=== PATIENT | female | born 2000 | race Caucasian/White ===

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

== ENCOUNTER 2020-04-09 10:47 | Outpatient (CLI) | payer MEDICAID, SELFPAY ==
[2020-04-10 15:16] LABS: COVID-19 RT-PCR UVMMC Result Positive (Negative)
== END 2020-04-09 11:07 ==
PROVIDERS: PCP Pediatrics; Visit Provider Pediatrics
DX: Z11.52 Encounter for screening for COVID-19 (principal)
CPT/HCPCS: U0003

== ENCOUNTER 2020-05-15 11:06 | Emergency (ER) | payer MEDICAID, SELFPAY ==
[2020-05-15 11:10] VITALS: BP 108/47; PULSE 133; RESP 16; TEMP 36.8; O2SAT 97
--- NOTE | 2020-05-15 11:37 | ED.GENADUL_ITS ---
Discharge Plan Disposition Patient Disposition: HOME Condition: Stable Discharge Details Clinical Impression: Strep tonsillitis Primary Care Provider: Kody Gipson ED Provider: Horacio Ramesh Home Meds and New Rx's Prescriptions: New clindamycin HCl 300 mg capsule 300 mg PO Q8H 10 Days Qty: 30 RF: 0 No Action acetaminophen 650 mg tablet extended release 650 mg PO QID RF: 0 albuterol sulfate [ProAir HFA] 8.5 GM HFA aerosol inhaler 2 puff Inhalation Q4H PRN Qty: 1 RF: 2 hydroxychloroquine [Plaquenil] 200 MG tablet 200 mg PO BID RF: 0 folic acid 1 MG tablet 1 mg PO DAILY RF: 0 cholecalciferol (vitamin D3) [Vitamin D3] 1,000 unit capsule 2,000 unit PO DAILY RF: 0 loratadine 10 mg tablet 10 mg PO DAILY PRN (Reason: allergy symptoms) Qty: 60 RF: 6 Mirena 20 mcg/24 hours (5 yrs) 52 mg Intrauterine Device 1 device INTRAUTERINE QMONTH RF: 0 Discharge Instructions Instructions: Tonsillitis (ED) Additional Instructions: Clindamycin as directed. Plenty of fluids to avoid dehydration. Salt water gargles as tolerated. [id number] medications such as Tylenol, Motrin, Chloraseptic spray, etc. as directed for symptomatic control. Please watch for new or worsening symptoms and return to the ER for any concerns. I do recommend reaching out your primary care provider on Sunday to discuss reevaluation. Medical Decision Making 19-year-old female presents for a sore throat that began yesterday, worsened overnight, fever of 102 today. Took Tylenol 500 mg prior to arrival. No other concerns or complaints at this time. Clinically she appears well, nontoxic. Of note her pulse after walking into exam room a was 133 however during my evaluation, patient was sitting, resting comfortably, heart rate of 102. Examinations consistent with tonsillitis, no obvious peritonsillar abscess, midline shift, or trismus. Rapid strep has already been obtained prior to my evaluation per protocol. Rapid strep positive. Patient will be given p.o. Decadron, clindamycin, and Motrin. Airway is patent. Patient able to take p.o. medications no difficulty. Patient has no additional questions or concerns and is comfortable discharge. Upon discharge she appears nontoxic. We discussed the importance of adequate hydration, treating her symptoms with [id number]-[id number] medications, and I will provide a prescription for clindamycin. Patient agreeable to this plan Medical Records Medical records reviewed: Yes I reviewed the patient's medical records. Lab Data Lab results reviewed: Yes I reviewed the patient's lab results. Lab results narrative: Rapid strep positive HPI General Mode of arrival: ambulatory . Date/Time Provider Initiated Documentation: 05/15/20 11:07 . Limitations to Documentation: no limitations . Information obtained by: patient . HPI Narrative: This is a 19-year-old female, past medical history of lupus, depression, presenting to the ER today reporting sore throat that began yesterday. She does state that she had tested positive for Covid on 04-09-20. Symptoms at that time of body aches and a dull headache. Symptoms lasted for approximately 7 days and she has been asymptomatic up until yesterday. Sore throat is bilateral, mild yesterday, more severe today. She noted a fever at home of 102, did take Tylenol 500 mg approximately 1 hour prior to arrival. She denies recent travel or sick contacts. Denies headache, ear pain, chest pain, shortness of breath abdominal pain, nausea, vomiting, body aches, change in bowel or bladder function. Patient reports that she is able to speak without difficulty. She is able to tolerate p.o. intake but swallowing d oes make her pain worse. Related Data Home Medications Medication Instructions Recorded Confirmed albuterol sulfate [ProAir HFA] 2 puff INHALATION Q4H PRN #1 02/20/17 05/15/20 inhaler hydroxychloroquine [Plaquenil] 200 mg PO BID tab-cap NS 05/21/17 05/15/20 folic acid 1 mg PO DAILY tab-cap 10/23/17 05/15/20 acetaminophen 650 mg 650 mg PO QID 04/18/18 05/15/20 tablet,extended release cholecalciferol (vitamin D3) 25 2,000 unit PO DAILY cap 04/18/18 05/15/20 mcg (1,000 unit) capsule levonorgestrel [Mirena] 1 device INTRAUTERINE QMONTH 01/04/19 05/15/20 loratadine 10 mg tablet 10 mg PO DAILY PRN #60 tab-cap 04/20/20 03/06/21 clindamycin HCl 300 mg PO Q8H 10 Days #30 cap 05/15/20 Previous Rx's Medication Instructions Recorded albuterol sulfate [ProAir HFA] 2 puff INHALATION Q4H PRN #1 02/20/17 inhaler loratadine 10 mg tablet 10 mg PO DAILY PRN #60 tab-cap 06/30/19 clindamycin HCl 300 mg PO Q8H 10 Days #30 cap 05/15/20 Allergies Allergy/AdvReac Type Severity Reaction Status Date / Time vancomycin Allergy Skin Rash Verified 05/08/19 09:40 meloxicam AdvReac Other (See Verified 05/08/19 09:40 Comment) naproxen AdvReac Other (See Verified 05/08/19 09:40 Comment) Seasonal Allergies Allergy Uncoded 05/08/19 09:40 General Stated Complaint: Sorethroat CORBY: 3 Review of Systems Constitutional Constitutional: Reports fever(s) and Denies headache(s) Eyes Eyes: Denies eye discharge ENT Ears, Nose, Mouth, and Throat: Denies otalgia, Denies headache(s), Denies nasal discharge, Denies neck pain and Reports sore throat Cardiovascular Cardiovascular: Denies chest pain and Denies dyspnea Respiratory Respiratory: Denies cough and Denies dyspnea Gastrointestinal Gastrointestinal: Denies abdominal pain, Denies nausea and Denies vomiting Genitourinary Genitourinary: Denies dysuria Musculoskeletal Musculoskeletal: Denies myalgias and Denies neck pain Integumentary/Breasts Skin/Breast: Denies rash Neurologic Neurologic: Denies headache(s) [facility] Medical History Acne Arthritis Polyarthritis Cyst resection Depression Lupus Pneumonia (07/31/03) Family History Grandfather Heart disease Mental disorder alcoholism Sister Mental disorder depression/anxiety Grandmother Mental disorder depression,anxiety Other Mental disorder pat uncle-alcoholism Seizure mat aunt and 3 cousins Father Mental disorder drinker-has [id number]- 1 year sober Grandfather Mental disorder alcoholism Social History Smoking/Tobacco Use Status: Never Smoking risk assessment performed?: Yes Alcohol Intake: never Drug use: Never Substance use type: does not use Do you feel safe at home: Yes Do you feel safe in your relationship?: Yes Female Reproductive History Menstrual control method: implanted Exam Const General: cooperative, healthy appearing, comfortable and no acute distress Orientation: alert and awake [facility] Head: normal to inspection, normocephalic and atraumatic Ears: external ears normal, TM's normal bilaterally and EAC's normal General nose exam: external nose normal and no nasal discharge Face and sinus: normal facial exam Mouth: oral mucosae normal and moist mucous membranes Teeth and gingiva: dentition normal Throat: uvula midline, abnormal tonsil bilaterally erythema, exudates and hypertrophy 2+ (Equal on both sides), no peritonsillar masses, posterior oropharynx abnormal erythema, no postnasal drainage, uvula not displaced and no uvular edema Eyes General: appearance normal, both eyes and all related structures Conjunctivae: conjunctivae normal Sclera: sclerae normal Neck Neck: normal visual inspection, full ROM, no meningeal signs, trachea midline, supple, lymphadenopathy bilateral anterior cervical and tender (Lymphadenopathy) Resp Effort & Inspection: normal respiratory effort and able to speak in complete sentences Auscultation: clear to auscultation bilaterally Cardio Rate: tachycardic (102) Rhythm: regular rhythm Skin General skin exam: no rashes or lesions noted Neuro General: patient alert, patient awake, moves all extremities and no focal motor deficits Cognition: normal cognition Speech: speech normal Gait: normal gait Sensory Exam: no sensory deficits noted Psych Appearance: grossly normal Mental Status: mental status grossly normal Course Vital Signs Vital signs: Vital Signs Temperature 36.8 C 05/15/20 11:10 Pulse 133 H 05/15/20 11:10 Respiratory Rate 16 05/15/20 11:10 Blood Pressure 108/47 L 05/15/20 11:10 Pulse Oximetry 97 05/15/20 11:10 Temperature 36.8 C 05/15/20 11:10 Temperature Source Skin 05/15/20 11:10 Pulse 133 H 05/15/20 11:10 Respiratory Rate 16 05/15/20 11:10 Respiratory Effort 05/15/20 11:19 Blood Pressure 108/47 L 05/15/20 11:10 Blood Pressure Position Sitting 05/15/20 11:10 Pulse Oximetry 97 05/15/20 11:10 Oxygen Delivery Method Room Air 05/15/20 11:10 Oxygen Flow Rate 0 05/15/20 11:10 Pain Level 7 05/15/20 11:10 Lab/Test Results Lab/Test Results: POC Strep Test-KELSEY(Rapid) Start: 05/15/20 11:23 Freq: .Rapid Strep Test Status: Active Protocol: Document 05/15/20 11:23 KS (Rec: 05/15/20 11:23 KS [id number]) Strep test-KELSEY(Rapid)-POC POC-Strep test-KELSEY (Rapid) Positive POC-Strep test-KELSEY (Rapid) Positive
[2020-05-15] MEDS: Dexamethasone 4 MG TAB 10 MG PO (11:49)
[2020-05-15] MEDS: Clindamycin 300 MG CAP PO (11:49)
[2020-05-15] MEDS: Ibuprofen 800 MG TAB PO (11:49)
[2020-05-15 11:50] VITALS: PULSE 98; RESP 15; O2SAT 98
== END 2020-05-15 11:16 | disposition home or self-care (01) ==
PROVIDERS: Emergency Provider Physician Assistant; PCP Pediatrics
DX: J03.00 Acute streptococcal tonsillitis, unspecified (principal)
CPT/HCPCS: 87880; 99283; J8540

== ENCOUNTER 2021-03-31 17:56 | Outpatient (REF) | payer MEDICAID, SELFPAY ==
[2021-04-02 15:40] LABS: COVID-19 RT-PCR UVMMC Result Negative (Negative)
== END 2021-03-31 17:57 | disposition home or self-care (01) ==
LOC: LBN 17:56
PROVIDERS: Visit Provider Pediatrics
DX: Z20.822 Contact with and (suspected) exposure to COVID-19 (principal)
CPT/HCPCS: U0003

== ENCOUNTER 2021-04-18 17:41 | Emergency (ER) | payer MEDICAID, SELFPAY ==
--- NOTE | 2021-04-18 17:45 | RT.EKG_ITS ---
APPROVED REPORT Exam: Resting ECG Reason for Exam: pu Patient Location: E HR:79 bpm ECG Measurements Heart Rate 79 AXIS SD 122 P 40 QRSd 88 QRS 53 QT 362 T 34 QTc 416 Conclusion Sinus rhythm...normal P axis, V-rate 60- 99
[2021-04-18 17:46] VITALS: BP 137/72; PULSE 80; RESP 18; TEMP 36.8; O2SAT 97
--- NOTE | 2021-04-18 18:15 | DI.RAD_ITS ---
Exam(s) XR PORTABLE CHEST AP EXAM: XR PORTABLE CHEST AP CLINICAL HISTORY: cough TECHNIQUE: 2D digital imaging was performed of the chest. One image was obtained. An AP view was ob tained. COMPARISON: CR RIGHT RIBS TO INCLUDE CXR from 09/21/2010 FINDINGS: MEDIASTINUM: Normal. HEART: Normal. PULMONARY VASCULATURE: Normal. LUNGS: Clear. PLEURAL SPACE: No pleural effusion or pneumothorax. BONE:Within normal limits for the patient's age. OTHER FINDINGS:Normal. IMPRESSION: No acute pulmonary findings. DATA REPOSITORY: RADIATION DOSE DELIVERED:
[2021-04-18 18:18] VITALS: PULSE 87; RESP 14
[2021-04-18 18:20] VITALS: PULSE 88; RESP 28; O2SAT 100
[2021-04-18 18:35] LABS: Abs Immature Grans 0.05 10^3/uL (0.0-0.06); Absolute Basophil Count 0.06 10^3/uL (0.0-0.2); Absolute Eosinophil Count 0.65 10^3/uL (0.0-0.7); Absolute Lymphocyte Count 2.73 10^3/uL (1.2-3.4); Absolute Neutrophil Count 9.18 10^3/uL (1.2-6.7); Basophils % 0.4; Eosinophils % 4.7; HGB 12.8 g/dL (11.2-15.7); Immature Grans % 0.4; Lymphocytes % 19.7; MCH 31.1 pg (27.0-33.0); MCHC 33.7 % (32.0-36.0); MCV 92.5 fL (80-95); MPV 9.5 fL (8.0-11.0); Monocytes % 8.5; Neutrophils % 66.3; Nucleated RBC 0 %; Platelet Count 393 10^3/uL (130-400); RBC 4.11 10^6/uL (3.93-5.22); RDW 13.1 % (11.7-14.6); RDW-SD 44.5 fL; WBC 13.84 10^3/uL (4.4-10.8)
[2021-04-18 18:37] LABS: Absolute Monocyte Count 1.18 10^3/uL (0.1-0.8)
[2021-04-18 18:47] LABS: ALT 37 U/L (14-59); AST 16 U/L (15-37); Albumin 3.9 g/dL (3.4-5.0); Alkaline Phosphatase 69 U/L (46-116); Anion Gap 13.5 mmol/L (3-11); BUN 19 mg/dL (7-18); Bilirubin, Total 0.3 mg/dL (0.2-1.0); CO2 23.5 mmol/L (21.0-32.0); CREATININE 0.8 mg/dL (0.55-1.02); Calcium 8.7 mg/dL (8.5-10.1); Chloride 102 mmol/L (98-107); Glucose 83 mg/dL (74-106); Potassium 3.7 mmol/L (3.5-5.1); Sodium 139 mmol/L (136-145); Total Protein 8.1 g/dL (6.4-8.2)
[2021-04-18] MEDS: Normal Saline 1,000 ML 1000 ML IV (18:51)
[2021-04-18 19:15] LABS: D-Dimer 478 ng/mlFEU (<500)
--- NOTE | 2021-04-18 19:25 | DI.VRAD_ITS ---
PROCEDURE INFORMATION: Exam: XR Chest Exam date and time: 04/18/2021 6:18 PM Age: 20 years old Clinical indication: Cough TECHNIQUE: Imaging protocol: XR of the chest. Views: 1 view. COMPARISON: No relevant prior studies available. FINDINGS: Lungs: Unremarkable. No consolidation. Pleural spaces: Unremarkable. No pleural effusion. No pneumothorax. Heart/Mediastinum: Unremarkable. No cardiomegaly. Bones/joints: Unremarkable. IMPRESSION: No acute findings. Dictated and Authenticated by: Alice Poole MD. Ordering:ANJEL Smith MD
--- NOTE | 2021-04-18 19:59 | W.ED.GENAD ---
Discharge Plan Disposition Patient Disposition: HOME Condition: Stable Discharge Details Clinical Impression: Pneumonia Primary Care Provider: Vanessa Mcginnis ED Provider: Luis Maza Home Meds and New Rx's Prescriptions: New doxycycline hyclate 100 mg capsule 100 mg PO BID Qty: 10 RF: 0 benzonatate 200 mg capsule 200 mg PO TID PRN (Reason: cough) Qty: 30 RF: 0 Continued sertraline [Zoloft] 100 mg tablet 100 mg PO DAILY Qty: 30 RF: 1 hydroxyzine HCl 50 mg tablet 50 mg PO QHS Qty: 30 RF: 1 multivitamin Tablet 1 tab PO DAILY RF: 0 cholecalciferol (vitamin D3) [Vitamin D3] 1,000 unit capsule 2,000 unit PO DAILY RF: 0 Mirena 20 mcg/24 hours (5 yrs) 52 mg Intrauterine Device 1 device INTRAUTERINE QMONTH RF: 0 Discharge Instructions Instructions: Pneumonia (ED) Additional Instructions: You are currently pending a send out Covid test. Due to this it is recommended that you quarantine until test results are available which is typically in 24 to 48 hours. Please stay well-hydrated and get plenty of rest. Take antibiotics as prescribed and if not improving in the next week follow-up with your primary care provider or return to emergency department. Referrals: Vanessa Mcginnis MD [Primary Care Provider] - 1 week (If not improving) Discharge Data Discharge Date/Time-TO BE ENTERED AT DEPARTURE: 04/18/21 20:18 Medical Decision Making Patient presenting to the emergency department for chief complaint of cold-like symptoms. Patient reports that these have been going on for a week and has been progressive. She reports worsening over the past days with increased cough, shortness of breath with activity, and pleuritic pain when coughing. Patient does state that she has taken to home Covid test which were negative and is fully vaccinated with a booster shot approximately 1 month ago. Physical exam shows mildly ill-appearing female with clear lung sounds, mild tonsillary erythema, dry cough that is exacerbated by deep breathing and otherwise unremarkable exam. Given patient's history of lupus plan to check labs including chest x-ray strep and Covid testing. Will give patient IV fluids pending results. Reviewed patient's results which at this time are nondiagnostic but does show slight elevation in WBCs neutrophils and monocytes. Patient's D-dimer is negative and labs shows slightly increased anion gap. Chest x-ray reviewed and shows no acute findings per radiologist which is consistent with clear lung sounds but at this time given patient reporting worsening cough and shortness of breath I am concerned for possible pneumonia versus Covid. Patient is stable for discharge so COVID test was send out testing and patient instructed on quarantine measures pending results. Patient placed on doxycycline and Tessalon Perles. After discussion of diagnosis and plan of care patient has no further needs, questions, or concerns and states clear understanding to return to the emergency department for any worsening symptoms. Patient to follow-up if not improving HPI General Mode of arrival: ambulatory. Date/Time Provider Initiated Documentation: 04/18/21 17:43. Limitations to Documentation: no limitations. Information obtained by: patient. History of Present Illness 20 year old F presents to the emergency department with the chief complaint of Cold symptoms, described as moderate, with intensity rated at 5. Quality is described as aching, and is localized to the chest. Patient reports no radiation. Patient started experiencing this week(s) (1) and it has been constant. No relieving factors improve symptom(s), No exacerbating factors reported . Patient did receive the following treatments prior to arrival, none Related Data Home Medications Medication Instructions Recorded Confirmed cholecalciferol (vitamin D3) 25 2,000 unit PO DAILY cap 04/18/18 04/18/21 mcg (1,000 unit) capsule Mirena 1 device INTRAUTERINE QMONTH 01/04/19 04/18/21 hydroxyzine HCl 50 mg tablet 50 mg PO QHS #30 tab 03/15/21 04/18/21 sertraline 100 mg tablet 100 mg PO DAILY #30 tab 03/15/21 04/18/21 multivitamin 1 tab PO DAILY 03/31/21 04/18/21 benzonatate 200 mg PO TID PRN #30 cap 04/18/21 doxycycline hyclate 100 mg PO BID #10 cap 04/18/21 Previous Rx's Medication Instructions Recorded hydroxyzine HCl 50 mg tablet 50 mg PO QHS #30 tab 03/15/21 sertraline 100 mg tablet 100 mg PO DAILY #30 tab 03/15/21 benzonatate 200 mg PO TID PRN #30 cap 04/18/21 doxycycline hyclate 100 mg PO BID #10 cap 04/18/21 Allergies Allergy/AdvReac Type Severity Reaction Status Date / Time vancomycin Allergy Skin Rash Verified 04/18/21 17:50 meloxicam AdvReac Other (See Verified 04/18/21 17:50 Comment) naproxen AdvReac Other (See Verified 04/18/21 17:50 Comment) Seasonal Allergies Allergy Uncoded 04/18/21 17:50 General Stated Complaint: GenMedical CORBY: 3 Review of Systems Constitutional Constitutional: Reports chills, Denies headache(s) and Reports malaise ENT Ears, Nose, Mouth, and Throat: Reports as per HPI, Denies ear discharge, Denies otalgia, Denies headache(s), Reports nasal congestion, Reports nasal discharge, Denies neck pain, Reports sore throat and Denies throat swelling Cardiovascular Cardiovascular: Denies chest pain and Reports dyspnea on exertion Respiratory Respiratory: Reports cough, Reports pain on inspiration, Reports pain with cough and Reports dyspnea on exertion Gastrointestinal Gastrointestinal: Denies diarrhea, Denies nausea and Denies vomiting Musculoskeletal Musculoskeletal: Denies joint swelling and Denies neck pain Integumentary/Breasts Skin/Breast: Denies rash Neurologic Neurologic: Denies headache(s) Allergic/Immunologic Allergic/Immunologic: Denies throat swelling PFSH All Active Problems Pneumonia (Acute) Arthritis (Chronic 10/23/17) Last seen at [facility] 10/2017. + FRANSISCA with negative JOHNY DNA binding completments. RF and CCP negative. Polyarthritis of wrists and knees. On methotrexate. Anxiety (Chronic) Trial Hydroxyzine 25 mg for sleep- inc to 50 mg; trial Zoloft 25 mg; referred to counseling services Polyarthritis (Chronic 03/22/17) symmetrical small joint- seen by [facility] rheumatology / rheumatoid arthritis- has f/u Medical History Hydradenitis (05/21/17) Multiple recurrent groin/axillary abscesses Insertion of implantable subdermal contraceptive (06/02/16) Vision problems Followed by [facility] Family History Grandfather Heart disease Mental disorder alcoholism Sister Mental disorder depression/anxiety Grandmother Mental disorder depression,anxiety Other Mental disorder pat uncle-alcoholism Seizure mat aunt and 3 cousins Father Mental disorder drinker-has [id number]- 1 year sober Grandfather Mental disorder alcoholism Social History Smoking/Tobacco Use Status: Never Smoking risk assessment performed?: Yes Alcohol Intake: never Drug use: Never Substance use type: does not use Adopted: No Foster care: No Household members: other Details: Lives with dad and step-mom; bio mom not in life since age 7y current occupation: Working at [employer] Sexually active: No Current gender identity: female What type of physical activity do you participate in: none Seatbelt use: always 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 Do you feel safe at home: Yes Do you feel safe in your relationship?: Yes Female Reproductive History Menstrual control method: implanted Exam Const General: cooperative, comfortable and no acute distress Orientation: alert and awake HENMT Head: normal to inspection, normocephalic and atraumatic Ears: hearing grossly normal bilaterally and TM's normal bilaterally General nose exam: external nose normal Face and sinus: no erythema and sinus tenderness ethmoid and maxillary Mouth: oral mucosae normal, no drooling, no muffled voice and no trismus Throat: abnormal tonsil bilaterally erythema and hypertrophy Neck Neck: normal visual inspection, full ROM, no lymphadenopathy, no meningeal signs, trachea midline and supple Resp Effort & Inspection: normal respiratory effort, able to speak in complete sentences and cough Quality of cough: dry Auscultation: clear to auscultation bilaterally Cardio Rate: regular rate Rhythm: regular rhythm Heart Sounds: S1 normal, S2 normal, normal S1 and S2, no click, no gallops, no murmurs and no rubs Skin General skin exam: no rashes or lesions noted and dry skin (warm) Neuro General: patient alert, patient awake, patient oriented x3, gait normal and moves all extremities Cognition: normal cognition Speech: speech normal Course Vital Signs Vital signs: Vital Signs Temperature 36.8 C 04/18/21 17:46 Pulse 80 04/18/21 17:46 Respiratory Rate 18 04/18/21 17:46 Blood Pressure 137/72 04/18/21 17:46 Pulse Oximetry 97 04/18/21 17:46 Temperature 36.8 C 04/18/21 17:46 Temperature Source Temporal Artery Scan 04/18/21 17:46 Pulse 80 04/18/21 17:46 Pulse 88 04/18/21 18:20 Respiratory Rate 28 H 04/18/21 18:20 Respiratory Effort 04/18/21 18:14 Blood Pressure 137/72 04/18/21 17:46 Blood Pressure Position Sitting 04/18/21 17:46 Pulse Oximetry 100 04/18/21 18:20 Oxygen Delivery Method Room Air 04/18/21 17:46 Oxygen Flow Rate 0 04/18/21 17:46 Lab/Test Results Lab/Test Results: 04/18/21 19:55 Tonsil - Not Specified Group A Streptococcus Culture - Pending Laboratory Tests Range/Units 04/18/21 04/18/21 04/18/21 18:15 18:15 18:15 WBC (4.4-10.8) 10^3/uL 13.84 H RBC (3.93-5.22) 10^6/uL 4.11 Hgb (11.2-15.7) g/dL 12.8 Hct (36.0-46.0) % 38.0 MCV (80-95) fL 92.5 MCH (27.0-33.0) pg 31.1 MCHC (32.0-36.0) % 33.7 RDW (11.7-14.6) % 13.1 Plt Count (130-400) 10^3/uL 393 MPV (8.0-11.0) fL 9.5 Immature Gran % 0.4 Neutrophils % 66.3 Lymphocytes % 19.7 Monocytes % 8.5 Eosinophils % 4.7 Basophils % 0.4 Nucleated RBC % % 0 Absolute Neutrophils (1.2-6.7) 10^3/uL 9.18 H Absolute Lymphocytes (1.2-3.4) 10^3/uL 2.73 Absolute Monocytes (0.1-0.8) 10^3/uL 1.18 H Absolute Eosinophils (0.0-0.7) 10^3/uL 0.65 Absolute Basophils (0.0-0.2) 10^3/uL 0.06 D-Dimer (<500) ng/mlFEU 478 Sodium (136-145) mmol/L 139 Potassium (3.5-5.1) mmol/L 3.7 Chloride (98-107) mmol/L 102 Carbon Dioxide (21.0-32.0) mmol/L 23.5 Anion Gap (3-11) mmol/L 13.5 H BUN (7-18) mg/dL 19 H Creatinine (0.55-1.02) mg/dL 0.8 Estimated GFR/1.73 m2 (mL/min/1.73m2) >= 60.00 Glucose (74-106) mg/dL 83 Calcium (8.5-10.1) mg/dL 8.7 Total Bilirubin (0.2-1.0) mg/dL 0.3 AST (15-37) U/L 16 ALT (14-59) U/L 37 Alkaline Phosphatase (46-116) U/L 69 Total Protein (6.4-8.2) g/dL 8.1 Albumin (3.4-5.0) g/dL 3.9 POC- Test(urine) Negative POC Strep Test-KELSEY(Rapid) Start: 04/18/21 18:15 Freq: .Rapid Strep Test Status: Active Protocol: Document 04/18/21 19:28 AISLINN (Rec: 04/18/21 19:49 AISLINN [id number]) Strep test-KELSEY(Rapid)-POC POC-Strep test-KELSEY (Rapid) Negative POC-Strep test-KELSEY (Rapid) Negative
[2021-04-18] MEDS: Doxycycline Hyclate 100 MG CAP PO (20:15)
[2021-04-20 14:34] LABS: COVID-19 RT-PCR UVMMC Result Negative (Negative)
== END 2021-04-18 20:18 | disposition home or self-care (01) ==
PROVIDERS: Emergency Provider Nurse Practitioner Family
DX: J18.9 Pneumonia, unspecified organism (principal); R05.1 Acute cough; R06.02 Shortness of breath; D72.829 Elevated white blood cell count, unspecified; Z20.822 Contact with and (suspected) exposure to COVID-19
CPT/HCPCS: 36415; 80053; 81025; 87880; 93005; 96360; 99284; U0003; 71045; 85025; 85379; 87081; 93010

== ENCOUNTER 2021-07-02 18:29 | Emergency (ER) | payer MEDICAID, SELFPAY ==
[2021-07-02 18:34] VITALS: BP 135/75; PULSE 70; RESP 16; TEMP 37
--- NOTE | 2021-07-02 20:17 | ED.GENADUL_ITS ---
Discharge Plan Disposition Patient Disposition: HOME Condition: Stable Discharge Details Clinical Impression: Mastitis Primary Care Provider: Vanessa Mcginnis ED Provider: Horacio Ramesh Home Meds and New Rx's Prescriptions: New sulfamethoxazole-trimethoprim [Bactrim DS] 800-160 mg tablet 1 tab PO BID Qty: 20 0RF Continued sertraline [Zoloft] 100 mg tablet 100 mg PO DAILY Qty: 30 1RF sertraline [Zoloft] 25 mg tablet 25 mg PO DAILY Qty: 30 1RF multivitamin Tablet 1 tab PO DAILY 0RF cholecalciferol (vitamin D3) [Vitamin D3] 1,000 unit capsule 2,000 unit PO DAILY 0RF hydroxyzine HCl 50 mg tablet See Rx Instructions .ROUTE .COMPLEX Qty: 30 1RF Dose Instruction: TAKE 1 TABLET BY MOUTH EVERY NIGHT AT BEDTIME Rx Instructions: TAKE 1 TABLET BY MOUTH EVERY NIGHT AT BEDTIME Mirena 20 mcg/24 hours (5 yrs) 52 mg Intrauterine Device 1 device INTRAUTERINE QMONTH 0RF Discharge Instructions Instructions: Mastitis (ED) Additional Instructions: Bactrim as directed. [id number] Tylenol and/or Motrin as directed for discomfort. Cool and/or warm compresses every 2 hours for 20 minutes. Please watch for new or worsening symptoms and return to the ER for any concerns. L astly, reach out to your primary care provider on Sunday to discuss your ER visit and need for outpatient reevaluation. Medical Decision Making 20-year-old female, past medical history of lupus, cellulitis x2, presents for a slightly painful rash across both of her breast that she noticed approximately 8 hours ago. Patient states that she has not been sexually active for at least several months, no chance of . No rash elsewhere on her body. No fever. No known environmental exposures. She has not taken any ajcq-koj-[id number] medications for symptomatic control. Examination is most consistent with mastitis. We will give a single dose of Bactrim now and provide a prescription. Standard discharge and return precautions were provided. We discussed the importance of outpatient primary care follow-up either Sunday or Sunday. This documentation was generated using [employer] system, please disregard any oddities of phrase or misspellings. Medical Records Medical records reviewed: Yes I reviewed the patient's medical records. HPI General Mode of arrival: ambulatory . Date/Time Provider Initiated Documentation: 07/02/21 19:46 . Limitations to Documentation: no limitations . Information obtained by: patient . History of Present Illness 20 year old F pr esents to the emergency department with the chief complaint of bilat breast infection, described as mild, with intensity rated at 3. Quality is described as aching, and is localized to the chest. Patient reports no radiation. Patient started experiencing this hour(s) (8) and it has been constant. improves with No relieving factors improve symptom(s), No exacerbating factors reported . Patient notes no other symptoms.. Patient did receive the following treatments prior to arrival, none Related Data Home Medications Medication Instructions Recorded Confirmed cholecalciferol (vitamin D3) 25 2,000 unit PO DAILY cap 04/18/18 07/02/21 mcg (1,000 unit) capsule (Vitamin D3) levonorgestrel 20 mcg/24 hours (7 1 device INTRAUTERINE QMONTH 01/04/19 07/02/21 yrs) 52 mg intrauterine device (Mirena) sertraline 100 mg tablet (Zoloft) 100 mg PO DAILY #30 tab 03/15/21 07/02/21 multivitamin 1 tab PO DAILY 03/31/21 07/02/21 sertraline 25 mg tablet (Zoloft) 25 mg PO DAILY #30 tab 04/26/21 07/02/21 hydroxyzine HCl 50 mg tablet See Rx Instructions .ROUTE 05/23/21 07/02/21 .COMPLEX #30 tab sulfamethoxazole 800 1 tab PO BID #20 tab 07/02/21 mg-trimethoprim 160 mg tablet (Bactrim DS) Previous Rx's Medication Instructions Recorded sertraline 100 mg tablet (Zoloft) 100 mg PO DAILY #30 tab 03/15/21 sertraline 25 mg tablet (Zoloft) 25 mg PO DAILY #30 tab 04/26/21 hydroxyzine HCl 50 mg tablet See Rx Instructions .ROUTE 05/23/21 .COMPLEX #30 tab sulfamethoxazole 800 1 tab PO BID #20 tab 07/02/21 mg-trimethoprim 160 mg tablet (Bactrim DS) Allergies Allergy/AdvReac Type Severity Reaction Status Date / Time vancomycin Allergy Skin Rash Verified 07/02/21 19:36 meloxicam AdvReac Other (See Verified 07/02/21 19:36 Comment) naproxen AdvReac Other (See Verified 07/02/21 19:36 Comment) Seasonal Allergies Allergy Uncoded 07/02/21 19:36 General Stated Complaint: RashLesion CORBY: 4 Review of Systems Constitutional Constitutional: Denies fever(s) and Denies weakness Cardiovascular Cardiovascular: Denies chest pain Musculoskeletal Musculoskeletal: Denies arthralgias, Denies numbness and Denies tingling Integumentary/Breasts Skin/Breast: Reports erythema Neurologic Neurologic: Denies numbness, Denies tingling and Denies weakness [facility] All Active Problems (Updated 07/02/21 @ 20:43 by UNRULY Escobar) Mastitis (Acute) Arthritis (Chronic 10/23/17) Last seen at [facility] 10/2017. + FRANSISCA with negative JOHNY DNA binding completments. RF and CCP negative. Polyarthritis of wrists and knees. On methotrexate. Anxiety (Chronic) Trial Hydroxyzine 25 mg for sleep- inc to 50 mg; trial Zoloft 25 mg; referred to counseling services Polyarthritis (Chronic 03/22/17) symmetrical small joint- seen by [facility] rheumatology / rheumatoid arthritis- has f/u Medical History Hydradenitis (05/21/17) Multiple recurrent groin/axillary abscesses Insertion of implantable subdermal contraceptive (06/02/16) Vision problems Followed by [facility] Family History Grandfather Heart disease Mental disorder alcoholism Sister Mental disorder depression/anxiety Grandmother Mental disorder depression,anxiety Other Mental disorder pat uncle-alcoholism Seizure mat aunt and 3 cousins Father Mental disorder drinker-has [id number]- 1 year sober Grandfather Mental disorder alcoholism Social History Smoking/Tobacco Use Status: Never Smoking risk assessment performed?: Yes Alcohol Intake: never Drug use: Never Substance use type: does not use Adopted: No Foster care: No Household members: other Details: Lives with dad and step-mom; bio mom not in life since age 7y current occupation: Working at [employer] Sexually active: No Current gender identity: female What type of physical activity do you participate in: none Seatbelt use: always Drive intox or ride w/intox limo driver: No Do you feel safe at home: Yes Do you feel safe in your relationship?: Yes Female Reproductive History Menstrual control method: implanted Exam Const General: cooperative, healthy appearing, comfortable and no acute distress Orientation: alert and awake [facility] Head: normal to inspection, normocephalic and atraumatic Face and sinus: normal facial exam Mouth: moist mucous membranes Eyes General: appearance normal, both eyes and all related structures Conjunctivae: conjunctivae normal Neck Neck: normal visual inspection, full ROM, no meningeal signs, trachea midline and supple Chest Breast inspection: normal inspection of the axillae and abnormal inspection of the breast Breast palpation: normal palpation of the axillae and no axillary lymphadenopathy Chest/axillae images: 1. Macular erythema, slightly warm and tender to palpation. There is no induration or fluctuance. There is no abscess. No drainage from the nipple. No lymphangitic streaking 2. Macular erythema, slightly warm and tender to palpation. There is no induration or fluctuance. There is no abscess. No drainage from the nipple. No lymphangitic streaking Resp Effort & Inspection: normal respiratory effort and able to speak in complete sentences Cardio Rate: regular rate Rhythm: regular rhythm GI Inspection: normal to inspection Palpation: soft and nontender Back/Spine/Pelvis Back: No back tenderness Skin General skin exam: no rashes or lesions noted (Unremarkable other than stated above) Neuro General: patient alert, patient awake, moves all extremities and no focal motor deficits Cognition: normal cognition Speech: speech normal Sensory Exam: no sensory deficits noted Extrem General: normal to inspection and full ROM Psych Appearance: grossly normal Mental Status: mental status grossly normal Course Vital Signs Vital signs: Vital Signs Temperature 37 C 07/02/21 18:34 Pulse 70 07/02/21 18:34 Respiratory Rate 16 07/02/21 18:34 Blood Pressure 135/75 07/02/21 18:34 Temperature 37 C 07/02/21 18:34 Temperature Source Skin 07/02/21 18:34 Pulse 70 07/02/21 18:34 Respiratory Rate 16 07/02/21 18:34 Respiratory Effort 07/02/21 19:33 Blood Pressure 135/75 07/02/21 18:34 Blood Pressure Position Sitting 07/02/21 18:34 Oxygen Delivery Method Room Air 07/02/21 18:34 Oxygen Flow Rate 0 07/02/21 18:34 Pain Level 8 07/02/21 18:34
[2021-07-02] MEDS: Sulfameth/Trimeth DS TAB 1 TAB PO (20:40)
== END 2021-07-02 21:01 | disposition home or self-care (01) ==
PROVIDERS: Emergency Provider Physician Assistant
DX: N61.0 Mastitis without abscess (principal)
CPT/HCPCS: 99283

== ENCOUNTER 2021-09-11 15:07 | Emergency (ER) | payer MEDICAID, SELFPAY ==
[2021-09-11 16:07] VITALS: BP 124/76; PULSE 89; RESP 16; TEMP 37.1; O2SAT 100
--- NOTE | 2021-09-11 16:43 | ED.GENADUL_ITS ---
Discharge Plan Disposition Patient Disposition: HOME Condition: Stable Discharge Details Clinical Impression: UTI (urinary tract infection) Primary Care Provider: Vanessa Mcginnis ED Provider: Sharri Powers Home Meds and New Rx's Prescriptions: New cephalexin 500 mg tablet 500 mg PO BID 7 Days Qty: 14 0RF phenazopyridine [Pyridium] 100 mg tablet 100 mg PO TID PRN (Reason: pain) Qty: 6 0RF Rx Instructions: Take 3 times daily as needed for burning. This will turn your urine bright orange and may stain your clothes. No Action multivitamin Tablet 1 tab PO DAILY sertraline [Zoloft] 50 mg tablet 50 mg PO DAILY Qty: 60 2RF sertraline [Zoloft] 100 mg tablet 100 mg PO DAILY Qty: 60 2RF hydroxyzine HCl 50 mg tablet See Rx Instructions .ROUTE .COMPLEX Qty: 90 2RF Rx Instructions: Take 1 and 1/2 tab by mouth (75 mg) once daily at Bedtime Mirena 20 mcg/24 hours (5 yrs) 52 mg Intrauterine Device 1 device INTRAUTERINE QMONTH Discharge Instructions Instructions: Urinary Tract Infection in Women (ED) Additional Instructions: At this time it appears you have a urinary tract infection. Please take the antibiotics twice daily as directed with food or. Take with yogurt or probiotic. Take Pyridium as needed for burning. This may turn your urine bright orange and stain your clothes. Follow up with primary care provider in 3-5 days. Return to ED sooner if any worsening or concerns. Increase oral fluids. Please take Tylenol or Ibuprofen with food every 4-6 hours as needed for pain and swelling. Referrals: Vanessa Mcginnis MD [Primary Care Provider] - 5 days Medical Decision Making 21-year-old female presents to the ER with chief complaint of dysuria, hesitancy and frequency and lower back pain which is gradually gotten worse the last couple of days. She reports she did notice some lower back pain on the . She denies any nausea vomiting she does endorse diarrhea. Denies any vaginal discharge or bleeding. She does have an IUD denies any fever. She has not been on any antibiotics last few months. Denies any heavy lifting or trauma. Urinalysis ordered by nurse staff community health in triage. UA shows 30 protein trace blood, small leukocytes 3-5 RBCs greater than 50 WBCs culture is pending at this time. Will place patient on cephalexin and Pyridium have patient follow-up with PCP. Lab Data Lab results reviewed: Yes I reviewed the patient's lab results. Labs: 09/11/21 16:35 Urine - Reflex from Ua Urine Culture - Pending Laboratory Tests Range/Units 09/11/21 16:35 Urine Color (Yellow) Yellow Urine Clarity (Clear) Sl Cloudy Urine pH (5-8) 7.0 Ur Specific [place] (1.005-1.025) 1.025 Urine Protein (Negative) mg/dL 30 H Urine Ketones (Negative) mg/dL Negative Urine Blood (Negative) Trace-intact H Urine Nitrite (Negative) Negative Urine Bilirubin (Negative) Negative Urine Urobilinogen (Up TO 0.2) EU/dL 0.2 Ur Leukocyte Esterase (Negative) Small H Urine RBC (0-2) HPF 3-5 H Urine WBC (0-5) HPF >50 H Ur Epithelial Cells (Negative) HPF Few Urine Crystals (Negative) HPF Negative Urine Bacteria (Negative) HPF Few Urine Mucus (Negative) Moderate Urine Other (Negative) Few Renal Ur Culture Indicated? Yes Urine Glucose (Negative) mg/dL Negative HPI General Mode of arrival: ambulatory . Date/Time Provider Initiated Documentation: 09/11/21 15:11 . Limitations to Documentation: no limitations . Information obtained by: patient, RN notes reviewed and old records reviewed . HPI Narrative: 21-year-old female presents to the ER with chief complaint of dysuria, hesitancy and frequency and lower back pain which is gradually gotten worse the last couple of days. She reports she did notice some lower back pain on the . She denies any nausea vomiting she does endorse diarrhea. Denies any vaginal discharge or bleeding. She does have an IUD denies any fever. She has not been on any antibiotics last few months. Denies any heavy lifting or trauma. Related Data Home Medications Medication Instructions Recorded Confirmed levonorgestrel 20 mcg/24 hours (7 1 device intrauterine QMONTH 01/04/19 09/11/21 yrs) 52 mg intrauterine device (Mirena) multivitamin 1 tab PO DAILY 03/31/21 09/11/21 hydroxyzine HCl 50 mg tablet See Rx Instructions .Route 09/08/21 09/11/21 .COMPLEX #90 tabs sertraline 100 mg tablet (Zoloft) 100 mg PO DAILY #60 tabs 09/08/21 09/11/21 sertraline 50 mg tablet (Zoloft) 50 mg PO DAILY #60 tabs 09/08/21 09/11/21 cephalexin 500 mg tablet 500 mg PO BID 7 days #14 tabs 09/11/21 phenazopyridine 100 mg tablet 100 mg PO TID PRN pain 6 doses #6 09/11/21 (Pyridium) tabs Previous Rx's Medication Instructions Recorded hydroxyzine HCl 50 mg tablet See Rx Instructions .Route 09/08/21 .COMPLEX #90 tabs sertraline 100 mg tablet (Zoloft) 100 mg PO DAILY #60 tabs 09/08/21 sertraline 50 mg tablet (Zoloft) 50 mg PO DAILY #60 tabs 09/08/21 cephalexin 500 mg tablet 500 mg PO BID 7 days #14 tabs 09/11/21 phenazopyridine 100 mg tablet 100 mg PO TID PRN pain 6 doses #6 09/11/21 (Pyridium) tabs Allergies Allergy/AdvReac Type Severity Reaction Status Date / Time vancomycin Allergy Skin Rash Verified 09/11/21 16:11 meloxicam AdvReac mouth sores Verified 09/11/21 16:11 naproxen AdvReac mouth sores Verified 09/11/21 16:11 Seasonal Allergies Allergy Uncoded 09/11/21 16:11 General Stated Complaint: Urinary CORBY: 3 Review of Systems All systems reviewed & are unremarkable except as noted in HPI and below Gastrointestinal Gastrointestinal: Reports as per HPI and Reports abdominal pain Genitourinary Genitourinary: Denies abnormal menses, Reports dysuria, Reports urinary hesitancy and Reports urinary urgency PFSH All Active Problems (Updated 09/11/21 @ 17:11 by Sharri Powers NP) UTI (urinary tract infection) (Acute) Plantar fasciitis (Chronic) Splints given by rheumatology Anxiety (Chronic) Hydroxyzine 75 mg QHS; Zoloft 150 mg; referred to counseling services Polyarthritis (Chronic 03/22/17) Most recent visit in Apr 2021; no biologics or immunosuppressant medication; just Motrin 600 mg twice daily; Will get US of hands/feet joints- scheduled for Oct 18 2021 Medical History (Updated 09/11/21 @ 17:11 by Sharri Powers NP) Hydradenitis (05/21/17) Multiple recurrent groin/axillary abscesses Insertion of implantable subdermal contraceptive (06/02/16) Vision problems Followed by [facility] Family History Grandfather Heart disease Mental disorder alcoholism Sister Mental disorder depression/anxiety Grandmother Mental disorder depression,anxiety Other Mental disorder pat uncle-alcoholism Seizure mat aunt and 3 cousins Father Mental disorder drinker-has [id number]- 1 year sober Grandfather Mental disorder alcoholism Social History Smoking/Tobacco Use Status: Never Smoking risk assessment performed?: Yes Alcohol Intake: never Drug use: Never Substance use type: does not use Adopted: No Foster care: No Household members: other Details: Lives with dad and step-mom; bio mom not in life since age 7y current occupation: Working at [employer] Sexually active: No Current gender identity: female What type of physical activity do you participate in: none Seatbelt use: always Drive intox or ride w/intox backhaul driver: No Do you feel safe at home: Yes Do you feel safe in your relationship?: Yes Female Reproductive History Menstrual control method: implanted Exam Narrative Exam Narrative: Constitutional: Alert and oriented x3. Appears stated age. Normal body habitus. Head: Normocephalic, no trauma. Eyes: Pupils PERRL, Red reflex noted, EOM's intact. Eyelids symmetrical without lesions, discharge, or swelling. ENT: Bilateral TM's WNL, External ear normal to inspection, no mastoid TTP, swelling, or erythema, Nasal turbinates WNL, no nasal discharge. Normal dentition, Posterior pharynx WNL, no exudate. Chest: RRR, Normal S1, S2, distal pulses intact. Resp: Lungs clear to auscultation bilaterally, no wheezes, rales, or rhonchi. Abdomen: Soft, non-distended, Normoactive bowel sounds all 4 quads. Musculoskeletal: Normal gait, 5/5 strength to all four extremities. Skin: No suspicious rashes or lesions. Capillary refill less than 2 sec. Neurologic: Cranial nerves II-XII intact. Alert and oriented x 3. Motor: No def icits noted. Sensory: Intact bilaterally all 4 extremities. Reflexes: DTR's intact bilaterally.. Hematologic/Lymphatic: No ecchymosis, no lymphadenopathy. Course Vital Signs Vital signs: Vital Signs Temperature 37.1 C 09/11/21 16:07 Pulse 89 09/11/21 16:07 Respiratory Rate 16 09/11/21 16:07 Blood Pressure 124/76 09/11/21 16:07 Pulse Oximetry 100 09/11/21 16:07 Temperature 37.1 C 09/11/21 16:07 Temperature Source Temporal Artery Scan 09/11/21 16:07 Pulse 89 09/11/21 16:07 Respiratory Rate 16 09/11/21 16:07 Respiratory Effort 09/11/21 16:13 Blood Pressure 124/76 09/11/21 16:07 Blood Pressure Position Sitting 09/11/21 16:07 Pulse Oximetry 100 09/11/21 16:07 Oxygen Delivery Method Room Air 09/11/21 16:07 Oxygen Flow Rate 0 09/11/21 16:07
[2021-09-11 16:45] LABS: Bilirubin Negative (Negative); Blood Trace-intact (Negative); Clarity Sl Cloudy (Clear); Glucose Negative (Negative); Ketones Negative (Negative); Leukocyte Esterase Small (Negative); Nitrite Negative (Negative); Specific Gravity 1.025 (1.005-1.025); Urobilinogen 0.2 EU/dL (Up TO 0.2)
[2021-09-11 16:53] LABS: Bacteria Few HPF (Negative); C & S Indicated? Yes; Crystals Negative HPF (Negative); Epithelial Cells Few HPF (Negative); Mucus Moderate (Negative); Other Cells Few Renal (Negative); WBC >50 HPF (0-5)
== END 2021-09-11 17:45 | disposition home or self-care (01) ==
PROVIDERS: Emergency Medicine; Emergency Provider Registered Nurse Emergency
DX: N39.0 Urinary tract infection, site not specified (principal); B95.7 Other staphylococcus as the cause of diseases classified elsewhere
CPT/HCPCS: 87077; 99283; 81003; 81015; 87086; 87186; 99284

== ENCOUNTER 2021-10-08 23:23 | Emergency (ER) | payer MEDICAID, SELFPAY ==
[2021-10-08 23:28] VITALS: BP 138/78; PULSE 84; RESP 12; TEMP 36.8; O2SAT 100
--- NOTE | 2021-10-09 | W.ED.GENAD ---
Discharge Plan Disposition Patient Disposition: HOME Condition: Stable Discharge Details Clinical Impression: Deliberate self-cutting Primary Care Provider: Unknown,Unknown ED Provider: Pepito Garcia Home Meds and New Rx's Prescriptions: Continued multivitamin Tablet 1 tab PO DAILY sertraline [Zoloft] 50 mg tablet 50 mg PO DAILY Qty: 60 2RF sertraline [Zoloft] 100 mg tablet 100 mg PO DAILY Qty: 60 2RF hydroxyzine HCl 50 mg tablet See Rx Instructions .ROUTE .COMPLEX Qty: 90 2RF Rx Instructions: Take 1 and 1/2 tab by mouth (75 mg) once daily at Bedtime phenazopyridine [Pyridium] 100 mg tablet 100 mg PO TID PRN (Reason: pain) Qty: 6 0RF Rx Instructions: Take 3 times daily as needed for burning. This will turn your urine bright orange and may stain your clothes. Mirena 20 mcg/24 hours (5 yrs) 52 mg Intrauterine Device 1 device INTRAUTERINE QMONTH Discharge Instructions Additional Instructions: Follow up with [facility] gently clean your wound twice a day or if it gets dirty with water and hand soap if you feel more ill, have thoughts of self harm and can't reach [facility] return to the emergency department Medical Decision Making 21 yo female with hx of depression comes in after she used a razor blade to cut her left posterior forearm. She did this tonight and states she did it because she was upset. She states she has been feeling sad but denies having any thoughts to try and kill herself and no thoughts of harming others. She arrives with a stable gait, caox4 with clear speech. she has superficial abrasions to the left posterior forearm, no other injuries and full rom of the arms. She denies alcohol or drug use and is clinically sober. She has no findings on exam or history to suggest underlying medical process so do not feel labs or imaging indicated, medically cleared to see [facility]. seen by mental health who feels she is safe for d/c and I agree, still no si/hi. They are going to call her for a check in later today. Return precautions given Differential Diagnosis Differential Diagnosis: depression, self cutting Medical Records Medical records reviewed: Yes I reviewed the patient's medical records. HPI General Mode of arrival: ambulatory. Date/Time Provider Initiated Documentation: 10/08/21 23:33. Limitations to Documentation: no limitations. Information obtained by: patient. History of Present Illness 21 year old F presents to the emergency department with the chief complaint of cut herself, described as moderate, and it has been constant. No relieving factors improve symptom(s), No exacerbating factors reported . Patient did receive the following treatments prior to arrival, none Related Data Home Medications Medication Instructions Recorded Confirmed levonorgestrel 20 mcg/24 hours (7 1 device intrauterine QMONTH 01/04/19 10/08/21 yrs) 52 mg intrauterine device (Mirena) multivitamin 1 tab PO DAILY 03/31/21 10/08/21 hydroxyzine HCl 50 mg tablet See Rx Instructions .Route 09/08/21 10/08/21 .COMPLEX #90 tabs sertraline 100 mg tablet (Zoloft) 100 mg PO DAILY #60 tabs 09/08/21 10/08/21 sertraline 50 mg tablet (Zoloft) 50 mg PO DAILY #60 tabs 09/08/21 10/08/21 phenazopyridine 100 mg tablet 100 mg PO TID PRN pain 6 doses #6 09/11/21 10/08/21 (Pyridium) tabs Previous Rx's Medication Instructions Recorded hydroxyzine HCl 50 mg tablet See Rx Instructions .Route 09/08/21 .COMPLEX #90 tabs sertraline 100 mg tablet (Zoloft) 100 mg PO DAILY #60 tabs 09/08/21 sertraline 50 mg tablet (Zoloft) 50 mg PO DAILY #60 tabs 09/08/21 phenazopyridine 100 mg tablet 100 mg PO TID PRN pain 6 doses #6 09/11/21 (Pyridium) tabs Allergies Allergy/AdvReac Type Severity Reaction Status Date / Time vancomycin Allergy Skin Rash Verified 09/11/21 16:11 meloxicam AdvReac mouth sores Verified 09/11/21 16:11 naproxen AdvReac mouth sores Verified 09/11/21 16:11 Seasonal Allergies Allergy Uncoded 09/11/21 16:11 General Stated Complaint: PsychEval CORBY: 3 Review of Systems All systems reviewed & are unremarkable except as noted in HPI and below Constitutional Constitutional: Denies chills, Denies fever(s) and Denies weakness Cardiovascular Cardiovascular: Denies chest pain and Denies dyspnea Respiratory Respiratory: Denies cough and Denies dyspnea Gastrointestinal Gastrointestinal: Denies abdominal pain, Denies nausea and Denies vomiting Genitourinary Genitourinary: Denies dysuria Musculoskeletal Musculoskeletal: Denies joint swelling Integumentary/Breasts Skin/Breast: Denies rash Neurologic Neurologic: Denies weakness PFSH All Active Problems (Updated 10/09/21 @ 00:57 by Pepito Garcia MD) UTI (urinary tract infection) (Acute) Deliberate self-cutting (Acute) Plantar fasciitis (Chronic) Splints given by rheumatology Anxiety (Chronic) Hydroxyzine 75 mg QHS; Zoloft 150 mg; referred to counseling services Polyarthritis (Chronic 03/22/17) Most recent visit in Apr 2021; no biologics or immunosuppressant medication; just Motrin 600 mg twice daily; Will get US of hands/feet joints- scheduled for Oct 18 2021 Medical History (Updated 10/09/21 @ 00:57 by Pepito Garcia MD) Hydradenitis (05/21/17) Multiple recurrent groin/axillary abscesses Insertion of implantable subdermal contraceptive (06/02/16) Vision problems Followed by [facility] Family History Grandfather Heart disease Mental disorder alcoholism Sister Mental disorder depression/anxiety Grandmother Mental disorder depression,anxiety Other Mental disorder pat uncle-alcoholism Seizure mat aunt and 3 cousins Father Mental disorder drinker-has [id number]- 1 year sober Grandfather Mental disorder alcoholism Social History Smoking/Tobacco Use Status: Never Smoking risk assessment performed?: Yes Alcohol Intake: current Drug use: Never Substance use type: does not use Adopted: No Foster care: No Household members: other Details: Lives with dad and step-mom; bio mom not in life since age 7y current occupation: Working at [employer] Sexually active: No Current gender identity: female What type of physical activity do you participate in: none Seatbelt use: always 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 Do you feel safe at home: Yes Do you feel safe in your relationship?: Yes Female Reproductive History Menstrual control method: implanted Exam Const General: no acute distress Orientation: alert HENMT Head: normal to inspection Ears: external ears normal General nose exam: external nose normal Mouth: moist mucous membranes Eyes General: appearance normal, both eyes and all related structures Neck Neck: normal visual inspection Resp Effort & Inspection: normal respiratory effort and able to speak in complete sentences Cardio Rate: regular rate Skin General skin exam: no rashes or lesions noted Neuro General: patient alert and patient oriented x3 Extrem General: full ROM Psych Mental Status: mental status grossly normal Course Vital Signs Vital signs: Vital Signs Temperature 36.8 C 10/08/21 23:28 Pulse 84 10/08/21 23:28 Respiratory Rate 12 10/08/21 23:28 Blood Pressure 138/78 10/08/21 23:28 Pulse Oximetry 100 10/08/21 23:28 Temperature 36.8 C 10/08/21 23:28 Temperature Source Temporal Artery Scan 10/08/21 23:28 Pulse 84 10/08/21 23:28 Respiratory Rate 12 10/08/21 23:28 Respiratory Effort 10/08/21 23:38 Blood Pressure 138/78 10/08/21 23:28 Blood Pressure Position Sitting 10/08/21 23:28 Pulse Oximetry 100 10/08/21 23:28 Oxygen Delivery Method Room Air 10/08/21 23:28 Oxygen Flow Rate 0 10/08/21 23:28 Pain Level 7 10/08/21 23:28 Comment 10/08/21 23:28 PAWSS Have you Been Recently Intoxicated or Drunk Within the Last 30 days?: No Have you Ever Experienced Previous Episodes of Alcohol Withdrawal?: No Have you ever Experienced Withdrawal Seizures?: No Have you ever Experienced Delirium Tremens(DT)s?: No Have you ever undergone Alcohol Rehabilitation Treatment (i.e, inpt ot outpatient treatment programs)?: No Have you ever Experienced Blackouts?: No Have you ever Combined Alcohol with other Downers within the last 90 days?: No Have you ever Combined Alcohol with any other Substance of Abuse during the last 90 days?: No Positive Blood Alcohol level on Presentation? [PCS.BAL]: No Evidence of Increased Autonomic Activity (i.e. HR>120, tremor, sweating, agitation, nausea)?: No Result: 0
[2021-10-09] MEDS: Bacitracin 1 PACKET (01:11)
== END 2021-10-09 01:15 | disposition home or self-care (01) ==
PROVIDERS: Emergency Provider Emergency Medicine
DX: S50.812A Abrasion of left forearm, initial encounter (principal); X78.8XXA Intentional self-harm by other sharp object, initial encounter
CPT/HCPCS: 81025; 99285

== ENCOUNTER 2021-11-22 17:37 | Emergency (ER) | payer MEDICAID, SELFPAY ==
[2021-11-22 17:40] VITALS: BP 130/76; PULSE 79; RESP 16; TEMP 36.8; O2SAT 100
[2021-11-22] MEDS: Fluorescein STRIPS 100/BOX 1 MG OP (17:59)
[2021-11-22] MEDS: Balanced Salt Solution 15 ML BTL OP (17:59)
[2021-11-22] MEDS: Tetracaine 0.5% 4 ML BTL OP (17:59)
--- NOTE | 2021-11-22 18:27 | W.ED.GENAD ---
Discharge Plan Disposition Patient Disposition: HOME Condition: Stable Discharge Details Clinical Impression: Right eye injury Primary Care Provider: Unknown,Unknown ED Provider: Luis Maza Home Meds and New Rx's Prescriptions: No Action multivitamin Tablet 1 tab PO DAILY sertraline [Zoloft] 50 mg tablet 50 mg PO DAILY Qty: 60 2RF sertraline [Zoloft] 100 mg tablet 100 mg PO DAILY Qty: 60 2RF hydroxyzine HCl 50 mg tablet See Rx Instructions .ROUTE .COMPLEX Qty: 90 2RF Rx Instructions: Take 1 and 1/2 tab by mouth (75 mg) once daily at Bedtime Mirena 20 mcg/24 hours (5 yrs) 52 mg Intrauterine Device 1 device INTRAUTERINE QMONTH Discharge Instructions Instructions: Corneal Abrasion (ED) Additional Instructions: Please use the provided ointment and apply half an inch to your right eyelid 4 times a day for the next 5 days. If you develop any new or significant worsening of symptoms return to the emergency department for reassessment or follow-up with eye home care scheduler. You may continue to use [id number] pain medication and cold compresses for discomfort. Referrals: [facility] [Outside] (As needed for reassessment and if not improving) Discharge Data Discharge Date/Time-TO BE ENTERED AT DEPARTURE: 11/22/21 18:38 Medical Decision Making Patient presenting to the emergency department for chief complaint of right injury. She states that at 8 due to chips and dirt that got in her right eye. She stepped out of copious amount of water but still states significant irritation. Patient denies any other injury or trauma. Physical exam is unremarkable except for noted injection and irritation to the lower half of the right eye. Both Guan lamp and slit lamp was utilized and no foreign object was noted. No corneal abrasions were noted but I suspect superficial injury to the conjunctive a of the right eye. Will place patient on antibiotic. Patient does state that she is up-to-date on tetanus. After discussion of diagnosis and plan of care patient has no further needs, questions, or concerns and states clear understanding to return to the emergency department for any worsening symptoms. This documentation was generated using [employer] system, please disregard any oddities of phrase or misspellings. HPI General Mode of arrival: ambulatory. Date/Time Provider Initiated Documentation: 11/22/21 17:42. Limitations to Documentation: no limitations. Information obtained by: patient and RN notes reviewed. History of Present Illness 21 year old F presents to the emergency department with the chief complaint of dirt in right eye, described as moderate, with intensity rated at 6. Quality is described as aching, and is localized to the eyes and right. Patient reports no radiation. Patient started experiencing this hour(s) (1) and it has been constant. No relieving factors improve symptom(s), Patient notes no other symptoms.. Patient did receive the following treatments prior to arrival, other (water flush) Related Data Home Medications Medication Instructions Recorded Confirmed levonorgestrel 20 mcg/24 hours (7 1 device intrauterine QMONTH 01/04/19 11/22/21 yrs) 52 mg intrauterine device (Mirena) multivitamin 1 tab PO DAILY 03/31/21 10/08/21 hydroxyzine HCl 50 mg tablet See Rx Instructions .Route 09/08/21 11/22/21 .COMPLEX #90 tabs sertraline 100 mg tablet (Zoloft) 100 mg PO DAILY #60 tabs 09/08/21 11/22/21 sertraline 50 mg tablet (Zoloft) 50 mg PO DAILY #60 tabs 09/08/21 11/22/21 Previous Rx's Medication Instructions Recorded hydroxyzine HCl 50 mg tablet See Rx Instructions .Route 09/08/21 .COMPLEX #90 tabs sertraline 100 mg tablet (Zoloft) 100 mg PO DAILY #60 tabs 09/08/21 sertraline 50 mg tablet (Zoloft) 50 mg PO DAILY #60 tabs 09/08/21 Allergies Allergy/AdvReac Type Severity Reaction Status Date / Time vancomycin Allergy Skin Rash Verified 11/22/21 17:46 meloxicam AdvReac mouth sores Verified 11/22/21 17:46 naproxen AdvReac mouth sores Verified 11/22/21 17:46 Seasonal Allergies Allergy Uncoded 11/22/21 17:46 General Stated Complaint: EyeProblem CORBY: 4 Review of Systems Narrative: 6 systems reviewed and unremarkable except what is marked below. Eyes Eyes: Reports as per HPI, Reports blurry vision, Denies eye discharge, Reports irritation, Denies loss of peripheral vision, Denies loss of vision, Reports eye pain and Reports photophobia Neurologic Neurologic: Denies loss of vision PFSH All Active Problems (Updated 11/22/21 @ 18:30 by Luis Maza NP) Right eye injury (Acute) Plantar fasciitis (Chronic) Splints given by rheumatology Anxiety (Chronic) Hydroxyzine 75 mg QHS; Zoloft 150 mg; referred to counseling services Polyarthritis (Chronic 03/22/17) Most recent visit in Apr 2021; no biologics or immunosuppressant medication; just Motrin 600 mg twice daily; Will get US of hands/feet joints- scheduled for Oct 18 2021 Medical History (Updated 11/22/21 @ 18:30 by Luis Maza NP) Hydradenitis (05/21/17) Multiple recurrent groin/axillary abscesses Insertion of implantable subdermal contraceptive (06/02/16) Vision problems Followed by [facility] Family History Grandfather Heart disease Mental disorder alcoholism Sister Mental disorder depression/anxiety Grandmother Mental disorder depression,anxiety Other Mental disorder pat uncle-alcoholism Seizure mat aunt and 3 cousins Father Mental disorder drinker-has [id number]- 1 year sober Grandfather Mental disorder alcoholism Social History (Updated 11/16/21 @ 16:53 by Niesha Jenkins RN) Smoking/Tobacco Use Status: Never Smoking risk assessment performed?: Yes Alcohol Intake: current Alcohol Intake frequency: holidays/special occasions only Drug use: Never Substance use type: does not use Adopted: No Caregiver/Support person: No Foster care: No Household members: family and other Details: Lives with dad and step-mom; bio mom not in life since age 7y Housing: house Communication Needs: None Education Level: high school Do you need help understanding health information?: Never current occupation: Working at [employer] Pets and animals: Yes Pets and animals: cat(s) and dog(s) Sexually active: Yes Do you think of yourself as: straight/heterosexual Current gender identity: female What is your relationship status?: never How often do you talk on the phone with friends or family?: three or more times per week How often do you get together with friends or relatives?: once per week Do you belong to any clubs or organized social groups?: no Panel score (0-1 are the most socially isolated patients): 1 What type of physical activity do you participate in: none and other 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 Duration: 60-90 minutes/day Frequency: 5-6 times per week Special verónica needs: No Seatbelt use: always 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 Do you feel safe at home: Yes Do you feel safe in your relationship?: Yes Female Reproductive History Menstrual control method: implanted Exam Const General: cooperative, no acute distress and not ill appearing Orientation: alert, awake and oriented x3 Eyes Visual Miranda: normal visual miranda by confrontation Alignment and Position: alignment normal and position normal Periorbital: periorbital findings normal Eyelids: eyelids normal Conjunctivae: conjunctival abnormality right conjunctival injection localized Sclera: scleral abnormality right scleral injection Cornea: corneas normal and fluorescein used Pupils: PERRL, normal by confrontation and accommodation normal EOM: EOM intact bilaterally Resp Effort & Inspection: normal respiratory effort, able to speak in complete sentences and no respiratory distress Skin General skin exam: no rashes or lesions noted Neuro General: patient alert, patient awake, patient oriented x3 and moves all extremities Course Vital Signs Vital signs: Vital Signs Temperature 36.8 C 11/22/21 17:40 Pulse 79 11/22/21 17:40 Respiratory Rate 16 11/22/21 17:40 Blood Pressure 130/76 11/22/21 17:40 Pulse Oximetry 100 11/22/21 17:40 Temperature 36.8 C 11/22/21 17:40 Pulse 79 11/22/21 17:40 Respiratory Rate 16 11/22/21 17:40 Respiratory Effort Non-Labored 11/22/21 17:56 Blood Pressure 130/76 11/22/21 17:40 Pulse Oximetry 100 11/22/21 17:40 PAWSS Have you Been Recently Intoxicated or Drunk Within the Last 30 days?: No Have you Ever Experienced Previous Episodes of Alcohol Withdrawal?: No Have you ever Experienced Withdrawal Seizures?: No Have you ever Experienced Delirium Tremens(DT)s?: No Have you ever undergone Alcohol Rehabilitation Treatment (i.e, inpt ot outpatient treatment programs)?: No Have you ever Experienced Blackouts?: No Have you ever Combined Alcohol with other Downers within the last 90 days?: No Have you ever Combined Alcohol with any other Substance of Abuse during the last 90 days?: No Result: 0
[2021-11-22] MEDS: Erythromycin Ophth Oint 3.5 GM TUBE (18:34)
[2021-11-22] MEDS: Erythromycin Ophth Oint 3.5 GM TUBE OD (18:45)
== END 2021-11-22 18:38 | disposition home or self-care (01) ==
PROVIDERS: Emergency Provider Nurse Practitioner Family
DX: S05.91XA Unspecified injury of right eye and orbit, initial encounter (principal); X58.XXXA Exposure to other specified factors, initial encounter
CPT/HCPCS: 99283; 99284

== ENCOUNTER 2022-02-20 09:38 | Emergency (ER) | payer MEDICAID, SELFPAY ==
[2022-02-20 09:45] VITALS: BP 141/108; PULSE 114; RESP 18; TEMP 40; O2SAT 96
--- NOTE | 2022-02-20 10:13 | ED.GENADUL_ITS ---
Discharge Plan Disposition Patient Disposition: Home Condition: Stable Discharge Details Clinical Impression: Influenza A Primary Care Provider: Fili Pereira ED Provider: Miguel Obregon Home Meds and New Rx's Prescriptions: Continued multivitamin Tablet 1 tab PO DAILY hydroxyzine HCl 50 mg tablet See Rx Instructions .ROUTE .COMPLEX Qty: 90 2RF Rx Instructions: Take 1 and 1/2 tab by mouth (75 mg) once daily at Bedtime sertraline 100 mg tablet 100 mg PO DAILY Qty: 90 0RF Mirena 20 mcg/24 hours (5 yrs) 52 mg Intrauterine Device 1 device INTRAUTERINE QMONTH Discharge Instructions Additional Instructions: Please take ibuprofen over the counter. Take 600mg by mouth every 6 hours as needed for fever. Please drink plenty of fluid allow for plenty of rest. Please contact your primary care physician to arrange follow-up. Return to the ER immediately for any worsening or new concerning symptoms. Referrals: Fili Pereira DO [Primary Care Provider] - Medical Decision Making 1015 --21-year-old female here with fever, cough, sore throat, rhinorrhea and body aches. Patient is saturating well in no respiratory distress. Lungs clear to auscultation. Suspect upper respiratory tract infection. Will obtain [id number] strep, flu and COVID. Will give ibuprofen for fever. Patient not tachycardic on my examination. -- COVID-negative, strep negative, positive for influenza a on [id number] testing. Results were discussed with the patient. Considered Tamiflu there is no inventory available in the region. Patient is stable. Usual customary discharge instructions were reviewed. Sign Out No HPI General Mode of arrival: ambulatory . Date/Time Provider Initiated Documentation: 02/20/22 09:47 . Limitations to Documentation: no limitations . Information obtained by: patient . HPI Narrative: 21-year-old female presents with chief complaint of respiratory illness. Patient notes she started to feel ill about 1 week ago. She was feeling better earlier last week and then late last week symptoms got worse. She notes has had fever for the past 2 days. Patient states she has nonproductive cough, associated chest discomfort with a cough, sore throat, runny nose and body aches. Symptoms are moderate with no modifiers. She did take Tylenol this morning. Related Data Home Medications Medication Instructions Recorded Confirmed levonorgestrel 20 mcg/24 hours (8 1 device intrauterine QMONTH 10/26/19 10/24/22 yrs) 52 mg intrauterine device (Mirena) multivitamin 1 tab PO DAILY 03/31/21 01/02/22 hydroxyzine HCl 50 mg tablet See Rx Instructions .Route 09/08/21 01/02/22 .COMPLEX #90 tabs sertraline 100 mg tablet 100 mg PO DAILY #90 tabs 01/12/22 01/12/22 Previous Rx's Medication Instructions Recorded hydroxyzine HCl 50 mg tablet See Rx Instructions .Route 09/08/21 .COMPLEX #90 tabs sertraline 100 mg tablet 100 mg PO DAILY #90 tabs 01/12/22 Allergies Allergy/AdvReac Type Severity Reaction Status Date / Time vancomycin Allergy Skin Rash Verified 01/02/22 14:06 meloxicam AdvReac mouth sores Verified 01/02/22 14:06 naproxen AdvReac mouth sores Verified 01/02/22 14:06 Seasonal Allergies Allergy Uncoded 01/02/22 14:06 General Stated Complaint: RespSymp CORBY: 4 Review of Systems All systems reviewed & are unremarkable except as noted in HPI and below Constitutional Constitutional: Reports body ache(s) and Reports fever(s) ENT Ears, Nose, Mouth, and Throat: Denies dysphagia, Reports nasal discharge and Reports odynophagia Respiratory Respiratory: Reports cough Gastrointestinal Gastrointestinal: Denies abdominal pain, Denies dysphagia and Reports odynophagia PFSH All Active Problems (Updated 02/20/22 @ 11:21 by Miguel Obregon MD) Influenza A (Acute) Rheumatoid arthritis (Chronic) Plantar fasciitis (Chronic) Splints given by rheumatology Anxiety (Chronic) Hydroxyzine 75 mg QHS; Zoloft 150 mg; referred to counseling services Polyarthritis (Chronic 03/22/17) Most recent visit in Apr 2021; no biologics or immunosuppressant medication; just Motrin 600 mg twice daily; Will get US of hands/feet joints- scheduled for Oct 18 2021 Medical History (Updated 02/20/22 @ 11:21 by Miguel Obregon MD) Hydradenitis (05/21/17) Multiple recurrent groin/axillary abscesses Insertion of implantable subdermal contraceptive (06/02/16) Vision problems Followed by [facility] Family History Grandfather Heart disease Mental disorder alcoholism Sister Mental disorder depression/anxiety Grandmother Mental disorder depression,anxiety Other Mental disorder pat uncle-alcoholism Seizure mat aunt and 3 cousins Father Mental disorder drinker-has [id number]- 1 year sober Grandfather Mental disorder alcoholism Social History (Updated 01/02/22 @ 14:22 by Kesha Robbins) Smoking/Tobacco Use Status: Never Smoking risk assessment performed?: Yes Alcohol Intake: current Alcohol Intake frequency: holidays/special occasions only Drug use: Never Substance use type: does not use Adopted: No Caregiver/Support person: No Household members: family and other Details: Lives with dad and step-mom; bio mom not in life since age 7y Housing: house Number of Children: 0 number of grandchildren: 0 Communication Needs: None Education Level: high school Do you need help understanding health information?: Never 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 @ [employer] Pets and animals: Yes (3 cats; 4 dogs) Pets and animals: cat(s) and dog(s) Sexually active: Yes Do you think of yourself as: straight/heterosexual Current gender identity: female What is your relationship status?: never How often do you talk on the phone with friends or family?: three or more times per week How often do you get together with friends or relatives?: once per week Do you belong to any clubs or organized social groups?: no Panel score (0-1 are the most socially isolated patients): 1 What type of physical activity do you participate in: other 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 Duration: 60-90 minutes/day Frequency: 5-6 times per week Special verónica needs: No Seatbelt use: always Drive intox or ride w/intox commercial collections driver: No Do you feel safe at home: Yes Do you feel safe in your relationship?: Yes Female Reproductive History Menstrual control method: implanted Course Vital Signs Vital signs: Vital Signs Temperature 40 C H 02/20/22 09:45 Pulse 114 H 02/20/22 09:45 Respiratory Rate 18 02/20/22 09:45 Blood Pressure 141/108 H 02/20/22 09:45 Pulse Oximetry 96 02/20/22 09:45 Temperature 40 C H 02/20/22 09:45 Temperature Source Temporal Artery Scan 02/20/22 09:45 Pulse 114 H 02/20/22 09:45 Respiratory Rate 18 02/20/22 09:45 Respiratory Effort 02/20/22 09:50 Respiratory Depth Normal 02/20/22 09:50 Blood Pressure 141/108 H 02/20/22 09:45 Blood Pressure Position Supine 02/20/22 09:45 Pulse Oximetry 96 02/20/22 09:45 Oxygen Delivery Method Room Air 02/20/22 09:45 Oxygen Flow Rate 0 02/20/22 09:45 Pain Level 8 02/20/22 09:45 PAWSS Have you Been Recently Intoxicated or Drunk Within the Last 30 days?: No Have you Ever Experienced Previous Episodes of Alcohol Withdrawal?: No Have you ever Experienced Withdrawal Seizures?: No Have you ever Experienced Delirium Tremens(DT)s?: No Have you ever undergone Alcohol Rehabilitation Treatment (i.e, inpt ot outpatient treatment programs)?: No Have you ever Experienced Blackouts?: No Have you ever Combined Alcohol with other Downers within the last 90 days?: No Have you ever Combined Alcohol with any other Substance of Abuse during the last 90 days?: No Positive Blood Alcohol level on Presentation? [PCS.BAL]: No Evidence of Increased Autonomic Activity (i.e. HR>120, tremor, sweating, agitation, nausea)?: No Result: 0
[2022-02-20 11:31] VITALS: BP 111/68; PULSE 99; RESP 18; TEMP 36.8; O2SAT 98
[2022-02-22 11:02] LABS: COVID-19 RT-PCR UVMMC Result Negative (Negative)
--- NOTE | 2022-02-22 15:21 | NUR.NOTE ---
unable to leave message on patient's phone.
== END 2022-02-20 11:33 | disposition home or self-care (01) ==
PROVIDERS: Emergency Provider Student in an Organized Health Care Education/Training Program; PCP Family Medicine
DX: J10.1 Influenza due to other identified influenza virus with other respiratory manifestations (principal); Z20.822 Contact with and (suspected) exposure to COVID-19
CPT/HCPCS: 87880; 99282; U0003; 87081

== ENCOUNTER 2022-06-09 15:45 | Outpatient (CLI) | payer MEDICAID, SELFPAY ==
--- NOTE | 2022-06-09 15:45 | RT.EKG_ITS ---
APPROVED REPORT Exam: Resting ECG Reason for Exam: Checking for medication effect on QT length Patient Location: O HR:65 bpm ECG Measurements Heart Rate 65 AXIS NV 122 P 17 QRSd 95 QRS 24 QT 404 T 27 QTc 421 Conclusion Sinus rhythm...normal P axis, V-rate 50- 99 Normal Electrocardiogram
== END 2022-06-09 15:46 | disposition home or self-care (01) ==
LOC: DI.KIM 15:46
PROVIDERS: PCP Family Medicine; Visit Provider Family Medicine
DX: I45.81 Long QT syndrome (principal); Z79.899 Other long term (current) drug therapy
CPT/HCPCS: 93010

== ENCOUNTER 2022-07-25 08:35 | Emergency (ER) | payer MEDICAID, SELFPAY ==
[2022-07-25 08:38] VITALS: BP 107/65; PULSE 75; RESP 15; TEMP 37.2; O2SAT 100
--- NOTE | 2022-07-25 09:00 | DI.CT_ITS ---
Exam(s) CT LUMBAR SPINE WO EXAM: CT LUMBAR SPINE WO CLINICAL HISTORY: hard fall, tender LS spine, pain post legs. TECHNIQUE: Imaging Protocol: Axial computed tomography images with coronal and sagittal reformatted images were created and reviewed. COMPARISON: CR RIGHT HIP 1 VIEW from 09/21/2010 FINDINGS: Bones: No fractures or dislocations are seen. The alignment of the spine is normal including the thor acolumbar junction. Note is made of partial sacralization of the L5 vertebral body on the right. Th e sacroiliac joints are unremarkable. The bones are normally mineralized. Soft tissues: The soft tissues of the visualized abdomen and chest are unremarkable. No large disk he rniations are identified. IMPRESSION: 1. No acute fracture or subluxation in the lumbar spine. 2. Findings were discussed with the emergency department at 9:45 a.m. on 07/25/2022. RADIATION DOSE DELIVERED: 975.08mGy.cm Total DLP 975.08mGy.cm Total DLP DATA REPOSITORY: All CT scans at this facility are submitted to the National Radiology Data Registry (NRDR) Dose Index Registry (DIR) with the [employer] (ACR). RADIATION OPTIMIZATION: All CT scans at this facility use at least one of these dose optimization te chniques: automated exposure control; mA and/or kV adjustment per patient size (includes targeted exa ms where dose is matched to clinical indication); or iterative reconstruction.
--- NOTE | 2022-07-25 09:45 | ED.GENADUL_ITS ---
Discharge Plan Disposition Patient Disposition: Home Condition: Stable Discharge Details Clinical Impression: Contusion of sacrum, Fall Primary Care Provider: Fili Pereira ED Provider: Miguel Obregon Home Meds and New Rx's Prescriptions: Continued ibuprofen 600 mg tablet 600 mg PO Q6H PRN codeine-guaifenesin 10-100 mg/5 mL liquid 5 ml PO Q6H PRN (Reason: cough) Qty: 118 0RF multivitamin Tablet 1 tab PO DAILY hydroxyzine HCl 50 mg tablet See Rx Instructions .ROUTE .COMPLEX Qty: 90 2RF Rx Instructions: Take 1 and 1/2 tab by mouth (75 mg) once daily at Bedtime hydroxychloroquine 200 mg tablet 200 mg PO DAILY Qty: 90 3RF escitalopram oxalate 10 mg tablet 10 mg PO DAILY Qty: 60 0RF ascorbate calcium (vitamin C) PO DAILY Patient Comments: dose unknown 07/25/22 CT biotin PO DAILY Patient Comments: dose unknown 07/25/22 CT omega-3 fatty acids [Fish Oil] 600 mg PO DAILY Mirena 20 mcg/24 hours (5 yrs) 52 mg Intrauterine Device 1 device INTRAUTERINE QMONTH Discharge Instructions Instructions: Contusion in Adults (ED) Additional Instructions: Please contact your primary care physician to arrange follow-up. Return to the ER immediately for any worsening or new concerning symptoms. Referrals: Fili Pereira DO [Primary Care Provider] - Medical Decision Making 22-year-old female here with low lumbar and sacral back pain after falling from standing to the ground while attempting to move a tree 3 days ago. Pain worse today with associated intermittent radiation down posterior legs. Patient has focal tenderness low lumbar and sacral spine midline. Patient is neurologically intact with no signs of cauda equina. Consider spinal fracture. CT of the lumbar/sacral spine was interpreted by radiology: 1. No acute fracture or subluxation in the lumbar spine.? 2. Findings were discussed with the emergency department at 9:45 a.m. on 07/25/2022. All results were discussed with patient. Plan for continued NSAID. Usual customary discharge instructions were reviewed with the patient. HPI General Mode of arrival: ambulatory . Date/Time Provider Initiated Documentation: 07/25/22 08:58 . Limitations to Documentation: no limitations . Information obtained by: patient . HPI Narrative: 22-year-old female presents with chief complaint of low back pain. Patient notes she was attempting to move a tree and fell backwards from standing to the ground and landed on her low back and tailbone. Injury occurred 3 days ago. She notes worsening pain and now intermittent radiation down bilateral posterior legs. No bowel or bladder dysfunction. No numbness or tingling. Patient sustained no other injuries during the fall. Related Data Home Medications Medication Instructions Recorded Confirmed levonorgestrel 21 mcg/24 hours (8 1 device intrauterine QMONTH 01/04/19 07/25/22 yrs) 52 mg intrauterine device (Mirena) multivitamin 1 tab PO DAILY 03/31/21 07/25/22 hydroxyzine HCl 50 mg tablet See Rx Instructions .Route 09/08/21 07/25/22 .COMPLEX #90 tabs codeine 10 mg-guaifenesin 100 mg/5 5 ml PO Q6H PRN cough #118 mL 02/23/22 07/25/22 mL oral liquid ibuprofen 600 mg tablet 600 mg PO Q6H PRN 02/23/22 07/25/22 escitalopram oxalate 10 mg tablet 10 mg PO DAILY #60 tabs 05/26/22 07/25/22 hydroxychloroquine 200 mg tablet 200 mg PO DAILY #90 tabs 05/26/22 07/25/22 ascorbate calcium (vitamin C) PO DAILY 06/09/22 06/09/22 biotin PO DAILY 06/09/22 06/09/22 omega-3 fatty acids [Fish Oil] 600 mg PO DAILY 06/09/22 07/25/22 Previous Rx's Medication Instructions Recorded hydroxyzine HCl 50 mg tablet See Rx Instructions .Route 09/08/21 .COMPLEX #90 tabs codeine 10 mg-guaifenesin 100 mg/5 5 ml PO Q6H PRN cough #118 mL 02/23/22 mL oral liquid escitalopram oxalate 10 mg tablet 10 mg PO DAILY #60 tabs 05/26/22 hydroxychloroquine 200 mg tablet 200 mg PO DAILY #90 tabs 05/26/22 Allergies Allergy/AdvReac Type Severity Reaction Status Date / Time vancomycin Allergy Skin Rash Verified 07/25/22 08:43 meloxicam AdvReac mouth sores Verified 07/25/22 08:43 naproxen AdvReac mouth sores Verified 07/25/22 08:43 Seasonal Allergies Allergy Uncoded 07/25/22 08:43 General Stated Complaint: Nk/Back Pain CORBY: 4 Review of Systems Neurologic Neurologic: Reports as per HPI PFSH All Active Problems Contusion of sacrum (Acute) Fall (Acute) Rheumatoid arthritis (Chronic) Plantar fasciitis (Chronic) Splints given by rheumatology Anxiety (Chronic) Hydroxyzine 75 mg QHS; Zoloft 150 mg; referred to counseling services Polyarthritis (Chronic 03/22/17) Most recent visit in Apr 2021; no biologics or immunosuppressant medication; just Motrin 600 mg twice daily; Will get US of hands/feet joints- scheduled for Oct 18 2021 Medical History Hydradenitis (05/21/17) Multiple recurrent groin/axillary abscesses Insertion of implantable subdermal contraceptive (06/02/16) Vision problems Followed by [facility] Family History Grandfather Heart disease Mental disorder alcoholism Sister Mental disorder depression/anxiety Grandmother Mental disorder depression,anxiety Other Mental disorder pat uncle-alcoholism Seizure mat aunt and 3 cousins Father Mental disorder drinker-has [id number]- 1 year sober Grandfather Mental disorder alcoholism Social History Smoking/Tobacco Use Status: Never Smoking risk assessment performed?: Yes Alcohol Intake: current Alcohol Intake frequency: holidays/special occasions only Drug use: Never Substance use type: does not use Adopted: No Caregiver/Support person: No Household members: family and other Details: Lives with dad and step-mom; bio mom not in life since age 7y Housing: house Number of Children: 0 number of grandchildren: 0 Communication Needs: None Education Level: high school Do you need help understanding health information?: Never 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 @ [employer] Pets and animals: Yes (3 cats; 4 dogs) Pets and animals: cat(s) and dog(s) Sexually active: Yes Do you think of yourself as: straight/heterosexual Current gender identity: female What is your relationship status?: never How often do you talk on the phone with friends or family?: three or more times per week How often do you get together with friends or relatives?: once per week Do you belong to any clubs or organized social groups?: no Panel score (0-1 are the most socially isolated patients): 1 What type of physical activity do you participate in: other 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 Duration: 60-90 minutes/day Frequency: 5-6 times per week Special verónica needs: No Seatbelt use: always Drive intox or ride w/intox route delivery service driver: No Do you feel safe at home: Yes Do you feel safe in your relationship?: Yes Female Reproductive History Menstrual control method: implanted Exam Back/Spine/Pelvis Thoracic/Lumbar Spine: No thoracic spinal tenderness and lumbar spinal tenderness (lower) Sacrum: no ecchymosis, no erythema, no swelling and tenderness midline Coccyx: tenderness Neuro Motor: strength 5/5 throughout (Bilateral lower extremities) Sensory Exam: no sensory deficits noted and other (No saddle anesthesia) DTR's: Rt Patellar: 1+ and Lt Patellar: 1+ Course Vital Signs Vital signs: Vital Signs Temperature 37.2 C 07/25/22 08:38 Pulse 75 07/25/22 08:38 Respiratory Rate 15 07/25/22 08:38 Blood Pressure 107/65 07/25/22 08:38 Pulse Oximetry 100 07/25/22 08:38 Temperature 37.2 C 07/25/22 08:38 Temperature Source Temporal Artery Scan 07/25/22 08:38 Pulse 75 07/25/22 08:38 Respiratory Rate 15 07/25/22 08:38 Blood Pressure 107/65 07/25/22 08:38 Blood Pressure Position Sitting 07/25/22 08:38 Pulse Oximetry 100 07/25/22 08:38 Oxygen Delivery Method Room Air 07/25/22 08:38 Oxygen Flow Rate 0 07/25/22 08:38 Pain Level 9 07/25/22 08:38 PAWSS Have you Been Recently Intoxicated or Drunk Within the Last 30 days?: No Have you Ever Experienced Previous Episodes of Alcohol Withdrawal?: No Have you ever Experienced Withdrawal Seizures?: No Have you ever Experienced Delirium Tremens(DT)s?: No Have you ever undergone Alcohol Rehabilitation Treatment (i.e, inpt ot outpatient treatment programs)?: No Have you ever Experienced Blackouts?: No Have you ever Combined Alcohol with other Downers within the last 90 days?: No Have you ever Combined Alcohol with any other Substance of Abuse during the last 90 days?: No Result: 0
[2022-07-25] MEDS: Lidocaine 5% Patch 1 PATCH TP (10:12)
== END 2022-07-25 10:12 | disposition home or self-care (01) ==
PROVIDERS: Emergency Provider Student in an Organized Health Care Education/Training Program; PCP Family Medicine
DX: S30.0XXA Contusion of lower back and pelvis, initial encounter (principal); W18.39XA Other fall on same level, initial encounter
CPT/HCPCS: 99284; 72131; 99283

== ENCOUNTER 2022-10-06 22:03 | Outpatient (REF) | payer SELFPAY ==
[2022-10-06 14:19] LABS: Abs Immature Grans 0.02 10^3/uL (0.0-0.06); Absolute Basophil Count 0.04 10^3/uL (0.0-0.2); Absolute Lymphocyte Count 1.65 10^3/uL (1.2-3.4); Absolute Monocyte Count 0.43 10^3/uL (0.1-0.8); Absolute Neutrophil Count 5.79 10^3/uL (1.2-6.7); Basophils % 0.5; Eosinophils % 2.5; HCT 39.6 % (36.0-46.0); HGB 13.6 g/dL (11.2-15.7); Immature Grans % 0.2; Lymphocytes % 20.3; MCH 30.7 pg (27.0-33.0); MCHC 34.3 % (32.0-36.0); MCV 89 fL (80-95); MPV 10.1 fL (8.0-11.0); Monocytes % 5.3; Neutrophils % 71.2; Platelet Count 437 10^3/uL (130-400); RBC 4.43 10^6/uL (3.93-5.22); RDW 12.9 % (11.7-14.6); RDW-SD 42.4 fL; WBC 8.13 10^3/uL (4.4-10.8)
[2022-10-06 14:32] LABS: ALT 45 U/L (14-59); AST 21 U/L (15-37); Albumin 4.2 g/dL (3.4-5.0); Alkaline Phosphatase 64 U/L (46-116); Anion Gap 11.1 mmol/L (3-11); BUN 13 mg/dL (7-18); Bilirubin, Total 0.5 mg/dL (0.2-1.0); CO2 23.9 mmol/L (21.0-32.0); CREATININE 0.8 mg/dL (0.55-1.02); Calcium 9.3 mg/dL (8.5-10.1); Chloride 104 mmol/L (98-107); Estimated GFR 106.77 (mL/min/1.73m2); Glucose 84 mg/dL (74-106); Potassium 4.5 mmol/L (3.5-5.1); Sodium 139 mmol/L (136-145); Total Protein 8.1 g/dL (6.4-8.2)
== END 2022-10-06 22:04 | disposition home or self-care (01) ==
LOC: LBN 22:03
PROVIDERS: PCP Family Medicine; Visit Provider Family Medicine
DX: R10.9 Unspecified abdominal pain (principal)
CPT/HCPCS: 80053; 85025

== ENCOUNTER 2023-01-07 03:02 | Emergency (ER) | payer SELFPAY ==
[2023-01-07 03:04] VITALS: BP 149/78; PULSE 77; RESP 16; TEMP 36.8; O2SAT 100
[2023-01-07] MEDS: Ketorolac 15 MG/ML VIAL IM (03:20)
[2023-01-07] MEDS: Acetaminophen Solution 650 MG/20.3 ML CUP PO (03:20)
[2023-01-07] MEDS: Dexamethasone 4 MG TAB PO (03:20)
--- NOTE | 2023-01-07 03:30 | ED.GENADUL_ITS ---
Discharge Plan Disposition Patient Disposition: Home Condition: Good Discharge Details Clinical Impression: Acute sore throat Primary Care Provider: Fili Pereira ED Provider: Alice Snyder Home Meds and New Rx's Prescriptions: No Action ibuprofen 600 mg tablet 600 mg PO Q6H PRN multivitamin Tablet 1 tab PO DAILY hydroxychloroquine 200 mg tablet 200 mg PO DAILY Qty: 90 3RF biotin PO DAILY Patient Comments: dose unknown 07/25/22 CT escitalopram oxalate 10 mg tablet 10 mg PO DAILY Qty: 90 1RF hydroxyzine HCl 50 mg tablet See Rx Instructions .ROUTE .COMPLEX Qty: 90 2RF Rx Instructions: Take 1 and 1/2 tab by mouth (75 mg) once daily at Bedtime Mirena 20 mcg/24 hours (5 yrs) 52 mg Intrauterine Device 1 device INTRAUTERINE QMONTH Discharge Instructions Instructions: Pharyngitis (ED) Additional Instructions: Tylenol and ibuprofen over the counter as needed for pain, follow the directions on the bottle. Call your primary care doctor today to schedule an appointment within 3 days to followup on your visit here. Return to the emergency department for new or worsening symptoms including fever, inability to swallow your own spit, inability to swallow fluids, uncontrolled pain, difficulty breathing or swelling in your neck, or if you have any other concerns. Referrals: Fili Pereira DO [Primary Care Provider] - Medical Decision Making 22yo F presenting with sore throat x 1 day. History from patient and mother at bedside. Rhinnorhea, pain with swallowing, unable to swallow pills. Doing okay fluids. Vital signs and physical exam reassuring. Bilateral tonsilar edema and tender left cervical lymphadenopathy. No respiratory distress, managing secretions. Not septic. Exam not concerning for deep space neck infection. Would not get labs or CT imaging. Rapid strep negative, sent for culture. Symptom management in the ED with IM toradol, liquid tylenol, PO dexamethasone. On reassessment she reports symptoms are improving, able to take PO fluids in the ED. Discharged home; discharge instructions including return precautions were reviewed with patient who verbalized understanding. All questions were answered and they are in full agreement with the plan. HPI General Mode of arrival: ambulatory . Date/Time Provider Initiated Documentation: 01/07/23 03:05 . Limitations to Documentation: no limitations . Information obtained by: patient and family . HPI Narrative: 22yo F presenting with sore throat x 1 day. Symptoms started yesterday morning and have been persistent. Pain, much worse with swallowing, tried to take ibuprofen at home but it hurt too much to swallow. No difficulty with secretions, able to take PO fluids. No fevers. +rhinnorhea today, no cough. No shortness of breath. No pain with neck movement. She is otherwise in her usual state of health with no fevers, chills, rash, nausea, vomiting, abdominal pain, or other concerns. Related Data Home Medications Medication Instructions Recorded Confirmed levonorgestrel 21 mcg/24 hours (8 1 device intrauterine QMONTH 01/04/19 01/07/23 yrs) 52 mg intrauterine device (Mirena) multivitamin 1 tab PO DAILY 03/31/21 01/07/23 ibuprofen 600 mg tablet 600 mg PO Q6H PRN 02/23/22 01/07/23 hydroxychloroquine 200 mg tablet 200 mg PO DAILY #90 tabs 05/26/22 01/07/23 biotin PO DAILY 06/09/22 11/28/22 escitalopram oxalate 10 mg tablet 10 mg PO DAILY #90 tabs 11/28/22 01/07/23 hydroxyzine HCl 50 mg tablet See Rx Instructions .Route 11/28/22 01/07/23 .COMPLEX #90 tabs Previous Rx's Medication Instructions Recorded hydroxychloroquine 200 mg tablet 200 mg PO DAILY #90 tabs 05/26/22 escitalopram oxalate 10 mg tablet 10 mg PO DAILY #90 tabs 11/28/22 hydroxyzine HCl 50 mg tablet See Rx Instructions .Route 11/28/22 .COMPLEX #90 tabs Allergies Allergy/AdvReac Type Severity Reaction Status Date / Time vancomycin Allergy Skin Rash Verified 01/07/23 03:09 meloxicam AdvReac mouth sores Verified 01/07/23 03:09 naproxen AdvReac mouth sores Verified 01/07/23 03:09 Seasonal Allergies Allergy Mild Nasal Uncoded 01/07/23 03:09 congestion General Stated Complaint: Sorethroat CORBY: 4 Review of Systems Narrative: see HPI PFSH All Active Problems (Updated 01/07/23 @ 03:30 by Alice Snyder MD) Acute sore throat (Acute) Rheumatoid arthritis (Chronic) Plantar fasciitis (Chronic) Splints given by rheumatology Anxiety (Chronic) Hydroxyzine 75 mg QHS; Zoloft 150 mg; referred to counseling services Polyarthritis (Chronic 03/22/17) Most recent visit in Apr 2021; no biologics or immunosuppressant medication; just Motrin 600 mg twice daily; Will get US of hands/feet joints- scheduled for Oct 18 2021 Medical History Hydradenitis (05/21/17) Multiple recurrent groin/axillary abscesses Insertion of implantable subdermal contraceptive (06/02/16) Vision problems Followed by [facility] Family History Grandfather Heart disease Mental disorder alcoholism Sister Mental disorder depression/anxiety Grandmother Mental disorder depression,anxiety Other Mental disorder pat uncle-alcoholism Seizure mat aunt and 3 cousins Father Mental disorder drinker-has [id number]- 1 year sober Grandfather Mental disorder alcoholism Social History Smoking/Tobacco Use Status: Never Smoking risk assessment performed?: Yes Alcohol Intake: current Alcohol Intake frequency: holidays/special occasions only Drug use: Never Substance use type: does not use Adopted: No Caregiver/Support person: No Household members: family and other Details: Lives with dad and step-mom; bio mom not in life since age 7y Housing: house Number of Children: 0 number of grandchildren: 0 Communication Needs: None Education Level: high school Do you need help understanding health information?: Never 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 @ [employer] Pets and animals: Yes (3 cats; 4 dogs) Pets and animals: cat(s) and dog(s) Sexually active: Yes Do you think of yourself as: straight/heterosexual Current gender identity: female What is your relationship status?: never How often do you talk on the phone with friends or family?: three or more times per week How often do you get together with friends or relatives?: once per week Do you belong to any clubs or organized social groups?: no Panel score (0-1 are the most socially isolated patients): 1 What type of physical activity do you participate in: other 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 Duration: 60-90 minutes/day Frequency: 5-6 times per week Special verónica needs: No Seatbelt use: always Drive intox or ride w/intox 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 Head: Normocephalic, atraumatic Neck: Trachea midline, Neck supple. Tender left anterior cervical lymphadenopathy. ENT: MMM. No oropharygeal exudate. Bilateral tonsilar edema. uvula midline. Cardiac: RRR, no murmurs appreciated Resp: Managing secretions. No respiratory distress. CTAB. Abd: Non-distended Extremities: No deformities. No peripheral edema. Neurologic: GCS 15. Moves all extremities freely against gravity Course Vital Signs Vital signs: Vital Signs Temperature 36.8 C 01/07/23 03:04 Pulse 77 01/07/23 03:04 Respiratory Rate 16 01/07/23 03:04 Blood Pressure 149/78 H 01/07/23 03:04 Pulse Oximetry 100 01/07/23 03:04 Temperature 36.8 C 01/07/23 03:04 Temperature Source Temporal Artery Scan 01/07/23 03:04 Pulse 77 01/07/23 03:04 Respiratory Rate 16 01/07/23 03:04 Respiratory Effort Normal, Non-Labored 01/07/23 03:07 Blood Pressure 149/78 H 01/07/23 03:04 Blood Pressure Position Sitting 01/07/23 03:04 Pulse Oximetry 100 01/07/23 03:04 Oxygen Delivery Method Room Air 01/07/23 03:04 Oxygen Flow Rate 0 01/07/23 03:04 Pain Level 9 01/07/23 03:04 Lab/Test Results Lab/Test Results: 01/07/23 03:15 Pharynx Group A Streptococcus Culture - Pending POC Strep Test-KELSEY(Rapid) Start: 01/07/23 03:17 Freq: .Rapid Strep Test Status: Active Protocol: Document 01/07/23 03:17 MMQ (Rec: 01/07/23 03:17 MMQ [id number]) Strep test-KELSEY(Rapid)-POC POC-Strep test-KELSEY (Rapid) Negative POC-Strep test-KELSEY (Rapid) Negative PAWSS Have you Been Recently Intoxicated or Drunk Within the Last 30 days?: No Have you Ever Experienced Previous Episodes of Alcohol Withdrawal?: No Have you ever Experienced Withdrawal Seizures?: No Have you ever Experienced Delirium Tremens(DT)s?: No Have you ever undergone Alcohol Rehabilitation Treatment (i.e, inpt ot outpatient treatment programs)?: No Have you ever Experienced Blackouts?: No Have you ever Combined Alcohol with other Downers within the last 90 days?: No Have you ever Combined Alcohol with any other Substance of Abuse during the last 90 days?: No Positive Blood Alcohol level on Presentation? [PCS.BAL]: No Evidence of Increased Autonomic Activity (i.e. HR>120, tremor, sweating, agitation, nausea)?: No Result: 0
[2023-01-07 04:01] VITALS: BP 149/78; PULSE 77; RESP 16; TEMP 36.8; O2SAT 97
== END 2023-01-07 04:03 | disposition home or self-care (01) ==
PROVIDERS: Emergency Provider Student in an Organized Health Care Education/Training Program; PCP Family Medicine
DX: J02.9 Acute pharyngitis, unspecified (principal)
CPT/HCPCS: 87880; 99282; 87081; 99283; J1885; J8540

== ENCOUNTER 2024-01-22 11:23 | Emergency (ER) | payer SELFPAY ==
[2024-01-22 11:24] VITALS: BP 134/88; PULSE 82; TEMP 36.7; O2SAT 99
[2024-01-22 11:36] VITALS: BP 133/88; PULSE 82; RESP 16; TEMP 36.7; O2SAT 99
--- OUTSIDE RECORDS SUMMARY | 2024-01-22 11:38 | XMS_ITS | Clinical Summary ---
Author Organization [facility] Address [address] [facility] [address] [facility] [place] [address] Care Team Providers Care Dragline Engineer Name Role Phone Vanessa Mcginnis MD Primary Care Provider [phone] Allergies Active Allergy Reactions Criticality Noted Date Comments Meloxicam 01/16/2018 Broke into mouth soars Naproxen 01/16/2018 Mouth soars Medications Medication Sig Dispensed Refills Start Date End Date Status loratadine (CLARITIN) 10 mg Tablet TAKE ONE TABLET BY MOUTH EVERY DAY NEEDED 11 10/18/2016 Active Adalimumab (HUMIRA PEN) 40 mg/0.8 mL Pen Injector Kit Inject 0.8 mLs subcutaneously every 14 days. 4 kit 3 02/20/2018 Active Additional Information Patient not taking.Reported on 06/07/2021 cholecalciferol, Vitamin D3, 2,000 unit Capsule Take 5,000 Units by mouth daily. Active ascorbic acid, vitamin C, (VITAMIN C) 500 mg Tablet, Chewable Take 1 tablet by mouth daily. Active acetaminophen (TYLENOL) 650 mg Tablet Sustained Release Take 650 mg by mouth every 8 hours as needed for Pain. Do not exceed 6 tabs in 24 hours Active ergocalciferol, vitamin D2, (ERGOCALCIFEROL) 50,000 unit Capsule Take 1 capsule by mouth once a week. 4 capsule 12 12/17/2018 Active Additional Information Patient not taking.Reported on 06/07/2021 hydroxychloroquin e (Plaquenil) 200 mg Tablet Take 1 tablet by mouth 2 times daily. 180 tablet 3 06/18/2019 Active Additional Information Patient not taking.Reported on 06/07/2021 metHOTREXate 2.5 mg Tablet TAKE 8 TABLETS BY MOUTH ONCE A WEEK 32 tablet 3 07/29/2019 Active Additional Information Patient not taking.Reported on 06/07/2021 folic acid (Folvite) 1 mg TabletIndications :Arthritis TAKE 1 TABLET BY MOUTH ONCE DAILY 90 tablet 3 07/29/2019 Active Additional Information Patient not taking.Reported on 06/07/2021 sertraline (ZOLOFT) 100 mg Tablet Take 100 mg by mouth daily. 03/15/2021 Active sertraline (Zoloft) 25 mg Tablet Take 25 mg by mouth daily. 05/30/2021 Active hydrOXYzine (ATARAX) 50 mg Tablet Take 50 mg by mouth nightly. 05/24/2021 Active Active Problems Problem Noted Date Diagnosed Date Polyarthralgia 06/07/2021 Plantar fasciitis 06/07/2021 Arthritis 03/21/2017 Social History Tobacco Use Types Packs/Day Years Used Date Smoking Tobacco: Never Smokeless Tobacco: Never Sex and Gender Information Value Date Recorded Sex Assigned at Not on file Gender Identity Not on file Sexual Orientation Not on file Last Filed Vital Signs Vital Sign Reading Time Taken Comments Blood Pressure 122/70 06/07/2021 8:54 AM EDT Pulse 70 06/07/2021 8:54 AM EDT Temperature 36.6 ??C (97.9 ??F) 06/07/2021 8:54 AM ED T Respiratory Rate 18 01/16/2018 10:11 AM EST Oxygen Saturation 100% 06/07/2021 8:54 AM EDT Inhaled Oxygen Concentration - - Weight 103 kg (227 lb) 06/07/2021 8:54 AM EDT Height 161 cm (5' 3.39) 06/07/2021 8:54 AM EDT Body Mass Index 39.72 06/07/2021 8:54 AM EDT Plan of Treatment Health Maintenance Due Date Last Done Comments Chlamydia Screening 07/23/2015 HPV vaccine (1 - 3-dose series) 07/23/2015 HIV screen 2018 Hepatitis C Screening 2018 Lipid Screening 2018 Hepatitis B vaccine (0-59 yrs) (1) 07/23/2019 Tetanus/Diphtheria/Pertussis Vaccines (1 - Tdap) 07/22 PAP Smear 2021 Covid-19 Vaccine ( season) 2023 Influenza (Flu) vaccine (1 o f 1 - Influenza standard series) 11/11/2023 Goals Goal Patient Goal Type Associated Problems Recent Progress Patient-Stated? Author DH Home Medication Compliance and Understanding Patient Facing Action Plan Abdirahman Guevara [facility] Note: 50% reduction in hand and knee pain within 3-6 months of Humira initiation Care Teams Dragline Engineer Relationship Specialty Start Date End Date Vanessa Mcginnis MD PCP - General Pediatrics 03/22/21
--- OUTSIDE RECORDS SUMMARY | 2024-01-22 11:39 | XMS_ITS | Encounter Summary ---
[place] [address] Care Team Providers Care Trim Setter Name Role Phone GeorgeSusana vigil Ventura WELDON Primary Care Provider [phone] Reason for Visit * Reason Onset Date Comments Prior Authorization 06/28/2018 Humira Encounter Details Date Type Department Care Team (Late st Contact Info) Description 06/28/2018 [place] [address] Lisbeth Alberto Prior Authorization (Humira) Social History Tobacco Use Types Packs/Day Years Used Date Smoking Tobacco: Never Smokeless Tobacco: Never Sex and Gender Information Value Date Recorded Sex Assigned at Not on file Gender Identity Not on file Sexual Orientation Not on file documented as of this encounter Miscellaneous Notes * Telephone Encounter - Lisbeth Alberto - 06/28/2018 3:49 PM EDT [facility], Prior Authorization Approval Medication Name: Humira Pen 40mg/0.8ml PNKT FILLABLE AT [facility]? yes APPROVAL DATES: 06/28/18-06/29/19 SPECIFIC INS REQUIREMENT: CASE/REFERENCE # [id number] APPROVAL NOTIFICATION RECEIVED VIA: Fax COPAY: $0 COPAY ASSISTANCE NEEDED?: NOTES: * Telephone Encounter - Lisbeth Alberto - 06/28/2018 2:15 PM EDT [facility], Medication Prior Authorization Patient: Brennan Frankel Patient : 2000 Patient Address: [facility] [address] [facility] [address] (home) Medication: Humira Pen 40mg/0.8ml PNKT Subscriber Insurance: [place] Medicaid Fax: Physician: Peter Spence Sent Via: [facility] Nunez: [id number] Ref/Case/PA#: Medication Strength Frequency Requested: Humira Pen 40mg/0.8ml PNKT, Inject contents of one pen every 14 days Qty/Day Supply: 05/09 New Start: No Diagnosis & ICD-10 Code: Arthritis M19.90 documented in this encounter Plan of Treatment Not on file documented as of this encounter Goals Goal Patient Goal Type Associated Problems Recent Progress Patient-Stated? Author DH Home Medication Compliance and Understanding Patient Facing Action Plan No Abdirahman Zavaleta, [facility] Note: 50% reduction in hand and knee pain within 3-6 months of Humira initiation documented as of this encounter Visit Diagnoses Not on filedocumented in this encounter Care Teams Trim Setter Relationship Specialty Start Date End Date Sus[place] [address] PCP - General Family Medicine 03/02/17 09/17/18 documented as of this encounter
--- OUTSIDE RECORDS SUMMARY | 2024-01-22 11:39 | XMS_ITS | Encounter Summary ---
Author Organization [facility] [place] [address] Care Team Providers Care Traffic Survey Technician Name Role Phone Suma Ureña APRN Primary Care Provide r Encounter Details Date Type Department Care Team (Late st Contact Info) Description 12/17/2018 [place] [address] Peter Spence MD [facility] [address] Social History Tobacco Use Types Packs/Day Years Used Date Smoking Tobacco: Never Smokeless Tobacco: Never Sex and Gender Information Value Date Recorded Sex Assigned at Not on file Gender Identity Not on file Sexual Orientation Not on file documented as of this encounter Plan of Treatment Not on file documented as of this encounter Goals Goal Patient Goal Type Associated Problems Recent Progress Patient-Stated? Author [facility] Medication Compliance and Understanding Patient Facing Action Plan No Abdirahman Zavaleta, [facility] Note: 50% reduction in hand and knee pain within 3-6 months of Humira initiation documented as of this encounter Visit Diagnoses Not on filedocumented in this encounter Care Teams Traffic Survey Technician Relationship Specialty Start Date End Date Suma Ureña APRN [address] [place] [address] PCP - General Family Medicine 09/18/18 03/21/21 documented as of this encounter
--- OUTSIDE RECORDS SUMMARY | 2024-01-22 11:39 | XMS_ITS | Encounter Summary ---
Author Organization [facility] [place] [address] Care Team Providers Care Sales Broker Name Role Phone Susana Vazquez APRN Primary Care Provider [phone] Encounter Details Date Type Department Care Team (Late st Contact Info) Description 06/21/2018 Orders [place] [address] Peter Spence MD [facility] [place] [address] Arthritis Social History Tobacco Use Types Packs/Day Years [...] Type Associated Problems Recent Progress Patient-Stated? Author [facility] Medication Compliance and Understanding Patient Facing Action Plan No Abdirahman Zavaleta [facility] Note: 50% reduction in hand and knee pain within 3-6 months of Humira initiation documented as of this encounter Visit Diagnoses Diagnosis Arthritis Arthropathy, unspecified, site unspecified documented in this encounter Care Teams Sales Broker Relationship Specialty Start Date End Date Susana Vazquez [place] [address] PCP - General Family Medicine 03/02/17 09/17/18 documented as of this encounter
--- OUTSIDE RECORDS SUMMARY | 2024-01-22 11:39 | XMS_ITS | Encounter Summary ---
Author Organization Formerly [place] [address] Care Team Providers Care Crop Or Grain Farmworker Name Role Phone Susana Vazquez MANAGER HEART Primary Care Provider [phone] Reason for Visit * Reason Comments Establish Care * Consultation (Routine) - Specialty Diagnoses / Procedures Referred By Juanito contreras Referred To Contact Pediatric Rheumatology Diagnoses Swelling right hand Susana Vazquez, MANAGER HEART [address] [place] [address] [facility] [address] [place] [phone] Referral ID Status Reason Start Date Expiration Date V isits Requested Visits Authorized [id number] Consult, [facility] PCP Updated and/or Approved 03/04/2017 03/04/2018 6 6 Encounter Details Date Type Department Care Team (Late st Contact Info) Description 03/21/2017 9:00 AM EST Office Visit [place] [address] Peter Spence MD [facility] [place] [address] [place] [address] Arthritis Social History Tobacco Use Types Packs/Day Years Used Date Smoking Tobacco: Never Smokeless Tobacco: Never Sex and Gender Information Value Date Recorded Sex Assigned at Not on file Gender Identity Not on file Sexual Orientation Not on file documented as of this encounter Last Filed Vital Signs Vital Sign Reading Time Taken Comments Blood Pressure 131/68 03/21/2017 9:00 AM EST Pulse 68 03/21/2017 9:00 AM EST Temperature 37.1 ??C (98.8 ??F) 03/21/2017 9:00 AM ES T Respiratory Rate - - Oxygen Saturation - - Inhaled Oxygen Concentration - - Weight 97.7 kg (215 lb 6.4 oz) 03/21/2017 9:00 A M EST Height 161.5 cm (5' 3.58) 03/21/2017 9:00 AM ES T Body Mass Index 37.46 03/21/2017 9:00 AM EST Body Mass Index Percentile 98.86% 03/21/2017 9:0 0 AM EST Growth Chart: [facility] (Girls, 2- 20 Years) documented in this encounter Progress Notes * Peter Spence MD - 03/21/2017 9:00 AM EST Is a new patient consultation seen at the request of Phyllis [facility] [place] [facility] [place] [facility] The patient is a 16-year-old female who is otherwise well until 2 months ago when she developed right greater than left pain swelling and tenderness of the small joints of both hands it wasnot preceded by a viral or other illness and no trauma she has been soaking them taking ibuprofen and restricting her activities all of which have helped she does not notice any color changes and specifically denied red white or blue skin color on exposure to cold there is been no rash no blistering but she has noted decreased strength which results in slower writing and necessity of using a [employer] electronic application she has had an occasional chill but denies alopecia stomatitis photosensitivity rash dry eyes or dry mouth she has morning stiffness of about 10 minutes Her past medical history is only notable for control with Nexplnt Her family history her stepmom has psoriasis but her biologic mother father and grandparents are all healthy she has healthy siblings as well She is in high school doing well does not do I have extracurricular activities and is not athletic On exam she is healthy-appearing overweight her blood pressure is 131/68 pulse of 68 temp is 98 8 her height is 64 inches which is in the 42nd percentile her weight is 215 which is the 99th percentile her BMI is 37 her HEENT exam she is a bit hirsute with acne pharynx is benign neck is supple but she is to too thick to palpate chest is clear heart exam is unremarkable abdomen is obese but otherwise unremarkable. Articular exam is notable for synovitis of her PIPs MCPs and wrists bilaterally a let less so but but still evident synovitis of both elbows not in her shoulders knees ankles or feet she has no back pain or tenderness on palpation or percussion her family educator strength is markedly abnormalwith a 3 kg family educator bilaterally there are no nodules Laboratory data they came with her include a normal CBC normal chemistries and a CRP of 0.21 with an upper limit 0.3 and FRANSISCA that was low titer 1-80 in a speckled and nucleolar pattern Her Lyme test was negative My assessment is that she has symmetrical small joint polyarthritis the differential diagnosis includes lupus and lupus like diseases and rheumatoid arthritis statistically rheumatoid would be slightly more likely I have ordered laboratory studies that are pending at the time of this dictation of also put her on Naprosyn 500 twice daily enteric-coated if this round of blood tests is not helpful Iwill check additional labs such as parvo strep etc. I will follow- up in 2 weeks. She might have PCOS documented in this encounter Miscellaneous Notes * Addendum Note - Reta Gonzalez - 03/21/2017 10:24 AM ESTAddended by: RETA GONZALEZ on: 03/21/2017 10:24 AM Modules accepted: Orders documented in this encounter Plan of Treatment Not on file documented as of this encounter Procedures Procedure Name Priority Date/Time Associated Diagnosis Comments CRP, ACUTE INFLAMMATION Routine 03/21/2017 10:33 AM EST Arthritis EXTRACTABLE NUCLEAR ANTIGEN (JOHNY) AB Routine 03/21/2017 10:33 AM EST Arthritis ANTI-CYCLIC CITRULLINATED PEPTIDE AB Routine 03/21/2017 10:33 AM EST Arthritis DNA ANTIBODY (DOUBLE-STRANDED) Routine 03/21/2017 10:33 AM EST HEMOGRAM Routine 03/21/2017 10:33 AM EST Arthritis DIFFERENTIAL, AUTOMATED Routine 03/21/2017 10:33 AM EST Arthritis FRANSISCA TITER Routine 03/21/2017 10:33 AM EST VITAMIN D, 25-HYDROXY Routine 03/21/2017 10:33 AM EST Arthritis SEDIMENTATION RATE Routine 03/21/2017 10 :33 AM EST Arthritis CBC (WITH DIFF) Routine 03/21/2017 10:33 AM EST Arthritis STREPTOCOCCAL ANTIBODY PANEL Routine 03/21/2017 10:33 AM EST Arthritis RHEUMATOID FACTOR, QUANT Routine 03/21/2017 10:33 AM EST Arthritis C3 COMPLEMENT Routine 03/21/2017 10:33 AM EST Arthritis C4 COMPLEMENT Routine 03/21/2017 10:33 AM EST Arthritis FRANSISCA ANTIBODY SCREEN Routine 03/21/2017 1 0:33 AM EST Arthritis TSH Routine 03/21/2017 10:33 AM EST Arthritis HEMOGLOBIN A1C Routine 03/21/2017 10:33 AM EST Arthritis COMPREHENSIVE METABOLIC PANEL Routine 03/21/2017 10:33 AM EST Arthritis documented in this encounter Results * (ABNORMAL) FRANSISCA Titer (03/21/2017 10:33 AM EST) FRANSISCA Titer Pos at 1:320(A) [facility] Comment: Titer seen with Nucleolar pattern. ??Is suggestive of autoantibodies to 4-6 S RNA. ??High titers are a useful marker for scleroderma. Blood specimen (specimen) 03/21/2017 10:33 AM EST 03/21/2017 1:20 PM EST Narrative Resulting Agency Comment Spec In Lab Peter Spence MD IMMUNOLOGY ORDERABLE S [facility] [place] [address] * DNA Antibody (Double-Stranded) (03/21/2017 10:33 AM EST) Pathologist [facility] DNA Ab (DS) Neg Neg [facility] Blood specimen (specimen) 03/21/2017 10:33 AM EST 03/21/2017 1:20 PM EST Narrative Resulting Agency Comment Spec In Lab Peter Spence MD LAB SEND OUT ORDERAB LES Performing Organization Address City/[facility]/ZIP Co de Phone Number [facility] [place] [address] * Differential, Automated (03/21/2017 10:33 AM EST) Pathologist [facility] Neutrophil % 64.3 % [facility] Neutrophil Absolute 4.68 1.50 - 8.00 x10(3)/[facility] Lymph % 25.4 % [facility] Lymphocytes Abs 1.8 1.2 - 5.2 x10(3)/[facility] Monocyte % 7.3 % [facility] Monocyte Abs 0.5 0.2 - 1.0 x10(3)/[facility] Eos % 2.1 % [facility] Eosinophils Abs 0.2 0.0 - 0.4 x10(3)/[facility] Basophil % 0.6 % [facility] Baso Absolute 0.0 0.0 - 0.1 x10(3)/[facility] Immature Gran % 0.30 % [facility] Comment: Immature granulocytes(IG's)percentage and absolute count will include metamyelocytes, myelocytes, and promyelocytes. Blood smears from CBCs yielding IG's will be scanned manually for concordance. If this scan disagrees with the automated IG or if promyelocytes are noted, a manual differential will be performed. Immature Gran Absolute 0.02 0.00 - 0.04 x10(3)/mcL [facility] Blood specimen (specimen) 03/21/2017 10:33 AM EST 03/21/2017 10:40 AM EST Narrative Resulting Agency Comment Spec In Lab Peter Spence MD HEMATOLOGY ORDERABLE S Performing Organization Address City/State/[facility] Co de Phone Number [facility] [place] [address] * (ABNORMAL) Hemogram (03/21/2017 10:33 AM EST) White Blood Cell 7.3 4.5 - 13.0 x10(3)/mc L [facility] Red Blood Cell 4.14 4.10 - 5.10 x10(6)/[facility] Hemoglobin 12.7 12.0 - 16.0 gm/dL [facility] Hematocrit 36.3 36.0 - 46.0 % [facility] Mean Cell Volume 87.7 76.0 - 98.0 fL [facility] Mean Cell Hemoglobin 30.7 25.0 - 35.0 pg [facility] Mean Cell Hemoglobin Concentration 35.0 32.0 - 36.5 gm/dL [facility] Platelet 392(H) 145 - 370 x10(3)/[facility] RDW Standard Deviation 41.5 37.0 - 46.0 [facility] RDW coefficient of variation 13.0 0.0 - 14.5 % [facility] Mean Platelet Volume 10.1 7.6 - 12.9 fL [facility] NRBC% auto 0.0 % [facility] NRBC Absolute 0.000 0.000 - 0.000 x10(3)/mc L [facility] Blood specimen (specimen) 03/21/2017 10:33 AM EST 03/21/2017 10:40 AM EST Narrative Resulting Agency Comment Spec In Lab Peter Spence MD HEMATOLOGY ORDERABLE S Performing Organization Address City/[facility]/ZIP Co de Phone Number [facility] [place] [address] * Streptococcal Antibody Panel (03/21/2017 10:33 AM EST) Pathologist [facility] Aso Titer (JULY) 371 0 - 640 IU/mL [facility] Comment: Test Performed by: [facility] - [address] [address] Dnase B Ab (JULY) 102 0 - 375 unit/mL [facility] Comment: Test Performed by: [facility] - [address] [address] Blood specimen (specimen) 03/21/2017 10:33 AM EST 03/21/2017 1:26 PM EST Narrative Resulting Agency Comment Spec In Lab Peter Spence MD LAB SEND OUT ORDERAB LES Performing Organization Address City/[facility]/ZIP Co de Phone Number [facility] [place] [address] * (ABNORMAL) Vitamin D, 25-Hydroxy (03/21/2017 10:33 AM EST) [facility] Vitamin D Total 25 OH 21(L) 30 - 100 ng/mL [facility] Comment: Deficient <10 ng/mL Insufficient 10 to 29 ng/mL Sufficient 30 to 100 ng/mL Potential Intoxication >100 ng/mL According to the [place] National Osteoporosis Foundation, Vitamin D concentrations >30 ng/mL are sufficient to protect bone health. ??The National Kidney Foundation has similarly stated that patients with Vitamin D concentrations <30ng/mL should be considered to be insufficient or deficient. http://[employer].com/nkf-guidelines http://[employer].com/nejm-VitD The [employer] i[employer] Vitamin D Immunoassay detects both 25-OH Vitamin D2 and 25-OH Vitamin D3, but only a total Vitamin D concentration is reported. Blood specimen (specimen) 03/21/2017 10:33 AM EST 03/21/2017 1:20 PM EST Narrative Resulting Agency Comment Spec In Lab Peter Spence MD CHEMISTRY ORDERABLES [facility] [place] [address] * Hemoglobin A1c (03/21/2017 10:33 AM EST) Hemoglobin A1c 4.9 4.3 - 5.6 % [facility] Comment: Reference Range: 4.3 - 5.6% 5.7 - 6.4% - Increased Risk of Developing Diabetes Mellitus >=6.5% - Consistent with diagnosis of Diabetes Mellitus In the absence of hyperglycemia (i.e. plasma glucose > 200 mg/dL) or classic symptoms of hyperglycemia a repeat measurement of HbA1c should be performed on a separate sample to confirm the diagnosis. Diagnosis and Classification of Diabetes Mellitus, Diabetes Care 2013; 36: Suppl. 1, B37-49 Estimated Average Glucose See note mg/dL [facility] Comment: Estimated Average Glucose not appropriate for patients under 18 years of age. eAG equivalents for HbA1c percentages: HbA1c(%) ?eAG(mg/dL) 6.0 ?126 6.5 ?140 7.0 ?154 7.5 ?169 8.0 ?183 8.5 ?197 9.0 ?212 9.5 ?226 10.0 ? 240 Limitations: The eAG calculation has not been validated on women, individuals below 18 years old and above 70 years old, and individuals with hemoglobinopathies. Additional resources are available on the ADA website. Justen BEJARANO, Sabino J, John R, et al. ??Translating the A1C assay into estimated average glucose values. ??Diabetes Care 2008:31(8):5792-0206. Blood specimen (specimen) 03/21/2017 10:33 AM EST 03/21/2017 10:40 AM EST Narrative Resulting Agency Comment Spec In Lab Peter Spence MD CHEMISTRY ORDERABLES Performing Organization Address [facility] Co de Phone Number [facility] [place] [address] * TSH (03/21/2017 10:33 AM EST) Thyroid Stimulating Hormone 1.95 0.27 - 4.20 mlU/ML [facility] Blood specimen (specimen) 03/21/2017 10:33 AM EST 03/21/2017 10:40 AM EST Narrative Resulting Agency Comment Spec In Lab Peter Spence MD CHEMISTRY ORDERABLES Performing Organization Address [facility] de Phone Number [facility] [place] [address] * Cyclic Citrullinated Peptide (03/21/2017 10:33 AM EST) Cyclic Citrulline Peptide <0.5 <=4.9 unit/mL [facility] Comment: An updated CCP assay reagent was implemented 06/22/16. Please note the modified reference interval. Blood specimen (specimen) 03/21/2017 10:33 AM EST 03/21/2017 10:40 AM EST Narrative Resulting Agency Comment Spec In Lab Peter Spence MD CHEMISTRY ORDERABLES Performing Organization Address [facility] de Phone Number [facility] [place] [address] * Rheumatoid factor, quant (03/21/2017 10:33 AM EST) Rheumatoid Factor <10 <=14 IU/mL [facility] Blood specimen (specimen) 03/21/2017 10:33 AM EST 03/21/2017 10:40 AM EST Narrative Resulting Agency Comment Spec In Lab Peter Spence MD CHEMISTRY ORDERABLES Performing Organization Address City/[facility] Co de Phone Number [facility] [place] [address] * C4 Complement (03/21/2017 10:33 AM EST) Complement C4 32 8 - 44 mg/dL [facility] Blood specimen (specimen) 03/21/2017 10:33 AM EST 03/21/2017 10:40 AM EST Narrative Resulting Agency Comment Spec In Lab Peter Spence MD CHEMISTRY ORDERABLES Performing Organization Address [facility] Co de Phone Number [facility] [place] [address] * C3 Complement (03/21/2017 10:33 AM EST) Complement C3 140 107 - 200 mg/dL [facility] Blood specimen (specimen) 03/21/2017 10:33 AM EST 03/21/2017 10:40 AM EST Narrative Resulting Agency Comment Spec In Lab Peter Spence MD CHEMISTRY ORDERABLES Performing Organization Address [facility] Co de Phone Number [facility] [place] [address] * Extractable Nuclear Antigen (JOHNY) Ab (03/21/2017 10:33 AM EST) JOHNY Ab Test ?Result ?Flag ??Unit ??RefValue Ab to Extractable Nuclear Ag Eval,S ??SS-A/Ro Ab, IgG, S ?<0.2 ?U ? <1.0 (Negative) ??SS-B/La Ab, IgG, S ?<0.2 ?U ? <1.0 (Negative) ??Sm Ab, IgG, S ? <0.2 ?U ? <1.0 (Negative) ??JEEP MECHANIC Ab, IgG, S ?<0.2 ?U ? <1.0 (Negative) ??Scl 70 Ab, IgG, S ? 0.7 ? U ? <1.0 (Negative) ??Day 1 Ab, IgG, S ? <0.2 ?U ? <1.0 (Negative) ?Test Performed by: ?[facility] ?[address] [place], [place] [id number] [place] [address] LABORATORY Blood specimen (specimen) 03/21/2017 10:33 AM EST 03/21/2017 1:26 PM EST Narrative Resulting Agency Comment Spec In Lab Peter Spence MD LAB SEND OUT ORDERAB LES Performing Organization Address City/[facility]/ZIP Co de Phone Number [facility] [place] [address] * (ABNORMAL) FRANSISCA (03/21/2017 10:33 AM EST) FRANSISCA Titer to follow(A) Neg [facility] Blood specimen (specimen) 03/21/2017 10:33 AM EST 03/21/2017 1:20 PM EST Narrative Resulting Agency Comment Spec In Lab Peter Spence MD LAB SEND OUT ORDERAB LES Performing Organization Address [facility] Co de Phone Number [facility] [place] [address] * CRP, acute inflammation (03/21/2017 10:33 AM EST) C-Reactive Protein 1.6 <=4.9 mg/L [facility] Blood specimen (specimen) 03/21/2017 10:33 AM EST 03/21/2017 10:40 AM EST Narrative Resulting Agency Comment Spec In Lab Peter Spence MD CHEMISTRY ORDERABLES Performing Organization Address [facility] Co de Phone Number [facility] [place] [address] * Sedimentation rate (03/21/2017 10:33 AM EST) Pathologist [facility] Sedimentation Rate Automated 16 0 - 20 mm/hr [facility] Blood specimen (specimen) 03/21/2017 10:33 AM EST 03/21/2017 10:40 AM EST Narrative Resulting Agency Comment Spec In Lab Peter Spence MD HEMATOLOGY ORDERABLE S Performing Organization Address [facility] Co de Phone Number [facility] [place] [address] * (ABNORMAL) Comprehensive metabolic panel (non-fasting) (03/21/2017 10:33 AM EST) Glucose 91 65 - 199 mg/dL [facility] Comment:Diabetes: >=200 mg/d L plus symptoms Blood Urea Nitrogen 14 10 - 20 mg/dL [facility] Creatinine 0.75(H) 0.20 - 0.70 mg/dL [facility] Sodium 140 135 - 145 mmol/L [facility] Potassium 4.2 3.5 - 5.0 mmol/L [facility] Comment: Please note: ??Patients with WBC >100,000 may have falsely elevated Potassium levels. ??For accurate Potassium quantification in these patients send serum separator tube (gold top) for subsequent determinations. ??Contact the Clinical Chemistry Laboratory if there are any questions. Chloride 102 98 - 107 mmol/L [facility] Carbon Dioxide 24 22 - 31 mmol/L [facility] Anion Gap 14 5 - 15 mmol/L [facility] Calcium 9.6 8.5 - 10.5 mg/dL [facility] Protein, Total 8.1 6.4 - 8.3 gm/dL [facility] Albumin 4.4 3.2 - 5.2 gm/dL [facility] Aspartate Aminotransferase 15 5 - 30 unit/L [facility] Alanine Aminotransferase 22 0 - 25 unit/L [facility] Alkaline Phosphatase 71 55 - 140 unit/L [facility] Bilirubin, Total 0.3 <=1.0 mg/dL [facility] Est Glomerular Filtration Rate See note >=60 [facility] Comment: The eGFR for patients less than 18 years of age should be calculated using the Bazan formula. GFR = (0.413 x Height in cm)/serum creatinine. The reported eGFR should be multiplied by 1.2 for patients. The MDRD is not an appropriate measure of renal function for patients with body mass extremes or in patients with acute kidney failure. http://[employer]/DHnkdep http://[employer]/DHMCnkf Blood specimen (specimen) 03/21/2017 10:33 AM EST 03/21/2017 10:40 AM EST Narrative Resulting Agency Comment Spec In Lab Peter Spence MD CHEMISTRY ORDERABLES Performing Organization Address City/State/[facility] Co de Phone Number [facility] [place] [address] documented in this encounter Visit Diagnoses Diagnosis Arthritis Arthropathy, unspecified, site unspecified documented in this encounter Care Teams Crop Or Grain Farmworker Relationship Specialty Start Date End Date Susana Vazquez, MANAGER HEART [place] [address] PCP - General Family Medicine 03/02/17 09/17/18 documented as of this encounter
--- OUTSIDE RECORDS SUMMARY | 2024-01-22 11:39 | XMS_ITS | Encounter Summary ---
Author Organization [facility] Address [facility] [place] [address] Care Team Providers Care Shoe Cutter Name Role Phone GeorgeSusana vigil Ventura WELDON Primary Care Provider [phone] Encounter Details Date Type Department Care Team (Latest Contact Info) Description 07/11/2017 4:00 PM EDT - 07/11/2017 11:59 PM EDT Hospital Encounter XRay at [address] [place] [address] Peter Spence MD [facility] [place] [address] Arthritis Discharge Disposition: Home Social History Tobacco Use Types Packs/Day Years Used Date Smoking Tobacco: Never Smokeless Tobacco: Never Sex and Gender Information Value Date Recorded Sex Assigned at Not on file Gender Identity Not on file Sexual Orientation Not on file documented as of this encounter Medications at Time of Discharge Medication Sig Dispensed Refills Start Date End Date loratadine (CLARITIN) 10 mg Tablet TAKE ONE TABLET BY MOUTH EVERY DAY NEEDED 11 10/18/2016 hydroxychloroquine (PLAQUENIL) 200 mg Tablet 07/09/2017 12/17/2018 meloxicam (MOBIC) 15 mg TabletIndications:Arthr itis Take 1 tablet by mouth daily. 30 tablet 12 04/11/2017 03/14/2018 naproxen (EC-NAPROSYN) 500 mg Tablet, Delayed Release (E.C.)Indications:Arthr itis Take 1 tablet by mouth 2 times daily (with meals). 60 tablet 3 03/21/2017 03/14/2018 ergocalciferol (ERGOCALCIFEROL) 50,000 unit CapsuleIndications:Arth ritis Take 1 capsule by mouth once a week. 4 capsule 12 03/21/2017 03/14/2018 documented as of this encounter Plan of Treatment Not on file documented as of this encounter Procedures Procedure Name Priority Date/Time Associated Diagnosis Comments XR HAND MIN 3 VIEWS BILAT Routine 07/11/2017 4:19 PM EDT Arthritis documented in this encounter Results * XR Hand Min 3 views Bilat (Generic) (07/11/2017 4:19 PM EDT) Anatomical Region Laterality Modality Hand Bilateral Digital Radiogra phy Impressions 07/11/2017 5:31 PM EDT No radiographic findings of inflammatory arthropathy. Narrative 07/11/2017 5:31 PM EDT EXAMINATION: XR HAND MIN 3 VIEWS BILAT (GENERIC) CLINICAL HISTORY: RA TECHNIQUE: PA, oblique, lateral, and ball-catcher's views of the bilateral hands COMPARISON: None FINDINGS: No focal soft tissue swelling. No osseous erosions or abnormal soft tissue calcification. Joint spaces are preserved. No visible fracture or malalignment. Procedure Note Sylvia Matute MD - 07/11/2017 EXAMINATION: XR HAND MIN 3 VIEWS BILAT (GENERIC) CLINICAL HISTORY: RA TECHNIQUE: PA, oblique, lateral, and ball-catcher's views of the bilateral hands COMPARISON: None FINDINGS: No focal soft tissue swelling. No osseous erosions or abnormal softtissue calcification. Joint spaces are preserved. No visible fracture ormalalignment. IMPRESSION No radiographic findings of inflammatory arthropathy. Peter Spence MD IMG DX ORDERABLES documented in this encounter Visit Diagnoses Diagnosis Arthritis Arthropathy, unspecified, site unspecified documented in this encounter Care Teams Shoe Cutter Relationship Specialty Start Date End Date Susana Vazquez APRN [address] [place] [address] PCP - General Family Medicine 03/02/17 09/17/18 documented as of this encounter
--- OUTSIDE RECORDS SUMMARY | 2024-01-22 11:39 | XMS_ITS | Encounter Summary ---
[place] [address] Care Team Providers Care Business Education Professor Name Role Phone Kxyn-Zcwe-Iwczsa Suma FATEMEH Primary Care Provide r Reason for Visit * Reason Comments Medication Management Encounter Details Date Type Department Care Team (Late st Contact Info) Description 02/03/2019 Specialty [place] [address] Abdirahman Zavaleta RPH Social History Tobacco Use Types Packs/Day Years Used Date Smoking Tobacco: Never Smokeless Tobacco: Never Sex and Gender Information Value Date Recorded Sex Assigned at Not on file Gender Identity Not on file Sexual Orientation Not on file documented as of this encounter Progress Notes * Abdirahman Zavaleta RPH - 02/03/2019 10:17 AM EST Clinical Management Plan: Transfer of Care/Discharge Specialty Services Specialty Pharmacy Consultation; Abdirahman Zavaleta RPH Comprehensive Medication Management (CMM) Brennan Frankel [address] [facility] [address] Telephone Information: Work Phone Not on file. Is the patient transferring services to a different Specialty Pharmacy or discontinuing the medication: Discontinuing medication Medication: Humira Reason for discontinuation or transfer: Infection recurrence, questionable efficacy Approximate date of discontinuation or transfer: Held since September, d/c'd in December Patient's response to therapy: Questionable benefit Summary of services provided by [facility] Special[facility]: Consults, refill reminders, medication dispensing Summary of on-going needs: None - on MTX and plaquenil Referral for additional services (if applicable): N/A Instructions provided to patient about discharge/transfer: no Provider aware of discontinuation or transfer: Yes Patient understands no changes to current drug regimen were made at the appointment and that [facility] isproviding recommendations (summary located at top of note) for provider review and follow up. Abdirahman Zavaleta RPH 02/03/19 10:17 AM documented in this encounter Plan of Treatment Not on file documented as of this encounter Goals Goal Patient Goal Type Associated Problems Recent Progress Patient-Stated? Author DH Home Medication Compliance and Understanding Patient Facing Action Plan No Abdirahman Zavaleta [facility] Note: 50% reduction in hand and knee pain within 3-6 months of Humira initiation documented as of this encounter Visit Diagnoses Not on filedocumented in this encounter Care Teams Business Education Professor Relationship Specialty Start Date End Date Suma Ureña APRN [address] [place] [address] PCP - General Family Medicine 09/18/18 03/21/21 documented as of this encounter
--- OUTSIDE RECORDS SUMMARY | 2024-01-22 11:39 | XMS_ITS | Encounter Summary ---
[place] [address] Care Team Providers Care Ent Surgeon Name Role Phone Susana Vazquez FATEMEH Primary Care Provider [phone] Reason for Visit * Reason Comments Patient Education Encounter Details Date Type Department Care Team (Late st Contact Info) Description 03/14/2018 Specialty Pharmacy [place] [address] Abdirahman Zavaleta RPH Social History Tobacco Use Types Packs/Day Years Used Date Smoking Tobacco: Never Smokeless Tobacco: Never Sex and Gender Information Value Date Recorded Sex Assigned at Not on file Gender Identity Not on file Sexual Orientation Not on file documented as of this encounter Progress Notes * Abdirahman Zavaleta RPH - 03/14/2018 3:56 PM EST Specialty Pharmacy Consultation; Abdirahman Zavaleta RPH Comprehensive Medication Management (CMM) Brennan Frankel Diagnosis: Polyarthritis Therapy Start Date: TBD - new to therapy (03/26 purported) Contact in person or via telephone: Phone Ms. Brennan Frankel is a 17 y.o. (2000) female who was contacted in regard to specialty medication. Spoke with mother, Yashira, regarding Humira . A review of the medication therapy was performed.The medication was Filled as scheduled, and all medication related questions and concerns were addressed. The specialty pharmacy staff will follow up with the patient 5-7 days prior to next refill. Is the patient willing to proceed with the Clinical Assessment? Yes Summary and Recommendations: Prescription is appropriate as written. Patient was contacted for an initial consult regarding newly prescribed Humira. Spoke with mother, Yashira, who had many questions regarding the medication. Storage, handling, administration, missed doses, infection control, and potential side effects of therapy were all discussed in-depth. Yashira is very excited for her daughter to start her new biologic as she is in quite a lot of pain currently with her knees and hands being to most affected. Flu vaccine was recommended. Gilbert will be heading to college in the Fall to [employer] in [place], [place] -she is curious about how delivery will go about while attending [employer]. Patient simply needs to doa bit of research about where to send her prescription come and beyond. Basic pathophysiology of disease was re-emphasized as well as where Humira fits into her therapy for clinical benefit. Negative TB test from January 2018. Medications and allergies were confirmed - naproxen, meloxicam, ergocalciferol were all discontinued from medication list as was an old dose of methotrexate (15 mg weekly - now taking 20 mg). Patient has been holding MTX for past week due to cyst excision in axilla and plans to resume on 03/21/18. Yashira plans to have Gilbert take her first Humira injectionon 03/26 to allow her to get back in the rhythm of her medications. Overall, Yashira was very pleased with our conversation and will reach out with any questions in the meantime. Delivery is planned fornexsunday (03/19). Clinic follow-up needed: no Allergies and Drug intolerance: Allergies Allergen Reactions ??? Meloxicam Broke into mouth soars ??? Naproxen Mouth soars Special Dietary or Hydration Requirements: no There is no height or weight on file to calculate BMI. Medication Reconciliation Discrepancies (compared to [facility] med list) - d/c'd naproxen, meloxicam, ergocalciferol, old MTX dose (15 mg weekly) Medication Adherence Demonstrates understanding of importance of adherence: yes Informant: mother Reliability of informant: reliable Reasons for non-adherence: no problems identified Adherence tools used: directed education Confirmed plan for next specialty medication refill: delivery by pharmacy Refills needed for supportive medications: not needed Medication List: Current Outpatient Medications Medication Sig Note Dispense Refill ??? Adalimumab (HUMIRA PEN) 40 mg/0.8 mL Pen Injector Kit Inject 0.8 mLs subcutaneously every 14 days. 4 kit 3 ??? metHOTREXate 2.5 mg Tablet Take 8 tablets by mouth once a week for 90 days. 32 tablet 3 ??? folic acid (FOLVITE) 1 mg Tablet Take 1 tablet by mouth daily. 90 tablet 3 ??? hydroxychloroquine (PLAQUENIL) 200 mg Tablet 07/11/2017: Received from: External Pharmacy ??? loratadine (CLARITIN) 10 mg Tablet TAKE ONE TABLET BY MOUTH EVERY DAY NEEDED 03/21/2017: Received from: External Pharmacy 11 No current facility-administered medications for this visit. Most Recent Vitals: Ht Readings from Last 1 Encounters: 02/20/18 161.3 cm (5' 3.5) (39 %)* * Growth percentiles are based on CDC (Girls, 2-20 Years) data. Wt Readings from Last 3 Encounters: 02/20/18 (!) 97.9 kg (215 lb 12.8 oz) (99 %)* 01/16/18 (!) 98.4 kg (217 lb) (99 %)* 10/17/17 96.4 kg (212 lb 9.6 oz) (98 %)* * Growth percentiles are based on CDC (Girls, 2-20 Years) data. Temp Readings from Last 3 Encounters: 02/20/18 36.8 ??C (98.2 ??F) 01/16/18 37.1 ??C (98.8 ??F) (Oral) 10/17/17 36.8 ??C (98.2 ??F) BP Readings from Last 3 Encounters: 01/16/18 121/53 (84 %/ 8 %)* 10/17/17 115/57 (69 %/ 16 %)* 07/11/17 120/55 (83 %/ 13 %)* *BP percentiles are based on the October 2016 AAP Clinical Practice Guideline for girls Pulse Readings from Last 3 Encounters: 01/16/18 78 10/17/17 61 07/11/17 74 Pertinent Lab values: Lab Results Component Value Date NA 142 01/16/2018 K 4.2 01/16/2018 CL 104 01/16/2018 CO2 23 01/16/2018 BUN 13 01/16/2018 CREATININE 0.70 01/16/2018 GLUCOSE 77 01/16/2018 CALCIUM 9.4 01/16/2018 Lab Results Component Value Date ALT 34 (H) 01/16/2018 AST 19 01/16/2018 ALKPHOS 63 01/16/2018 BILITOT 0.4 01/16/2018 ALBUMIN 4.1 01/16/2018 PROT 7.4 01/16/2018 Lab Results Component Value Date WBC 7.0 01/16/2018 HGB 13.0 01/16/2018 HCT 38.7 01/16/2018 MCV 92.1 01/16/2018 PLATELET 354 01/16/2018 Lab Results Component Value Date HA1C 4.9 03/21/2017 There is no immunization history on file for this patient. Assessment and Recommendations: Title Type of Medication Management: chronic disease management, targeted medication review Referred By: provider Recipient: other authorized individual Provider: plan sponsor pharmacist Method of Contact: by telephone Cognitive Ability: good Patient Counseling Counseled the patient on the following: doses and administration discussed, safe handling, storage, and disposal discussed, possible adverse effects and management discussed, possible drug and prescription drug interactions discussed, possible drug and OTC drug and food interactions discussed, lab monitoring and follow-up discussed, therapeutic rationale discussed, cost of medications and cost implications discussed, adherence and missed doses discussed, pharmacy contact information discussed Drug Medication Management Summary Topics discussed: doses and administration discussed, safe handling, storage, and disposal discussed, possible adverse effects and management discussed, possible drug and prescription drug interactions discussed, possible drug and OTC drug and food interactions discussed, lab monitoring and follow-up discussed, therapeutic rationale discussed, cost of medications and cost implications discussed, adherence and missed doses discussed, pharmacy contact information discussed Treatment Outcomes No data found. Reviewed in detail with patient: Dose appropriateness based on recommended standard dosing Current medication list including OTC medications Medication and disease problems Allergies Comorbid conditions/ Problem List Past adverse events if any Special needs of the patient including physical and cognitive limitations Goals of therapy and management strategies Warnings, precautions, and contraindications Side effects Drug-drug and drug-food interactions Administration instructions including dose, frequency and method Handling, storage, and disposal of the medication Relevant lab data Patient verbalizes understanding and is able to read-back instructions on self-administration/injection, proper storage, drug stability, importance of adherence and management strategies, side effectavoidance and mitigation strategies, and interruptions in therapy: Yes Physical Assessment: Functional limitations identified: no Cognitive limitations identified: no Concern regarding orientation/memory: no Concern with reasoning/judgement: no Is patient a fall risk: no Other needed information: no Social Assessment: Does the patient have a primary skin care instructor? no Patient has emergency contact on file: Yes Does patient need referral to licensed master social worker: No Does patient need referral to advocacy group: No Physical and Home Health Assessment: Is the patient able to store their medication as directed? Yes Is the patient in a safe home environment? Yes Do you have a support network? Yes Reviewed potential home safety hazards: No Economic Assessment: Patient is agreeable to medication copay: Yes Copay Amount: $0.00 Day Supply: 28 Date Needed: New to therapy Copay assistance required: no Therapy Assessment: Current Medication Dosing/Route/Frequency: Humira 40 mg SQ q14 days Appropriate Therapy: Yes Expected Outcome: Reduction in hand and knee pain from polyarthritis Patient's goals: Patient's specific desired goal: 50% reduction in hand and knee pain Measured by: Pain levels Time-frame to meet goal: 3-6 months initially, then ongoing Care Plan Reviewed and Approved by both Pharmacist and Patient: Yes Patient's Problems/Needs: Polyarthritic pain Monitoring requirements for prescribed medication: As determined by provider Interventions (if applicable): None Educational information or adherence tools provided: Yes Additional equipment/supplies required: no Pharmacist follow-up needed: Yes Informed patient of specialty pharmacy services: Yes -Patient will be provided with welcome packet: Yes Date to be provided: With initial shipment Delivery Method: Mail -Patient will be provided with Rights & Responsibiliites: Yes Date to be provided: With initial shipment Delivery Method: Mail -Patient is aware a licensed pharmacist is available 24 hours a day, 7 days a week to discuss medication-related questions or concerns: Yes -Patient verbalizes understanding of the common side effect profile of their medication. The patient is able to call 911 or seek urgent care if signs/symptoms of allergy or harmful adverse reactions occur: Yes Patient understands no changes to current drug regimen were made at the appointment and that [facility] isproviding recommendations (summary located at top of note) for provider review and follow up. Abdirahman Zavaleta RPH 03/14/18 3:58 PM documented in this encounter Plan of Treatment Not on file documented as of this encounter Goals Goal Patient Goal Type Associated Problems Recent Progress Patient-Stated? Author DH Home Medication Compliance and Understanding Patient Facing Action Plan No Abdirahman Zavaleta RPH Note: 50% reduction in hand and knee pain within 3-6 months of Humira initiation documented as of this encounter Visit Diagnoses Not on filedocumented in this encounter Care Teams Ent Surgeon Relationship Specialty Start Date End Date Susana Vazquez, FATEMEH [address] [place] [address] PCP - General Family Medicine 03/02/17 09/17/18 documented as of this encounter
--- OUTSIDE RECORDS SUMMARY | 2024-01-22 11:39 | XMS_ITS | Encounter Summary ---
Author Organization [facility] [place] [address] Care Team Providers Care Horse Riding Coach Or Instructor Name Role Phone Vanessa Mcginnis MD Primary Care Provider [phone] Reason for Visit * Consultation (Routine) - Closed Specialty Diagnoses / Procedures Referred By Juanito contreras Referred To Contact Rheumatology Diagnoses Polyarthritis, unspecified Vanessa Mcginnis MD [address] [place] [address] [place] [address] [facility] [address] [place] [phone] Referral ID Status Reason Start Date Expiration Date V isits Requested Visits Authorized [id number] Closed Consult, [facility] PCP Updated and/or Approved 03/22/2021 03/22/2022 6 6 Encounter Details Date Type Department Care Team (Late st Contact Info) Description 06/07/2021 9:00 AM EDT Office [place] [address] Kwaku Reese MD [facility] [place] [address] Polyarthralgia; Plantar fasciitis Social History Tobacco Use Types Packs/Day Years [...] 06/07/2021 8:54 AM ED T Respiratory Rate - - Oxygen Saturation 100% 06/07/2021 8:54 AM EDT Inhaled Oxygen Concentration - - Weight 103 kg (227 lb) 06/07/2021 8:54 AM EDT Height 161 cm (5' 3.39) 06/07/2021 8:54 AM EDT Body Mass Index 39.72 06/07/2021 8:54 AM EDT documented in this encounter Patient Instructions * Patient Instructions* Kwaku Reese MD - 06/07/2021 9:42 AM EDT 1. The diagnosis of polyarthralgia in her hands knees right ankle and feet were discussed and the importance of a trial of ibuprofen 600 mg twice daily on a schedule was reviewed. 2. We will schedule a ultrasound examination of her hands and/or feet depending on which bothers her the most that day to document the presence of increased blood flow and swelling in the joints or tendons. 3. We spent some time discussing the importance of good quality sleep which she is finally achievedon hydroxyzine. 4. She has plantar fasciitis and we discussed management strategies for this and the basic biology.I have recommended inserts and/or a night splint. [employer] Inserts [place] Basic Foot Orthosis [employer] 6820 URL: http://[email or web address]/search/?[email or web address] [place] Dorsal Night Splint: Available [employer], [employer], [employer], [employer] website 5. I will wait to see the results from splinting as well as the ultrasound examination before determining which direction we will go with her therapy. It may be that anti-inflammatories alone along with splinting will make a significant difference. documented in this encounter Progress Notes * Kwaku Reese MD - 06/07/2021 9:00 AM EDT Rheumatology Staff Note History of present illness: Patient is a 20-year-old woman with a history of hidradenitis with multiple groin and axillary abscesses since 2017. At that time she also presented with hand and foot pain and was evaluated in March [address] Spence. At that time his exam was notable for synovitis of her PIPs, MCPs and wrists but she had good range of motion in her hands there is also some elbow and shoulder almond Lyme testing was negative FRANSISCA was low titer at 1-80 and CRP was also low. His conclusion at that time was this might represent a lupus arthropathy and he put her on Naprosyn. Ultrasound examination by Dr. Allen at that time revealed a negative Doppler and minimal synovial thickening in her hands. The patient was subsequently treated with hydroxychloroquine and methotrexate with some benefit. In February 2018 Humira was added 40 mg every other week with a dramatic response with cessation due to an abscess. Due to her obesity limiting the exam, Dr. Spence started her back on Humira even though her inflammatory markers were negative. At that time she was going to matriculate at [employer]. A nd she was maintained on methotrexate 20 mg a week Humira 40 mg every other week [id number] mg daily. Dr. Koo note from June 2019 is a telehealth note where he reports that she had to stop the Humira due to 2 episodes of cellulitis and she experienced increased pain and stiffness in the small joints of her hand. He increased her hydroxychloroquine to 200 mg twice daily at that time. She returns today at the request of Dr. Mcginnis. She reports that she has been off Humira for 2 years and has had no recurrent cellulitis, which was restricted to her left arm. She also stopped the methotrexate which she reports was had provided some benefit as well as see hydroxychloroquine. Thus she has been off medication for the last 2 years and has been troubled by polyarthralgias in her hands mostly her fingers that is exacerbated by cold weather and activity. Morning is not a particular difficult time for her in terms of her hands although she has pain walking to the bathroom in the sole of her foot. She uses nonsteroidals intermittently and finds that they provide considerable benefit. The joint pain has not been as severe as it has been in the past but is still limits her when theweather is cold and damp. 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 Part of her history is that her sleep disturbance which was profound in the past has been markedly improved by hydroxyzine. She is sleeping closer to 7 or 8 hours instead of 4 hours and awakening much more rested. She does not describe any functional limitation based on her joints. Furthermore she has had no abscesses or episodes of cellulitis as mentioned above. Patient Active Problem List Diagnosis Code ??? Arthritis M19.90 Other medical problems are listed by her PCP include chronic anxiety for which she takes sertraline Recurrent infections in the groin and axilla consistent with the diagnosis of hidradenitis. Allergies include vancomycin causing a skin rash Review of Systems Constitutional: No fevers, chills, malaise. Skin: no rashes HEENT: no sicca sx, change in hearing, taste sinus pain, ROSALES, change in taste. Respiratory: no chest pain, shortness of breath CV: no BENNETT, angina sx, claudication Back: No sciatica, pain with standing GI: no abd pain, normal bowel movements : no dysuria, normal voiding, no nocturia Neuro: no focal deficit Family history is significant for alcoholism, depression, mental disorder in her sister which appears to be depression and anxiety. 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 Physical Examination: Blood pressure 122/70, pulse 70, temperature 36.6 ??C (97.9 ??F), temperature source Temporal, height 161 cm (5' 3.39), weight 103 kg (227 lb), SpO2 100 %. General-obese woman in no acute distress who is here with her stepmother. She is alert makes good eye contact and ambulated normally into the clinic room.. Skin- No clubbing, cyanosis, rubor, edema, rash HEENT: No temporal artery, sinus or TMJ tenderness. Mucus membranes moist, normal salivary pooling without lesions.Normal parotid, submental and submandibular nodes Neck-Supple no bruits Chest: clear to auscultation, good air movement without wheezes Cor: RR no M,G,R Back: + tenderness to punch, normal SLR Ext: Extremities warm w// normal pulses Musculoskeletal: Trigger points present in the paraspinals in the lumbar region, trapezius, deltoids, forearms, thighs, medial joint line the knees.. Shoulders: FROM, no AC/subacromial tenderness. Elbows: Full motion, no joint or epicondylar swelling or tenderness. Wrists: Full motion, no swelling, no warmth, no tenderness over radiocarpal or ulnocarpal joints. Hands: Normal rug hooker hand and nearly normal claw. There is tenderness of scattered MCP joints but without synovial thickening and they are very supple with normal extension. There is puffinessor thickening at the interphalanges of the the PIP and MCP but they are not tender. Hips: Full motion, no trochanteric tenderness Knees: Full motion including -10 degrees of hyperextension. No joint line tenderness except on the medial joint line. No effusions no popliteal fullness.. Ankles: No warmth, swelling, normal motion on the left. On the right however there is decreased motion including flexion and inversion.. There is plantar fascia tenderness plantar fascia tenderness. Feet: No deformity. Normal MTPJs minor compression tenderness. Neuro: No focal weakness, normal sensation, including JPS. Romberg normal Assessment: The patient has done well with little therapy for these past 2 years not even requiringregular nonsteroidal usage. Her exam does not demonstrate significant joint dysfunction except perhaps in her right ankle. There is excellent range of motion in her hands which is a source of problems in the past. Furthermore her hidradenitis seems to have quiesced and she has not had any recurrentcellulitis off adalimumab. There is some myofascial tenderness but it appears the hydroxyzine and the improved sleep resulting from it have paid significant dividends. I would not start DMARD therapybased on the current exam without clear evidence of synovitis which was lacking today. Previous ultrasound evaluation called some synovial thickening but negative Doppler signal. I think the makes the most sense to give an ultrasound evaluation I will asked Dr. Fontana to schedule her for the study.If the study is negative and she finds that her symptoms are well controlled on twice daily ibuprofen I think we would just manage her symptomatically with NSAIDs. Alternatively if joint damage is seen or some significant Doppler signal was seen he could make the argument to start sulfasalazine, methotrexate, or Plaquenil. Without evidence of significant disease, I would hold off using a TNF antagonist or a biologic at this time. In short her disease process that was present in 2018 seems to bemuch less intense today. Additional issues include loss of motion in her right ankle with tenderness and plantar fasciitis. These would be potentially treated in similar ways using nonsteroidals and splinting Recommend 1. The diagnosis of polyarthralgia in her hands knees right ankle and feet were discussed and the importance of a trial of ibuprofen 600 mg twice daily on a schedule was reviewed. 2. We will schedule a ultrasound examination of her hands and/or feet depending on which bothers her the most that day to document the presence of increased blood flow and swelling in the joints or tendons. 3. We spent some time discussing the importance of good quality sleep which she is finally achievedon hydroxyzine. 4. She has plantar fasciitis and we discussed management strategies for this and the basic biology.I have recommended inserts and/or a night splint. [employer] Inserts [place] Basic Foot Orthosis [employer] 6820 URL: http://[email or web address]/search/?[email or web address] [place] Dorsal Night Splint: Available [employer], [employer], [employer], [employer] website 5. I will wait to see the results from splinting as well as the ultrasound examination before determining which direction we will go with her therapy. It may be that anti-inflammatories alone along with splinting will make a significant difference. Level 5 consultation Based on time Patient and stepmother agree with treatment and plan. Kwaku Reese MD documented in this encounter Plan of Treatment Not on file documented as of this encounter Goals Goal Patient Goal Type Associated Problems Recent Progress Patient-Stated? Author DH Home Medication Compliance and Understanding Patient Facing Action Plan No Abdirahman Zavaleta, [facility] Note: 50% reduction in hand and knee pain within 3-6 months of Humira initiation documented as of this encounter Visit Diagnoses Diagnosis Polyarthralgia Pain in joint, multiple sites Plantar fasciitis Plantar fascial fibromatosis documented in this encounter Care Teams Horse Riding Coach Or Instructor Relationship Specialty Start Date End Date Vanessa Mcginnis MD PCP - General Pediatrics 03/22/21 documented as of this encounter
--- OUTSIDE RECORDS SUMMARY | 2024-01-22 11:39 | XMS_ITS | Encounter Summary ---
Author Organization [facility] [place] [address] Care Team Providers Care Impregnator Name Role Phone Vanessa Mcginnis MD Primary Care Provider Reason for Visit * Reason Onset Date Comments Medication Refill 06/26/2018 Encounter Details Date Type Department Care Team (Late st Contact Info) Description 06/26/2018 Refill [place] [address] Peter Spence MD [facility] [place] [address] Social History Tobacco Use Types Packs/Day Years [...] Type Associated Problems Recent Progress Patient-Stated? Author [facility] Medication Compliance and Understanding Patient Facing Action Plan No Abdirahman Zavaleta, [facility] Note: 50% reduction in hand and knee pain within 3-6 months of Humira initiation documented as of this encounter Visit Diagnoses Not on filedocumented in this encounter Care Teams Impregnator Relationship Specialty Start Date End Date Vanessa Mcginnis MD PCP - General Pediatrics 03/22/21 documented as of this encounter
--- OUTSIDE RECORDS SUMMARY | 2024-01-22 11:39 | XMS_ITS | Encounter Summary ---
Author Organization [facility] [place] [address] Care Team Providers Care Product Development Chemist Name Role Phone Susana Vazquez APRN Primary Care Provider [phone] Encounter Details Date Type Department Care Team (Late st Contact Info) Description 06/21/2018 Orders [place] [address] Peter Spence MD [facility] [place] [address] FRANSISCA positive Social History Tobacco Use Types Packs/Day Years [...] Patient Facing Action Plan No Abdirahman Zavaleta, [facility] Note: 50% reduction in hand and knee pain within 3-6 months of Humira initiation documented as of this encounter Visit Diagnoses Diagnosis FRANSISCA positive Other and unspecified nonspecific immunological findings documented in this encounter Care Teams Product Development Chemist Relationship Specialty Start Date End Date Susana Vazquez [place] [address] PCP - General Family Medicine 03/02/17 09/17/18 documented as of this encounter
--- OUTSIDE RECORDS SUMMARY | 2024-01-22 11:39 | XMS_ITS | Encounter Summary ---
[place] [address] Care Team Providers Care Economic Specialist Name Role Phone Suma Ureña APRN Primary Care Provide r Encounter Details Date Type Department Care Team (Late st Contact Info) Description 06/18/2019 Specialty [place] [address] Chelsey Richter, [facility] Social History Tobacco Use Types Packs/Day Years [...] Type Associated Problems Recent Progress Patient-Stated? Author Home Medication Compliance and Understanding Patient Facing Action Plan No Abdirahman Zavaleta, [facility] Note: 50% reduction in hand and knee pain within 3-6 months of Humira initiation documented as of this encounter Visit Diagnoses Not on filedocumented in this encounter Care Teams Economic Specialist Relationship Specialty Start Date End Date Suma Ureña APRN [address] [place] [address] PCP - General Family Medicine 09/18/18 03/21/21 documented as of this encounter
--- OUTSIDE RECORDS SUMMARY | 2024-01-22 11:39 | XMS_ITS | Encounter Summary ---
[place] [address] Care Team Providers Care Installation & Maintenance Executive Name Role Phone Suma Ureña APRN Primary Care Provide r Encounter Details Date Type Department Care Team (Late st Contact Info) Description 09/16/2019 Specialty [place] [address] Yosvany Shepherd Social History Tobacco Use Types Packs/Day Years [...] Patient Facing Action Plan No Abdirahman Zavaleta, [facility] Note: 50% reduction in hand and knee pain within 3-6 months of Humira initiation documented as of this encounter Visit Diagnoses Not on filedocumented in this encounter Care Teams Installation & Maintenance Executive Relationship Specialty Start Date End Date Suma Ureña APRN [address] [place] [address] PCP - General Family Medicine 09/18/18 03/21/21 documented as of this encounter
--- OUTSIDE RECORDS SUMMARY | 2024-01-22 11:39 | XMS_ITS | Encounter Summary ---
Author Organization [facility] [place] [address] Care Team Providers Care Hand Splitter Name Role Phone Susana Vazquez APRN Primary Care Provider [phone] Encounter Details Date Type Department Care Team (Late st Contact Info) Description 07/12/2017 Orders Only [place] [address] Peter Spence MD [facility] [place] [address] Arthritis Social History Tobacco Use Types Packs/Day Years Used Date Smoking Tobacco: Never Smokeless Tobacco: Never Sex and Gender Information Value Date Recorded Sex Assigned at Not on file Gender Identity Not on file Sexual Orientation Not on file documented as of this encounter Plan of Treatment Not on file documented as of this encounter Visit Diagnoses Diagnosis Arthritis Arthropathy, unspecified, site unspecified documented in this encounter Care Teams Hand Splitter Relationship Specialty Start Date End Date Susana Vazquez APRN [address] [place] [address] [place] [address] PCP - General Family Medicine 03/02/17 09/17/18 documented as of this encounter
--- OUTSIDE RECORDS SUMMARY | 2024-01-22 11:39 | XMS_ITS | Encounter Summary ---
[place] [address] Care Team Providers Care Yarn Dumper Name Role Phone Susana Vazquez FATEMEH Primary Care Provider [phone] Reason for Visit * Reason Comments Medication Management Patient Education Encounter Details Date Type Department Care Team (Late st Contact Info) Description 09/11/2018 Specialty [place] [address] Светлана Gallo [facility] Social History Tobacco Use Types Packs/Day Years Used Date Smoking Tobacco: Never Smokeless Tobacco: Never Sex and Gender Information Value Date Recorded Sex Assigned at Not on file Gender Identity Not on file Sexual Orientation Not on file documented as of this encounter Progress Notes * Светлана Francisco RPH - 09/11/2018 10:18 AM EDT Specialty Pharmacy Consultation; Светлана Francisco Mayur [facility] Medication Management (CMM) Brennan Frankel Diagnosis: Polyarthritis Therapy Start Date: 03/26/18 Contact in person or via telephone:phone Ms. Brennan Frankel is a 18 y.o. (2000) female who was contacted in regard to specialty medication. Spoke with patient's mother regarding Humira. A review of the medication therapy was performed. The medication was Refilled as scheduled, and all medication related questions and concerns were addressed. The specialty pharmacy staff will follow up with the patient 5-7 days prior to next refill. Is the patient willing to proceed with the Clinical Assessment? Yes Summary and Recommendations: The patient was feeling well today and is almost done with her antibiotic course of doxycycline andcephalexin for a cellulitis on her arm. She will restart her injection therapy once cleared by clinic along with the methotrexate. Her mother reports that the radha has been working well for her arthritis despite the nickel - to quarter sized welt she gets after each injection which goes away by the next day. We discussed contacting the clinic if symptoms worsen, signs of an allergic reaction, and recommended topical creams. She had no questions about technique at this time. Med list reviewed - no major interactions identified. Pt is aware of the importance of follow up and infection prevention precautions such as proper hand washing, appropriate vaccination, and wearing a mask during an illness. The patient was instructed to notify the clinic of any upcoming procedures. Administration, dosage, safe storage, handling, or disposal, contact information, and allergies also discussed. The medication will be mailed out for no charge with a free sharps box. Clinic follow-up needed: no Allergies and Drug intolerance: Allergies Allergen Reactions ??? Meloxicam Broke into mouth soars ??? Naproxen Mouth soars Special Dietary or Hydration Requirements: no There is no height or weight on file to calculate BMI. Medication Reconciliation Discrepancies (compared to [facility] med list) yes - updated Medication Adherence Patient reported X missed doses in the last month: 0 Any gaps in refill history greater than 2 weeks in the last 3 months: no Demonstrates understanding of importance of adherence: yes Informant: patient Reliability of informant: reliable Provider-estimated medication adherence level: 90-100% Reasons for non-adherence: no problems identified Adherence tools used: directed education Support network for adherence: family member, healthcare provider Confirmed plan for next specialty medication refill: delivery by pharmacy Refills needed for supportive medications: not needed Medication List: Current Outpatient Medications Medication Sig Note Dispense Refill ??? metHOTREXate 2.5 mg Tablet Take 8 tablets by mouth once a week. 32 tablet 3 ??? folic acid (FOLVITE) 1 mg Tablet Take 1 tablet by mouth daily. 90 tablet 3 ??? cholecalciferol, Vitamin D3, 2,000 unit Capsule Take 2,000 Units by mouth daily. ??? ascorbic acid, vitamin C, (VITAMIN C) 500 mg Tablet, Chewable Take 1 tablet by mouth daily. ??? acetaminophen (TYLENOL) 650 mg Tablet Sustained Release Take 650 mg by mouth every 8 hours as needed for Pain. Do not exceed 6 tabs in 24 hours ??? Adalimumab (HUMIRA PEN) 40 mg/0.8 mL Pen Injector Kit Inject 0.8 mLs subcutaneously every 14 days. 4 kit 3 ??? hydroxychloroquine (PLAQUENIL) 200 mg Tablet 07/11/2017: Received from: External Pharmacy ??? loratadine (CLARITIN) 10 mg Tablet TAKE ONE TABLET BY MOUTH EVERY DAY NEEDED 07/31/2018: PRN 11 No current facility-administered medications for this visit. Most Recent Vitals: Ht Readings from Last 1 Encounters: 07/31/18 162.4 cm (5' 3.94) (46 %)* * Growth percentiles are based on CDC (Girls, 2-20 Years) data. Wt Readings from Last 3 Encounters: 07/31/18 96.9 kg (213 lb 9.6 oz) (98 %)* 05/02/18 (!) 101 kg (222 lb 9.6 oz) (99 %)* 02/20/18 (!) 97.9 kg (215 lb 12.8 oz) (99 %)* * Growth percentiles are based on CDC (Girls, 2-20 Years) data. Temp Readings from Last 3 Encounters: 07/31/18 36.5 ??C (97.7 ??F) 05/02/18 37 ??C (98.6 ??F) 02/20/18 36.8 ??C (98.2 ??F) BP Readings from Last 3 Encounters: 07/31/18 114/51 05/02/18 127/60 (94 %/ 23 %)* 01/16/18 121/53 (84 %/ 8 %)* *BP percentiles are based on the October 2016 AAP Clinical Practice Guideline for girls Pulse Readings from Last 3 Encounters: 07/31/18 64 05/02/18 57 01/16/18 78 Pertinent Lab values: Lab Results Component Value [...] Title Type of Medication Management: chronic disease management Recipient: beneficiary Provider: plan sponsor pharmacist Method of Contact: by telephone Cognitive Ability: good Cognitive Impairment Status Verified this Year: no Patient Counseling Counseled the patient on the following: cost of medications and cost implications discussed, adherence and missed doses discussed, pharmacy contact information discussed Drug Medication Management Summary Topics discussed: cost of medications and cost implications discussed, adherence and missed doses discussed, pharmacy contact information discussed Number of adverse drug events identified: 0 Time spent: 1-15 min Treatment Outcomes 09/11/2018 Disease progression: Stable Patient Overall Status: Stable Reviewed in detail with patient: Dose appropriateness [...] mitigation strategies, and interruptions in therapy: Yes Economic Assessment: Patient is agreeable to medication copay: no Copay Amount: $0 Day Supply: 28 Date Needed: 09/19/18 Copay assistance required: no Physical Assessment: Functional limitations identified: no Is patient a fall risk: no Cognitive limitations identified such as orientation, memory, reasoning or judgement: no Other: no Social Assessment: Does the patient have a primary palliative care nurse practitioner? no Patient has emergency contact on file: Yes Does patient need referral to social sciences research scientist: No Does patient need referral to advocacy group: No Physical and Home Health Assessment: Is the patient able to store their medication as directed? Yes Is the patient in a safe home environment? Yes Do you have a support network? Yes Reviewed potential home safety hazards: No Therapy Assessment: Appropriate Therapy: Yes Effective: yes - patient reports reduced pain Patient experienced change in condition that affects treatment: yes - cellulitis resolving. Are you experiencing any side effects from your medication? no Patient Goals: Goals ??? CARLOS Home Medication Compliance and Understanding 50% reduction in hand and knee pain within 3-6 months of Humira initiation Is the patient on track to achieve goals of therapy? yes Additional care/services needed: no Educational information or adherence tools provided: Yes Additional equipment/supplies required: no Care Plan Reviewed and Approved by both Pharmacist and Patient: Yes Did Care Plan Change? Yes - med held for cellulitis Informed patient of specialty pharmacy services: Yes -Patient received welcome and rights packet: Yes Date Received: 07/22/18 mailed -Patient is aware a licensed pharmacist is available 24 hours a day, 7 days a week to discuss medication-related questions or concerns: Yes -Patient verbalizes understanding of education on the common side effect profile of the medication:Yes -The patient is able to call 911 or seek urgent care if signs/symptoms of allergy or harmful adverse reactions occur: Yes Patient Satisfaction with Therapy: yes - . Patient understands no changes to current drug regimen were made at the appointment and that [facility] (summary located at top of note) for provider review and follow up. Светлана Francisco RPH 09/11/18 10:27 AM documented in this encounter Plan of Treatment Not on file documented as of this encounter Goals Goal Patient Goal Type Associated Problems Recent Progress Patient-Stated? Author CARLOS Home Medication Compliance and Understanding Patient Facing Action Plan No Abdirahman Zavaleta RPH Note: 50% reduction in hand and knee pain within 3-6 months of Humira initiation documented as of this encounter Visit Diagnoses Not on filedocumented in this encounter Care Teams Yarn Dumper Relationship Specialty Start Date End Date Susana Vazquez, SPECIAL CLIENT BUS DRIVER [address] [place] [address] PCP - General Family Medicine 03/02/17 09/17/18 documented as of this encounter
--- OUTSIDE RECORDS SUMMARY | 2024-01-22 11:39 | XMS_ITS | Encounter Summary ---
[place] [address] Care Team Providers Care Info Specialist Name Role Phone Soxa-Ovpl-LjpxaoSuma Limon APRN Primary Care Provide r Reason for Visit * Reason Onset Date Comments Follow-up 07/21/2019 Encounter Details Date Type Department Care Team (Late st Contact Info) Description 07/21/2019 Telephone [place] [id number] Laurel Jorgensen RN Follow-up Social History Tobacco Use Types Packs/Day Years Used Date Smoking Tobacco: Never Smokeless Tobacco: Never Sex and Gender Information Value Date Recorded Sex Assigned at Not on file Gender Identity Not on file Sexual Orientation Not on file documented as of this encounter Miscellaneous Notes * Telephone Encounter - Laurel Jorgensen RN - 2019 11:21 AM EDT Peter Spence MD sent to Laurel Jorgensen RN Caller: Unspecified (Yesterday, ??3:49 PM) ?? Ok leave meds the same except take 50k vit d weekly I spoke with Mom and advised of message above. She will call in a couple of weeks with an update. * Telephone Encounter - Laurel Jorgensen RN - 2019 10:03 AM EDT I spoke with Mom Yashira today and advised of the Vitamin D being low. Will take replacement as ordered. Mom advised that Gilbert is taking Methotrexate 8 tabs weekly. Last Visit states the same. Plaquenil is noted as 1 tab daily in last visit and Mom states Gilbert is taking 1 tab twice daily. Mom reports Gilbert is doing ok right now. Stressed about school. Will clarify medications with Dr. Spence and then call Mom back. * Telephone Encounter - Laurel Jorgensen RN - 07/21/2019 3:47 PM EDT Peter Spence MD sent to Laurel Jorgensen RN ?? If she is still symptomatic with arthritis she could increase the mtx to 15mg a week.Also very vit d deficient needs to take 50k /week Vitamin D is 17.9 per scanned lab. RTC and LM to RTC to nurse. documented in this encounter Plan of Treatment Not on file documented as of this encounter Goals Goal Patient Goal Type Associated Problems Recent Progress Patient-Stated? Author DH Home Medication Compliance and Understanding Patient Facing Action Plan No Abdirahman Zavaleta, [facility] Note: 50% reduction in hand and knee pain within 3-6 months of Humira initiation documented as of this encounter Visit Diagnoses Not on filedocumented in this encounter Care Teams Info Specialist Relationship Specialty Start Date End Date Suma Ureña APRN [address] [place] [address] PCP - General Family Medicine 09/18/18 03/21/21 documented as of this encounter
--- OUTSIDE RECORDS SUMMARY | 2024-01-22 11:39 | XMS_ITS | Encounter Summary ---
[place] [address] Care Team Providers Care Qa Engineer Name Role Phone Vanessa Mcginnis MD Primary Care Provider [phone] Reason for Visit * Reason Comments Specialty Pharmacy Review Adalimumab (Hu isrrael) Encounter Details Date Type Department Care Team (Late st Contact Info) Description 05/03/2021 Specialty [place] [address] Nemo Savage, [facility] Social History Tobacco Use Types Packs/Day Years [...] Action Plan No Abdirahman Zavaleta, [facility] Note: 50% reduction in hand and knee pain within 3-6 months of Humira initiation documented as of this encounter Visit Diagnoses Not on filedocumented in this encounter Care Teams Qa Engineer Relationship Specialty Start Date End Date Vanessa Mcginnis MD PCP - General Pediatrics 03/22/21 documented as of this encounter
--- OUTSIDE RECORDS SUMMARY | 2024-01-22 11:39 | XMS_ITS | Encounter Summary ---
Author Organization [facility] [place] [address] Care Team Providers Care Squeegee Operator Name Role Phone Vanessa Mcginnis MD Primary Care Provider [phone] Reason for Visit * Reason Onset Date Comments Medication Refill 06/21/2018 Encounter Details Date Type Department Care Team (Late st Contact Info) Description 06/21/2018 [place] [address] Peter Spence MD [facility] [place] [address] Arthritis Social History Tobacco Use Types Packs/Day [...] Type Associated Problems Recent Progress Patient-Stated? Author [facility] Medication Compliance and Understanding Patient Facing Action Plan No Abdirahman Zavaleta, [facility] Note: 50% reduction in hand and knee pain within 3-6 months of Humira initiation documented as of this encounter Visit Diagnoses Diagnosis Arthritis Arthropathy, unspecified, site unspecified documented in this encounter Care Teams Squeegee Operator Relationship Specialty Start Date End Date Vanessa Mcginnis MD PCP - General Pediatrics 03/22/21 documented as of this encounter
--- OUTSIDE RECORDS SUMMARY | 2024-01-22 11:39 | XMS_ITS | Encounter Summary ---
Author Organization [facility] [place] [address] Care Team Providers Care Furnace Charger Name Role Phone Susana Vazquez APRN Primary Care Provider [phone] Encounter Details Date Type Department Care Team (Late st Contact Info) Description 04/04/2017 Orders Only [place] [address] Chantal Fiore, [facility] [place] [address] Arthritis Social History Tobacco Use Types Packs/Day [...] unspecified documented in this encounter Care Teams Furnace Charger Relationship Specialty Start Date End Date Susana Vazquez [place] [address] PCP - General Family Medicine 03/02/17 09/17/18 documented as of this encounter
--- OUTSIDE RECORDS SUMMARY | 2024-01-22 11:39 | XMS_ITS | Encounter Summary ---
Author Organization [facility] [place] [address] Care Team Providers Care Powerhouse Tender Name Role Phone Vanessa Mcginnis MD Primary Care Provider [phone] Reason for Visit * Reason Onset Date Comments Medication Refill 06/26/2018 Encounter Details Date Type Department Care Team (Late st Contact Info) Description 06/26/2018 [place] [address] Peter Spence MD [facility] [place] [address] Arthritis Social History Tobacco Use Types Packs/Day [...] Type Associated Problems Recent Progress Patient-Stated? Author [facility] Medication Compliance and Understanding Patient Facing Action Plan No Abdirahman Zavaleta, [facility] Note: 50% reduction in hand and knee pain within 3-6 months of Humira initiation documented as of this encounter Visit Diagnoses Diagnosis Arthritis Arthropathy, unspecified, site unspecified documented in this encounter Care Teams Powerhouse Tender Relationship Specialty Start Date End Date Vanessa Mcginnis MD PCP - General Pediatrics 03/22/21 documented as of this encounter
--- OUTSIDE RECORDS SUMMARY | 2024-01-22 11:39 | XMS_ITS | Encounter Summary ---
[place] [address] Care Team Providers Care Small Products Assembler Name Role Phone Ifvb-Dpze-UjmaczSuma Limon APRN Primary Care Provide r Reason for Visit * Reason Onset Date Comments Other 09/13/2018 Encounter Details Date Type Department Care Team (Late st Contact Info) Description 09/13/2018 Telephone [place] [id number] Wicho Beverly RN Other Social History Tobacco Use Types Packs/Day Years Used Date Smoking Tobacco: Never Smokeless Tobacco: Never Sex and Gender Information Value Date Recorded Sex Assigned at Not on file Gender Identity Not on file Sexual Orientation Not on file documented as of this encounter Miscellaneous Notes * Telephone Encounter - Wicho Beverly RN - 09/19/2018 9:16 AM EDT Patient referral to ID. * Telephone Encounter - Wicho Beverly RN - 09/13/2018 8:12 AM EDT Received call by Dr. Bourne. Patient STEFFEN? MTX and Humira. Cellulitis of arm. Seen by PCP this week. Will be seen on Sunday by PCP. Previous message indicates possible ID consult or MRI. Dr. Phillips will follow up with patient on Sunday and may contact clinic either Sunday or Sundayto update on status and follow up. documented in this encounter Plan of Treatment Not on file documented as of this encounter Goals Goal Patient Goal Type Associated Problems Recent Progress Patient-Stated? Author DH Home Medication Compliance and Understanding Patient Facing Action Plan No Abdirahman Zavaleta, [facility] Note: 50% reduction in hand and knee pain within 3-6 months of Humira initiation documented as of this encounter Visit Diagnoses Not on filedocumented in this encounter Care Teams Small Products Assembler Relationship Specialty Start Date End Date Suma Ureña APRN [address] [place] [address] PCP - General Family Medicine 09/18/18 03/21/21 documented as of this encounter
--- OUTSIDE RECORDS SUMMARY | 2024-01-22 11:39 | XMS_ITS | Encounter Summary ---
[place] [address] Care Team Providers Care Banquet Captain Name Role Phone Susana Vazquez Ventura WELDON Primary Care Provider [phone] Reason for Visit * Reason Comments Medication Management Encounter Details Date Type Department Care Team (Late st Contact Info) Description 04/16/2018 Specialty [place] [address] Grace Tovar Social History Tobacco Use Types Packs/Day Years Used Date Smoking Tobacco: Never Smokeless Tobacco: Never Sex and Gender Information Value Date Recorded Sex Assigned at Not on file Gender Identity Not on file Sexual Orientation Not on file documented as of this encounter Progress Notes * Grace Mabry [facility] - 04/16/2018 11:22 AM EST Specialty Pharmacy Consultation; Grace Mabry RPH Comprehensive Medication Management (CMM) Brennan Frankel Diagnosis: Polyarthritis Therapy Start Date: 03/26/18 Contact in person or via telephone:Telephone Ms. Brennan Frankel is a 17 y.o. (2000) female who was contacted in regard to specialty medication. Spoke with patient's caregiver Yashira regarding Humira. A review of the medication therapy was performed. The medication was Refilled as scheduled, and all medication related questions and concerns were addressed. The specialty pharmacy staff will follow up with the patient 5-7 days prior to next refill. Is the patient willing to proceed with the Clinical Assessment? Yes Summary and Recommendations: The patient was contacted for a clinical follow-up assessment regarding first month of therapy withHumira. The assessment was completed with Brennan's mother, Yashira, as the patient is in school. The mother says that Brennan's been tolerating her injections very well. A family member who is an [employer] has administered the injections with no issues or complications. Yashira says they are tracking dose duedates as well as rotating administration sites and allowing the medication to reach room temperature before injecting. Yashira feels confident in her ability to administer the injeciton to Brennan if needed. Her goal is to get her daughter comfortable enough with the injection process to complete it on her own before she leaves for college in the fall. Yashira says Gilbert experienced minor discomfort with her first injection on 03/26/18, but Gilbert admitted afterwards that she was very tense. The second injection on 04/09/18 went very smoothly and Gilbert was able to relax. No suspected side effects have been observed since starting therapy. Yashira affirms that Gilbert received the flu vaccine earlier this fall. Dose hold parameters were reviewed; Yashira agrees to contact the clinic with suspected infection, prescribed antibiotics, or scheduled surgeries to review need fordose hold. Importance of infection prevention was also reviewed. Medication reciliation was completed, and OTC items were added to her medication list (Vit D, Vit C, and APAP 650 mg). So far, a reduction in morning stiffness has been observed. Also, Yashira notes that Gilbert's fingers and knees appear less puffy. Overall, Gilbert seems to be responding well to therapy and is tolerating the medication. Yashira had no additional questions regarding Humira at this time. She was encouraged to have Gilbert or herself reach out to the pharmacy or the clinic should any concerns arise. Clinic follow-up needed: no Allergies and Drug intolerance: Allergies Allergen Reactions ??? Meloxicam Broke into mouth soars ??? Naproxen Mouth soars Special Dietary or Hydration Requirements: no There is no height or weight on file to calculate BMI. Medication Reconciliation Discrep[facility] yes - added: Vitamin C 500 mg, Vitamin D 200 units, and APAP 650 mg Medication Adherence Patient reported X missed doses in the last month: 0 Any gaps in refill history greater than 2 weeks in the last 3 months: no Demonstrates understanding of importance of adherence: yes Informant: mother Reliability of informant: reliable Provider-estimated medication adherence level: 90-100% Reasons for non-adherence: no problems identified Adherence tools used: directed education Support network for adherence: family member, healthcare provider Confirmed plan for next specialty medication refill: delivery by pharmacy Refills needed for supportive medications: not needed Medication List: Current Outpatient Medications Medication Sig Note Dispense Refill ??? cholecalciferol, Vitamin D3, 2,000 unit Capsule [...] %)* * Growth percentiles are based on [facility] (Girls, 2-20 Years) data. Temp Readings from [...] targeted medication review Referred By: provider Recipient: caregiver Provider: plan sponsor pharmacist Visit Type: [facility] Follow-up Method of Contact: by telephone Cognitive Ability: good Drug Interactions Provided the patient with educational material regarding drug interactions: yes Patient Counseling Counseled the patient on the following: reviewed medication changes since last visit, medication safety precautions education provided, drug interaction education provided to patient, doses and administration discussed, safe handling, storage, and disposal discussed, possible adverse effects and management discussed, possible drug and prescription drug interactions discussed, possible drug and OTC drug and food interactions discussed, therapeutic rationale discussed, cost of medications and cost implications discussed, adherence and missed doses discussed, pharmacy contact information discussed, health goals discussed, monitoring medication discussed, over the counter products discussed, reminder to refill or bean picker medication discussed, self-monitoring discussed, start medication discussed, timing of medications discussed, vaccination discussed, lifestyle modification education Drug Medication Management Summary Topics discussed: reviewed medication changes since last visit, medication safety precautions education provided, drug interaction education provided to patient, doses and administration discussed, safe handling, storage, and disposal discussed, possible adverse effects and management discussed, possible drug and prescription drug interactions discussed, possible drug and OTC drug and food interactions discussed, therapeutic rationale discussed, cost of medications and cost implications discussed, adherence and missed doses discussed, pharmacy contact information discussed, health goals discussed, monitoring medication discussed, over the counter products discussed, reminder to refill or bean picker medication discussed, self-monitoring discussed, start medication discussed, timing of medications discussed, vaccination discussed, lifestyle modification education Time spent: 16-30 min Treatment Outcomes No data found. Reviewed in [...] Assessment: Patient is agreeable to medication copay: yes Copay Amount: $0 Day Supply: 28 Date Needed: 04/23/18 Copay assistance required: no Physical Assessment: Functional limitations identified: no Is patient a fall risk: no Cognitive limitations identified such as orientation, memory, reasoning or judgement: no Other: no limitations identified Social Assessment: Does the patient have a primary managed care specialist? no Patient has emergency contact on file: Yes Physical and Home Health Assessment: Is the patient able to store their medication as directed? Yes Is the patient in a safe home environment? Yes Do you have a support network? Yes Reviewed potential home safety hazards: Yes Therapy Assessment: Appropriate Therapy: Yes Current Medication Dosing/Route/Frequency: Humira 40 mg subq once every 14 days Effective: yes - reduction in morning stiffness and swelling of hands and knees noted Current joints affected: Hands, knees, feet Current pain rating (1-10): Not able to assess Estimated duration of morning joint stiffness: Reduction noted Estimated number of recent flares: none Recent systemic corticosteroid use: none Patient experienced change in condition that affects treatment: no Patient experienced side effects from medication: no Occurrence of recent infections: no Administration issues identified: no Rotation of injection sites: Yes Medication room temperature prior to injection: Yes Patient Goals: Patient's specific desired goal: 50% reduction in hand and knee pain Measured by: Pain levels Time-frame to meet goal: 3-6 months initially, then ongoing Is the patient on track to achieve goals of therapy? Yes Additional care/services needed: no Educational information or adherence tools provided: Yes Additional equipment/supplies required: no Care Plan Reviewed and Approved by both Pharmacist and Patient: Yes Did Care Plan Change? No Informed patient of specialty pharmacy services: Yes -Patient received welcome packet: No - caregiver could not confirm delivery Date Received: Sent 03/18, will send again w/ refill Delivery Method: Mail -Patient returned signed Rights & Responsibilities: No - caregiver could not confirm delivery Date Received: Sent 03/18, will send again w/ refill Delivery Method: Mail -Patient is aware a [...] Yes Patient Satisfaction with Therapy: yes - Positive benefit noted by caregiver since therapy initiation on 03/26 Patient understands no changes to current drug regimen were made at the appointment and [facility] (summary located at top of note) for provider review and follow up. Grace Mabry RPH 04/16/18 11:25 AM documented in this encounter Plan of Treatment Not on file documented as of this encounter Goals Goal Patient Goal Type Associated Problems Recent Progress Patient-Stated? Author DH Home Medication Compliance and Understanding Patient Facing Action Plan No Abdirahman Zavaleta, [facility] Note: 50% reduction in hand and knee pain within 3-6 months of Humira initiation documented as of this encounter Visit Diagnoses Not on filedocumented in this encounter Care Teams Banquet Captain Relationship Specialty Start Date End Date Susana Vazquez, [employer] [address] [address] PCP - General Family Medicine 03/02/17 09/17/18 documented as of this encounter
--- OUTSIDE RECORDS SUMMARY | 2024-01-22 11:39 | XMS_ITS | Encounter Summary ---
Author Organization [facility] [place] [address] Care Team Providers Care Pre Algebra Teacher Name Role Phone Susana Vazquez FATEMEH Primary Care Provider [phone] Encounter Details Date Type Department Care Team (Late st Contact Info) Description 04/04/2017 8:30 AM EST Procedure [place] [address] [address]antal Fiore, [facility] [address] FRANSISCA positive Social History Tobacco Use Types Packs/Day Years Used Date Smoking Tobacco: Never Smokeless Tobacco: Never Sex and Gender Information Value Date Recorded Sex Assigned at Not on file Gender Identity Not on file Sexual Orientation Not on file documented as of this encounter Progress Notes * Chantal Fiore, - 04/04/2017 8:30 AM EST Rheumatology Musculoskeletal Ultrasound Report Date of service: 04/04/2017 Indication for Exam:+FRANSISCA arthralgias B-mode ultrasound is performed utilizing an 8-18 mHz linear probe. Static real- time views in longitudinal and transverse (short axis) orientation were obtained. Images are available on the Rheumatology [facility]. Images of the bilateral 2nd and 3rd mcp, pips, wrists demonstrate no cortical irregularity or destruction. Synovial fluid and/or hypertrophy are not noted at the joint margins of the left 2nd or 3rd mcp, or the left 2nd pip, or of the right 3rd mcp, as well as 2nd and 3rd pip. Minimal synovial thickening without power doppler present at the r 2nd mcp, and left 3rd pip. The wrists sshowed no synoviits, pd signal or tenosynovitis. Negative power doppler and no rheumatoid erosions are seen. Flexortendons are intact with no tenosynovial fluid or distension. Dynamic testing shows normal motion ofthe flexor tendon. No evidence of dactylitis. imrpression-Trace synovial thickening of the r 2nd mcp and left 3rd pip without active synovitis documented in this encounter Plan of Treatment Not on file documented as of this encounter Visit Diagnoses Diagnosis FRANSISCA positive Other and unspecified nonspecific immunological findings documented in this encounter Care Teams Pre Algebra Teacher Relationship Specialty Start Date End Date Susana Vazquez APRN [address] [place] [address] PCP - General Family Medicine 03/02/17 09/17/18 documented as of this encounter
--- OUTSIDE RECORDS SUMMARY | 2024-01-22 11:39 | XMS_ITS | Encounter Summary ---
[place] [address] Care Team Providers Care Barrel Builder Name Role Phone GeorgeSusana brooks Ventura WELDON Primary Care Provider [phone] Encounter Details Date Type Department Care Team (Late st Contact Info) Description 01/18/2018 Telephone [place] [id number] Laurel Jorgensen RN Social History Tobacco Use Types Packs/Day Years Used Date Smoking Tobacco: Never Smokeless Tobacco: Never Sex and Gender Information Value Date Recorded Sex Assigned at Not on file Gender Identity Not on file Sexual Orientation Not on file documented as of this encounter Miscellaneous Notes * Telephone Encounter - Laurel Jorgensen RN - 01/18/2018 12:35 PM EST Sent [facility] message to Gilbert and her Mom in regards to Vitamin D replace ment. * Telephone Encounter - Laurel Jorgensen RN - 01/18/2018 12:30 PM EST ----- Message from Peter Spence MD sent at 01/17/2018 4:34 PM EST ----- 2000units vit d daily ----- Message ----- From: Jamal Warren In [facility] Sent: 01/16/2018 11:52 AM To: Peter Spence MD documented in this encounter Plan of Treatment Not on file documented as of this encounter Visit Diagnoses Not on filedocumented in this encounter Care Teams Barrel Builder Relationship Specialty Start Date End Date Susana Vazquez APRN [address] [place] [address] PCP - General Family Medicine 03/02/17 09/17/18 documented as of this encounter
--- OUTSIDE RECORDS SUMMARY | 2024-01-22 11:39 | XMS_ITS | Encounter Summary ---
Author Organization [facility] [place] [address] Care Team Providers Care Private Equity Analyst Name Role Phone Ccft-Gcdr-AlckwlSuma Limon APRN Primary Care Provide r Encounter Details Date Type Department Care Team (Late st Contact Info) Description 12/17/2018 3:00 PM EDT Office Visit [place] [address] Peter Spence MD [facility] [place] [address] Arthritis Social History Tobacco Use Types Packs/Day Years Used Date Smoking Tobacco: Never Smokeless Tobacco: Never Sex and Gender Information Value Date Recorded Sex Assigned at Not on file Gender Identity Not on file Sexual Orientation Not on file documented as of this encounter Last Filed Vital Signs Vital Sign Reading Time Taken Comments Blood Pressure 130/88 12/17/2018 2:50 PM EDT Pulse 71 12/17/2018 2:50 PM EDT Temperature - - Respiratory Rate - - Oxygen Saturation 100% 12/17/2018 2:50 PM EDT Inhaled Oxygen Concentration - - Weight 99.9 kg (220 lb 3.2 oz) 12/17/2018 2:50 P M EDT Height 161 cm (5' 3.39) 12/17/2018 2:50 PM EDT Body Mass Index 38.53 12/17/2018 2:50 PM EDT Body Mass Index Percentile 98.62% 12/17/2018 2:5 0 PM EDT Growth Chart: [facility] (Girls, 2- 20 Years) documented in this encounter Progress Notes * Peter Spence MD - 12/17/2018 3:00 PM EDT Is a follow-up appointment for??Brennan Frankel??birthdate is 2000 ?? 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 Since her last visit she stopped her Humira because she had another episode of cellulitis in the same location as the first 1 and surprisingly it did not make any difference in her joint pain she still has no joint pain swelling heat or tenderness she has no fatigue or constitutional symptoms no fever chills and the cellulitis site is healed On exam she is healthy appearing still very overweight BP 130/88 Pulse 71 Ht 161 cm (5' 3.39) Wt (!) 99.9 kg (220 lb 3.2 oz) SpO2 100% BMI 38.53 kg/m?? Her HEENT exam she has mild acne her neck is too thick to palpate her chest is clear heart exam is unremarkable her abdomen is obese her extremities are hypermobile with no active synovitis I left her on the same dose of methotrexate and Plaquenil she gets her eye check annually and I sent her for labs next time I see her in probably going to cut down her Plaquenil to 1 tablet a day fora year and then stop it altogether and leave her on methotrexate alone Although she is adopting a vegan diet and eating tofu she is managed to gain 8 pounds at college but it might reverse itself because she is 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 Author DH Home Medication Compliance and Understanding Patient Facing Action Plan No Abdirahman Zavaleta [facility] Note: 50% reduction in hand and knee pain within 3-6 months of Humira initiation documented as of this encounter Procedures Procedure Name Priority Date/Time Associated Diagnosis Comments HC C-REACTIVE PROTEIN Routine 12/17/2018 3:44 PM EDT Arthritis HEMOGRAM Routine 12/17/2018 3:44 PM EDT Arthritis DIFFERENTIAL, AUTOMATED Routine 12/17/2018 3:44 PM EDT Arthritis HC VENIPUNCTURE Routine 12/17/2018 3:44 PM EDT Arthritis HC ESR-SEDIMENTATION RATE, BLOOD Routine 12/17/2018 3:44 PM EDT Arthritis HC CBC,PLT & AUTO DIFF Routine 9 3:44 PM EDT Arthritis COMPREHENSIVE METABOLIC PANEL Routine 12/17/2018 3:44 PM EDT Arthritis documented in this encounter Results * Differential, Automated (12/17/2018 3:44 PM EDT) Neutrophil % 61.9 % [facility] Neutrophil Absolute 5.72 1.70 - 6.10 x10(3)/[facility] Lymph % 28.6 % [facility] Lymphocytes Abs 2.6 0.9 - 3.2 x10(3)/[facility] Monocyte % 6.8 % [facility] Monocyte Abs 0.6 0.3 - 0.9 x10(3)/[facility] Eos % 1.8 % [facility] Eosinophils Abs 0.2 0.0 - 0.4 x10(3)/[facility] Basophil % 0.6 % [facility] Baso Absolute 0.1 0.0 - 0.1 x10(3)/[facility] Immature Gran % 0.30 % [facility] Comment: Immature granulocytes(IG's)percentage and absolute count will include metamyelocytes, myelocytes, and promyelocytes. Blood smears from CBCs yielding IG's will be scanned manually for concordance. If this scan disagrees with the automated IG or if promyelocytes are noted, a manual differential will be performed. Immature Gran Absolute 0.03 0.00 - 0.04 x10(3)/[facility] Blood specimen (specimen) 12/17/2018 3:44 PM EDT 12/17/2018 3:50 PM EDT Narrative Resulting Agency Comment Spec In Lab Peter Spence MD HEMATOLOGY ORDERABLE S [facility] [place] [address] * Hemogram (12/17/2018 3:44 PM EDT) White Blood Cell 9.3 4.0 - 9.5 x10(3)/[facility] Red Blood Cell 4.39 4.00 - 5.21 x10(6)/[facility] Hemoglobin 13.7 11.7 - 15.5 gm/dL [facility] Hematocrit 40.6 35.7 - 45.8 % [facility] Mean Cell Volume 92.5 82.6 - 94.4 fL [facility] Mean Cell Hemoglobin 31.2 27.1 - 32.0 pg [facility] Mean Cell Hemoglobin Concentration 33.7 31.7 - 35.0 gm/dL [facility] Platelet 343 145 - 357 x10(3)/[facility] RDW Standard Deviation 42.5 37.0 - 46.0 fL [facility] RDW coefficient of variation 12.4 11.5 - 14.1 % [facility] Mean Platelet Volume 9.9 7.6 - 12.9 fL [facility] NRBC% auto 0.0 % [facility] NRBC Absolute 0.000 0.000 - 0.000 x10(3)/[facility] Blood specimen (specimen) 12/17/2018 3:44 PM EDT 12/17/2018 3:50 PM EDT Narrative Resulting Agency Comment Spec In Lab Peter Spence MD HEMATOLOGY ORDERABLE S Performing Organization Address [facility]/ZIP Co de Phone Number [facility] [place] [address] * (ABNORMAL) Vitamin D, 25-Hydroxy (12/17/2018 3:44 PM EDT) Pathologist [facility] Vitamin D Total 25 OH 23(L) 30 - 100 ng/mL [facility] Comment: As of 2018, 25-hydroxyvitamin D testing has moved from the [employer] to the [facility]. No substantial change in measured values is expected. Blood specimen (specimen) 12/17/2018 3:44 PM EDT 12/17/2018 3:50 PM EDT Narrative Resulting Agency Comment Spec In Lab Peter Spence MD CHEMISTRY ORDERABLES [facility] [place] [place] [address] * CRP, acute inflammation (12/17/2018 3:44 PM EDT) [facility] C-Reactive Protein 1.6 <=4.9 mg/L [facility] Blood specimen (specimen) 12/17/2018 3:44 PM EDT 12/17/2018 3:50 PM EDT Narrative Resulting Agency Comment Spec In Lab Peter Spence MD CHEMISTRY ORDERABLES Performing Organization Address City/[facility]/ZIP Co de Phone Number [facility] [place] [address] * Sedimentation rate (12/17/2018 3:44 PM EDT) Pathologist [facility] Sedimentation Rate Automated 11 0 - 20 mm/hr [facility] Blood specimen (specimen) 12/17/2018 3:44 PM EDT 12/17/2018 3:50 PM EDT Narrative Resulting Agency Comment Spec In Lab Peter Spence MD HEMATOLOGY ORDERABLE S Performing Organization Address [facility] Co de Phone Number [facility] [place] [address] * (ABNORMAL) Comprehensive metabolic panel (non-fasting) (12/17/2018 3:44 PM EDT) Pathologist [facility] Glucose 86 65 - 199 mg/dL [facility] Comment:Diabetes: >=200 mg/d L plus symptoms Blood Urea Nitrogen 15 10 - 20 mg/dL [facility] Creatinine 0.70 0.50 - 0.89 mg/dL [facility] Sodium 140 135 - 145 mmol/L [facility] Potassium 4.3 3.5 - 5.0 mmol/L [facility] Comment: Please note: ??Patients with WBC >100,000 may have falsely elevated Potassium levels. ??For accurate Potassium quantification in these patients send serum separator tube (gold top) for subsequent determinations. ??Contact the Clinical Chemistry Laboratory if there are any questions. Chloride 102 98 - 107 mmol/L [facility] Carbon Dioxide 25 22 - 31 mmol/L [facility] Anion Gap 13 5 - 15 mmol/L [facility] Calcium 9.9 8.5 - 10.5 mg/dL [facility] Protein, Total 8.4(H) 6.1 - 8.0 gm/dL [facility] Albumin 5.0 3.2 - 5.2 gm/dL [facility] Aspartate Aminotransferase 18 5 - 30 unit/L [facility] Alanine Aminotransferase 26(H) 0 - 25 unit/L [facility] Alkaline Phosphatase 61 45 - 87 unit/L [facility] Bilirubin, Total 0.2 0.2 - 1.3 mg/dL [facility] Est Glomerular Filtration Rate 126 >=60 mL/min/1. 73 m?? [facility] Comment: The eGFR was calculated using the CKD-EPI equation. As with all creatinine based estimates of kidney function, eGFR values calculated with the CKD-EPI equation are not accurate in patients with acute kidney failure, extremes of body mass or the acutely ill. [email or web address] eGFR 147 >=60 mL/min/1. 73 m?? [facility] Comment: The eGFR was calculated using the CKD-EPI equation. As with all creatinine based estimates of kidney function, eGFR values calculated with the CKD-EPI equation are not accurate in patients with acute kidney failure, extremes of body mass or the acutely ill. [email or web address] Blood specimen (specimen) 12/17/2018 3:44 PM EDT 12/17/2018 3:50 PM EDT Narrative Resulting Agency Comment Spec In Lab Peter Spence MD CHEMISTRY ORDERABLES Performing Organization Address City/State/[facility] Co de Phone Number [facility] [place] [address] documented in this encounter Visit Diagnoses Diagnosis Arthritis Arthropathy, unspecified, site unspecified documented in this encounter Care Teams Private Equity Analyst Relationship Specialty Start Date End Date Suma Ureña APRN [address] [place] [address] PCP - General Family Medicine 09/18/18 03/21/21 documented as of this encounter
--- OUTSIDE RECORDS SUMMARY | 2024-01-22 11:39 | XMS_ITS | Encounter Summary ---
[place] [address] Care Team Providers Care Funeral Pre Arrangement Specialist Name Role Phone Susana Vazquez FATEMEH Primary Care Provider [phone] Reason for Visit * Reason Comments Medication Management Encounter Details Date Type Department Care Team (Late st Contact Info) Description 07/26/2018 Specialty [place] [address] Abdirahman Zavaleta Mayur Social History Tobacco Use Types Packs/Day Years Used Date Smoking Tobacco: Never Smokeless Tobacco: Never Sex and Gender Information Value Date Recorded Sex Assigned at Not on file Gender Identity Not on file Sexual Orientation Not on file documented as of this encounter Progress Notes * Abdirahman Zavaleta RPH - 07/26/2018 12:36 PM EDT Clinical Management Plan: Refill Specialty Pharmacy Consultation; Abdirahman Zavaleta RPH Comprehensive Medication Management (CMM) Brennan Trina Jostin Ms. Brennan Frankel is a 18 y.o. (2000) female who was contacted in regard to a specialty medication refill reminder. Spoke with patient regarding Humira. A review of the medication therapy was performed. The medication was Refilled as scheduled, and all medication related questions and concerns were addressed. The specialty pharmacy staff will follow up with the patient 5-7 days prior to next refill. Was a change made to the Care Plan: no Assessment and Recommendations: Title Cognitive Ability: good Allergies and Drug intolerance: Allergies Allergen Reactions ??? Meloxicam Broke into mouth soars ??? Naproxen Mouth soars Medication Reconciliation Discrepancies (compared to [facility] med list) - none New medications: no New medical conditions: no New allergies: no Adherence: Medication Adherence Patient reported X missed doses [...] Refills needed for supportive medications: not needed Are you experiencing any side effects from your medications? no Pt understands no changes to current drug regimen were made at the appointment and that [facility] is providing recommendations (summary located at top of note) for provider review and follow up. Abdirahman Zavaleta RPH 07/26/18 12:37 PM documented in this encounter Plan of Treatment Not on file documented as of this encounter Goals Goal Patient Goal Type Associated Problems Recent Progress Patient-Stated? Author DH Home Medication Compliance and Understanding Patient Facing Action Plan No Abdirahman Zavaleta [facility] Note: 50% reduction in hand and knee pain within 3-6 months of Humira initiation documented as of this encounter Visit Diagnoses Not on filedocumented in this encounter Care Teams Funeral Pre Arrangement Specialist Relationship Specialty Start Date End Date Susana V[place]quez [place] [address] PCP - General Family Medicine 03/02/17 09/17/18 documented as of this encounter
--- OUTSIDE RECORDS SUMMARY | 2024-01-22 11:39 | XMS_ITS | Encounter Summary ---
Author Organization [facility] Address [facility] [place] [address] Care Team Providers Care Ware Carrier Name Role Phone Susana Vazquez Ventura WELDON Primary Care Provider [phone] Reason for Visit * Reason Comments Follow-up Encounter Details Date Type Department Care Team (Late st Contact Info) Description 07/11/2017 3:00 PM EDT Office Visit [place] [address] Peter Spence MD [facility] [place] [address] Arthritis Social History Tobacco Use Types Packs/Day Years Used Date Smoking Tobacco: Never Smokeless Tobacco: Never Sex and Gender Information Value Date Recorded Sex Assigned at Not on file Gender Identity Not on file Sexual Orientation Not on file documented as of this encounter Last Filed Vital Signs Vital Sign Reading Time Taken Comments Blood Pressure 120/55 07/11/2017 3:21 PM EDT Pulse 74 07/11/2017 3:21 PM EDT Temperature 36.8 ??C (98.2 ??F) 07/11/2017 3:21 PM ED T Respiratory Rate - - Oxygen Saturation - - Inhaled Oxygen Concentration - - Weight 98.5 kg (217 lb 3.2 oz) 07/11/2017 3:21 P M EDT Height 161.3 cm (5' 3.5) 07/11/2017 3:21 PM EDT Body Mass Index 37.87 07/11/2017 3:21 PM EDT Body Mass Index Percentile 98.88% 07/11/2017 3:2 1 PM EDT Growth Chart: [facility] (Girls, 2- 20 Years) documented in this encounter Progress Notes * Peter Spence MD - 07/11/2017 3:00 PM EDT Is a follow-up appointment for Brennan Frankel birthdate 2000 The patient 16-year-old female with 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 I started her on hydroxychloroquine and she is now on it twice daily was somewhere around 50% improvement in her arthritis she denies alopecia ray nodes photosensitivity or rash On exam she is healthy but overweight her blood pressure is 120/55 her pulse is 74 temp of 98 her height is 64 inches which is in the 40th percentile her weight is 217 which is in the 99th percentileher BMI is 38 her general physical exam aside from the obesity is unremarkable her articular exam is notable for synovitis of her PIPs MCPs and wrists bilaterally not her elbows positive in her kneesankles and MTPs I ordered laboratory studies that are pending at the time of this dictation we had discussion aboutmethotrexate which I think she will need but they want a white weight a month to get the full effect of Plaquenil labs today measured vitamin D as well as inflammatory markers. If the mouth ulcers persist off the meloxicam I think I will give her low-dose colchicine documented in this encounter Miscellaneous Notes * Addendum Note - Reta Gonzalez - 07/11/2017 4:25 PM EDTAddended by: RETA GONZALEZ on: 07/11/2017 04:25 PM Modules accepted: Orders documented in this encounter Plan of Treatment Not on file documented as of this encounter Procedures Procedure Name Priority Date/Time Associated Diagnosis Comments CRP, ACUTE INFLAMMATION Routine 07/11/2017 4:30 PM EDT Arthritis HEMOGRAM Routine 07/11/2017 4:30 PM EDT Arthritis DIFFERENTIAL, AUTOMATED Routine 07/11/2017 4:30 PM EDT Arthritis VITAMIN D, 25-HYDROXY Routine 07/11/2017 4:30 PM EDT Arthritis SEDIMENTATION RATE Routine 07/11/2017 4: 30 PM EDT Arthritis CBC (WITH DIFF) Routine 07/11/2017 4:30 PM EDT Arthritis COMPREHENSIVE METABOLIC PANEL Routine 07/11/2017 4:30 PM EDT Arthritis documented in this encounter Results * Differential, Automated (07/11/2017 4:30 PM EDT) Neutrophil % 67.2 % [facility] Neutrophil Absolute 5.90 1.50 - 8.00 x10(3)/[facility] Lymph % 23.5 % [facility] Lymphocytes Abs 2.1 1.2 - 5.2 x10(3)/[facility] Monocyte % 5.8 % [facility] Monocyte Abs 0.5 0.2 - 1.0 x10(3)/[facility] Eos % 2.6 % [facility] Eosinophils Abs 0.2 0.0 - 0.4 x10(3)/[facility] Basophil % 0.7 % [facility] Baso Absolute 0.1 0.0 - 0.1 x10(3)/[facility] Immature Gran % 0.20 % [facility] Comment: Immature granulocytes(IG's)percentage and absolute count will include metamyelocytes, myelocytes, and promyelocytes. Blood smears from CBCs yielding IG's will be scanned manually for concordance. If this scan disagrees with the automated IG or if promyelocytes are noted, a manual differential will be performed. Immature Gran Absolute 0.02 0.00 - 0.04 x10(3)/mcL [facility] Blood specimen (specimen) 07/11/2017 4:30 PM EDT 07/11/2017 4:37 PM EDT Narrative Resulting Agency Comment Spec In Lab Peter Spence MD HEMATOLOGY ORDERABLE S [facility] [place] [address] * (ABNORMAL) Hemogram (07/11/2017 4:30 PM EDT) White Blood Cell 8.8 4.5 - 13.0 x10(3)/mc L [facility] Red Blood Cell 4.11 4.10 - 5.10 x10(6)/mc L [facility] Hemoglobin 12.4 12.0 - 16.0 gm/dL [facility] Hematocrit 35.7(L) 36.0 - 46.0 % [facility] Mean Cell Volume 86.9 76.0 - 98.0 fL [facility] Mean Cell Hemoglobin 30.2 25.0 - 35.0 pg [facility] Mean Cell Hemoglobin Concentration 34.7 32.0 - 36.5 gm/dL [facility] Platelet 356 145 - 370 x10(3)/mc L [facility] RDW Standard Deviation 41.1 37.0 - 46.0 [facility] RDW coefficient of variation 12.9 0.0 - 14.5 % [facility] Mean Platelet Volume 9.8 7.6 - 12.9 fL [facility] NRBC% auto 0.0 % [facility] NRBC Absolute 0.000 0.000 - 0.000 x10(3)/mc L [facility] Blood specimen (specimen) 07/11/2017 4:30 PM EDT 07/11/2017 4:37 PM EDT Narrative Resulting Agency Comment Spec In Lab Peter Spence MD HEMATOLOGY ORDERABLE S Performing Organization Address [facility] Co de Phone Number [facility] [place] [address] * Vitamin D, 25-Hydroxy (07/11/2017 4:30 PM EDT) Vitamin D Total 25 OH 52 30 - 100 ng/mL [facility] Comment: Deficient <10 ng/mL Insufficient 10 to 29 ng/mL Sufficient 30 to 100 ng/mL Potential Intoxication >100 ng/mL According to the [place] National Osteoporosis Foundation, Vitamin D concentrations >30 ng/mL are sufficient to protect bone health. ??The National Kidney Foundation has similarly stated that patients with Vitamin D concentrations <30ng/mL should be considered to be insufficient or deficient. http://Archevos/nkf-guidelines http://Archevos/nejm-VitD The IDS iSYS Vitamin D Immunoassay detects both 25-OH Vitamin D2 and 25-OH Vitamin D3, but only a total Vitamin D concentration is reported. Blood specimen (specimen) 07/11/2017 4:30 PM EDT 07/12/2017 7:06 AM EDT Narrative Resulting Agency Comment Spec In Lab Peter Spence MD CHEMISTRY ORDERABLES Performing Organization Address [facility] Co de Phone Number [facility] [place] [address] * CRP, acute inflammation (07/11/2017 4:30 PM EDT) C-Reactive Protein 1.3 <=4.9 mg/L [facility] Blood specimen (specimen) 07/11/2017 4:30 PM EDT 07/11/2017 4:37 PM EDT Narrative Resulting Agency Comment Spec In Lab Peter Spence MD CHEMISTRY ORDERABLES Performing Organization Address [facility]/ZIP Co de Phone Number [facility] [place] [address] * Sedimentation rate (07/11/2017 4:30 PM EDT) Sedimentation Rate Automated 14 0 - 20 mm/hr [facility] Blood specimen (specimen) 07/11/2017 4:30 PM EDT 07/11/2017 4:37 PM EDT Narrative Resulting Agency Comment Spec In Lab Peter Spence MD HEMATOLOGY ORDERABLE S [facility] [place] [id number] * (ABNORMAL) Comprehensive metabolic panel (non-fasting) (07/11/2017 4:30 PM EDT) Glucose 88 65 - 199 mg/dL [facility] Comment:Diabetes: >=200 mg/d L plus symptoms Blood Urea Nitrogen 19 10 - 20 mg/dL [facility] Creatinine 0.73(H) 0.20 - 0.70 mg/dL [facility] Sodium 141 135 - 145 mmol/L [facility] Potassium 4.1 3.5 - 5.0 mmol/L [facility] Comment: Please note: ??Patients with WBC >100,000 may have falsely elevated Potassium levels. ??For accurate Potassium quantification in these patients send serum separator tube (gold top) for subsequent determinations. ??Contact the Clinical Chemistry Laboratory if there are any questions. Chloride 104 98 - 107 mmol/L [facility] Carbon Dioxide 25 22 - 31 mmol/L [facility] Anion Gap 12 5 - 15 mmol/L [facility] Calcium 9.5 8.5 - 10.5 mg/dL [facility] Protein, Total 8.1 6.4 - 8.3 gm/dL [facility] Albumin 4.7 3.2 - 5.2 gm/dL [facility] Aspartate Aminotransferase 14 5 - 30 unit/L [facility] Alanine Aminotransferase 27(H) 0 - 25 unit/L [facility] Alkaline Phosphatase 70 55 - 140 unit/L [facility] Bilirubin, Total 0.3 <=1.0 mg/dL [facility] Est Glomerular Filtration Rate See note >=60 [facility] Comment: The eGFR for patients less than 18 years of age should be calculated using the Bazan formula. GFR = (0.413 x Height in cm)/serum creatinine. The reported eGFR should be multiplied by 1.2 for patients. The MDRD is not an appropriate measure of renal function for patients with body mass extremes or in patients with acute kidney failure. http://Archevos/DHnkdep http://Archevos/DHMCnkf Blood specimen (specimen) 07/11/2017 4:30 PM EDT 07/11/2017 4:37 PM EDT Narrative Resulting Agency Comment Spec In Lab Peter Spence MD CHEMISTRY ORDERABLES Performing Organization Address City/State/[facility] Co de Phone Number [facility] [place] [address] documented in this encounter Visit Diagnoses Diagnosis Arthritis Arthropathy, unspecified, site unspecified documented in this encounter Care Teams Ware Carrier Relationship Specialty Start Date End Date Susana [place] [address] PCP - General Family Medicine 03/02/17 09/17/18 documented as of this encounter
--- OUTSIDE RECORDS SUMMARY | 2024-01-22 11:39 | XMS_ITS | Encounter Summary ---
Author Organization [facility] Address [facility] [place] [address] Care Team Providers Care Shank Cementer Hand Name Role Phone Susana Vazquez Ventura WELDON Primary Care Provider [phone] Reason for Visit * Reason Comments Follow-up Encounter Details Date Type Department Care Team (Late st Contact Info) Description 04/11/2017 10:00 AM EST Office Visit [place] [address] Peter Spence MD [facility] [place] [address] Arthritis Social History Tobacco Use Types Packs/Day Years Used Date Smoking Tobacco: Never Smokeless Tobacco: Never Sex and Gender Information Value Date Recorded Sex Assigned at Not on file Gender Identity Not on file Sexual Orientation Not on file documented as of this encounter Last Filed Vital Signs Vital Sign Reading Time Taken Comments Blood Pressure 130/77 04/11/2017 9:58 AM EST Pulse 82 04/11/2017 9:58 AM EST Temperature 36.8 ??C (98.3 ??F) 04/11/2017 9:58 AM ES T Respiratory Rate - - Oxygen Saturation - - Inhaled Oxygen Concentration - - Weight 97.7 kg (215 lb 6.4 oz) 04/11/2017 9:58 A M EST Height 161.9 cm (5' 3.75) 04/11/2017 9:58 AM ES T Body Mass Index 37.26 04/11/2017 9:58 AM EST Body Mass Index Percentile 98.78% 04/11/2017 9:5 8 AM EST Growth Chart: [facility] (Girls, 2- 20 Years) documented in this encounter Progress Notes * Peter Spence MD - 04/11/2017 10:00 AM EST Is a follow-up appointment on Brennna Frankel birthdate 2000 Patient is a 16-year-old female with symmetrical polyarthritis of the small joints of herhands and feet who is FRANSISCA positive with normal complements negative DNA binding negative JOHNY negative rheumatoid factor and CCP we started her on Naprosyn she developed mouth ulcers we stopped that and then when the labs came back we started her on hydroxychloroquine 1 tablet a day which she tolerates well she has not had any improvement she still has somewhere between 15 and 30 minutes of morning stiffness and she has to use a speech to text device several times a week she denies alopecia stomatitis ray nodes photosensitivity or rash On exam her blood pressure is 130/77 pulse of 82 temp of 98 3 her height is 64 inches which is in the 44th percentile her weight is 215 which is in the 99th percentile her BMI is 37 her HEENT exam isnotable for acne her mucous membranes are moist her neck is too thick to palpate her chest is clearheart exam is unremarkable her extremities she has M CP and wrist and elbow synovitis in her upper extremities and her lower extremities she has knees ankles and MTPs We chose Plaquenil her mother has experience with methotrexate which was not pleasant although I donot think Plaquenil is going to be as effective she has an eye exam on April 19 I warned her about sun exposure and increased sunburn I chose not to do labs this time I kept her on the vitamin D and I will follow-up in 3 months at which time I will do labs including inflammatory markers and I am going to consider doing ultrasound to look for synovitis to assess with the Plaquenil is been effective documented in this encounter Plan of Treatment Not on file documented as of this encounter Visit Diagnoses Diagnosis Arthritis Arthropathy, unspecified, site unspecified documented in this encounter Care Teams Shank Cementer Hand Relationship Specialty Start Date End Date Susana Vazquez APRN [address] [place] [address] PCP - General Family Medicine 03/02/17 09/17/18 documented as of this encounter
--- OUTSIDE RECORDS SUMMARY | 2024-01-22 11:39 | XMS_ITS | Encounter Summary ---
Author Organization [facility] Address [facility] [place] [address] Care Team Providers Care Presser And Blocker Knitted Goods Name Role Phone GeorgeSusana vigil Ventura WELDON Primary Care Provider [phone] Encounter Details Date Type Department Care Team (Late st Contact Info) Description 07/31/2018 10:00 AM EDT Office Visit [place] [address] Peter Spence MD [facility] [address] Arthritis Social History Tobacco Use Types Packs/Day Years Used Date Smoking Tobacco: Never Smokeless Tobacco: Never Sex and Gender Information Value Date Recorded Sex Assigned at Not on file Gender Identity Not on file Sexual Orientation Not on file documented as of this encounter Last Filed Vital Signs Vital Sign Reading Time Taken Comments Blood Pressure 114/51 07/31/2018 10:04 AM EDT Pulse 64 07/31/2018 10:04 AM EDT Temperature 36.5 ??C (97.7 ??F) 07/31/2018 1 0:04 AM EDT Respiratory Rate - - Oxygen Saturation - - Inhaled Oxygen Concentration - - Weight 96.9 kg (213 lb 9.6 oz) 08/01/19 19 10:04 AM EDT Height 162.4 cm (5' 3.94) 07/31/2018 1 0:04 AM EDT Body Mass Index 36.74 07/31/2018 10:04 AM EDT Body Mass Index Percentile 98.15% 07/31 10:04 AM EDT Growth Chart: [facility] (Girls, 2- 20 Years) documented in this encounter Progress Notes * Peter Spnece MD - 07/31/2018 10:00 AM EDT Is a follow-up appointment for??Brennan Frankel??birthdate [...] with folic acid which is additionally helped. In February 2018 I added Humira 40 mg every other week and she had a dramatic improvement which wasconsistent until April when she had to stop it because of an infection in the site that she had her Nexplanon implanted she was off methotrexate Humira and Plaquenil for 1 month with return of hersymptoms and she is gradually improved since restarting all of those she has no morning stiffness but she has some mild swelling in her hands and her ankles On exam she is healthy appearing overweight BP 114/51 Pulse 64 Temp 36.5 ??C (97.7 ??F) Ht 162.4 cm (5' 3.94) Wt 96.9 kg (213 lb 9.6 oz) BMI 36.74 kg/m?? Her HEENT exam she has full hair which she says is improved actually since starting the Humira her neck is too thick to palpate her chest is clear heart exam is unremarkable her extremities she has thick fingers very hard to tell whether she has synovitis which is why I got an ultrasound when I wasdeciding whether to put her on a DMARD she makes a full fist and the only other site of swelling isher ankles which is very mild Laboratory studies from June showed a sed rate of 13 normal CBC and chemistries I kept her on the same medications we will going to arrange for her to get their shots through the wellness center at [facility] which is where she is going in the fall and I will see her before she actually goes in October documented in this encounter Plan of Treatment Not on file documented as of this encounter Goals Goal Patient Goal Type Associated Problems Recent Progress Patient-Stated? Author [facility] Medication Compliance and Understanding Patient Facing Action Plan No Abdirahman Zavaleta, [facility] Note: 50% reduction in hand and knee pain within 3-6 months of Humira initiation documented as of this encounter Visit Diagnoses Diagnosis Arthritis Arthropathy, unspecified, site unspecified documented in this encounter Care Teams Presser And Blocker Knitted Goods Relationship Specialty Start Date End Date Susana Vazquez, HONING MACHINE OPERATOR PRODUCTION [address] [place] [address] PCP - General Family Medicine 03/02/17 09/17/18 documented as of this encounter
--- OUTSIDE RECORDS SUMMARY | 2024-01-22 11:39 | XMS_ITS | Encounter Summary ---
[place] [address] Care Team Providers Care Cullet Trucker Name Role Phone Vanessa Mcginnis MD Primary Care Provider [phone] Encounter Details Date Type Department Care Team (Late st Contact Info) Description 08/18/2021 Telephone [place] [id number] Acacia Mueller Social History Tobacco Use Types Packs/Day Years Used Date Smoking Tobacco: Never Smokeless Tobacco: Never Sex and Gender Information Value Date Recorded Sex Assigned at Not on file Gender Identity Not on file Sexual Orientation Not on file documented as of this encounter Miscellaneous Notes * Telephone Encounter - Acacia Mueller - 08/18/2021 3:54 PM EDT Called pt to try and luis a bumped follow up, left message, sending letter documented in this encounter Plan of Treatment Not on file documented as of this encounter Goals Goal Patient Goal Type Associated Problems Recent Progress Patient-Stated? Author [facility] Medication Compliance and Understanding Patient Facing Action Plan No Abdirahman Zavaleta, [facility] Note: 50% reduction in hand and knee pain within 3-6 months of Humira initiation documented as of this encounter Visit Diagnoses Not on filedocumented in this encounter Care Teams Cullet Trucker Relationship Specialty Start Date End Date Vanessa Mcginnis MD PCP - General Pediatrics 03/22/21 documented as of this encounter
--- OUTSIDE RECORDS SUMMARY | 2024-01-22 11:39 | XMS_ITS | Encounter Summary ---
Author Organization [facility] Address [facility] [place] [address] Care Team Providers Care Hvac Technician Name Role Phone GeorgeSusana vigil Ventura WELDON Primary Care Provider [phone] Encounter Details Date Type Department Care Team (Late st Contact Info) Description 02/20/2018 2:00 PM EST Office Visit [place] [address] Peter Spence MD [facility] [place] [address] Arthritis Social History Tobacco Use Types Packs/Day Years Used Date Smoking Tobacco: Never Smokeless Tobacco: Never Sex and Gender Information Value Date Recorded Sex Assigned at Not on file Gender Identity Not on file Sexual Orientation Not on file documented as of this encounter Last Filed Vital Signs Vital Sign Reading Time Taken Comments Blood Pressure - - Pulse - - Temperature 36.8 ??C (98.2 ??F) 02/20/2018 1:59 PM ES T Respiratory Rate - - Oxygen Saturation - - Inhaled Oxygen Concentration - - Weight 97.9 kg (215 lb 12.8 oz) 02/20/2018 1:59 PM EST Height 161.3 cm (5' 3.5) 02/20/2018 1:59 PM EST Body Mass Index 37.63 02/20/2018 1:59 PM EST Body Mass Index Percentile 98.61% 02/20/2018 1:5 9 PM EST Growth Chart: [facility] (Girls, 2- 20 Years) documented in this encounter Progress Notes * Peter Spence MD - 02/20/2018 2:00 PM EST Is a follow-up appointment for??Brennan Frankel??birthdate is 2000 The patient is a 17-year-old rising senior female with 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 Increase in the methotrexate to 6 tablets has not increased control of her disease she still has morning stiffness joint pain and swelling she is especially complaining about her hands and fingers and her left elbow she has noted worsening generalized hair loss and she also notes worsening swellingand tenderness toward the end of the week after the methotrexate dose I increased her methotrexate to 8 tablets once a week and I also increased her folic acid to 2 mg Since her last visit her articular issues are unchanged with morning stiffness joint pain swelling and tenderness however hair loss and fatigue is improved on the increased dose of folic acid On exam she is healthy appearing but overweight particular exam is notable for symmetrical synovitis of her PIPs MCPs wrists knees ankles and MTPs her 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 documented in this encounter Plan of Treatment Not on file documented as of this encounter Visit Diagnoses Diagnosis Arthritis Arthropathy, unspecified, site unspecified documented in this encounter Care Teams Hvac Technician Relationship Specialty Start Date End Date Susana Vazquez, HEALTH THERAPIST [address] [place] [address] PCP - General Family Medicine 03/02/17 09/17/18 documented as of this encounter
--- OUTSIDE RECORDS SUMMARY | 2024-01-22 11:39 | XMS_ITS | Encounter Summary ---
Author Organization [facility] Address [facility] [place] [address] Care Team Providers Care College Basketball Coach Name Role Phone Susana Vazquez FATEMEH Primary Care Provider [phone] Reason for Visit * Reason Comments Follow-up Patient here with Justa Hernández. Patients would like to talk about medication under reconcile. Encounter Details Date Type Department Care Team (Late st Contact Info) Description 01/16/2018 10:00 AM EST Office Visit [place] [address] Peter Spence MD [facility] [place] [address] Arthritis Social History Tobacco Use Types Packs/Day Years Used Date Smoking Tobacco: Never Smokeless Tobacco: Never Sex and Gender Information Value Date Recorded Sex Assigned at Not on file Gender Identity Not on file Sexual Orientation Not on file documented as of this encounter Last Filed Vital Signs Vital Sign Reading Time Taken Comments Blood Pressure 121/53 01/16/2018 10:11 AM EST Pulse 78 01/16/2018 10:11 AM EST Temperature 37.1 ??C (98.8 ??F) 01/16/2018 10:[address] Respiratory Rate 18 01/16/2018 10:11 AM EST Oxygen Saturation 99% 01/16/2018 10:11 AM EST Inhaled Oxygen Concentration - - Weight 98.4 kg (217 lb) 01/16/2018 10:11 AM EST Height 162.6 cm (5' 4) 01/16/2018 10:11 AM EST Head Circumference 61 cm 01/16/2018 10:11 AM ES T Body Mass Index 37.25 01/16/2018 10:11 AM EST Body Mass Index Percentile 98.52% 01/16/2018 10: 11 AM EST Growth Chart: [facility] (Girls, 2- 20 Years) documented in this encounter Progress Notes * Peter Spence MD - 01/16/2018 10:00 AM EST Is a follow-up appointment for Brennan Frankel birthdate is 2000 ?? The patient is a 17-year-old rising senior [...] with folic acid which is additionally helped Increase in the methotrexate to 6 tablets has not increased control of her disease she still has morning stiffness joint pain and swelling she is especially complaining about her hands and fingers and her left elbow she has noted worsening generalized hair loss and she also notes worsening swellingand tenderness toward the end of the week after the methotrexate dose On exam she is healthy-appearing overweight her blood pressure is 121/53 pulse of 78 respirations 18 pulse ox of 99 temp of 98 8 her height is 64 inches which is in the 47th percentile her weight is 217 which is in the 99th percentile her BMI is 37 her HEENT exam she has mild acne her hair is thinner but not cosmetically noticeable her chest is clear heart exam is unremarkable her abdomen is obese her extremities have active synovitis at the PIPs MCPs and wrists bilaterally her left elbow was swollen as well her county director strength is 4 kg on the right and 6 on the left I ordered laboratory studies that are pending at the time of this dictation I gave them informationon TNF blockers I ordered a QuantiFERON gold and a vitamin D level and I increased her methotrexateto 8 tablets once a week and I also increased her folic acid to 2 mg I will follow-up in 1 month if she is not better by then I will start her on Enbrel documented in this encounter Miscellaneous Notes * Addendum Note - José Miguel Suarez - 01/16/2018 10:00 AM ESTAddended by: JOSÉ MIGUEL SUAREZ on: 01/16/2018 11:03 AM Modules accepted: Orders documented in this encounter Plan of Treatment Not on file documented as of this encounter Procedures Procedure Name Priority Date/Time Associated Diagnosis Comments CRP, ACUTE INFLAMMATION Routine 01/16/2018 11:10 AM EST Arthritis QUANTIFERON-TB GOLD Routine 01/16/2018 1 1:10 AM EST Arthritis HEMOGRAM Routine 01/16/2018 11:10 AM EST Arthritis DIFFERENTIAL, AUTOMATED Routine 01/16/2018 11:10 AM EST Arthritis VITAMIN D, 25-HYDROXY Routine 01/16/2018 11:10 AM EST Arthritis SEDIMENTATION RATE Routine 01/16/2018 11 :10 AM EST Arthritis CBC (WITH DIFF) Routine 01/16/2018 11:10 AM EST Arthritis COMPREHENSIVE METABOLIC PANEL Routine 01/16/2018 11:10 AM EST Arthritis documented in this encounter Results * Differential, Automated (01/16/2018 11:10 AM EST) Neutrophil % 68.3 % [facility] Neutrophil Absolute 4.82 1.50 - 8.00 x10(3)/[facility] Lymph % 22.0 % [facility] Lymphocytes Abs 1.6 1.2 - 5.2 x10(3)/[facility] Monocyte % 6.7 % [facility] Monocyte Abs 0.5 0.2 - 1.0 x10(3)/[facility] Eos % 2.1 % [facility] Eosinophils Abs 0.2 0.0 - 0.4 x10(3)/[facility] Basophil % 0.6 % [facility] Baso Absolute 0.0 0.0 - 0.1 x10(3)/[facility] Immature Gran % 0.30 % [facility] Comment: Immature granulocytes(IG's)percentage and absolute count will include metamyelocytes, myelocytes, and promyelocytes. Blood smears from CBCs yielding IG's will be scanned manually for concordance. If this scan disagrees with the automated IG or if promyelocytes are noted, a manual differential will be performed. Immature Gran Absolute 0.02 0.00 - 0.04 x10(3)/[facility] Blood specimen (specimen) 01/16/2018 11:10 AM EST 01/16/2018 11:23 AM EST Narrative Resulting Agency Comment Spec In Lab Peter Spence MD HEMATOLOGY ORDERABLE S Performing Organization Address City/State/[facility] Co de Phone Number [facility] [place] [address] * Hemogram (01/16/2018 11:10 AM EST) White Blood Cell 7.0 4.5 - 13.0 x10(3)/[facility] Red Blood Cell 4.20 4.10 - 5.10 x10(6)/[facility] Hemoglobin 13.0 12.0 - 16.0 gm/dL [facility] Hematocrit 38.7 36.0 - 46.0 % [facility] Mean Cell Volume 92.1 76.0 - 98.0 fL [facility] Mean Cell Hemoglobin 31.0 25.0 - 35.0 pg [facility] Mean Cell Hemoglobin Concentration 33.6 32.0 - 36.5 gm/dL [facility] Platelet 354 145 - 370 x10(3)/[facility] RDW Standard Deviation 44.2 37.0 - 46.0 [facility] RDW coefficient of variation 13.0 0.0 - 14.5 % [facility] Mean Platelet Volume 10.1 7.6 - 12.9 [facility] NRBC% auto 0.0 % [facility] NRBC Absolute 0.000 0.000 - 0.000 x10(3)/mcL [facility] Blood specimen (specimen) 01/16/2018 11:10 AM EST 01/16/2018 11:23 AM EST Narrative Resulting Agency Comment Spec In Lab Peter Spence MD HEMATOLOGY ORDERABLE S [facility] [place] [address] * QuantiFERON-TB Gold (01/16/2018 11:10 AM EST) Quantiferon Nil 0.350 IU/mL [facility] QFT TB Ag1-Nil -0.150 IU/mL [facility] QFT TB Ag2-Nil -0.230 IU/mL [facility] Quantiferon Mitogen-Nil >10.000 IU/mL [facility] Quantiferon-TB Gold Negative Negative [facility] Quantiferon Tb Interp M. tuberculosis infection NOT likely A negative specimen should have a TB1 Ag minus Nil value and TB2 Ag minus Nil value of less than 0.35 IU/mL OR a TB1 Ag minus Nil or TB2 Ag minus Nil value greater than or equal to 0.35 IU/mL AND a TB Ag minus Nil value from the same tube of less than 25% of the Nil value. A negative specimen must also have a mitogen minus Nil value greater than or equal to 0.5 IU/mL. A negative QFT-Plus result does not preclude the possibility of M. tuberculosis infection. False negative results can occur due to stage of infection (specimen obtained prior to the development of immune response), co-morbid conditions which affect immune function, or other immunological factors. [facility] Comment: The performance of the QFT-Plus assay has not been extensively evaluated with specimens from the following individuals: Individuals who have impaired or altered immune functions, such as those who have HIV infection or AIDS, those who have transplantation managed with immunosuppressive treatment or others who receive immunosuppressive drugs (e.g., corticosteroids, methotrexate, azathioprine, cancer chemotherapy), those who have other clinical conditions, such as diabetes, silicosis, chronic renal failure, and hematological disorders (e.g., leukemia and lymphomas), or those with other specific malignancies (e.g., carcinoma of the head or neck and lung). Individuals younger than age 17 years women. Diagnosis of, or the exclusion of tuberculosis disease, and assessment of Latent Tuberculosis Infection (LTBI) requires a combination of epidemiological, historical, Medical and diagnostic findings that should be taken into account when interpreting QFT-Plus results. Blood specimen (specimen) 01/16/2018 11:10 AM EST 01/17/2018 7:28 AM EST Narrative Resulting Agency Comment Spec In Lab Peter Spence MD CHEMISTRY ORDERABLES [facility] [place] [id number] * (ABNORMAL) Vitamin D, 25-Hydroxy (01/16/2018 11:10 AM EST) Vitamin D Total 25 OH 25(L) 30 - 100 ng/mL [facility] Comment: Deficient <10 ng/mL Insufficient 10 to 29 ng/mL Sufficient 30 to 100 ng/mL Potential Intoxication >100 ng/mL According to the [place] National Osteoporosis Foundation, Vitamin D concentrations >30 ng/mL are sufficient to protect bone health. ??The National Kidney Foundation has similarly stated that patients with Vitamin D concentrations <30ng/mL should be considered to be insufficient or deficient. http://HouseCall.com/nkf-guidelines http://HouseCall.com/nejm-VitD The IDS iSYS Vitamin D Immunoassay detects both 25-OH Vitamin D2 and 25-OH Vitamin D3, but only a total Vitamin D concentration is reported. Blood specimen (specimen) 01/16/2018 11:10 AM EST 01/16/2018 12:49 PM EST Narrative Resulting Agency Comment Spec In Lab Peter Spence MD CHEMISTRY ORDERABLES Performing Organization Address [facility] Co de Phone Number [facility] [place] [address] * CRP, acute inflammation (01/16/2018 11:10 AM EST) C-Reactive Protein 1.2 <=4.9 mg/L [facility] Blood specimen (specimen) 01/16/2018 11:10 AM EST 01/16/2018 11:23 AM EST Narrative Resulting Agency Comment Spec In Lab Peter Spence MD CHEMISTRY ORDERABLES Performing Organization Address [facility] Co de Phone Number [facility] [place] [address] * Sedimentation rate (01/16/2018 11:10 AM EST) Sedimentation Rate Automated 12 0 - 20 mm/hr [facility] Blood specimen (specimen) 01/16/2018 11:10 AM EST 01/16/2018 11:23 AM EST Narrative Resulting Agency Comment Spec In Lab Peter Spence MD HEMATOLOGY ORDERABLE S Performing Organization Address [facility] Co de Phone Number [facility] [place] [address] * (ABNORMAL) Comprehensive metabolic panel (non-fasting) (01/16/2018 11:10 AM EST) Glucose 77 65 - 199 mg/dL [facility] Comment:Diabetes: >=200 mg/d L plus symptoms Blood Urea Nitrogen 13 10 - 20 mg/dL [facility] Creatinine 0.70 0.50 - 0.89 mg/dL [facility] Sodium 142 135 - 145 mmol/L [facility] Potassium 4.2 3.5 - 5.0 mmol/L [facility] Comment: Please note: ??Patients with WBC >100,000 may have falsely elevated Potassium levels. ??For accurate Potassium quantification in these patients send serum separator tube (gold top) for subsequent determinations. ??Contact the Clinical Chemistry Laboratory if there are any questions. Chloride 104 98 - 107 mmol/L [facility] Carbon Dioxide 23 22 - 31 mmol/L [facility] Anion Gap 15 5 - 15 mmol/L [facility] Calcium 9.4 8.5 - 10.5 mg/dL [facility] Protein, Total 7.4 6.4 - 8.3 gm/dL [facility] Albumin 4.1 3.2 - 5.2 gm/dL [facility] Aspartate Aminotransferase 19 5 - 30 unit/L [facility] Alanine Aminotransferase 34(H) 0 - 25 unit/L [facility] Alkaline Phosphatase 63 55 - 140 unit/L [facility] Bilirubin, Total 0.4 <=1.0 mg/dL [facility] Est Glomerular Filtration Rate See note >=60 mL/min/1. 73 m?? [facility] Comment: The eGFR for patients less than 18 years of age should be calculated using the Bazan formula. GFR = (0.413 x Height in cm)/serum creatinine. The eGFR was calculated using the CKD-EPI equation. As with all creatinine based estimates of kidney function, eGFR values calculated with the CKD-EPI equation are not accurate in patients with acute kidney failure, extremes of body mass or the acutely ill. http://[employer]/[facility]RIEnk[facility] eGFR See note >=60 mL/min/1. 73 m?? [facility] Comment: The eGFR for patients less than 18 years of age should be calculated using the Bazan formula. GFR = (0.413 x Height in cm)/serum creatinine. The eGFR was calculated using the CKD-EPI equation. As with all creatinine based estimates of kidney function, eGFR values calculated with the CKD-EPI equation are not accurate in patients with acute kidney failure, extremes of body mass or the acutely ill. http://[employer]/[facility] Blood specimen (specimen) 01/16/2018 11:10 AM EST 01/16/2018 11:23 AM EST Narrative Resulting Agency Comment Spec In Lab Peter Spence MD [place] [address] documented in this encounter Visit Diagnoses Diagnosis Arthritis Arthropathy, unspecified, site unspecified documented in this encounter Care Teams College Basketball Coach Relationship Specialty Start Date End Date Susana Vazquez, RACK MAKER [address] [place] [address] PCP - General Family Medicine 03/02/17 09/17/18 documented as of this encounter
--- OUTSIDE RECORDS SUMMARY | 2024-01-22 11:39 | XMS_ITS | Encounter Summary ---
[place] [address] Care Team Providers Care Typing Pool Supervisor Name Role Phone Susana Vazquez Ventura WELDON Primary Care Provider [phone] Encounter Details Date Type Department Care Team (Late st Contact Info) Description 07/12/2017 [place] [id number] Laurel Jorgensen RN Social History Tobacco Use Types Packs/Day Years Used Date Smoking Tobacco: Never Smokeless Tobacco: Never Sex and Gender Information Value Date Recorded Sex Assigned at Not on file Gender Identity Not on file Sexual Orientation Not on file documented as of this encounter Miscellaneous Notes * Telephone Encounter - Laurel Jorgensen RN - 07/12/2017 3:21 PM EDT Brennan Frankel - 07/11/17 More Detail >> ?? Peter Spence MD ?? Sent: Esther July 12, 2017 12:16 PM ?? To: Laurel Jorgensen RN ?? Message ?? Stop 50k vit d take 1000/day ?? ----- Message ----- ? From: Kelvin, Lab In [facility] ? Sent: 07/11/2017 ?? 4:47 PM Sent [facility] message. documented in this encounter Plan of Treatment Not on file documented as of this encounter Visit Diagnoses Not on filedocumented in this encounter Care Teams Typing Pool Supervisor Relationship Specialty Start Date End Date Susana Vazquez, WEB MARKETING ANALYST [address] [place] [address] PCP - General Family Medicine 03/02/17 09/17/18 documented as of this encounter
--- OUTSIDE RECORDS SUMMARY | 2024-01-22 11:39 | XMS_ITS | Encounter Summary ---
Author Organization [facility] [place] [address] Care Team Providers Care Naval Aircrewman Helicopter Name Role Phone Susana Vazquez GOVERNMENT PROGRAM MANAGER Primary Care Provider [phone] Reason for Visit * Reason Onset Date Comments Medication Refill 06/26/2018 Encounter Details Date Type Department Care Team (Late st Contact Info) Description 06/26/2018 [place] [address] Peter Spence MD [facility] [place] [address] [place] [address] Arthritis Social History Tobacco Use Types Packs/Day [...] Type Associated Problems Recent Progress Patient-Stated? Author [facility] Medication Compliance and Understanding Patient Facing Action Plan No Abdirahman Zavaleta [facility] Note: 50% reduction in hand and knee pain within 3-6 months of Humira initiation documented as of this encounter Visit Diagnoses Diagnosis Arthritis Arthropathy, unspecified, site unspecified documented in this encounter Care Teams Naval Aircrewman Helicopter Relationship Specialty Start Date End Date Susana Vazquez, GOVERNMENT PROGRAM [place] [address] PCP - General Family Medicine 03/02/17 09/17/18 documented as of this encounter
--- OUTSIDE RECORDS SUMMARY | 2024-01-22 11:39 | XMS_ITS | Encounter Summary ---
Author Organization [facility] Address [facility] [place] [address] Care Team Providers Care Research Animal Attendant Name Role Phone GeorgeSusana brooks Ventura WELDON Primary Care Provider Encounter Details Date Type Department Care Team (Late st Contact Info) Description 05/02/2018 2:00 PM EST Office Visit [place] [address] Peter Spence MD [facility] [place] [address] Arthritis Social History Tobacco Use Types Packs/Day Years Used Date Smoking Tobacco: Never Smokeless Tobacco: Never Sex and Gender Information Value Date Recorded Sex Assigned at Not on file Gender Identity Not on file Sexual Orientation Not on file documented as of this encounter Last Filed Vital Signs Vital Sign Reading Time Taken Comments Blood Pressure 127/60 05/02/2018 2:20 PM EST Pulse 57 05/02/2018 2:20 PM EST Temperature 37 ??C (98.6 ??F) 05/02/2018 2:20 PM EST Respiratory Rate - - Oxygen Saturation - - Inhaled Oxygen Concentration - - Weight 101 kg (222 lb 9.6 oz) 05/02/2018 2:20 PM EST Height 162.6 cm (5' 4.02) 05/02/2018 2:20 PM ES T Body Mass Index 38.19 05/02/2018 2:20 PM EST Body Mass Index Percentile 98.72% 05/02/2018 2:2 0 PM EST Growth Chart: CDC (Girls, 2- 20 Years) documented in this encounter Progress Notes * Peter Spence MD - 05/02/2018 2:00 PM EST Is a follow-up appointment [...] of the week after the methotrexate dose ?? I increased her methotrexate to 8 tablets once a week and I also increased her folic acid to 2 mg Last visit in February I added Humira which is made a dramatic difference she no longer has joint pain swelling heat or tenderness she had an abscess removed from her axilla in February and had a brief interruption in her treatment and about 10 days ago she had a Nexplanon removed from her left armwhich subsequently got infected as well she is now been on Keflex and doxycycline in combination for 3 days and I told him to hold the methotrexate and Humira until her infection resolves and she hasbeen off antibiotics for 48 hours On exam BP 127/60 Pulse 57 Temp 37 ??C (98.6 ??F) Ht 162.6 cm (5' 4.02) Wt (!) 101 kg (222 lb 9.6 oz) BMI 38.19 kg/m?? she has no active synovitis the Nexplanon site looks clean but she has cellulitis in that left arm distal to the Nexplanon site I declined to get labs today because of the intercurrent infection but I gave her a lab slip to do locally I kept her on the same medicines with the caveat that she is going to hold on for the infection and I will follow-up in 3 months documented in this encounter Plan of Treatment Not on file documented as of this encounter Goals Goal Patient Goal Type Associated Problems Recent Progress Patient-Stated? Author [facility] Medication Compliance and Understanding Patient Facing Action Plan No Abdirahman Zavaleta, [facility] Note: 50% reduction in hand and knee pain within 3-6 months of Humira initiation documented as of this encounter Visit Diagnoses Diagnosis Arthritis Arthropathy, unspecified, site unspecified documented in this encounter Care Teams Research Animal Attendant Relationship Specialty Start Date End Date Susana Vazquez, ENGINEERING AND OPERATIONS DIRECTOR [address] [place] [address] PCP - General Family Medicine 03/02/17 09/17/18 documented as of this encounter
--- OUTSIDE RECORDS SUMMARY | 2024-01-22 11:39 | XMS_ITS | Encounter Summary ---
[place] [address] Care Team Providers Care Ceramic Products Sales Engineer Name Role Phone Susana Vazquez Ventura WELDON Primary Care Provider [phone] Reason for Visit * Reason Onset Date Comments Medication Refill 04/04/2017 Encounter Details Date Type Department Care Team (Late st Contact Info) Description 04/04/2017 [place] [phone] Wicho Beverly airplane dispatch clerk Refill Social History Tobacco Use Types Packs/Day Years Used Date Smoking Tobacco: Never Smokeless Tobacco: Never Sex and Gender Information Value Date Recorded Sex Assigned at Not on file Gender Identity Not on file Sexual Orientation Not on file documented as of this encounter Miscellaneous Notes * Telephone Encounter - Wicho Beverly RN - 04/04/2017 10:55 AM EST Call placed to patient, no answer, call back number provided. * Telephone Encounter - Wicho Beverly RN - 04/04/2017 10:46 AM EST ----- Message from Laurel Jorgensen RN sent at 04/04/2017 10:40 AM EST ----- Regarding: FW: pt of Dr Jordy Sands, Can you please follow up with this patient. Thanks, Mo ----- Message ----- From: Chantal Fiore DO Sent: 04/04/2017 9:43 AM To: Laurel Jorgensen, AUGIE Subject: pt of Dr Spence I saw this patient of Dr Spence today, he is concerned regarding trhe rash on her face today, and the small amount of fluid seen on the US today and would like her to start plaquenil. I will order it for her. Have her start one tab per day until she sees Dr Spence next week and thenhe will likely increase to 2 tabs daily. Let her know that the medication takes months to work. documented in this encounter Plan of Treatment Not on file documented as of this encounter Visit Diagnoses Not on filedocumented in this encounter Care Teams Ceramic Products Sales Engineer Relationship Specialty Start Date End Date Susana Vazquez APRN [address] [place] [address] PCP - General Family Medicine 03/02/17 09/17/18 documented as of this encounter
--- OUTSIDE RECORDS SUMMARY | 2024-01-22 11:39 | XMS_ITS | Encounter Summary ---
[place] [address] Care Team Providers Care Farm Agent Name Role Phone Susana Vazquez FATEMEH Primary Care Provider [phone] Reason for Visit * Reason Comments Medication Management Encounter Details Date Type Department Care Team (Late st Contact Info) Description 05/28/2018 Specialty [place] [address] Abdirahman Zavaleta Mayur Social History Tobacco Use Types Packs/Day Years Used Date Smoking Tobacco: Never Smokeless Tobacco: Never Sex and Gender Information Value Date Recorded Sex Assigned at Not on file Gender Identity Not on file Sexual Orientation Not on file documented as of this encounter Progress Notes * Abdirahman Zavaleta RPH - 05/28/2018 2:50 PM EDT Clinical Management Plan: Refill Specialty Pharmacy Consultation; Abdirahman Zavaleta RPH Comprehensive Medication Management (CMM) Brennan Frankel Ms. Brennan Frankel is a 17 y.o. [...] Mouth soars Medication Reconciliation Discrepancies (compared to [facility] med list) - none New medications: no [...] made at the appointment and that [facility] is providing recommendations (summary located at top of note) for provider review and follow up. Abdirahman Zavaleta RPH 05/28/18 2:50 PM documented in this encounter Plan of Treatment Not on file documented as of this encounter Goals Goal Patient Goal Type Associated Problems Recent Progress Patient-Stated? Author DH Home Medication Compliance and Understanding Patient Facing Action Plan No Abdirahman Zavaleta [facility] Note: 50% reduction in hand and knee pain within 3-6 months of Humira initiation documented as of this encounter Visit Diagnoses Not on filedocumented in this encounter Care Teams Farm Agent Relationship Specialty Start Date End Date Susana [place] [address] PCP - General Family Medicine 03/02/17 09/17/18 documented as of this encounter
--- OUTSIDE RECORDS SUMMARY | 2024-01-22 11:39 | XMS_ITS | Encounter Summary ---
[place] [address] Care Team Providers Care Unix Architect Name Role Phone Vszq-Grvb-IouggsSuma Limon APRN Primary Care Provide r Reason for Visit * Reason Onset Date Comments Triage 09/09/2018 Encounter Details Date Type Department Care Team (Late st Contact Info) Description 09/09/2018 Telephone [place] [phone] Laurel Jorgensen lining cleaner Social History Tobacco Use Types Packs/Day Years Used Date Smoking Tobacco: Never Smokeless Tobacco: Never Sex and Gender Information Value Date Recorded Sex Assigned at Not on file Gender Identity Not on file Sexual Orientation Not on file documented as of this encounter Miscellaneous Notes * Telephone Encounter - Laurel Jorgensen RN - 09/18/2018 2:13 PM EDT Spoke with Dr. Bourne, and we discussed medications for Gilbert, advised that she can restart medications when she is 100% better and done with antibiotics. Dr. Bourne would like to discuss possible MRI or ID consult with Dr. Spence and he can be reached at [phone], he is available over the next 3 days. * Telephone Encounter - Laurel Jorgensen RN - 09/11/2018 11:23 AM EDT Called Mom and she states PCP was going to call Dr. Spence to discuss what is going on with Gilbert. Called PCP and left message for PCP Frank Morris to RTC to nurse. * Telephone Encounter - Laurel Jorgensen RN - 09/09/2018 4:16 PM EDT Mom Yashira calls to advise that Gilbert has a Cellulitis in her Left arm again and is being treated with Double Antibiotics for 7 days. Keflex 500 mg QID for 7 days and Doxycycline 100 mg BID for 7 days. Wants to know if Gilbert needs to hold Humira and MTX, Advised to hold both until antibiotics done and cellulitis is gone. Mpm mentions this is second time with Cellulitis in same arm. Will be discussing with PCP as Gilbert had surgery on this same arm in the past for a cyst issue. Mom will call with update when antibiotics done. Peter Spence MD sent to Laurel Jorgensen RN Caller: Unspecified (2 days ago, ??2:38 PM) ?? Maybe needs ID consult or MRI Called Mom to advise on the above and she was not available. Left message to RTC to nurse. documented in this encounter Plan of Treatment Not on file documented as of this encounter Goals Goal Patient Goal Type Associated Problems Recent Progress Patient-Stated? Author DH Home Medication Compliance and Understanding Patient Facing Action Plan No Abdirahman Zavaleta [facility] Note: 50% reduction in hand and knee pain within 3-6 months of Humira initiation documented as of this encounter Visit Diagnoses Not on filedocumented in this encounter Care Teams Unix Architect Relationship Specialty Start Date End Date Sfcr-Sofe-YxratpSuma Limon APRN [address] [place] [address] PCP - General Family Medicine 09/18/18 03/21/21 documented as of this encounter
--- OUTSIDE RECORDS SUMMARY | 2024-01-22 11:39 | XMS_ITS | Encounter Summary ---
Author Organization [facility] Address [facility] [place] [address] Care Team Providers Care Charge Entry Specialist Name Role Phone Ltso-Rjuq-DkiiueSuma Limon APRN Primary Care Provide r Encounter Details Date Type Department Care Team (Late st Contact Info) Description 06/16/2019 Telephone [place] [address] Peter Spence MD [facility] [place] [address] Social History Tobacco Use Types Packs/Day Years Used Date Smoking Tobacco: Never Smokeless Tobacco: Never Sex and Gender Information Value Date Recorded Sex Assigned at Not on file Gender Identity Not on file Sexual Orientation Not on file documented as of this encounter Miscellaneous Notes * Telephone Encounter - Demetra Ahumada LNA - 06/16/2019 1:06 PM EDT Regarding TeleHealth appointment on June 17. Got in touch with mom. Telehealth will take place in [place]. Patient has a [facility] account. Meds and allergies are up to date. Recent Weight: 99.9kg Recent Height: 161cm Mom has concerns about patients left ankle swelling up and patients hands swelling up. Mom also said that patient will need a new script of Folic Acid and Mythotrexate. documented in this encounter Plan of Treatment [...] on filedocumented in this encounter Care Teams Charge Entry Specialist Relationship Specialty Start Date End Date Suma Ureña APRN [address] [place] [address] PCP - General Family Medicine 09/18/18 03/21/21 documented as of this encounter
--- OUTSIDE RECORDS SUMMARY | 2024-01-22 11:39 | XMS_ITS | Encounter Summary ---
Author Organization [facility] Address [facility] [place] [address] Care Team Providers Care Sephora Product Consultant Name Role Phone Susana Vazquez Ventura WELDON Primary Care Provider [phone] Reason for Visit * Reason Comments Arthritis Encounter Details Date Type Department Care Team (Late Contact Info) Description 10/17/2017 10:00 AM EDT Office Visit [place] [address] Peter Spence MD [facility] [place] [address] Arthritis Social History Tobacco Use Types Packs/Day Years Used Date Smoking Tobacco: Never Smokeless Tobacco: Never Sex and Gender Information Value Date Recorded Sex Assigned at Not on file Gender Identity Not on file Sexual Orientation Not on file documented as of this encounter Last Filed Vital Signs Vital Sign Reading Time Taken Comments Blood Pressure 115/57 10/17/2017 9:44 AM EDT Pulse 61 10/17/2017 9:44 AM EDT Temperature 36.8 ??C (98.2 ??F) 10/17/2017 9:44 AM ED T Respiratory Rate - - Oxygen Saturation - - Inhaled Oxygen Concentration - - Weight 96.4 kg (212 lb 9.6 oz) 10/17/2017 9:44 A M EDT Height 161.5 cm (5' 3.58) 10/17/2017 9:44 AM ED T Body Mass Index 36.97 10/17/2017 9:44 AM EDT Body Mass Index Percentile 98.51% 10/17/2017 9:4 4 AM EDT Growth Chart: [facility] (Girls, 2- 20 Years) documented in this encounter Progress Notes * Peter Spence MD - 10/17/2017 10:00 AM EDT Is a follow-up appointment for Brennan Frankel birthdate is 2000 The patient is a 17-year-old [...] with folic acid which is additionally helped She has variable days between 5 minutes and no morning stiffness but continues to have polyarthralgias primarily involving her left wrist bilateral knees when she missed a dose of ibuprofen she had aflare with swelling and tenderness of her left breast She denies alopecia stomatitis photosensitivity or rash On exam she is healthy-appearing but overweight blood pressure is 116/57 pulse of 61 temp of 98 height of 64 inches which is in the 41st percentile her weight is 212 which is in the 98th percentile her BMI is 37 her HEENT exam is unremarkable she has normal mucous membranes her neck is too thick toreally palpate her chest is clear heart exam is unremarkable her abdomen is benign her extremities have active synovitis in her left wrist both knees both ankles and both sets of MTPs but it is mild I ordered laboratory studies that are pending at the time of this dictation and I bumped up her methotrexate to 6 tablets once a week she does not want to go on Enbrel and I am going to try to avoid it all follow-up in 3 months she gets eye exams on a periodic basis and the last time was 6 months ago when it was negative documented in this encounter Miscellaneous Notes * Addendum Note - Jacque Green - 10/17/2017 10:25 AM EDTAddended by: JACQUE GREEN on: 10/17/2017 10:25 AM Modules accepted: Orders * Addendum Note - Peter Spence MD - 10/17/2017 10:20 AM EDTAddended by: PETER SPENCE on: 10/17/2017 10:20 AM Modules accepted: Orders documented in this encounter Plan of Treatment Not on file documented as of this encounter Procedures Procedure Name Priority Date/Time Associated Diagnosis Comments CRP, ACUTE INFLAMMATION Routine 10/17/2017 10:34 AM EDT Arthritis HEMOGRAM Routine 10/17/2017 10:34 AM EDT Arthritis DIFFERENTIAL, AUTOMATED Routine 10/17/2017 10:34 AM EDT Arthritis VITAMIN D, 25-HYDROXY Routine 10/17/2017 10:34 AM EDT Arthritis SEDIMENTATION RATE Routine 10/17/2017 10 :34 AM EDT Arthritis CBC (WITH DIFF) Routine 10/17/2017 10:34 AM EDT Arthritis COMPREHENSIVE METABOLIC PANEL Routine 10/17/2017 10:34 AM EDT Arthritis documented in this encounter Results * Differential, Automated (10/17/2017 10:34 AM EDT) Neutrophil % 76.3 % [facility] Neutrophil Absolute 6.83 1.50 - 8.00 x10(3)/[facility] Lymph % 14.9 % [facility] Lymphocytes Abs 1.3 1.2 - 5.2 x10(3)/[facility] Monocyte % 5.8 % [facility] Monocyte Abs 0.5 0.2 - 1.0 x10(3)/[facility] Eos % 2.1 % [facility] Eosinophils Abs 0.2 0.0 - 0.4 x10(3)/[facility] Basophil % 0.6 % [facility] Baso Absolute 0.0 0.0 - 0.1 x10(3)/[facility] Immature Gran % 0.30 % [facility] Comment: Immature granulocytes(IG's)percentage and absolute count will include metamyelocytes, myelocytes, and promyelocytes. Blood smears from CBCs yielding IG's will be scanned manually for concordance. If this scan disagrees with the automated IG or if promyelocytes are noted, a manual differential will be performed. Immature Gran Absolute 0.03 0.00 - 0.04 x10(3)/[facility] Blood specimen (specimen) 10/17/2017 10:34 AM EDT 10/17/2017 10:45 AM EDT Narrative Resulting Agency Comment Spec In Lab Peter Spence MD HEMATOLOGY ORDERABLE S [facility] [place] [address] * Hemogram (10/17/2017 10:34 AM EDT) White Blood Cell 9.0 4.5 - 13.0 x10(3)/[facility] Red Blood Cell 4.41 4.10 - 5.10 x10(6)/[facility] Hemoglobin 13.4 12.0 - 16.0 gm/dL [facility] Hematocrit 40.1 36.0 - 46.0 % [facility] Mean Cell Volume 90.9 76.0 - 98.0 fL [facility] Mean Cell Hemoglobin 30.4 25.0 - 35.0 pg [facility] Mean Cell Hemoglobin Concentration 33.4 32.0 - 36.5 gm/dL [facility] Platelet 341 145 - 370 x10(3)/[facility] RDW Standard Deviation 44.6 37.0 - 46.0 fL [facility] RDW coefficient of variation 13.3 0.0 - 14.5 % [facility] Mean Platelet Volume 10.1 7.6 - 12.9 fL [facility] NRBC% auto 0.0 % [facility] NRBC Absolute 0.000 0.000 - 0.000 x10(3)/mcL [facility] Blood specimen (specimen) 10/17/2017 10:34 AM EDT 10/17/2017 10:45 AM EDT Narrative Resulting Agency Comment Spec In Lab Peter Spence MD HEMATOLOGY ORDERABLE S Performing Organization Address City/[facility]/ZIP Co de Phone Number [facility] [place] [address] * Vitamin D, 25-Hydroxy (10/17/2017 10:34 AM EDT) Vitamin D Total 25 OH 33 30 - 100 ng/mL [facility] Comment: Deficient <10 ng/mL Insufficient 10 to 29 ng/mL Sufficient 30 to 100 ng/mL Potential Intoxication >100 ng/mL According to the [place] National Osteoporosis Foundation, Vitamin D concentrations >30 ng/mL are sufficient to protect bone health. ??The National Kidney Foundation has similarly stated that patients with Vitamin D concentrations <30ng/mL should be considered to be insufficient or deficient. http://SeekSherpa.Anagear/nkf-guidelines http://SeekSherpa.Anagear/nejm-VitD The [employer] iSYS Vitamin D Immunoassay detects both 25-OH Vitamin D2 and 25-OH Vitamin D3, but only a total Vitamin D concentration is reported. Blood specimen (specimen) 10/17/2017 10:34 AM EDT 10/17/2017 1:21 PM EDT Narrative Resulting Agency Comment Spec In Lab Peter Spence MD CHEMISTRY ORDERABLES Performing Organization Address City/[facility]/ZIP Co de Phone Number [facility] [place] [address] * CRP, acute inflammation (10/17/2017 10:34 AM EDT) C-Reactive Protein 2.3 <=4.9 mg/L [facility] Blood specimen (specimen) 10/17/2017 10:34 AM EDT 10/17/2017 10:45 AM EDT Narrative Resulting Agency Comment Spec In Lab Peter Spence MD CHEMISTRY ORDERABLES Performing Organization Address [facility]/ZIP Co de Phone Number [facility] [place] [address] * Sedimentation rate (10/17/2017 10:34 AM EDT) Pathologist [facility] Sedimentation Rate Automated 10 0 - 20 mm/hr [facility] Blood specimen (specimen) 10/17/2017 10:34 AM EDT 10/17/2017 10:45 AM EDT Narrative Resulting Agency Comment Spec In Lab Peter Spence MD HEMATOLOGY ORDERABLE S Performing Organization Address [facility] Co de Phone Number [facility] [place] [address] * (ABNORMAL) Comprehensive metabolic panel (non-fasting) (10/17/2017 10:34 AM EDT) Pathologist [facility] Glucose 94 65 - 199 mg/dL [facility] Comment:Diabetes: >=200 mg/d L plus symptoms Blood Urea Nitrogen 13 10 - 20 mg/dL [facility] Creatinine 0.82 0.50 - 0.89 mg/dL [facility] Sodium 141 135 - 145 mmol/L [facility] Potassium 5.2(H) 3.5 - 5.0 mmol/L [facility] Comment: Please note: ??Patients with WBC >100,000 may have falsely elevated Potassium levels. ??For accurate Potassium quantification in these patients send serum separator tube (gold top) for subsequent determinations. ??Contact the Clinical Chemistry Laboratory if there are any questions. Chloride 104 98 - 107 mmol/L [facility] Carbon Dioxide 23 22 - 31 mmol/L [facility] Anion Gap 14 5 - 15 mmol/L [facility] Calcium 9.5 8.5 - 10.5 mg/dL [facility] Protein, Total 7.9 6.4 - 8.3 gm/dL [facility] Albumin 4.5 3.2 - 5.2 gm/dL [facility] Aspartate Aminotransferase 16 5 - 30 unit/L [facility] Alanine Aminotransferase 26(H) 0 - 25 unit/L [facility] Alkaline Phosphatase 67 55 - 140 unit/L [facility] Bilirubin, Total 0.3 <=1.0 mg/dL [facility] Est Glomerular Filtration Rate See note >=60 mL/min/1. 73 m?? [facility] Comment: The eGFR for patients [...] of body mass or the acutely ill. http://Flexuspine/RPM Real Estatenkf eGFR See note >=60 mL/min/1. 73 m?? [facility] Comment: The eGFR for patients [...] of body mass or the acutely ill. http://Flexuspine/Chef Dovunquenkf Blood specimen (specimen) 10/17/2017 10:34 AM EDT 10/17/2017 10:45 AM EDT Narrative Resulting Agency Comment Spec In Lab Peter Spence MD [place] [address] documented in this encounter Visit Diagnoses Diagnosis Arthritis Arthropathy, unspecified, site unspecified documented in this encounter Care Teams Sephora Product Consultant Relationship Specialty Start Date End Date Susana Vazquez, DIRECTOR OF RESOURCE DEVELOPMENT [address] [place] [address] PCP - General Family Medicine 03/02/17 09/17/18 documented as of this encounter
--- OUTSIDE RECORDS SUMMARY | 2024-01-22 11:39 | XMS_ITS | Encounter Summary ---
Author Organization [facility] [place] [address] Care Team Providers Care Habilitation Worker Name Role Phone Susana Vazquez APRN Primary Care Provider [phone] Encounter Details Date Type Department Care Team (Late st Contact Info) Description 03/21/2017 [place] [address] Peter Spence MD [facility] [place] [address] Arthritis Social History Tobacco Use Types Packs/Day [...] unspecified documented in this encounter Care Teams Habilitation Worker Relationship Specialty Start Date End Date Susana Vazquez APRN [address] [place] [address] [place] [address] PCP - General Family Medicine 03/02/17 09/17/18 documented as of this encounter
--- OUTSIDE RECORDS SUMMARY | 2024-01-22 11:39 | XMS_ITS | Encounter Summary ---
Author Organization [facility] [place] [address] Care Team Providers Care Saw Edge Fuser Circular Name Role Phone Suma Ureña APRN Primary Care Provide r Encounter Details Date Type Department Care Team (Late st Contact Info) Description 06/18/2019 11:30 AM EDT TH Visit (TeleHealth) Pediatric [place] [address] Peter Spence MD [facility] [place] [address] Arthritis Social History Tobacco Use Types Packs/Day Years Used Date Smoking Tobacco: Never Smokeless Tobacco: Never Sex and Gender Information Value Date Recorded Sex Assigned at Not on file Gender Identity Not on file Sexual Orientation Not on file documented as of this encounter Progress Notes * Peter Spence MD - 06/18/2019 11:30 AM EDT Is a follow-up appointment for??Brennan Frankel??birthdate is 2000 ?? 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 She tried Humira but got 2 episodes of cellulitis and discontinued it. She was doing well in the last visit I cut down the hydroxychloroquine to 1 tablet and left the methotrexate at 20 mg a week Unfortunately when she came home from college because of the coronavirus she had a flare of her arthritis with swollen knuckles primarily the third with accompanying morning stiffness and difficulty in fine motor tasks. No other joints have been affected. She takes ibuprofen on a as needed basis and is taking more of it these days even though she has been fairly sedentary Today I ordered laboratory studies that are pending at the time of this dictation and I increased her Plaquenil up to 2 tablets a day I will follow-up in 3 months documented in this encounter Plan of Treatment Not on file documented as of this encounter Goals Goal Patient Goal Type Associated Problems Recent Progress Patient-Stated? Author DH Home Medication Compliance and Understanding Patient Facing Action Plan No Abdirahman Zavaleta, [facility] Note: 50% reduction in hand and knee pain within 3-6 months of Humira initiation documented as of this encounter Visit Diagnoses Diagnosis Arthritis Arthropathy, unspecified, site unspecified documented in this encounter Care Teams Saw Edge Fuser Circular Relationship Specialty Start Date End Date Suma Ureña APRN [address] [place] [address] PCP - General Family Medicine 09/18/18 03/21/21 documented as of this encounter
--- OUTSIDE RECORDS SUMMARY | 2024-01-22 11:39 | XMS_ITS | Encounter Summary ---
Author Organization [facility] [place] [address] Care Team Providers Care Rn Production Name Role Phone Suma Ureña APRN Primary Care Provide r Reason for Visit * Reason Comments Medication Refill Encounter Details Date Type Department Care Team (Late st Contact Info) Description 07/29/2019 [place] [address] Peter Spence MD [facility] [place] [address] Arthritis Social History Tobacco Use Types Packs/Day [...] Type Associated Problems Recent Progress Patient-Stated? Author [facility] Medication Compliance and Understanding Patient Facing Action Plan No Abdirahman Zavaleta, [facility] Note: 50% reduction in hand and knee pain within 3-6 months of Humira initiation documented as of this encounter Visit Diagnoses Diagnosis Arthritis Arthropathy, unspecified, site unspecified documented in this encounter Care Teams Rn Production Relationship Specialty Start Date End Date Suma Ureña APRN [address] [place], [place] [id number] PCP - General Family Medicine 09/18/18 03/21/21 documented as of this encounter
--- OUTSIDE RECORDS SUMMARY | 2024-01-22 11:39 | XMS_ITS | Encounter Summary ---
[place] [address] Care Team Providers Care Prizer Hand Name Role Phone GeorgeSusana Ventura WELDON Primary Care Provider [phone] Encounter Details Date Type Department Care Team (Late st Contact Info) Description 03/29/2017 [place] [id number] Laurel Jorgensen RN Social History Tobacco Use Types Packs/Day Years Used Date Smoking Tobacco: Never Smokeless Tobacco: Never Sex and Gender Information Value Date Recorded Sex Assigned at Not on file Gender Identity Not on file Sexual Orientation Not on file documented as of this encounter Miscellaneous Notes * Telephone Encounter - Laurel Jorgensen RN - 03/29/2017 2:02 PM EST The 504 is fine ? Call her polyarthritis. ? I want nathanael to ultrasound her wrists ? Can you help arrange that ? The mouth sores can be from the disease or the naprosyn. Try stopping the naprosyn and we will substitute a different nonsteroidal when the sores improve I spoke with Mom Yashira and she will have Gilbert stop the Naprosyn and call me back when ulcers heal. If Ulcers do not heal within a week, she will call back as well. I discussed Letter for a 504 with Mom and I will write the letter today. Will fax to [facility] nurse at [phone] documented in this encounter Plan of Treatment Not on file documented as of this encounter Visit Diagnoses Not on filedocumented in this encounter Care Teams Prizer Hand Relationship Specialty Start Date End Date Susana Vazquez APRN [address] [place] [address] PCP - General Family Medicine 03/02/17 09/17/18 documented as of this encounter
--- OUTSIDE RECORDS SUMMARY | 2024-01-22 11:39 | XMS_ITS | Encounter Summary ---
[place] [address] Care Team Providers Care Torch Straightener Name Role Phone Susana Vazquez FATEMEH Primary Care Provider [phone] Reason for Visit * Reason Comments Medication Management Encounter Details Date Type Department Care Team (Late st Contact Info) Description 06/28/2018 Specialty [place] [address] Abdirahman Zavaleta Mayur Social History Tobacco Use Types Packs/Day Years Used Date Smoking Tobacco: Never Smokeless Tobacco: Never Sex and Gender Information Value Date Recorded Sex Assigned at Not on file Gender Identity Not on file Sexual Orientation Not on file documented as of this encounter Progress Notes * Abdirahman Zavaleta RPH - 06/28/2018 11:08 AM EDT Clinical Management Plan: Refill Specialty Pharmacy Consultation; Abdirahman Zavaleta Mayur Comprehensive Medication Management (CMM) Brennan Frankel Ms. [...] Mouth soars Medication Reconciliation Discrepancies (compared to [facility] med list) - none New medications: [...] made at the appointment and that [facility] is providing recommendations (summary located at top of note) for provider review and follow up. Abdirahman Zavaleta RPH 06/28/18 11:08 AM documented in this encounter Plan of Treatment Not on file documented as of this encounter Goals Goal Patient Goal Type Associated Problems Recent Progress Patient-Stated? Author DH Home Medication Compliance and Understanding Patient Facing Action Plan No Abdirahman Zavaleta [facility] Note: 50% reduction in hand and knee pain within 3-6 months of Humira initiation documented as of this encounter Visit Diagnoses Not on filedocumented in this encounter Care Teams Torch Straightener Relationship Specialty Start Date End Date Susana [place] [address] PCP - General Family Medicine 03/02/17 09/17/18 documented as of this encounter
--- OUTSIDE RECORDS SUMMARY | 2024-01-22 11:39 | XMS_ITS | Encounter Summary ---
[place] [address] Care Team Providers Care Rubber Extrusion Machine Operator Name Role Phone Susana Vazquez FATEMEH Primary Care Provider Reason for Visit * Reason Onset Date Comments Prior Authorization 02/21/2018 Amandeep Encounter Details Date Type Department Care Team (Late st Contact Info) Description 02/21/2018 [place] [address] Diane Odom CPHT Prior Authorization (Amandeep) Social History Tobacco Use Types Packs/Day Years Used Date Smoking Tobacco: Never Smokeless Tobacco: Never Sex and Gender Information Value Date Recorded Sex Assigned at Not on file Gender Identity Not on file Sexual Orientation Not on file documented as of this encounter Miscellaneous Notes * Telephone Encounter - Suma Wolfe - 02/25/2018 9:42 AM EST [facility], Prior Authorization Approval APPROVAL DATES: 03/14/18-06/12/18 SPECIFIC INS REQUIREMENT: Continued approvals are contingent upon a positive response to therapy documented in the clinical notes. CASE/REFERENCE # [id number] APPROVAL NOTIFICATION RECEIVED VIA: Fax * Telephone Encounter - Diane Odom - 02/21/2018 2:00 PM EST [facility], Medication Prior Authorization Patient: Brennan Frankel Patient : 2000 Patient Address: [address] [address] (home) Medication: Humira Subscriber Insurance: [place] Medicaid Physician: Peter Spence Sent Via: fax Nunez: Ref/Case/PA#: Medication Strength Frequency Requested: Humira 40mg / 0.8mL Pen Once every 14 days. Qty/Day Supply: 05/09 New Start: Yes Diagnosis & ICD-10 Code: Arthritis M19.90 documented in this encounter Plan of Treatment Not on file documented as of this encounter Visit Diagnoses Not on filedocumented in this encounter Care Teams Rubber Extrusion Machine Operator Relationship Specialty Start Date End Date Susana Vazquez APRN [address] [place] [address] PCP - General Family Medicine 03/02/17 09/17/18 documented as of this encounter
--- NOTE | 2024-01-22 11:40 | ED.GENADUL_ITS ---
Discharge Plan Disposition Patient Disposition: Home Condition: Stable Discharge Details Clinical Impression: Sore throat Primary Care Provider: Fili Pereira ED Provider: Pepito Garcia Home Meds and New Rx's Prescriptions: Continued ibuprofen 600 mg tablet 600 mg PO Q6H PRN multivitamin Tablet 1 tab PO DAILY hydroxychloroquine 200 mg tablet 200 mg PO DAILY Qty: 90 3RF biotin PO DAILY Patient Comments: dose unknown 07/25/22 CT escitalopram oxalate 10 mg tablet 10 mg PO DAILY Qty: 90 1RF hydroxyzine HCl 50 mg tablet See Rx Instructions .ROUTE .COMPLEX Qty: 90 2RF Rx Instructions: Take 1 and 1/2 tab by mouth (75 mg) once daily at Bedtime Mirena 20 mcg/24 hours (5 yrs) 52 mg Intrauterine Device 1 device INTRAUTERINE QMONTH melatonin 10 mg capsule 20 mg PO HS PRN Discharge Instructions Additional Instructions: Your rapid strep test was negative, if your culture is positive you will receive a phone call If not better within a week follow-up with your primary care provider You can take 1000 mg of acetaminophen and 600 mg of ibuprofen every 6 hours as needed If you feel more ill or have new symptoms such as inability swallow liquids return to the emergency department for reevaluation Stand Alone Forms: Work Release HPI General Mode of arrival: ambulatory . Date/Time Provider Initiated Documentation: 01/22/24 11:27 . Limitations to Documentation: no limitations . Information obtained by: patient . History of Present Illness 23 year old F presents to the emergency department with the chief complaint of sore throat, described as moderate, Quality is described as aching, Patient reports no radiation. Patient started experiencing this day(s) (1) and it has been constant. No relieving factors improve symptom(s), No exacerbating factors reported . Patient notes denies fever/chills. Patient did receive the following treatments prior to arrival, none Related Data Home Medications ?Medication ?Instructions ?Recorded ?Confirmed levonorgestrel 21 mcg/24 hr (up to 1 device intrauterine QMONTH 01/04/19 01/22/24 8 years) 52 mg intrauterine device (Mirena) multivitamin 1 tab PO DAILY 03/31/21 01/22/24 ibuprofen 600 mg tablet 600 mg PO Q6H PRN 02/23/22 01/22/24 hydroxychloroquine 200 mg tablet 200 mg PO DAILY #90 tabs 05/26/22 01/22/24 biotin PO DAILY 06/09/22 05/15/23 escitalopram oxalate 10 mg tablet 10 mg PO DAILY #90 tabs 11/28/22 01/22/24 hydroxyzine HCl 50 mg tablet See Rx Instructions .Route 11/28/22 01/22/24 .COMPLEX #90 tabs melatonin 10 mg capsule 20 mg PO HS PRN 01/22/24 01/22/24 Previous Rx's ?Medication ?Instructions ?Recorded hydroxychloroquine 200 mg tablet 200 mg PO DAILY #90 tabs 05/26/22 escitalopram oxalate 10 mg tablet 10 mg PO DAILY #90 tabs 11/28/22 hydroxyzine HCl 50 mg tablet See Rx Instructions .Route 11/28/22 .COMPLEX #90 tabs Allergies Allergy/AdvReac Type Severity Reaction Status Date / Time vancomycin Allergy Skin Rash Verified 01/22/24 11:31 meloxicam AdvReac mouth sores Verified 01/22/24 11:31 naproxen AdvReac mouth sores Verified 01/22/24 11:31 Seasonal Allergies Allergy Mild Nasal Uncoded 01/22/24 11:31 congestion General Stated Complaint: Sorethroat CORBY: 4 Review of Systems All systems reviewed & are unremarkable except as noted in HPI and below Constitutional Constitutional: Denies chills and Denies fever(s) ENT Ears, Nose, Mouth, and Throat: Denies change in voice and Reports sore throat Cardiovascular Cardiovascular: Denies chest pain and Denies dyspnea Respiratory Respiratory: Denies cough and Denies dyspnea Gastrointestinal Gastrointestinal: Denies abdominal pain, Denies nausea and Denies vomiting Exam Const General: no acute distress Orientation: alert [facility] Head: normal to inspection Ears: external ears normal General nose exam: external nose normal Mouth: moist mucous membranes Throat: uvula midline Eyes General: appearance normal, both eyes and all related structures Neck Neck: normal visual inspection Resp Effort & Inspection: normal respiratory effort and able to speak in complete sentences Cardio Rate: regular rate Skin General skin exam: no rashes or lesions noted Neuro General: patient alert and patient oriented x3 Extrem General: normal to inspection Psych Mental Status: mental status grossly normal Course Vital Signs Vital signs: Vital Signs Temperature 36.7 C 01/22/24 11:24 Pulse 82 01/22/24 11:24 Blood Pressure 134/88 01/22/24 11:24 Pulse Oximetry 99 01/22/24 11:24 Temperature 36.7 C 01/22/24 11:36 Temperature Source Oral 01/22/24 11:36 Pulse 82 01/22/24 11:36 Respiratory Rate 16 01/22/24 11:36 Respiratory Effort Normal 01/22/24 11:29 Blood Pressure 133/88 01/22/24 11:36 Blood Pressure Position Sitting 01/22/24 11:36 Pulse Oximetry 99 01/22/24 11:36 Oxygen Delivery Method Room Air 01/22/24 11:36 Oxygen Flow Rate 0 01/22/24 11:24 End Tidal Co2 5 01/22/24 11:24 Medical Decision Making 23-year-old female with no significant past medical history comes in with chief complaint of sore throat since yesterday. She denies any fevers or chills but has had bodyaches. She is well-appearing on exam, speaking fully, no stridor or drooling. She has mild erythema of the posterior pharynx, midline uvula, no exudates, no submandibular swelling, no pain over the hyoid restricted neck movements. Her findings are consistent with pharyngitis suspect strep versus viral pharyngitis. Will check strep test and reassess. Strep test negative, given lack of exudates do not feel further antibiotics indicated. There is no findings on exam or history to suggest retropharyngeal abscess, epiglottitis, peritonsillar abscess. She will follow-up with her PCP if she is not improving and return precautions given Differential Diagnosis Differential Diagnosis: Strep, URI Quality:SDOH Health Related Social Needs: No Data to Display PFSH All Active Problems (Updated 01/22/24 @ 11:49 by Pepito Garcia MD) Sore throat (Acute) Rheumatoid arthritis (Chronic) Plantar fasciitis (Chronic) Splints given by rheumatology Anxiety (Chronic) Hydroxyzine 75 mg QHS; Zoloft 150 mg; referred to counseling services Polyarthritis (Chronic 03/22/17) Most recent visit in Apr 2021; no biologics or immunosuppressant medication; just Motrin 600 mg twice daily; Will get US of hands/feet joints- scheduled for Oct 18 2021 Medical History Vision problems Followed by [facility] Insertion of implantable subdermal contraceptive (06/02/16) Hydradenitis (05/21/17) Multiple recurrent groin/axillary abscesses Family History Grandfather Heart disease Mental disorder alcoholism Sister Mental disorder depression/anxiety Grandmother Mental disorder depression,anxiety Other Mental disorder pat uncle-alcoholism Seizure mat aunt and 3 cousins Father Mental disorder drinker-has [id number]- 1 year sober Grandfather Mental disorder alcoholism Social History Smoking/Tobacco Use Status: Former Tobacco Use Smoking risk assessment performed?: Yes Alcohol Intake: current Alcohol Intake frequency: holidays/special occasions only Alcohol type: beer Drug use: Never Substance use type: does not use Adopted: No Caregiver/Support person: No Household members: family and other Details: Lives with dad and step-mom; bio mom not in life since age 7y Housing: house Number of Children: 0 number of grandchildren: 0 Communication Needs: None Education Level: high school Do you need help understanding health information?: Never 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 @ [employer] Pets and animals: Yes (3 cats; 4 dogs) Pets and animals: cat(s) and dog(s) Sexually active: Yes Do you think of yourself as: straight/heterosexual Current gender identity: female What is your relationship status?: never How often do you talk on the phone with friends or family?: three or more times per week How often do you get together with friends or relatives?: once per week Do you belong to any clubs or organized social groups?: no Panel score (0-1 are the most socially isolated patients): 1 What type of physical activity do you participate in: other 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 Duration: 60-90 minutes/day Frequency: 5-6 times per week Special verónica needs: No Seatbelt use: always Drive intox or ride w/intox bung driver: No Do you feel safe at home: Yes Do you feel safe in your relationship?: Yes Female Reproductive History Menstrual control method: implanted PAWSS Have you Been Recently Intoxicated or Drunk Within the Last 30 days?: No Have you Ever Experienced Previous Episodes of Alcohol Withdrawal?: No Have you ever Experienced Withdrawal Seizures?: No Have you ever Experienced Delirium Tremens(DT)s?: No Have you ever undergone Alcohol Rehabilitation Treatment (i.e, inpt ot outpatient treatment programs)?: No Have you ever Experienced Blackouts?: No Have you ever Combined Alcohol with other Downers within the last 90 days?: No Have you ever Combined Alcohol with any other Substance of Abuse during the last 90 days?: No Positive Blood Alcohol level on Presentation? [PCS.BAL]: No Evidence of Increased Autonomic Activity (i.e. HR>120, tremor, sweating, agitation, nausea)?: No Result: 0
--- OUTSIDE RECORDS SUMMARY | 2024-01-22 11:40 | XMS_ITS | Encounter Summary ---
Author Organization [facility] Address [address] [place] [address] Care Team Providers Care Mingler Operator Name Role Phone George Susana Whitehead YARN DUMPER Primary Care Provider [phone] Encounter Details Date Type Department Care Team (Late st Contact Info) Description 03/08/2018 Results Only [facility] [phone] Jennifer Lyon MD [address] [place] [address] Social History Tobacco Use Types Packs/Day Years Used Date Smoking Tobacco: Never Assessed Comments Unknown Sex and Gender Information Value Date Recorded Sex Assigned at Not on file Legal Sex Female 21:52 EDT Gender Identity Not on file Sexual Orientation Not on file documented as of this encounter Plan of Treatment Not on file documented as of this encounter Procedures Procedure Name Priority Date/Time Associated Diagnosis Comments SURGICAL PATHOLOGY Routine 03/08/2018 21 :51 EST documented in this encounter Results * SURGICAL PATHOLOGY (03/08/2018 21:51 EST) Pathology Report: SURGICAL PATHOLOGY REPORT Reports generated via electronic interface contain original data; however they are lacking the format of the original report. Caution should be taken when reading/interpret ing unformatted reports. Name: ? MART FLYNN ? Accession #: ? [id number] ? : ? 2000 (Age: 17) ??F ? Collect Date: ? 03/08/2018 ? Location: ? [facility] ? Receive Date: ? 03/08/2018 ? Provider: JENNIFER LOYN MD Copy to: ENMANUEL DELGADO YARN DUMPER ? Final Pathologic Diagnosis: SKIN OF AXILLA, LEFT, EXCISION: - Cystically dilated follicle with associated rupture and scar formation. See comment. Comment: Within the excision specimen are scattered cystically dilated follicles with evidence of rupture. There is associated scar formation and inflammation. In foci, there is suggestion of a sinus tract formation. Also present within the inflammation is polarizable foreign material. Review of our clinical records reveals a prior excision from this site ([id number]) which may account for this material. (Dr. Rosas)/jds Document reviewed and electronically signed by: RONNIE ROSAS MD Report ??Date: 03/13/2018 10:05 By the signature above, the attending physician certifies that he/she has personally conducted a gross and/or microscopic examination of the described specimens and rendered or confirmed the above diagnosis. Specimen(s) Received: Left axillary chronic lesion, long 9 o'clock, short 12 o'clock Clinical History: Chronic wound left axilla; clinical diagnosis code: T81.89 Gross Description: ? Received in formalin labelled with proper patient identification (initials D, O) and left axillary chronic wound is an oriented elliptical excision of pale gomez-white skin with a long suture designating 9 o'clock and a short suture designating 12 o'clock. The skin measures 4.0 cm 3 o'clock to 9 o'clock while the underlying fatty tissue measures 4.5 cm 3 o'clock to 9 o'clock. ??The skin measures 1.7 cm 12 o'clock to 6 o'clock while the underlying fatty tissue measures 3.0 cm from 12 o'clock to 6 o'clock and is excised to a depth of 1.5 cm. There is an umbilicated slightly off center gomez granular area that measures 0.8 x 0.6 cm. The cutaneous surface is also longitudinally furrowed over a length of 2.0 cm. The surgical margin of the 12 o'clock half is blue inked and the surgical margin of the 6 o'clock half is black inked. The specimen is serially sectioned from 3 o'clock (level 1) to 9 o'clock (level 14) and is entirely submitted as follows: BLOCK VAZQUEZ 1- ??level 1, 3 o'clock soft tissue margin (does not include skin), reverse en face 2- ??level 2, 3 o'clock tip, reverse en face 3- ??level 3 4- ??level 4 5- ??level 5 6- ??level 6 7-8- ??level 7, bisected 9-10- ??level 8, bisected 11-12- ??level 9, bisected 13-14- ??level 10, bisected 15-16- ??level 11, bisected 17- ??level 12 18- ??level 13, 9 o'clock tip, reverse en face 19- ??level 14, 9 o'clock soft tissue margin (does not include skin), reverse en face UNRULY Monroy (ASCP) 03/11/2018 8:54 AM End of Report [facility] 03/08/2018 21:5 1 EST 03/08/2018 21:51 EST us Jennifer Lyon MD PATHOLOGY ORDERABLES Final Resul t [facility] [address] [place] [address] documented in this encounter Visit Diagnoses Not on filedocumented in this encounter Care Teams Mingler Operator Relationship Specialty Start Date End Date Susana Vazquez, YARN DUMPER [address] [place] [address] PCP - General 09/08/16 documented as of this encounter
--- OUTSIDE RECORDS SUMMARY | 2024-01-22 11:40 | XMS_ITS | Encounter Summary ---
Author Organization [facility] Address [address] [place] [address] Care Team Providers Care Manager Income Tax Name Role Phone Susana Vazquez MANAGER PATIENT Primary Care Provider Encounter Details Date Type Department Care Team (Latest Contact Info) Description 03/08/2018 15:44 EST - 03/08/2018 23:59 EST Hospital Encounter [address] [address] Unknown, Provider, MD Discharge Disposition: Home or Self Care Social History Tobacco Use Types Packs/Day Years Used Date Smoking Tobacco: Never Assessed Comments Unknown Sex and Gender Information Value Date Recorded Sex Assigned at Not on file Legal Sex Female 21:52 EDT Gender Identity Not on file Sexual Orientation Not on file documented as of this encounter Discharge Disposition Disposition Code Departure Means Destination Home or Self Retirement documented in this encounter Plan of Treatment Not on file documented as of this encounter Visit Diagnoses Not on filedocumented in this encounter Care Teams Manager Income Tax Relationship Specialty Start Date End Date Susana [place] [address] PCP - General 09/08/16 documented as of this encounter
--- OUTSIDE RECORDS SUMMARY | 2024-01-22 11:40 | XMS_ITS | Encounter Summary ---
Author Organization [facility] Address [address] [place] [address] Care Team Providers Care National Van Owner Operator Name Role Phone Lilly Vazqueza Ventura SEX THERAPIST Primary Care Provider [phone] Encounter Details Date Type Department Care Team (Late st Contact Info) Description 11/12/2019 Lab Requisition [facility] Pathology & Laboratory Medicine - [address] [address] Outr Resulting Lab, Provider Social History Tobacco Use Types Packs/Day Years Used Date Smoking Tobacco: Never Assessed Interpersonal Safety Answer Date Record ed Physically Hurt Never 10/13/2019 Verbally Threaten Not on file 10/13/2019 Comments Unknown Sex and Gender Information Value Date Recorded Sex Assigned at Not on file Legal Sex Female 21:52 EDT Gender Identity Not on file Sexual Orientation Not on file documented as of this encounter Plan of Treatment Not on file documented as of this encounter Procedures Procedure Name Priority Date/Time Associated Diagnosis Comments ZZCOVID-19 TEST [facility] PCR Today 11/12/2019 14:59 EDT COVID-19 TESTING Routine 11/12/2019 14:5 9 EDT documented in this encounter Results * COVID-19 TEST [facility] PCR (11/12/2019 14:59 EDT) Swab ENTIRE NASOPHARYNX / Unknown 11/12/2019 14:59 EDT 11/12/2019 22:14 EDT us Provider Outr Resulting Lab MICROBIOLOGY - GENER AL ORDERABLES Final Result [facility] [address] [place] [address] * COVID-19 TESTING (11/12/2019 14:59 EDT) COVID-19 rt-PCR Result Negative Negative 11/13/2019 2:16 EDT [facility] Comment: This test has not been FDA cleared or approved. This test has been authorized by FDA under an EUA for use by authorized laboratories. This test has been authorized only for detection of nucleic acid from 2019-nCoV, not for any other viruses or pathogens. This test is only authorized for the duration of the declaration that circumstances exist justifying the authorization of emergency use of in vitro diagnostic tests for detection and/or diagnosis of 2019-nCoV under section 564(b)(1) of Act, 21 U.S.C ?? 360bbb-3(b) (1), unless the authorization is terminated or revoked sooner. Negative results do not preclude 2019-nCoV infection and should not be used as the sole basis for treatment or other patient management decisions. Negative results must be combined with clinical observations, patient history, and epidemiological information. Performed on the [employer] Fusion instrument Performing Lab [place] [facility] 11/13/2019 2:16 EDT [facility] Swab 11/12/2019 14:5 9 EDT 11/12/2019 22:14 EDT us Provider Outr Resulting Lab MICROBIOLOGY - GENER AL ORDERABLES Final Result Performing Organization Address [facility] Co de Phone Number [facility] [address] [place] [address] documented in this encounter Visit Diagnoses Not on filedocumented in this encounter Additional Health Concerns Infection Onset Date Last Indicated Resolved Time COVID-19 04/09/2020 04/09/2020 05/09/2020 22:1 5 EST documented as of this encounter Care Teams National Van Owner Operator Relationship Specialty Start Date End Date Susana Vazquez, SEX THERAPIST [address] [place] [address] PCP - General 6/30/17 documented as of this encounter
--- OUTSIDE RECORDS SUMMARY | 2024-01-22 11:40 | XMS_ITS | Encounter Summary ---
Author Organization [facility] Address [address] [place] [address] Care Team Providers Care Manager Green Name Role Phone Susana Vazquez PENSION FUND MANAGER Primary Care Provider [phone] Encounter Details Date Type Department Care Team (Late st Contact Info) Description 04/01/2021 Lab Requisition [facility] Pathology & Laboratory Medicine - [facility] [address] [place] [address] Outr Resulting Lab, Provider Social History Tobacco [...] Comments ZZCOVID-19 TEST [facility] PCR Today 03/31/2021 13:35 EST COVID-19 TESTING Routine 03/31/2021 13:3 5 EST documented in this encounter Results * COVID-19 TEST [facility] PCR (03/31/2021 13:35 EST) Swab 03/31/2021 13:3 5 EST 04/01/2021 17:43 EST us Provider Outr Resulting Lab MICROBIOLOGY - GENER AL ORDERABLES Final Result [facility] [address] [place] [address] * COVID-19 TESTING (03/31/2021 13:35 EST) COVID-19 rt-PCR Result Negative Negative 04/02/2021 15:34 EST [facility] Comment: This test [...] clinical observations, patient history, and epidemiological information. This test was developed and its performance characteristics determined by [facility]. It has not been cleared or approved by the US Food and Drug Administration. FDA does not require this test to go through premarket FDA review. This test is used for clinical purposes. It should not be regarded as investigational or for research. This laboratory is certified under the Clinical Laboratory Improvement Amendments (CLIA) as qualified to perform high complexity clinical laboratory testing. Laboratory Developed Test (LDT) Performed on the MOVL 7 Flex RT-PCR System. This test was developed and its performance characteristics determined by [facility]. It has not been cleared or approved by the US Food and Drug Administration. FDA does not require this test to go through premarket FDA review. This test is used for clinical purposes. It should not be regarded as investigational or for research. This laboratory is certified under the Clinical Laboratory Improvement Amendments (CLIA) as qualified to perform high complexity clinical laboratory testing. Laboratory Developed Test (LDT) Performed on the [employer] 7 Pro RT-PCR System. Performing Lab [facility] Lab 04/02/2021 15:34 EST [facility] Swab 03/31/2021 13:3 5 EST 04/01/2021 17:43 EST us Provider Outr Resulting Lab MICROBIOLOGY - GENER AL ORDERABLES Final Result Performing Organization Address City/State/[facility] Co de Phone Number [facility] [address] [place] [address] documented in this encounter Visit Diagnoses Not on filedocumented in this encounter Care Teams Manager Green Relationship Specialty Start Date End Date Susana Vazquez, PENSION FUND MANAGER [address] [place] [address] PCP - General 09/08/16 documented as of this encounter
--- OUTSIDE RECORDS SUMMARY | 2024-01-22 11:40 | XMS_ITS | Encounter Summary ---
Author Organization [facility] Address [address] [place] [address] Care Team Providers Care Posting Specialist Name Role Phone Susana Vazquez NUCLEAR PLANT CONSTRUCTION WORKER Primary Care Provider [phone] Encounter Details Date Type Department Care Team (Late st Contact Info) Description 04/19/2021 Lab Requisition [facility] Pathology & Laboratory Medicine - [facility] [address] [place] [address] Outr Resulting Lab, Provider Social History Tobacco [...] Comments ZZCOVID-19 TEST [facility] PCR Today 04/18/2021 19:55 EST COVID-19 TESTING Routine 04/18/2021 19:5 5 EST documented in this encounter Results * COVID-19 TEST [facility] PCR (04/18/2021 19:55 EST) Swab 04/18/2021 19:5 5 EST 04/19/2021 19:35 EST us Provider Outr Resulting Lab MICROBIOLOGY - GENER AL ORDERABLES Final Result [facility] [address] [place] [address] * COVID-19 TESTING (04/18/2021 19:55 EST) COVID-19 rt-PCR Result Negative Negative 04/20/2021 14:27 EST [facility] Comment: This test [...] clinical observations, patient history, and epidemiological information. Testing was performed using the norma SARS-CoV-2 assay ([employer] on the Norma 6800 System Performing Lab [employer]a [address] [facility] Lab 04/20/2021 14:27 EST [facility] Swab 04/18/2021 19:5 5 EST 04/19/2021 19:35 EST us Provider Outr Resulting Lab MICROBIOLOGY - GENER AL ORDERABLES Final Result [facility] [address] [place] [address] documented in this encounter Visit Diagnoses Not on filedocumented in this encounter Care Teams Posting Specialist Relationship Specialty Start Date End Date Susana Vazquez, [place] [address] PCP - General 09/08/16 documented as of this encounter
--- OUTSIDE RECORDS SUMMARY | 2024-01-22 11:40 | XMS_ITS | Encounter Summary ---
Author Organization [facility] Address [address] [place] [address] Care Team Providers Care Professor Of Pathology Name Role Phone Unknown, Provider MD Primary Care Provider Unava ilable Encounter Details Date Type Department Care Team (Latest Contact Info) Description 09/06/2016 12:37 EDT - 09/06/2016 23:59 EDT Hospital Encounter [address] [address] Unknown, Provider, Discharge Disposition: Home or Self Care Social [...] Code Departure Means Destination Home or Self [facility] documented in this encounter Plan of Treatment Not on file documented as of this encounter Visit Diagnoses Not on filedocumented in this encounter Care Teams Professor Of Pathology Relationship Specialty Start Date End Date Unknown, Provider, PCP - General 09/06/16 09/07/16 documented as of this encounter
--- OUTSIDE RECORDS SUMMARY | 2024-01-22 11:40 | XMS_ITS | Encounter Summary ---
Author Organization [facility] Address [address] [place] [address] Care Team Providers Care Blade Boner Name Role Phone Lilly Vazqueza Ventura DIVIDING MACHINE OPERATOR HELPER Primary Care Provider [phone] Encounter Details Date Type Department Care Team (Late st Contact Info) Description 04/09/2020 Lab Requisition [facility] Pathology & Laboratory Medicine - [facility] [address] [place] [address] Outr Resulting Lab, Provider Social History Tobacco [...] Comments ZZCOVID-19 TEST [facility] PCR Today 04/09/2020 13:06 EST COVID-19 TESTING Routine 04/09/2020 13:0 6 EST documented in this encounter Results * COVID-19 TEST [facility] PCR (04/09/2020 13:06 EST) Swab ENTIRE NASOPHARYNX / Unknown 04/09/2020 13:06 EST 04/09/2020 21:44 EST us Provider Outr Resulting Lab MICROBIOLOGY - GENER AL ORDERABLES Final Result Performing Organization Address City/State/[facility] Co de Phone Number [facility] [address] [place] [address] * (ABNORMAL) COVID-19 TESTING (04/09/2020 13:06 EST) COVID-19 rt-PCR Result Positive(AA ) Negative 04/10/2020 13:39 EST [facility] Comment: This test has not [...] the authorization is terminated or revoked sooner. Performed on the [employer] Fusion instrument Performing Lab [place] [facility] 04/10/2020 13:39 EST [facility] Swab 04/09/2020 13:0 6 EST 04/09/2020 21:44 EST us Provider Outr Resulting Lab MICROBIOLOGY - GENER AL ORDERABLES Final Result Performing Organization Address [facility] de Phone Number [facility] [address] [place] [address] documented in this encounter Visit Diagnoses Not on filedocumented in this encounter Additional Health Concerns Infection Onset Date Last Indicated Resolved Time COVID-19 04/09/2020 04/09/2020 05/09/2020 22:1 5 EST documented as of this encounter Care Teams Blade Boner Relationship Specialty Start Date End Date Susana Vazquez, DIVIDING MACHINE OPERATOR HELPER [address] [facility] [address] PCP - General 09/08/16 documented as of this encounter
--- OUTSIDE RECORDS SUMMARY | 2024-01-22 11:40 | XMS_ITS | Encounter Summary ---
Author Organization [facility] Address [address] [place] [address] Care Team Providers Care Cyber Incident Handler Name Role Phone Unknown, Provider Primary Care Provider Unava ilable Encounter Details Date Type Department Care Team (Late st Contact Info) Description 09/06/2016 Results Only [facility] [phone] Pierce Zhu, DO [address] [place] [address] Social History Tobacco Use Types Packs/Day Years [...] Date/Time Associated Diagnosis Comments SURGICAL PATHOLOGY Routine 09/06/2016 21 :53 EDT documented in this encounter Results * SURGICAL PATHOLOGY (09/06/2016 21:53 EDT) Pathology Report: SURGICAL PATHOLOGY REPORT Reports generated via electronic interface contain original data; however they are lacking the format of the original report. Caution should be taken when reading/interpret ing unformatted reports. Name: ? MART FLYNN ? Accession #: ? [id number] ? : ? 2000 (Age: 16) ??F ? Collect Date: ? 09/06/2016 ? Location: ? [facility] ? Receive Date: ? 09/06/2016 ? Provider: PIERCE ZHU DO Copy to: DENITA KINNEY DIRECT SELLING COUNSELOR ? Final Pathologic Diagnosis: SKIN AND SOFT TISSUE, AXILLA, LEFT, CYST, EXCISION: - Squamous invagination with underlying chronic inflammation, pigmented macrophages and reactive stromal changes. See comment. - Separate fragments of mature adipose tissue. Comment: The above findings are suggestive of a previously ruptured follicular cyst. Clinical correlation is recommended. Dr. Cervantes 09/11/2016 1:11 PM Document reviewed and electronically signed by: RAMU BROTHERS MD Report ??Date: 09/11/2016 14:59 By the signature above, the attending physician certifies that he/she has personally conducted a gross and/or microscopic examination of the described specimens and rendered or confirmed the above diagnosis. Specimen(s) Received: Left axillary cyst Clinical History: Cyst Gross Description: ? Received in formalin labelled with proper patient identification (initials D, O) and left axillary cyst is an unoriented elliptical excision of gomez-brown skin (1.3 x 0.7 cm and is excised to a depth of 1.6 cm). The skin surface is wrinkled and without gross lesions. The specimen is serially sectioned revealing no masses or cystic lesions. Received in the same container are portions of soft lobulated adipose tissue measuring 3.0 x 3.0 x 0.8 cm in aggregate. Home Coordinator sections are submitted in [address] Mckoy 09/07/2016 2:35 PM End of Report [facility] 09/06/2016 21:5 3 EDT 09/06/2016 21:53 EDT us Pierce Zhu DO PATHOLOGY ORDERABLES Final Res ult [facility] [address] [place] [address] documented in this encounter Visit Diagnoses Not on filedocumented in this encounter Care Teams Cyber Incident Handler Relationship Specialty Start Date End Date Unknown, Provider, PCP - General 09/06/16 09/07/16 documented as of this encounter
--- OUTSIDE RECORDS SUMMARY | 2024-01-22 11:40 | XMS_ITS | Referral Summary ---
Author Organization [facility] Address [address] [place] [address] Care Team Providers Care Edging Machine Operator Name Role Phone Susana Vazquez NP Primary Care Provider [phone] Social History Tobacco Use Types Packs/Day Years Used Date Smoking Tobacco: Never Assessed Interpersonal Safety Answer Date Record ed Physically Hurt Never 10/13/2019 Verbally Threaten Not on file 10/13/2019 Comments Unknown Sex and Gender Information Value Date Recorded Sex Assigned at Not on file Legal Sex Female 21:52 EDT Gender Identity Not on file Sexual Orientation Not on file Plan of Treatment Not on file [place] [facility] Address: [address] [address] Care Teams Edging Machine Operator Relationship Specialty Start Date End Date Susana Vazquez, CORE ANALYSIS OPERATOR [address] [place] [address] PCP - General 09/08/16
--- OUTSIDE RECORDS SUMMARY | 2024-01-22 11:40 | XMS_ITS | Clinical Summary ---
Author Organization [facility] Address [address] [place] [address] Care Team Providers Care Gun Barrel Finisher Name Role Phone Susana Vazquez NP Primary Care Provider [phone] Social History Tobacco Use Types Packs/Day Years Used Date Smoking Tobacco: Never Assessed Interpersonal Safety Answer Date Record ed Physically Hurt Never 10/13/2019 Verbally Threaten Not on file 10/13/2019 Comments Unknown Sex and Gender Information Value Date Recorded Sex Assigned at Not on file Legal Sex Female 21:52 EDT Gender Identity Not on file Sexual Orientation Not on file Plan of Treatment Health Maintenance Due Date Last Done Comments Hepatitis C Screen 2000 Hepatitis B Vaccine (1 of 3 - 19+ 3-dose series) 07/22 COVID-19 Vaccine (2022- season) 2022 [place] Care Teams Gun Barrel Finisher Relationship Specialty Start Date End Date Susana Vazquez, GENERAL STUDIES PROGRAM CHAIR [address] [place] [address] PCP - General 09/08/16
--- OUTSIDE RECORDS SUMMARY | 2024-01-22 11:40 | XMS_ITS | Encounter Summary ---
Author Organization [facility] Address [address] [place] [address] Care Team Providers Care Housecalls Nurse Name Role Phone Susana Vazquez GIS SOFTWARE DEVELOPER Primary Care Provider [phone] Encounter Details Date Type Department Care Team (Late st Contact Info) Description 02/21/2022 Lab Requisition [facility] Pathology & Laboratory Medicine - [facility] [address] [place] [address] Outr Resulting Lab, Provider Social History Tobacco [...] Comments ZZCOVID-19 TEST [facility] PCR Today 02/20/2022 10:14 EST COVID-19 TESTING Routine 02/20/2022 10:1 4 EST documented in this encounter Results * COVID-19 TEST [facility] PCR (02/20/2022 10:14 EST) Swab 02/20/2022 10:1 4 EST 02/21/2022 16:18 EST us Provider Outr Resulting Lab MICROBIOLOGY - GENER AL ORDERABLES Final Result [facility] [address] [place] [address] * COVID-19 TESTING (02/20/2022 10:14 EST) COVID-19 rt-PCR Result Negative Negative 02/22/2022 10:58 EST [facility] Comment: This test has not [...] performed using the norma SARS-CoV-2 assay ([employer] on the Norma 6800 System Performing Lab Norma [address] [facility] Lab 02/22/2022 10:58 EST [facility] Swab 02/20/2022 10:1 4 EST 02/21/2022 16:18 EST us Provider Outr Resulting Lab MICROBIOLOGY - GENER AL ORDERABLES Final Result [facility] [address] [place] [address] documented in this encounter Visit Diagnoses Not on filedocumented in this encounter Care Teams Housecalls Nurse Relationship Specialty Start Date End Date Susana Vazquez, [place] [address] PCP - General 09/08/16 documented as of this encounter
--- NOTE | 2024-01-24 09:27 | W.ED.FU ---
Date of service: 01/24/24 Time of Service: 09:27 Follow Up Plan: Culture log with positive group A strep from culture obtained 01/22/2024. Attempted to reach out to the patient at her documented phone number, which has been disconnected. I was able to reach the patient's stepmother, Yashira, who was listed as next of kin. The new phone number is reported to be [phone], and this phone number was called and unfortunately the voicemail has not been set up. Yashira states that she will pass along to the patient that she needs to call us back to discuss results. -[id number]: Patient called back, was informed of the positive strep culture, states that her sore throat has persisted though she has otherwise been feeling slightly improved. Any course of penicillin, 500 mg twice daily was sent to her pharmacy to be taken for the next 10 days. The patient had the opportunity to have all of her questions answered, understands the need to complete the entire course of antibiotics and follow-up with her primary care provider with any concerns. Bette Meadows MD
== END 2024-01-22 11:58 | disposition home or self-care (01) ==
PROVIDERS: Emergency Provider Emergency Medicine; PCP Family Medicine
DX: J02.9 Acute pharyngitis, unspecified (principal); Z87.891 Personal history of nicotine dependence
CPT/HCPCS: 87880; 99282; 87081; 99283

== ENCOUNTER 2024-05-12 02:11 | Outpatient (CLI) | payer MEDICAID, SELFPAY ==
[2024-05-12 10:39] LABS: Panorama Kit Sent via Fed Ex
[2024-05-12 10:47] LABS: Abs Immature Grans 0.03 10^3/uL (0.0-0.06); Absolute Basophil Count 0.03 10^3/uL (0.0-0.2); Absolute Eosinophil Count 0.11 10^3/uL (0.0-0.7); Absolute Lymphocyte Count 1.71 10^3/uL (1.2-3.4); Absolute Monocyte Count 0.41 10^3/uL (0.1-0.8); Absolute Neutrophil Count 7.63 10^3/uL (1.2-6.7); Basophils % 0.3 %; Eosinophils % 1.1 %; HCT 35.4 % (36.0-46.0); HGB 12.2 g/dL (11.2-15.7); Immature Grans % 0.3 %; Lymphocytes % 17.2 %; MCH 30.7 pg (27.0-33.0); MCHC 34.5 % (32.0-36.0); MCV 89 fL (80-95); MPV 10.3 fL (8.0-11.0); Monocytes % 4.1 %; Platelet Count 325 10^3/uL (130-400); RBC 3.98 10^6/uL (3.93-5.22); RDW 13.7 % (11.7-14.6); RDW-SD 44.5 fL; WBC 9.92 10^3/uL (4.4-10.8)
[2024-05-12 11:03] LABS: Hemoglobin A1C 5.1 % (<5.7)
[2024-05-12 11:42] LABS: TSH (W/Ref FT4) 2.04 uIU/mL (0.36-3.74)
[2024-05-13 09:10] LABS: Hepatitis B Surface Ag Negative (Negative)
[2024-05-13 10:12] LABS: Hepatitis C Ab w Rflx HCV PCR Negative (Negative)
[2024-05-13 10:25] LABS: Rubella IgG Ab (UVM) Negative (See Note); Varicella IgG Antibody Negative (See Note)
[2024-05-13 11:03] LABS: HIV-1/2 Ag & Ab Screen Negative (Negative)
[2024-05-14 17:45] LABS: Syphilis IgG w/Reflex Nonreactive (Nonreactive)
[2024-05-26 10:16] LABS: Result Summary NEGATIVE; Specimen WB Whole Blood
== END 2024-05-12 02:12 | disposition home or self-care (01) ==
PROVIDERS: Advanced Practice Midwife; PCP Family Medicine; Visit Provider Advanced Practice Midwife
DX: Z34.91 Encounter for supervision of normal pregnancy, unspecified, first trimester (principal)
CPT/HCPCS: 36415; 81220; 81222; 86787; 86803; 86850; 86900; 86901; 87340; 87389; 83036; 84443; 85025; 86762; 86780

== ENCOUNTER 2024-05-12 10:02 | Outpatient (REF) | payer MEDICAID, SELFPAY ==
[2024-05-12 12:19] LABS: *AMPHETAMINES SCREEN URINE Negative (Negative); *BARBITURATES SCREEN URINE Negative (Negative); *BENZODIAZEPINES SCREEN URINE Negative (Negative); Cannabinoids THC Negative (Negative); Cocaine Screen,Urine Negative (Negative); METHADONE URINE SCREEN Negative (Negative); OPIATES URINE SCREEN Negative (Negative)
[2024-05-12 12:20] LABS: Tricyclic Antidepressants Negative (Negative)
[2024-05-13 11:16] LABS: Fentanyl Scr w/Rfx Confirm Negative ng/mL (<1)
[2024-05-13 11:37] LABS: Chlamydia Result Negative (Negative); GC Result Negative (Negative)
[2024-05-16 08:45] LABS: Buprenorphine Negative ng/mL (Cutoff: 5.0); Norbuprenorphine Negative ng/mL (Cutoff: 2.5)
== END 2024-05-12 10:03 | disposition home or self-care (01) ==
LOC: LBN 10:02
PROVIDERS: PCP Family Medicine; Visit Provider Advanced Practice Midwife
DX: Z34.91 Encounter for supervision of normal pregnancy, unspecified, first trimester (principal)
CPT/HCPCS: 80307; 80348; 87491; 87591; 87086

== ENCOUNTER 2024-06-04 08:14 | Emergency (ER) | payer MEDICAID, SELFPAY ==
[2024-06-04] VITALS (8 sets, daily range): BP systolic 101–157; BP diastolic 49–80; PULSE 52–76; RESP 14; TEMP 36.7; O2SAT 95–100
--- NOTE | 2024-06-04 08:27 | ED.GENADUL_ITS ---
Discharge Plan Disposition Patient Disposition: Home Condition: Stable Discharge Details Clinical Impression: Bacterial vaginosis Primary Care Provider: Fili Pereira ED Provider: Cooper Gallegos Home Meds and New Rx's Prescriptions: New metronidazole 0.75 % gel 1 applic topical QHS 5 Days Qty: 45 0RF Rx Instructions: apply 1 applicator-full (~5g) once daily at bedtime for 5 days Continued PNV #[id number]-omega3 30 mg iron-10 mg iron-1 mg capsule 1 cap PO DAILY ascorbate calcium (vitamin C) 500 mg tablet 500 mg PO DAILY calcium glucarate 500 mg capsule 1 tab-cap PO DAILY biotin 1 tab PO DAILY Patient Comments: dose unknown 07/25/22 CT melatonin 10 mg capsule 20 mg PO HS PRN Discharge Instructions Instructions: Metronidazole (Topical), Bacterial Vaginosis ED Additional Instructions: You were seen in the emergency department for your cramping and spotting in , your vaginal pathogen screen showed bacterial vaginosis, this is an overgrowth of abnormal benign bacteria, I am prescribing a metronidazole gel to apply once daily for 5 days at bedtime. There are some emerging studies that show some partner treatment can be beneficial, if you are currently hahn to have your partner seek an oral metronidazole 3 times per day regimen from urgent care or his primary care provider. Please return for any acute abdominal severe pain, cramping, bleeding, or other emergent concerns, you can always call women's wellness for related complications and they can see you same day upstairs and women's [facility]. Stand Alone Forms: Work Release Referrals: [facility] [Provider Group] Fili Pereira DO [Primary Care Provider] - Discharge Data Discharge Date/Time-TO BE ENTERED AT DEPARTURE: 06/04/24 10:39 HPI General Date/Time Provider Initiated Documentation: 06/04/24 08:26 . HPI Narrative: 23 year-old female presents to ED today by POV/ambulating with a chief complaint of cramping, spotting, 16 weeks gestation with G1PAL0, with onset noted yesterday- reports intercourse with her partner 5 days ago. Quality described as mild cramping, spotting, no radiation to vaginal bleeding, fever, severe lower abdominal pain, dysuria, hematuria, flank pain, cough, shortness of breath, chest pain. Severity is described as mild to moderate. Palliating factors include nothing specific attempted. Provoking factors include nothing specific. Events leading up to the incident/Associated Symptoms: Patient did not try acute visit with [facility] for this problem yet. Patient not anticoagulated. Related Data Home Medications ?Medication ?Instructions ?Recorded ?Confirmed biotin 1 tab PO DAILY 06/09/22 06/04/24 melatonin 10 mg capsule 20 mg PO HS PRN 01/22/24 06/04/24 ascorbate calcium (vitamin C) 500 500 mg PO DAILY 03/18/24 06/04/24 mg tablet calcium glucarate 500 mg capsule 1 tab-cap PO DAILY 03/18/24 06/04/24 vitamin#30 30 mg iron-10 1 cap PO DAILY 03/18/24 06/04/24 mg iron-folic acid 1 mg-omg3 capsule metronidazole 0.75 % topical gel 1 applic topical QHS 5 days #45 06/04/24 grams Previous Rx's ?Medication ?Instructions ?Recorded metronidazole 0.75 % topical gel 1 applic topical QHS 5 days #45 06/04/24 grams Allergies Allergy/AdvReac Type Severity Reaction Status Date / Time vancomycin Allergy Skin Rash Verified 06/04/24 08:25 meloxicam AdvReac mouth sores Verified 06/04/24 08:25 naproxen AdvReac mouth sores Verified 06/04/24 08:25 Seasonal Allergies Allergy Mild Nasal Uncoded 06/04/24 08:25 congestion 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 SKIN: Warm, pink, dry, intact, without rashes/lesions/ulcerations. HEAD: Normocephalic, atraumatic, normal hair distribution for gender/age. EYES: Normal conjunctiva, no exudates on lids/lashes. ENT: Nares patent, no circumoral cyanosis, no facial swelling NECK: Supple, trachea midline, painless cervical ROM. LUNGS/CHEST: Non-labored respirations, normal A/P diameter, symmetrical expansion, no chest wall deformity HEART (CV/PV): No peripheral edema, no JVD. ABDOMEN: Soft, non-distended, no guarding, no tenderness. MSK: Normal ROM, no swelling/deformity to bilateral UEs or LEs, moving all extremities without weakness, no cyanosis, spine midline without tenderness, normal curvature. NEURO: Mental Status AAOx4 - alert to person, place, time, events No facial droop, no forehead involvement. Motor: No focal weakness - strength 5/5 in bilateral UEs and LEs, proximal and distal, symmetric. Sensory: sensation intact to light touch globally. Gait normal: patient ambulated without ataxia into ED room. PSYCH: euthymic, cooperative, pleasant, appropriate speech Course Vital Signs Vital signs: Vital Signs Temperature 36.7 C 06/04/24 08:20 Pulse 76 06/04/24 08:20 Respiratory Rate 14 06/04/24 08:20 Blood Pressure 157/80 H 06/04/24 08:20 Pulse Oximetry 100 06/04/24 08:20 Temperature 36.7 C 06/04/24 08:20 Temperature Source Oral 06/04/24 08:20 Pulse 76 06/04/24 08:20 Respiratory Rate 14 06/04/24 08:20 Blood Pressure 157/80 H 06/04/24 08:20 Blood Pressure Position Sitting 06/04/24 08:20 Pulse Oximetry 100 06/04/24 08:20 Oxygen Delivery Method Room Air 06/04/24 08:20 Oxygen Flow Rate 0 06/04/24 08:20 Pain Level 5 06/04/24 08:20 Medical Decision Making This dictation utilizes [id number] dictation software and may contain unedited grammatical errors. 23 year-old female presents to ED today by POV/ambulating with a chief complaint of cramping, spotting, 16 weeks gestation with G1PAL0, with onset noted yesterday- reports intercourse with her partner 5 days ago. Quality described as mild cramping, spotting, no radiation to vaginal bleeding, fever, severe lower abdominal pain, dysuria, hematuria, flank pain, cough, shortness of breath, chest pain. Severity is described as mild to moderate. Palliating factors include nothing specific attempted. Provoking factors include nothing specific. Events leading up to the incident/Associated Symptoms: Patient did not try acute visit with [facility] for this problem yet. Patients' medical history: Rheumatoid arthritis. Family and social history: Noncontributory. Pertinent exam findings / vital signs include mild abdominal cramping without tenderness, heart tones 154, good movement on informal bedside ultrasound, pelvic exam deferred to women's health provider with results of studies, benign cardiopulmonary status, nontoxic and afebrile. Differential / pathologies of concern include placental previa or abruption, vaginitis, STI, UTI, unlikely ectopic . Diagnostic studies of: -UA, NG GC, RPR, Vag path screen. -UA is benign -[facility] RPR send out -Vaginitis screen shows positive for BV Interventions of: -Metronidazole gel, consulted with women's health provider Dr. Harrison, they can follow outpatient. ED Course/Assessment/Plan: 23-year-old female who is 16 weeks gestation with her first child presents with some spotting and cramping, had intercourse with her partner 5 days ago, test positive for BV, treating with metronidazole gel, recommend strict return criteria for worsening pelvic pain especially with fever and purulent discharge, encouraged follow-up with women's health providers for any nonemergent acute complications. Findings not consistent with UTI, PID, STI, ectopic , placental abruption or previa. Disposition of Bacterial Vaginosis. Patient verbalized understanding of the plan and return to ED criteria and engaged in shared decision making. Medical Records Medical records reviewed: Yes I reviewed the patient's medical records. Lab Data Lab results reviewed: Yes I reviewed the patient's lab results. Lab results narrative: Vag Path screen shows (+) for BV Labs: 06/04/24 08:58 Vaginal Vaginitis Screen - Final Laboratory Tests Range/Units 06/04/24 06/04/24 08:27 08:58 Beta HCG, Quant Cancelled Urine Color (Yellow) Dark Yellow Urine Clarity (Clear) Clear Urine pH (5-8) 6.0 Ur Specific [place] (1.005-1.025) >= 1.030 H Urine Protein (Neg-Trace) mg/dL Trace Urine Ketones (Negative) mg/dL Trace H Urine Blood (Negative) Trace-intact H Urine Nitrite (Negative) Negative Urine Bilirubin (Negative) Small H Urine Urobilinogen (Up to 0.2) mg/dL 1.0 H Ur Leukocyte Esterase (Negative) Negative Urine RBC (0-2) HPF 0-2 Urine WBC (0-5) HPF 0-2 Ur Epithelial Cells (Negative) HPF Moderate Urine Crystals (Negative) HPF Negative Urine Bacteria (Negative) HPF Few Urine Casts (Negative) LPF 0-2 Hyaline Urine Mucus (Negative) Heavy Ur Culture Indicated? No Urine Glucose (Negative) mg/dL Negative Quality:SDOH Health Related Social Needs: No Data to Display PFSH All Active Problems (Updated 06/04/24 @ 10:14 by UNRULY Orosco) Bacterial vaginosis (Acute) Susceptible to varicella (non-immune), currently (Acute) Rubella non-immune status, antepartum (Acute) (Acute) Anxiety (Chronic) Hydroxyzine 75 mg QHS; Zoloft 150 mg; referred to counseling services Stopped Medications 2022 Medical History (Updated 06/04/24 @ 10:14 by UNRULY Orosco) Rheumatoid arthritis Polyarthritis (03/22/17) Most recent visit in Apr 2021; no biologics or immunosuppressant medication; just Motrin 600 mg twice daily; Will get US of hands/feet joints- scheduled for Oct 18 2021 Missed menses Vision problems Followed by [facility] Hydradenitis (05/21/17) Multiple recurrent groin/axillary abscesses Surgical History (Updated 03/18/24 @ 15:39 by Meg Dobbins RN) History of axillary surgery Family History Grandfather Heart disease Mental disorder alcoholism Sister Mental disorder depression/anxiety Grandmother Mental disorder depression,anxiety Other Mental disorder pat uncle-alcoholism Seizure mat aunt and 3 cousins Father Mental disorder drinker-has [id number]- 1 year sober Grandfather Mental disorder alcoholism Social History (Updated 05/12/24 @ 08:59 by Laya Jimenes CNM) Smoking/Tobacco Use Status: Former Tobacco Use Tobacco: How many years used: 7 Second Hand Exposure: No Smoking risk assessment performed?: Yes Alcohol Intake: former Counseling given: Yes Drug use: Never Substance use type: does not use and former substance user Date of last use: marijuana in past Adopted: No Caregiver/Support person: No Household members: significant other and other Details: Lives with dad and step-mom; bio mom not in life since age 7y Housing: apartment Number of Children: 0 number of grandchildren: 0 Communication Needs: None Education Level: high school Do you need help understanding health information?: Never 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 [employer] Pets and animals: Yes (3 cats; 4 dogs) Pets and animals: cat(s) and dog(s) Sexually active: Yes Do you think of yourself as: straight/heterosexual Current gender identity: female What is your relationship status?: living with partner How often do you talk on the phone with friends or family?: three or more times per week How often do you get together with friends or relatives?: once per week Do you belong to any clubs or organized social groups?: no Panel score (0-1 are the most socially isolated patients): 2 What type of physical activity do you participate in: other 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 Duration: 60-90 minutes/day Frequency: 5-6 times per week Special verónica needs: No Seatbelt use: always Drive intox or ride w/intox port cdl a driver: No Do you feel safe at home: Yes Do you feel safe in your relationship?: Yes Female Reproductive History Menstrual control method: progestin IUCD (removed April 2023) and implanted History History 1 Para Hx # Term Pregnancies Multiple births Hx # Pregnancies Ectopic pregnancies AB induced Hx Number of Living Children AB spontaneous
[2024-06-04 09:06] LABS: Bilirubin Small (Negative); Blood Trace-intact (Negative); Clarity Clear (Clear); Glucose Negative (Negative); Ketones Trace mg/dL (Negative); Leukocyte Esterase Negative (Negative); Nitrite Negative (Negative); Specific Gravity >= 1.030 (1.005-1.025)
[2024-06-04 09:13] LABS: Bacteria Few HPF (Negative); C & S Indicated? No; Casts 0-2 Hyaline LPF (Negative); Crystals Negative HPF (Negative); Epithelial Cells Moderate HPF (Negative); Mucus Heavy (Negative); RBC 0-2 HPF (0-2); WBC 0-2 HPF (0-5)
[2024-06-05 11:46] LABS: Chlamydia Result Negative (Negative); GC Result Negative (Negative)
== END 2024-06-04 10:39 | disposition home or self-care (01) ==
PROVIDERS: Emergency Provider Physician Assistant; PCP Family Medicine
DX: O23.592 Infection of other part of genital tract in pregnancy, second trimester (principal); B96.89 Other specified bacterial agents as the cause of diseases classified elsewhere; Z87.891 Personal history of nicotine dependence; Z3A.16 16 weeks gestation of pregnancy
CPT/HCPCS: 87491; 87591; 99283; 81003; 81015; 84702; 86592; 87480; 87510; 87660

== ENCOUNTER 2024-06-30 01:48 | Outpatient (CLI) | payer MEDICAID, SELFPAY ==
--- NOTE | 2024-06-30 07:30 | DI.US_ITS ---
Exam(s) US OB 2-3 TRIMESTER EXAM: US OB 2-3 TRIMESTER CLINICAL HISTORY: 20 wk anatomy scan.[id number]. TECHNIQUE: Transabdominal obstetrical ultrasound performed. COMPARISON: No exams were available for comparison FINDINGS: Number of fetuses: 1 position: CEPHALIC heart rate: 141bpm Placental location: There is a grade 1 posterior placenta. No evidence of previa. Amniotic fluid index: Amount of fluid is within normal limits. ANATOMICAL SURVEY: Within normal limits. BIOMETRIC DATA: BPD: 4.98cm, 21weeks 1day HC: 18.94cm, 21weeks 2days AC: 15.56cm, 20weeks 5days FL: 3.37cm, 20weeks 4days Cisterna magna: 3.4mm Cerebellum: 1.7cm Lateral ventricle: 0.6 cm. EFW: 373.08g, 0.83lb, 70.4% Composite Age: 21weeks JONI: 11/10/2024 Heart Rate: 141bpm ANATOMICAL SURVEY: Four-chambered heart: Unremarkable. RVOT: Unremarkable. LVOT: Unremarkable. Left-sided stomach: Unremarkable. urinary bladder: Unremarkable. Bilateral kidneys: Unremarkable. Three-vessel cord: Unremarkable. Cord insertion: Unremarkable. Posterior fossa: Unremarkable. ventricles: Unremarkable. nose/lips: Unremarkable. Palate: Unremarkable. spine: Unremarkable. Two arms and two legs: Unremarkable. IMPRESSION: 1. Single live intrauterine gestation as above. 2. Normal anatomic survey. DATA REPOSITORY:
== END 2024-06-30 02:08 ==
LOC: DI 01:48
PROVIDERS: PCP Family Medicine; Visit Provider Advanced Practice Midwife
DX: Z34.92 Encounter for supervision of normal pregnancy, unspecified, second trimester (principal); Z3A.20 20 weeks gestation of pregnancy
CPT/HCPCS: 76805

== ENCOUNTER 2024-08-22 01:36 | Outpatient (CLI) | payer MEDICAID, SELFPAY ==
[2024-08-22 11:48] LABS: HCT 35.8 % (36.0-46.0); MCH 30.5 pg (27.0-33.0); MCHC 33.5 % (32.0-36.0); MCV 91 fL (80-95); MPV 9.9 fL (8.0-11.0); Platelet Count 296 10^3/uL (130-400); RBC 3.93 10^6/uL (3.93-5.22); RDW 12.9 % (11.7-14.6); RDW-SD 42.5 fL; WBC 9.94 10^3/uL (4.4-10.8)
[2024-08-22 11:59] LABS: Glucose,1 Hr (Glucola) 105 mg/dL (80-140)
== END 2024-08-22 01:37 | disposition home or self-care (01) ==
LOC: LBO 01:36
PROVIDERS: PCP Family Medicine; Visit Provider Advanced Practice Midwife
DX: Z34.93 Encounter for supervision of normal pregnancy, unspecified, third trimester (principal); Z3A.28 28 weeks gestation of pregnancy
CPT/HCPCS: 36415; 82950; 85027

== ENCOUNTER 2024-10-15 01:26 | Outpatient (CLI) | payer MEDICAID, SELFPAY ==
--- NOTE | 2024-10-15 06:15 | DI.US_ITS ---
Exam(s) US OB NOREEN WEIGHT EXAM: US OB NOREEN WEIGHT CLINICAL HISTORY: EFW and NOREEN,SIZE OF FETUS INCONSISTENT WITH DATES,o26.843. TECHNIQUE: Transabdominal obstetrical ultrasound performed. COMPARISON: US US OB 2-3 TRIMESTER from 06/30/2024 FINDINGS: Number of fetuses: 1 position: CEPHALIC Placental location: There is a grade 2 posterior placenta. No evidence of previa. BIOMETRIC DATA: BPD: 8.79cm, 35weeks 4days HC: 31.81cm, 35weeks 6days AC: 31.75cm, 35weeks 5days FL: 6.62cm, 34weeks 1day EFW: 2,631.42g, 5lb 13.9oz, 39.9% Composite Age: 35weeks 2days JONI: 11/17/2024 Heart Rate: 144bpm Amniotic fluid index: 13.1cm. The largest pocket is 5.24 cm. IMPRESSION: 1. Single live intrauterine gestation as above. Estimated gestational age is 35 weeks 2 days. 2. Estimated weight is 2631gms. This is the 40th percentile. 3. Amniotic fluid index is 13.1 cm. The largest pocket is 5.24 cm. DATA REPOSITORY:
== END 2024-10-15 01:46 ==
LOC: DI 01:26
PROVIDERS: PCP Family Medicine; Visit Provider Advanced Practice Midwife
DX: O26.843 Uterine size-date discrepancy, third trimester (principal); Z3A.35 35 weeks gestation of pregnancy
CPT/HCPCS: 76816

== ENCOUNTER 2024-10-22 16:28 | Outpatient (REF) | payer MEDICAID, SELFPAY | END 2024-10-22 16:29 | disposition home or self-care (01) | LOC: LBN 16:28 | PROVIDERS: PCP Family Medicine; Visit Provider Advanced Practice Midwife | DX: Z34.93 Encounter for supervision of normal pregnancy, unspecified, third trimester (principal) | CPT/HCPCS: 87081 ==

== ENCOUNTER 2024-11-01 16:52 | Outpatient (CLI) | payer MEDICAID, SELFPAY ==
[2024-11-01 17:22] VITALS: BP 129/82; PULSE 63; TEMP 36.5
[2024-11-01 17:25] VITALS: BP 129/82; PULSE 63
[2024-11-01 17:32] VITALS: PULSE 65; O2SAT 100
[2024-11-01 17:37] VITALS: PULSE 68; O2SAT 100
--- NOTE | 2024-11-01 17:54 | W.OBNST ---
Date of service: 11/01/24 Time of Service: 17:54 NST Evaluation Reason for NST Reasons for Nonstress Test: OTHER, SEE COMMENT Reason for NST Other: Question SROM Gestational Age Gestational Age in Weeks and Days: 38 Weeks and 2Days Test and Monitor Explained Test/Monitor Explained: Test Explained Vital Signs Blood Pressure: 129/82 Pulse: 63 Temperature: 97.7 F Weight: 233 lb 8.254 oz NST Information Date on Monitor: 11/01/24 Time on Monitor: 17:15 NST Evaluation Patient States Movement: Present FHR Baseline: 150 Variability: Moderate 6-25 bpm Accelerations: 15x15 Decelerations: Late and Variable NST Results: Non-Reactive Note Ultrasound Done: N/A. NST Note NST Reviewed and Verified by: Piper Rivera
[2024-11-01 17:57] VITALS: BP 129/82; PULSE 63; TEMP 36.5
[2024-11-01 18:00] VITALS: BP 129/82; PULSE 63; TEMP 36.5
--- NOTE | 2024-11-01 18:16 | PGE_ITS ---
Date of Service Date of service: 11/01/24 Time of Service: 18:16 Assessment and Plan Assessment and plan (1) Category II heart rate tracing during maternal care in third trimester: Status: Acute Assessment and plan: - Consulted with Dr. Zavaleta, who recommended follow-up NST in 2 days with possible ultrasound PRN as well as IOL around 39 weeks unless indicated sooner (2) Suspected problem with amnion not found: Status: Acute Assessment and plan: - SSE and ROM+ are both negative - Suspect dampness is vaginal moisture / sweat or mild urinary incontinence. There is no evidence of PROM. (3) 38 weeks gestation of : Status: Acute Assessment and plan: - Third trimester precautions reviewed, with instructions to call with decreased FM, increasing CTXs, VB or further LOF. - Follow-up in 2 days or sooner PRN. - kick count guidelines discussed. - Brennan and her partner feels comfortable with this plan. Subjective Subjective Interval history since last seen: Brennan is a 24 year old at 38 weeks 2 days who presents to L&D triage for evaluation of ROM. She first noticed vaginal moisture yesterday which has been leaving a quarter sized damp area in her underclothing. She has been wearing a pad because of this. She describes the discharge as watery and mucousy. course is notable for: - BMI 38, xxmS2r=4.1 - Hx of rheumatoid arthritis, takes tylenol for pain management as needed - Constipation - stool softeners PRN - Chronic left low back pain, denies past injury, consider PT PRN. 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 vaginal pruritus / odor / irritation, no NELLIE OB: less FM today (but not absent), aware of CTXs q 45-60 minutes, no VB, LOF as noted above Objective Last Vital Signs Pulse 68 11/01/24 17:37 BP 129/82 11/01/24 17:25 Pulse Ox 100 11/01/24 17:37 PE: Constitutional: well-nourished, well-developed, alert Respiratory: effort is unlabored Gastrointestinal: non-tender to palpation, tone normal without rigidity or guarding, no masses Genitourinary: - external: no inflammation, no lesions - vagina: normal vault, no abnormal discharge, no inflammatory lesions, no masses, SSE: no pooling / negative fern / pH 4 - cervix: appearance healthy, no lesions, no discharge, no bleeding - uterus: gravid, normal shape, contractions q 4 minutes mild to palpation - perineum: within normal limits Skin and Subcutaneous Tissue: no rashes, no lesions, no areas of discoloration Fetus: initial baseline 160s, minimal variability, isolated variable and late deceleration, no accels, which improved with time to current tracing of 140s, moderate variability, + accels, no decels BPP by Dr. Zavaleta 10/19 Time Spent with Patient Time Spent with Patient: >50 minutes Time was spent: preparing to see the patient(eg.review tests), obtaining and/or reviewing separately otained hiistory, ordering medications,tests, procedures, referring, communicating with other health long term care social worker, indepentently interpreting results, counseling the patient and care coordination
--- NOTE | 2024-11-01 18:54 | W.OBCONSULT ---
Date of service: 11/01/24 Time of Service: 18:54 Assessment and Plan Assessment and plan (1) : Status: Acute Assessment and plan: 24-year-old prima gravid (2) Group B streptococcal carriage complicating : Status: Acute Assessment and plan: Will prophylax with labor (3) Category II heart rate tracing during maternal care in third trimester: Status: Acute Assessment and plan: Intermittent category 2 heart rate tracings with variable decelerations. Biophysical profile performed for a total of 8 out of 10. Baby is cephalic, MARCELINO total 7.7 with a deepest vertical pocket of 3.54. 2 for tone, 2 for breathing, t2for movement, 2 for MARCELINO Discussed with psychologist military personnel on duty today. Low threshold for labor induction. Would recommend ongoing surveillance, and the possibility of induction of labor based on surveillance History of Present Illness History of Present Illness Chief Complaint: Nonreactive NST Narrative: Patient is a 24-year-old female who presented to the center today with a question of loss of fluid. She also reports slight decrease in activity. She has had no bleeding. She occasionally has contractions. On initial presentation, baby was somewhat tachycardic with decreased variability, and variable decelerations. These resolved with position change. I was asked to evaluate the patient and perform biophysical profile which is 8 out of 10, 2 for nonreactive NST. Currently NST is a category 1. Consults Consult date: 11/01/24 Review of Systems All systems reviewed & are unremarkable except as noted in HPI and below Eyes Eyes: Reports as per HPI and Reports system reviewed and no additional complaints, except as documented ENT Ears, Nose, Mouth, and Throat: Reports system reviewed and no additional complaints, except as documented and Reports as per HPI Cardiovascular Cardiovascular: Reports system reviewed and no additional complaints, except as documented, Denies chest pain and Denies irregular heart rhythm Respiratory Respiratory: Reports system reviewed and no additional complaints, except as documented, Denies chest congestion and Denies cough Gastrointestinal Gastrointestinal: Reports system reviewed and no additional complaints, except as documented Genitourinary Genitourinary: Reports system reviewed and no additional complaints, except as documented Neurologic Neurologic: Reports system reviewed and no additional complaints, except as documented PFSH All Active Problems (Updated 11/01/24 @ 19:01 by Piper Rivera CNM) 38 weeks gestation of (Acute) Suspected problem with amnion not found (Acute) Category II heart rate tracing during maternal care in third trimester (Acute) Group B streptococcal carriage complicating (Acute) Size of fetus inconsistent with dates in third trimester (Acute) Susceptible to varicella (non-immune), currently (Acute) Rubella non-immune status, antepartum (Acute) (Acute) Anxiety (Chronic) Hydroxyzine 75 mg QHS; Zoloft 150 mg; referred to counseling services Stopped Medications 2022 Medical History (Updated 11/01/24 @ 19:01 by Piper Rivera CNM) Rheumatoid arthritis Polyarthritis (03/22/17) Most recent visit in Apr 2021; no biologics or immunosuppressant medication; just Motrin 600 mg twice daily; Will get US of hands/feet joints- scheduled for Oct 18 2021 Missed menses Vision problems Followed by [facility] Hydradenitis (05/21/17) Multiple recurrent groin/axillary abscesses Surgical History (Updated 03/18/24 @ 15:39 by Meg Dobbins RN) History of axillary surgery Family History Grandfather Heart disease Mental disorder alcoholism Sister Mental disorder depression/anxiety Grandmother Mental disorder depression,anxiety Other Mental disorder pat uncle-alcoholism Seizure mat aunt and 3 cousins Father Mental disorder drinker-has [id number]- 1 year sober Grandfather Mental disorder alcoholism Social History (Updated 05/12/24 @ 08:59 by Laya Jimenes CNM) Smoking/Tobacco Use Status: Former Tobacco Use Tobacco: How many years used: 7 Second Hand Exposure: No Smoking risk assessment performed?: Yes Alcohol Intake: former Counseling given: Yes Drug use: Never Substance use type: does not use and former substance user Date of last use: marijuana in past Adopted: No Caregiver/Support person: No Household members: significant other and other Details: Lives with dad and step-mom; bio mom not in life since age 7y Housing: apartment Number of Children: 0 number of grandchildren: 0 Communication Needs: None Education Level: high school Do you need help understanding health information?: Never 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 [employer] Pets and animals: Yes (3 cats; 4 dogs) Pets and animals: cat(s) and dog(s) Sexually active: Yes Do you think of yourself as: straight/heterosexual Current gender identity: female What is your relationship status?: living with partner How often do you talk on the phone with friends or family?: three or more times per week How often do you get together with friends or relatives?: once per week Do you belong to any clubs or organized social groups?: no Panel score (0-1 are the most socially isolated patients): 2 What type of physical activity do you participate in: other 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 Duration: 60-90 minutes/day Frequency: 5-6 times per week Special verónica needs: No Seatbelt use: always Drive intox or ride w/intox driver engineer: No Do you feel safe at home: Yes Do you feel safe in your relationship?: Yes Female Reproductive History Menstrual control method: progestin IUCD (removed April 2023) and implanted History History 1 Para 0 Hx # Term Pregnancies 0 Multiple births 0 Hx # Pregnancies 0 Ectopic pregnancies 0 AB induced 0 Hx Number of Living Children 0 AB spontaneous 0 Results Last Vital Signs Pulse 68 11/01/24 17:37 BP 129/82 11/01/24 17:25 Pulse Ox 100 11/01/24 17:37 Labs Labs: Laboratory Results - last 24 hr 11/01/24 17:45 Membranes Rupture Negative Ultrasound OB Ultrasound for Biophysical Profile. Indication: category 2 tracing Amniotic Fluid: 2 Muscle Tone: 2 Body Movements: 2 Breathing Movement: 2 Mean Vertical Pocket: 3.58 Total Marcelino: 7.7 Exam complete, Ultrasound for MARCELINO. Indication: Variable decelerations at 38 weeks Mean Vertical Pocket: 3.58 Total MARCELINO: 7.72 Exam complete and Ultrasound for presentation. Indication: category 2 tracing Presentation: Cephalic. Exam complete.
== END 2024-11-01 19:35 | disposition home health service (06) ==
LOC: BCD 16:53 → OBS 17:13
PROVIDERS: PCP Family Medicine; Visit Provider Advanced Practice Midwife
DX: O47.1 False labor at or after 37 completed weeks of gestation (principal); Z3A.38 38 weeks gestation of pregnancy
CPT/HCPCS: 76819; 84112; 59025

== ENCOUNTER 2024-11-02 08:25 | Inpatient (IN) | payer MEDICAID, SELFPAY ==
[2024-11-02] VITALS (176 sets, daily range): BP systolic 118–182; BP diastolic 71–96; PULSE 0–122; RESP 16–18; TEMP 36.4–37.1; O2SAT 98–99; BMI 39.9
[2024-11-02 09:02] LABS: HCT 38.1 % (36.0-46.0); HGB 12.7 g/dL (11.2-15.7); MCH 29.3 pg (27.0-33.0); MCHC 33.3 % (32.0-36.0); MCV 88 fL (80-95); MPV 12.2 fL (8.0-11.0); Platelet Count 240 10^3/uL (130-400); RBC 4.33 10^6/uL (3.93-5.22); RDW 13.0 % (11.7-14.6); RDW-SD 41.8 fL; WBC 7.30 10^3/uL (4.4-10.8)
--- NOTE | 2024-11-02 09:17 | W.PM.OBHPL1 ---
Date of service: 11/02/24 Time of Service: 09:17 Assessment and Plan Assessment and plan (1) 38 weeks gestation of : Status: Acute (2) Category II heart rate tracing during maternal care in third trimester: Status: Acute (3) Group B streptococcal carriage complicating : Status: Acute (4) Decreased movement: Status: Acute Assessment and plan: A: IUP at 38 weeks 3 days Intermittent category II tracing since yesterday, suspect that some degree of uteroplacental insufficiency may be contributory Decreased movement GBS + Discussed history and clinical exam with Dr. Zavaleta, who is in agreement with plan to induce labor now to lessen risk for compromise / intolerance of labor. Brennan expresses concern about her baby's wellbeing given the profound change in movement, and is relieved at the plan for induction. We discussed that UPI can increase risk for C/S. As her cervix is ripe, can initiate Pitocin, which will also serve as a contraction stress test. P: - Admit as inpatient - CBC, Type & Screen - Low-dose Pitocin per protocol - Will initiate PCN G for GBS prophylaxis - preferences discussed. Brennan is uncertain if she plans regional anesthesia. Will arrange an anesthesia consult this morning as CORBY Pinto has noted some spinal architecture on previous imaging that may impede easy placement of spinal catheter. OB-HPI Labor/Delivery History of Present Illness Reason for Visit: NST Chief Complaint: Decreased Movement , Associated Signs and Symptoms of Decreased Movement: Absence of movement since 0600 today. JONI Calculator Estimated Delivery Date Method Current WG Current Estimate 11/13/24 Ultrasound #1 38w 3d Other Estimates 10/29/24 LMP (Uncertain) 40w 4d 11/15/24 Ultrasound #2 38w 1d History of Present Expected Delivery Route/Plan - CNM FOB - Michael Luna (first child) BB yes to circ Rubella and Varicella non-immune, vaccines (plans accept) Michael for labor support, considering childbirth class Hopes to labor without epidural but is OK if this is needed GBS pos Specific Issues/Plan 1. Due for first pap 2. BMI 38, [id number]=0.1 3. Hx of rheumatoid arthritis, takes tylenol for pain management as needed 4. CF carrier screen negative, cfDNA low risk male 5. Constipation - stool softeners PRN 6. Chronic left low back pain, denies past injury, consider PT PRN. 7. At 35 wks, EFW in 40th percentile, NOREEN 13, cephalic presentation 8. Cat II tracing at 38+2 weeks during ROM check, BPP 10/19. Will repeat NST on 11/03, IOL at [address] Zavaleta unless indicated sooner Narrative: Brennan is a 24year old at 38w3d gestation who presents to L&D with absence of movement since 0600. She was seen in L&D yesterday for a LOF check (which was negative for PROM) and had decreased movement and category II monitoring at that time, BPP was 10/19 and plan was made for repeat NST on 11/03 and likely IOL at 39 weeks. ROS: General: feels well, no fever, no aches, no chills OB: absent FM, no LOF, no VB, + mucous discharge yesterday and today, no contractions GI: no abdominal pain PFSH All Active Problems (Updated 11/02/24 @ 09:51 by Piper Rivera CNM) Decreased movement (Acute) 38 weeks gestation of (Acute) Suspected problem with amnion not found (Acute) Category II heart rate tracing during maternal care in third trimester (Acute) Group B streptococcal carriage complicating (Acute) Size of fetus inconsistent with dates in third trimester (Acute) Susceptible to varicella (non-immune), currently (Acute) Rubella non-immune status, antepartum (Acute) (Acute) Anxiety (Chronic) Hydroxyzine 75 mg QHS; Zoloft 150 mg; referred to counseling services Stopped Medications 2022 Medical History Rheumatoid arthritis Polyarthritis (03/22/17) Most recent visit in Apr 2021; no biologics or immunosuppressant medication; just Motrin 600 mg twice daily; Will get US of hands/feet joints- scheduled for Oct 18 2021 Missed menses Vision problems Followed by [facility] Hydradenitis (05/21/17) Multiple recurrent groin/axillary abscesses Surgical History History of axillary surgery Family History Grandfather Heart disease Mental disorder alcoholism Sister Mental disorder depression/anxiety Grandmother Mental disorder depression,anxiety Other Mental disorder pat uncle-alcoholism Seizure mat aunt and 3 cousins Father Mental disorder drinker-has [id number]- 1 year sober Grandfather Mental disorder alcoholism Social History Smoking/Tobacco Use Status: Former Tobacco Use Tobacco: How many years used: 7 Second Hand Exposure: No Smoking risk assessment performed?: Yes Alcohol Intake: former Counseling given: Yes Drug use: Never Substance use type: does not use and former substance user Date of last use: marijuana in past Adopted: No Caregiver/Support person: No Household members: significant other and other Details: Lives with dad and step-mom; bio mom not in life since age 7y Housing: apartment Number of Children: 0 number of grandchildren: 0 Communication Needs: None Education Level: high school Do you need help understanding health information?: Never 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 [employer] Pets and animals: Yes (3 cats; 4 dogs) Pets and animals: cat(s) and dog(s) Sexually active: Yes Do you think of yourself as: straight/heterosexual Current gender identity: female What is your relationship status?: living with partner How often do you talk on the phone with friends or family?: three or more times per week How often do you get together with friends or relatives?: once per week Do you belong to any clubs or organized social groups?: no Panel score (0-1 are the most socially isolated patients): 2 What type of physical activity do you participate in: other 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 Duration: 60-90 minutes/day Frequency: 5-6 times per week Special verónica needs: No Seatbelt use: always Drive intox or ride w/intox belly dump driver: No Do you feel safe at home: Yes Do you feel safe in your relationship?: Yes Female Reproductive History Menstrual control method: progestin IUCD (removed April 2023) and implanted History History 1 Para 0 Hx # Term Pregnancies 0 Multiple births 0 Hx # Pregnancies 0 Ectopic pregnancies 0 AB induced 0 Hx Number of Living Children 0 AB spontaneous 0 Meds Allergies and Home Medications Allergies Allergy/AdvReac Type Severity Reaction Status Date / Time vancomycin Allergy Skin Rash Verified 10/29/24 15:24 meloxicam AdvReac mouth sores Verified 10/29/24 15:24 naproxen AdvReac mouth sores Verified 10/29/24 15:24 Seasonal Allergies Allergy Mild Nasal Uncoded 10/29/24 15:24 congestion Home Medications ?Medication ?Instructions ?Recorded ?Confirmed ?Type biotin 1 tab PO DAILY 06/09/22 10/29/24 History ascorbate calcium (vitamin C) 500 500 mg PO DAILY 03/18/24 10/29/24 History mg tablet calcium glucarate 500 mg capsule 1 tab-cap PO DAILY 03/18/24 10/29/24 History vitamins 30 30 mg iron-10 1 cap PO DAILY 03/18/24 10/29/24 History mg iron-folic acid 1 mg-om3 capsule melatonin 3 mg capsule 3 mg PO HS PRN 07/28/24 10/29/24 History pantoprazole 40 mg tablet,delayed 40 mg PO DAILY #30 tabs 09/05/24 10/29/24 Rx release (Protonix) docusate sodium 100 mg capsule 100 mg PO BID PRN 10/29/24 10/29/24 History (Colace) ondansetron HCl 4 mg tablet 4 mg PO Q6H PRN nausea and 10/29/24 10/29/24 Rx vomiting #14 tabs Exam Physical Exam Vital signs: Pulse BP 56 L 132/79 11/02/24 08:08 11/02/24 08:08 Narrative: Constitutional: well-nourished, well-developed, alert Respiratory: effort is unlabored, normal breath sounds bilaterally Cardiovascular: regular rate, normal rhythm, no murmurs, trace edema bilateral LEXT Gastrointestinal: non-tender to palpation, tone normal without rigidity or guarding, no masses Genitourinary: - external: no inflammation, no lesions - cervix:SVE: 3 / 60 / -1 / mid-position / soft, Roberto score 8 - uterus: gravid, normal shape, no regular contractions - perineum: within normal limits - pelvimetry: adequate for EFW Skin and Subcutaneous Tissue: no rashes, no lesions, no areas of discoloration Fetus: - EFW: 3.0 kg - Presentation: vertex by palpation of saggital suture, confirmed cephalic during BPP yesterday - FHT: initial 30 minutes showed baseline of 150s with minimal variability, no accels, one brief variable decel, which improved to 140 baseline with moderate variability, + accels (and favorable response to scalp stim), no decels Detailed Labor and Delivery Exam Dilation: 3 Effacement (%): 60 station: -1 Cervix position: mid Consistency: soft Roberto Score: Cervical Points Exam 0 1 2 3 Dilation Closed 1-2cm 3-4 cm 5-6cm Effacement 0-30% 40-50% 60-70% 80% Consistency Firm Medium Soft Station -3 -2 -1,0 +1,+2 Position Posterior Mid Anterior ROBERTO Score(Cervical Ripeness Score): 8 Results Abnormal Lab Findings: Abnormal Labs 11/02/24 08:50 MPV 12.2 H Risk Assessment Risk for Shoulder Dystocia Historical/Initial OB: NEGATIVE FOR: Pelvic Abnormality, Pre- BMI>30, Previous Shoulder Dystocia or Previous Macrosomia Risk for Pre-Eclampsia Yes, if one or more: NEGATIVE FOR: Hx Pre-E/Gest HTN, Chronic HTN, Multiple Gestation, Pre-gestational DM, Renal Disease, Systemic Lupus or APA Syndrome Yes, if 2 or more: POSITIVE FOR: Nulliparity and BMI>30; NEGATIVE FOR: Age>= 35 yrs, >10yr btwn pregnancies, ethinicty, Mother/Sister w/ Pre-E or Previous IUGR Risk for Post- Hemorrhage Initial: NEGATIVE FOR: Multiple Gestation, Previous PPH, Known Clotting Deficiency, Grand Multiparity or Anticoagulation Risks Reviewed Risks Reviewed Upon Admission: Yes
[2024-11-02] MEDS: Normal Saline Flush 10 ML SYR IVP ×2 (09:39→21:36)
[2024-11-02] MEDS: Lactated Ringers 1,000 ML 125 ML IV ×2 (09:39→18:48)
[2024-11-02] MEDS: Oxytocin/Normal Saline 30 UNIT/500 ML BAG 2 UNITS IV (09:41)
--- NOTE | 2024-11-02 10:22 | W.ANESPRE ---
General Info Date of Service Date Performed: 11/02/24 Height: 5 ft 4 in Weight: 105.687 kg Body Mass Index (BMI): 39.9 Meds Allergies and Home Medications Allergies Allergy/AdvReac Type Severity Reaction Status Date / Time vancomycin Allergy Skin Rash Verified 10/29/24 15:24 meloxicam AdvReac mouth sores Verified 10/29/24 15:24 naproxen AdvReac mouth sores Verified 10/29/24 15:24 Seasonal Allergies Allergy Mild Nasal Uncoded 10/29/24 15:24 congestion Home Medication ?Medication ?Instructions ?Recorded biotin 1 tab PO DAILY 06/09/22 ascorbate calcium (vitamin C) 500 500 mg PO DAILY 03/18/24 mg tablet calcium glucarate 500 mg capsule 1 tab-cap PO DAILY 03/18/24 vitamins 30 30 mg iron-10 1 cap PO DAILY 03/18/24 mg iron-folic acid 1 mg-om3 capsule melatonin 3 mg capsule 3 mg PO HS PRN 07/28/24 pantoprazole 40 mg tablet,delayed 40 mg PO DAILY #30 tabs 09/05/24 release (Protonix) docusate sodium 100 mg capsule 100 mg PO BID PRN 10/29/24 (Colace) ondansetron HCl 4 mg tablet 4 mg PO Q6H PRN nausea and 10/29/24 vomiting #14 tabs Current Visit Medications: Current Medications Generic Name Dose Route Start Last Admin Trade Name Freq PRN Reason Stop Dose Admin Ringer's Solution 1,000 mls @ 125 mls/hr 11/02/24 08:30 11/02/24 09:39 IV 125 mls/hr INFUSION KRISTINA Administration Oxytocin/Sodium Chloride 30 unit in 500 mls @ 2 mls/hr 11/02/24 08:30 11/02/24 10:13 Pitocin/Normal Saline IV 0 milliunits/min INFUSION KRISTINA 0 mls/hr Protocol Titration 2 MILLIUNITS/MIN IV Miscellaneous Supplies 1 each 11/02/24 08:30 Iv Access IV DIRECTED KRISTINA Sodium Chloride 0 ml 11/02/24 08:25 Normal Saline Flush 10 Ml Syr IVP PRN PRN Sodium Chloride 0 ml 11/02/24 08:30 11/02/24 09:39 Normal Saline Flush 10 Ml Syr IVP 10 ml BID KRISTINA Administration Sodium Chloride 0 ml 11/02/24 08:25 Normal Saline 10 Ml Vial IJ DIRECTED PRN [facility] Active Problems Active Problems: Problem Status Onset Code Decreased movement Acute O36.8190 38 weeks gestation of Acute Z3A.38 Suspected problem with amnion not found Acute Z03.71 Category II heart rate tracing during maternal care in third trimester Acute O36.8330 Group B streptococcal carriage complicating Acute O99.820 Size of fetus inconsistent with dates in third trimester Acute O26.843 Susceptible to varicella (non-immune), currently Acute O09.899, Z28.39 Rubella non-immune status, antepartum Acute O09.899, Z28.39 Acute Z34.90 Anxiety Chronic F41.9 Medical History Medical History Rheumatoid arthritis Polyarthritis (03/22/17) Most recent visit in Apr 2021; no biologics or immunosuppressant medication; just Motrin 600 mg twice daily; Will get US of hands/feet joints- scheduled for Oct 18 2021 Missed menses Vision problems Followed by [facility] Hydradenitis (05/21/17) Multiple recurrent groin/axillary abscesses Surgical History Surgical History History of axillary surgery Tobacco Smoking/Tobacco Use Status: Former Tobacco Use Second hand exposure: No Alcohol Alcohol Intake: former Substance Use Substance use: Never Substance use type: does not use and former substance user Date of last use: marijuana in past Prental History History 1 Para 0 Hx # Term Pregnancies 0 Multiple births 0 Hx # Pregnancies 0 Ectopic pregnancies 0 AB induced 0 Hx Number of Living Children 0 AB spontaneous 0 Vital Signs and Lab Results Vital Signs Most Recent Vital Signs in EMR: Most Recent Vital Signs Pulse BP 56 L 132/79 11/02/24 08:08 11/02/24 08:08 Lab Results 11/02/24 08:50 Blood Type / Crossmatch: Antibody Screen NEGATIVE Today Complete Blood Count: WBC, (4.4-10.8) 7.30 10^3/uL Today, 08:50 RBC, (3.93-5.22) 4.33 10^6/uL Today, 08:50 Hgb, (11.2-15.7) 12.7 g/dL Today, 08:50 Hct, (36.0-46.0) 38.1 % Today, 08:50 Plt Count, (130-400) 240 10^3/uL Today, 08:50 Anesthesia Assessment and Plan Anesthesia History Personal History: No History of Anesthesia Complications Family History: No Family History of Anesthesia Complications Exercise Tolerance Exercise Tolerance: Metabolic Equivalents>4 Pertinent Negatives Pertinent Negatives: No Symptoms of GERD Cardiac & Pulmonary Exam Cardiac Exam: Normal S1/S2 Heart Sounds Pulmonary Exam: Clear Bilateral Breath Sounds Implantable Cardiac Device Does patient have a Pacemaker or an ICD?: No Airway Exam Known Difficult Airway: No Mallampati Class: 2 Mouth Opening: Normal (> 3cm) Thyromental Distance: Greater than 3 cm Neck Range of Motion: Full ROM Neck Circumference: Normal Teeth Condition: Normal Dentition ASA Classification ASA Score: ASA 2 Emergency Case?: No NPO Status NPO Status: NPO Small Non-Fatty Meal >6 hours Status Status: Confirmed (full-term) Anesthesia Plan Resuscitation Status: Full Code Anesthesia Technique: Labor Epidural Airway Planned: Natural Airway Pain Management: Epidural Monitors Used: Standard Monitors Preoperative Comments:: Pt. has a history of lower lumbar pain and neuropathy (see lumbar spine CT 08/01). Pt counseled on limitations of epidural placement and has elected to attempt placement at the beginning of labor process. Toña Pinto, KILN TESTER
[2024-11-02] MEDS: FentaNYL/ROPIvacaine 2 mcg/ml and 0.1% 200 ML CADD Cassette EP (11:30)
--- NOTE | 2024-11-02 11:30 | ANES.NEUR_ITS ---
Epidural/Spinal Catheter Date Performed: 11/02/24 Procedure Start: 10:48 Procedure Stop: 11:00 Requesting Provider: Piper Rivera Procedure Location: Obstetrics Reason Performed: Labor Epidural Standard Monitors Applied: ECG, Blood Pressure, ETCO2 and See EMR for corresponding vital signs Patient Position: Sitting Sedation Given (Indicate Dose Given): No Sedation given Patient Mental Status: Awake Sterility: Hand Hygiene, Surgical Cap, Surgical Mask, Sterile Gloves, Sterile Drape/Sheet, Eye Protection and Chlorhexidine Procedure Location: L2-L3 Interspace Epidural Needle: Tuohy 18 Gauge Needle Length: 3.5 Inch Needle Approach: Midline Epidural Procedure: Skin Prepped, Sterile Drape Placed, 1% Lidocaine to skin and subcutaneous tissue with 25G needle, Tuohy Needle placed, GREGORY to Saline Used, Epidural Catheter Placed, Negative Heme and Negative CSF Flow Catheter Placed?: Catheter Placed Test Dose (Indicate Dose Given): 3ml 1.5% Lidocaine with 1:200K Epinephrine Given and Negative Test Dose Loss of Resistance Depth (cm): 8 Catheter depth at skin (cm): 14 Dressing: Sorbaview Dressing Placed, Tegaderm Applied, Mastisol Used and Dressing reinforced with T ape Epidural Provider Bolus (Indicate Dose Given): None Given Additives (Indicate Dose Given ): None Infusion Medication: Medication Infusion Began Medication Infusion: Ropivacaine 0.1% with Fentanyl 2mcg/ml Maintenance Infusion Rate (ml/hour): 2 PCEA Bolus Dose (ml): 5 Post Procedure Pain score (0-10): 0 Block Level: N/A Paresthesia: None Ultrasound: Used to prateek site Number of Attempts (See previous attempts in note section): 1 Procedure Tolerated: No Complications and Patient tolerated well Procedure Outcome: Successful Procedure Comment:: Pt. NOT in active labor. Starting IOL with Pitocin. 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 Pt elected for early placement of Epidural cath prior to the start of labor given the potential technical difficulty of Epidural Catheter placement at L2-3. PLAN: Test dose given and negative. Will bolus epidural once she is engaged in active labor increase maintenance rate. Rate currently at 2cc/hour to keep epidural cath open. Toña Pinto, GLOBAL MARKETING SPECIALIST Performed By: Pepito Pinto
[2024-11-02] MEDS: Penicillin G POT. 5,000,000 UNITS in Normal Saline 100 ML 200 UNITS IVPB (12:46)
--- NOTE | 2024-11-02 13:30 | W.PM.OBNL1 ---
Date of service: 11/02/24 Time of Service: 13:30 Assessment and Plan Assessment and plan (1) Decreased movement: Status: Acute (2) 38 weeks gestation of : Status: Acute (3) Category II heart rate tracing during maternal care in third trimester: Status: Acute (4) Group B streptococcal carriage complicating : Status: Acute Assessment and plan: A: IUP at 38 weeks 3 days Encounter for IOL, Pitocin in use, some cervical change noted in the past 4 hours appropriate for phase of labor Category I - II surveillance GBS +, currently receiving prophylaxis P: - Continue Pitocin titration to achieve moderate contractions q 2-3 minutes - Membranes swept with patient's consent - Will re-evaluate in 4 hours or sooner PRN, and consider amniotomy at that time Objective Abnormal lab results 11/02/24 Range/Units 08:50 MPV 12.2 H (8.0-11.0) fL Pulse BP Pulse Ox 60 124/77 99 11/02/24 11:31 11/02/24 11:31 11/02/24 11:07 Laboratory Results WBC 7.30 10^3/uL (4.4-10.8) 11/02/24 08:50 RBC 4.33 10^6/uL (3.93-5.22) 11/02/24 08:50 Hgb 12.7 g/dL (11.2-15.7) 11/02/24 08:50 Hct 38.1 % (36.0-46.0) 11/02/24 08:50 MCV 88 fL (80-95) 11/02/24 08:50 MCH 29.3 pg (27.0-33.0) 11/02/24 08:50 MCHC 33.3 % (32.0-36.0) 11/02/24 08:50 RDW 13.0 % (11.7-14.6) 11/02/24 08:50 Plt Count 240 10^3/uL (130-400) 11/02/24 08:50 MPV 12.2 fL (8.0-11.0) H 11/02/24 08:50 ABO/Rh A Positive 11/02/24 08:50 Antibody Screen NEGATIVE 11/02/24 08:50 Objective Narrative Objective Narrative: VSS UCs: q 2-4 minutes, mild to palpation FHTs: 140s baseline, + accels, variability is mostly moderate though at times minimal, non-recurrent late variable decels (1 occurrence in the past 60 minutes) SVE: 4 cm / 60% / -1 station Pitocin is at 10 mU / min Subjective Interval history since last seen: Brennan has been resting in bed. She is aware of contractions, but is not uncomfortable. She is supported by her partner and her father. She has an epidural catheter in place infusing enough to keep the catheter open but it is not at a rate to provide significant pain relief or impair walking. She has received her first dose of PCN G for GBS prophylaxis. Results Hemoglobin/Hematocrit: Hgb 12.7 g/dL (11.2-15.7) 11/02/24 08:50 Hct 38.1 % (36.0-46.0) 11/02/24 08:50 Abnormal Lab Findings: Abnormal Labs 11/02/24 08:50 MPV 12.2 H
[2024-11-02] MEDS: Penicillin G POT. 3,000,000 UNITS in Normal Saline 50 ML 100 UNITS IVPB ×2 (17:17→21:18)
--- NOTE | 2024-11-02 17:44 | PGE_ITS ---
Date of service: 11/02/24 Time of Service: 17:44 Pelvic Exam Dilation: 4.25 Effacement (%): 70 station: -1 Cervix Position: mid Consistency: soft Assessment and Plan Assessment and plan (1) Encounter for induction of labor: Status: Acute (2) Decreased movement: Status: Acute (3) 38 weeks gestation of : Status: Acute (4) Category II heart rate tracing during maternal care in [facility] ter: Status: Acute (5) Group B streptococcal carriage complicating : Status: Acute Assessment and plan: A: IUP at 38 weeks 3 days Category II surveillance, overall reassuring without evidence of acidemia GBS+, has now received adequate prophylaxis, will continue PCN G until delivery Pitocin induction of labor, limited change in the past 4 hours, suspect inadequate contractile forces Amniotomy was discussed as a means to facilitate labor, including potential risks of infection with prolonged ROM and cord prolapse if the vertex is not well-applied to the cervix. At this time the potential benefits of amniotomy are thought to outweigh any risk. She consented to amniotomy, which was performed returing a moderate amount of clear fluid. heart tones were stable throughout. P: - Continue to titrate Pitocin to achieve moderate - strong contractions q 2-3 minutes - Reassess in 3-4 hours or sooner PRN Objective Abnormal lab results 11/02/24 Range/Units 08:50 MPV 12.2 H (8.0-11.0) fL Temp Pulse Resp BP Pulse Ox 98.2 F 57 L 16 132/78 99 11/02/24 15:35 11/02/24 17:40 11/02/24 15:35 11/02/24 15:44 11/02/24 11:07 Laboratory Results WBC 7.30 10^3/uL (4.4-10.8) 11/02/24 08:50 RBC 4.33 10^6/uL (3.93-5.22) 11/02/24 08:50 Hgb 12.7 g/dL (11.2-15.7) 11/02/24 08:50 Hct 38.1 % (36.0-46.0) 11/02/24 08:50 MCV 88 fL (80-95) 11/02/24 08:50 MCH 29.3 pg (27.0-33.0) 11/02/24 08:50 MCHC 33.3 % (32.0-36.0) 11/02/24 08:50 RDW 13.0 % (11.7-14.6) 11/02/24 08:50 Plt Count 240 10^3/uL (130-400) 11/02/24 08:50 MPV 12.2 fL (8.0-11.0) H 11/02/24 08:50 ABO/Rh A Positive 11/02/24 08:50 Antibody Screen NEGATIVE 11/02/24 08:50 Objective Narrative Objective Narrative: VSS UCs: q 2 minutes, mild to palpation FHTs: 150s, moderate variability, + accels, intermittent variable decels (brief) SVE: 4+ cm / 70% / -1 / soft / mid-position Pitocin: 10 mU / min Subjective Interval history since last seen: Brennan has been resting in bed, supported by her partner and mother. She is able to ambulate to the bathroom. She is aware of but not uncomfortable with contractions. Results Hemoglobin/Hematocrit: Hgb 12.7 g/dL (11.2-15.7) 11/02/24 08:50 Hct 38.1 % (36.0-46.0) 11/02/24 08:50 Abnormal Lab Findings: Abnormal Labs 11/02/24 08:50 MPV 12.2 H
--- NOTE | 2024-11-02 19:36 | ANES.NEURP_ITS ---
Epidural/Spinal Daily Note Date Performed: 11/02/24 Assessment Time: 19:36 Patient Location: Obstetrics Catheter Type in Place: Epidural Catheter Dressing Assessment: Dressing intact with good adherence Catheter Assessment: Catheter Labeled and Intact and Functioning Previous Catheter Depth Noted (cm): 14 Current Catheter Depth (cm): 14 Current Medication Infusion: Ropivacaine 0.1% with Fentanyl 2mcg/ml (11cc/hour) Current Maintenance Infusion Rate (ml/hour): 11 Current PCEA Bolus Dose (ml): 5 Current Pain Score (0-10): 6 Medication Infusion Stopped, Catheter Removal Planned: No New Bolus Given or Change in Infusion Made: Yes Standard Monitors Applied: ECG, Blood Pressure, SpO2 and See EMR for corresponding vital signs Epidural Provider Bolus (Indicate Dose Given): Total bolus dose given in 3-5 ml divided doses and Total Ropivacaine 0.1% with Fentanyl 2mcg/ml Given from pump. (ml) Dose:: 10cc Additives (Indicate Dose Given ): None Infusion Medication: New Infusion Medication Medication Infusion: Ropivacaine 0.1% with Fentanyl 2mcg/ml New Maintenance Infusion Rate (ml/hour): 12 New PCEA Bolus Dose (ml): 5 Daily Management Comments: Epidural cath placed at about 11am this morning prior to active labor d/t lumbar-sacral anomaly. Test dose only given this AM with TKO rate of 2cc/hour. (1929) Pt now has active labor with moderately painful contractions and is requesting that Epidural be dosed to cover labor contractions. Bolus dose given and maintenance rate started as noted above. (2035): 2nd bolus of 4cc given with rate increased to 12cc. Good sensory coverage from about T7-T12. Less coverage below T12 to include L1. Question about spread given her Lumbar/sacral acute angle. Pt describes more comfort after boluses but feels pressure down low in her pelvis. Elected to not adjust or replace catheter since it has good sensory coverage as described above. Toña Pinto, MARINE PHOTOGRAPHER Completed By: Pepito Pinto
--- NOTE | 2024-11-02 20:26 | PGE_ITS ---
Date of service: 11/02/24 Time of Service: 20:26 Pelvic Exam Dilation: 6 Effacement (%): 80 station: -1 (small amount of caput appreciated) Cervix Position: mid Consistency: soft Assessment and Plan Assessment and plan (1) Encounter for induction of labor: Status: Acute (2) 38 weeks gestation of : Status: Acute (3) Category II heart rate tracing during maternal care in third trimester: Status: Acute (4) Group B streptococcal carriage complicating : Status: Acute Assessment and plan: A: IUP at 38w3d Regional anesthesia Category I surveillance Amniotomy x 3 hours GBS+, adequately prophylaxed Normal progress into active labor P: - Will watch blood pressures closely, should a severe range pressure occur again, will treat with fast acting antihypertensive. Brennan suspects that the transient elevation was related to stress and pain. - Will insert indwelling bladder catheter. Will obtain a PC ratio once catheter is inserted. - Reassess in 3 hours or sooner PRN Objective Abnormal lab results 11/02/24 Range/Units 08:50 MPV 12.2 H (8.0-11.0) fL Temp Pulse Resp BP Pulse Ox 98.6 F 62 16 126/78 99 11/02/24 17:46 11/02/24 20:24 11/02/24 19:29 11/02/24 19:52 11/02/24 11:07 Laboratory Results WBC 7.30 10^3/uL (4.4-10.8) 11/02/24 08:50 RBC 4.33 10^6/uL (3.93-5.22) 11/02/24 08:50 Hgb 12.7 g/dL (11.2-15.7) 11/02/24 08:50 Hct 38.1 % (36.0-46.0) 11/02/24 08:50 MCV 88 fL (80-95) 11/02/24 08:50 MCH 29.3 pg (27.0-33.0) 11/02/24 08:50 MCHC 33.3 % (32.0-36.0) 11/02/24 08:50 RDW 13.0 % (11.7-14.6) 11/02/24 08:50 Plt Count 240 10^3/uL (130-400) 11/02/24 08:50 MPV 12.2 fL (8.0-11.0) H 11/02/24 08:50 ABO/Rh A Positive 11/02/24 08:50 Antibody Screen NEGATIVE 11/02/24 08:50 Objective Narrative Objective Narrative: VS: blood pressures now normal x 2, 128/86, 132/84 UCs: q2-3 minutes, moderate to palpation FHTs: 135, moderate variability, + accels, + early decels SVE: 6 cm / 80% / -1, small amount of caput has developed Pitocin: 10 mU / min Subjective Interval history since last seen: Brennan has found contraction intensity to increase and she asked and received a full dose of epidural medication (prior to now, the epidural catheter was in place with only a KVO amount of medication infusing). She is more comfortable with the full epidural, but she does not have much coverage below the level of the bladder per the REGIONAL EDUCATION MANAGER's assessment. Brennan is feeling shaky and also feels some rectal pressure but she does not have an urge to push. Just prior to receiving the full epidural, she had 2 severe range blood pressures, which this CNM was notified of about 30 minutes after the fact. These blood pressures resolved spontaneously. ROS: Neuro: denies ROSALES, denies scotoma GI: denies upper abominal pain Results Hemoglobin/Hematocrit: Hgb 12.7 g/dL (11.2-15.7) 11/02/24 08:50 Hct 38.1 % (36.0-46.0) 11/02/24 08:50 Abnormal Lab Findings: Abnormal Labs 11/02/24 08:50 MPV 12.2 H
[2024-11-02 21:57] LABS: PROTEIN 38.3 mg/dL; Prot/Crea Ur Ratio 0.13
[2024-11-03] VITALS (117 sets, daily range): BP systolic 118–160; BP diastolic 63–97; PULSE 56–122; RESP 16–18; TEMP 36.5–36.9; O2SAT 94–100
--- NOTE | 2024-11-03 00:59 | W.PM.OBNL1 ---
Date of service: 11/03/24 Time of Service: 01:11 Pelvic Exam Dilation: 6 Effacement (%): 80 station: -1 (considerable moulding) Position: ROP Assessment and Plan Assessment and plan (1) Encounter for induction of labor: Status: Acute (2) 38 weeks gestation of : Status: Acute (3) Category II heart rate tracing during maternal care in third trimester: Status: Acute (4) Group B streptococcal carriage complicating : Status: Acute Assessment and plan: A: IUP at 38w4d Arrest of dilation- contractions were immediately adequate once an IUPC was placed, there has been no cervical change in 4 hours ROP presentation Category I-II surveillance P: - Discussed with Brennan and her family the trajectory of her labor. Contractile forces are adequate. Suspect that arrest is related to malposition and possibly pelvic inlet disproportion. Per [facility] guidelines, criteria are met for a primary C/S, of which Brennan is accepting. - Consulted with Dr. Zavaleta who will be in to membership counselor Brennan. Objective Abnormal lab results 11/02/24 Range/Units 08:50 MPV 12.2 H (8.0-11.0) fL Temp Pulse Resp BP Pulse Ox 97.9 F 74 18 128/81 99 11/02/24 22:10 11/03/24 00:04 11/03/24 00:25 11/02/24 22:10 11/02/24 11:07 Laboratory Results WBC 7.30 10^3/uL (4.4-10.8) 11/02/24 08:50 RBC 4.33 10^6/uL (3.93-5.22) 11/02/24 08:50 Hgb 12.7 g/dL (11.2-15.7) 11/02/24 08:50 Hct 38.1 % (36.0-46.0) 11/02/24 08:50 MCV 88 fL (80-95) 11/02/24 08:50 MCH 29.3 pg (27.0-33.0) 11/02/24 08:50 MCHC 33.3 % (32.0-36.0) 11/02/24 08:50 RDW 13.0 % (11.7-14.6) 11/02/24 08:50 Plt Count 240 10^3/uL (130-400) 11/02/24 08:50 MPV 12.2 fL (8.0-11.0) H 11/02/24 08:50 Ur Random Creatinine 277.25 mg/dL 11/02/24 21:30 U Random Total Protein 38.3 mg/dL 11/02/24 21:30 U [place] Prot/Creat Ratio 0.13 11/02/24 21:30 ABO/Rh A Positive 11/02/24 08:50 Antibody Screen NEGATIVE 11/02/24 08:50 Objective Narrative Objective Narrative: VSS UCs: q 2-3 minutes, strong to palpation, MVUs > 200+ FHTs: 140s, minimal to moderate variability, + early decels (intermittent), no recent accels SVE: 6 / 80 / -1, increasing amount fo moulding, ROP presentation Subjective Interval history since last seen: Brennan has been resting comfortably in bed, but has not been able to sleep since becoming comfortable with the epidural. She was counseled about placement of an IUPC, which would be recommended if her cervix has not changed since her last exam, to which she gives consent for placement. Results Hemoglobin/Hematocrit: Hgb 12.7 g/dL (11.2-15.7) 11/02/24 08:50 Hct 38.1 % (36.0-46.0) 11/02/24 08:50 Abnormal Lab Findings: Abnormal Labs 11/02/24 08:50 MPV 12.2 H
[2024-11-03] MEDS: Lactated Ringers 1,000 ML 125 ML IV (01:31)
--- NOTE | 2024-11-03 01:31 | W.OBCONSULT ---
Date of service: 11/03/24 Time of Service: 01:32 Assessment and Plan Assessment and plan (1) Encounter for induction of labor: Status: Acute Assessment and plan: Patient in labor induction for decreased movement and suspicious testing. Throughout the course of her labor, she most typically had a category 1 strip with intermittent category 2 tracing. She had a labor arrest at 6 cm with a persistent occiput posterior position of her baby. Due to this fact, she will undergo a primary . The risk, benefits, and alternatives have been explained to the patient in full informed consent was obtained. She will receive IV antibiotics for prophylaxis for surgical site infection. She will have pneumatic compression stockings for DVT prophylaxis. Pediatrics, and OR crew is notified and will be available shortly. (2) Decreased movement: Status: Acute (3) 38 weeks gestation of : Status: Acute (4) Arrested active phase of labor: Status: Acute (5) Group B streptococcal carriage complicating : Status: Acute Assessment and plan: Patient has received appropriate prophylaxis for group B strep positivity. History of Present Illness History of Present Illness Chief Complaint: Labor arrest Narrative: Kindly asked to see in consultation this 24-year-old female who I have previously met. She had a labor induction due to category 2 tracing near term. She initially received Pitocin augmentation of her labor. She had epidural for pain control and had a labor arrest at 6 cm with a persistent occiput posterior position despite adequate uterine contractions with appropriate [place] units proven by intrauterine pression catheter. The risk, benefits, and alternatives of surgical were explained to the patient and her family in full informed consent was obtained. She understands the risks of infection, bleeding, injury to the surrounding organs, risk of anesthesia, risk of thromboembolism. She has a [place] catheter in situ for continuous bladder drainage she will have pneumatic compression stockings for DVT prophylaxis. She will receive IV antibiotics including Ancef 2 g and Zithromax 500 mg. Consults Consult date: 11/03/24 Requesting physician: Piper Rivera Review of Systems Narrative: Feeling well, feels pressure with uterine contractions. No particular pain. All systems reviewed & are unremarkable except as noted in HPI and below Eyes Eyes: Reports as per HPI and Reports system reviewed and no additional complaints, except as documented ENT Ears, Nose, Mouth, and Throat: Reports system reviewed and no additional complaints, except as documented and Reports as per HPI Cardiovascular Cardiovascular: Reports system reviewed and no additional complaints, except as documented, Denies chest pain and Denies irregular heart rhythm Respiratory Respiratory: Reports system reviewed and no additional complaints, except as documented, Denies chest congestion and Denies cough Gastrointestinal Gastrointestinal: Reports system reviewed and no additional complaints, except as documented Genitourinary Genitourinary: Reports system reviewed and no additional complaints, except as documented Neurologic Neurologic: Reports system reviewed and no additional complaints, except as documented PFSH All Active Problems (Updated 11/03/24 @ 01:34 by Radha Zavaleta DO) Arrested active phase of labor (Acute) Encounter for induction of labor (Acute) Decreased movement (Acute) 38 weeks gestation of (Acute) Suspected problem with amnion not found (Acute) Category II heart rate tracing during maternal care in third trimester (Acute) Group B streptococcal carriage complicating (Acute) Size of fetus inconsistent with dates in third trimester (Acute) Susceptible to varicella (non-immune), currently (Acute) Rubella non-immune status, antepartum (Acute) (Acute) Anxiety (Chronic) Hydroxyzine 75 mg QHS; Zoloft 150 mg; referred to counseling services Stopped Medications 2022 Medical History Rheumatoid arthritis Polyarthritis (03/22/17) Most recent visit in Apr 2021; no biologics or immunosuppressant medication; just Motrin 600 mg twice daily; Will get US of hands/feet joints- scheduled for Oct 18 2021 Missed menses Vision problems Followed by [facility] eye [facility] Hydradenitis (05/21/17) Multiple recurrent groin/axillary abscesses Surgical History History of axillary surgery Family History Grandfather Heart disease Mental disorder alcoholism Sister Mental disorder depression/anxiety Grandmother Mental disorder depression,anxiety Other Mental disorder pat uncle-alcoholism Seizure mat aunt and 3 cousins Father Mental disorder drinker-has [id number] 1 year sober Grandfather Mental disorder alcoholism Social History Smoking/Tobacco Use Status: Former Tobacco Use Quit Date: 03/16/24 Tobacco: How many years used: 7 Second Hand Exposure: No Smoking risk assessment performed?: Yes Alcohol Intake: former Counseling given: Yes Drug use: Never Substance use type: does not use and former substance user Date of last use: marijuana in past Adopted: No Caregiver/Support person: No Household members: significant other and other Details: Lives with dad and step-mom; bio mom not in life since age 7y Housing: apartment Number of Children: 0 number of grandchildren: 0 Communication Needs: None Education Level: high school Do you need help understanding health information?: Never 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 [employer] Pets and animals: Yes (3 cats; 4 dogs) Pets and animals: cat(s) and dog(s) Sexually active: Yes Do you think of yourself as: straight/heterosexual Current gender identity: female What is your relationship status?: living with partner How often do you talk on the phone with friends or family?: three or more times per week How often do you get together with friends or relatives?: once per week Do you belong to any clubs or organized social groups?: no Panel score (0-1 are the most socially isolated patients): 2 What type of physical activity do you participate in: other 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 Duration: 60-90 minutes/day Frequency: 5-6 times per week Special verónica needs: No Seatbelt use: always Drive intox or ride w/intox special events driver: No Do you feel safe at home: Yes Do you feel safe in your relationship?: Yes Female Reproductive History Menstrual control method: progestin IUCD (removed April 2023) and implanted History History 1 Para 0 Hx # Term Pregnancies 0 Multiple births 0 Hx # Pregnancies 0 Ectopic pregnancies 0 AB induced 0 Hx Number of Living Children 0 AB spontaneous 0 Results Last Vital Signs Temp 97.9 F 11/02/24 22:10 Pulse 74 11/03/24 00:04 Resp 18 11/03/24 00:25 BP 128/81 11/02/24 22:10 Pulse Ox 99 11/02/24 11:07 Labs 11/02/24 08:50 Labs: Laboratory Results - last 24 hr 11/02/24 11/02/24 08:50 21:30 WBC 7.30 RBC 4.33 Hgb 12.7 Hct 38.1 MCV 88 MCH 29.3 MCHC 33.3 RDW 13.0 Plt Count 240 MPV 12.2 H Ur Random Creatinine 277.25 U Random Total Protein 38.3 U [place] Prot/Creat Ratio 0.13 ABO/Rh A Positive Antibody Screen NEGATIVE
[2024-11-03] MEDS: AZITHROMYCIN 500 MG in Normal Saline 250 ML 250 MG IVPB (01:40)
[2024-11-03] MEDS: ceFAZolin 2 GM/50 ML BAG IVPB (02:40)
--- NOTE | 2024-11-03 04:00 | W.ANESPOSTOP ---
Postoperative Evaluation Date, Time and Location Date Performed: 11/03/24 Time Performed: 04:00 Patient Location: Obstetrics Vital Signs Most Recent Imported Vital Signs: Most Recent Vital Signs Temp Pulse Resp BP Pulse Ox 36.5 C 71 18 141/89 H 100 11/03/24 01:45 11/03/24 03:58 11/03/24 00:25 11/03/24 03:52 11/03/24 03:58 Pain Score Most Recent Pain Score: Most Recent Pain Score Pain Level 0 11/02/24 15:35 Assessment Mental Status: Awake (Alert & Oriented to Patient Baseline) Airway and Respiratory Function: Patent airway with normal (patient baseline) respiratory exam Cardiovascular Function: Hemodynamically Stable Hydration Status: Adequately Hydrated Nausea & Vomiting: No Nausea or Vomiting Pain: Pt. Denies Any Pain Peripheral Nerve Block: Patient did not receive a nerve block
--- NOTE | 2024-11-03 04:08 | W.ANESNEU ---
Epidural/Spinal Cath. Removal Date Performed: 11/03/24 Procedure Time: 02:20 Catheter Removal Type: Epidural Catheter Procedure Location: Operating Room Patient Position: Sitting Catheter Removal Procedure: Dressing Removed, Catheter Removed without Resistance and Catheter Tip Intact Paresthesia: None Procedure Tolerated: No Complications and Patient tolerated well Procedure Outcome: Successful Performed By: Pepito Pinto
--- NOTE | 2024-11-03 04:11 | W.PM.OBCSECT ---
Date of service: 11/03/24 Time of Service: 04:11 Operative Note Operative Note Delivery Method: Unscheduled STAT: No and Primary NTSV>37 Weeks: Yes DATE OF PROCEDURE: 11/03/24 PRE-OP DIAGNOSES: at 38 4/7, decreased movement, labor arrest POST-OP DIAGNOSES: same (Occiput transverse, prominent sacral promontory) PROCEDURE: Primary low-transverse SURGEON: Radha Zavaleta Oiler Bander: Horacio Ramesh Anesthesia: local and spinal Estimated blood loss (mL): 800 Pathology: none sent Complications: None Patient was transported to: floor Patient's condition: stable Indications: Arrested 6 cm. Suspect occiput posterior Findings: delivery of a viable male , occiput transverse, prominent sacral promontory. Normal tubes, ovaries, uterus. Procedure Description: After full informed consent was obtained, the patient was taken to the operating suite, IV running. She was placed in the seated position and her previous epidural was removed, and spinal anesthesia placed, tested and found to be adequate. She was placed in the dorsal supine position with a leftward tilt. She had pneumatic compression stockings for DVT prophylaxis. She received antibiotics including Ancef and Zithromax for surgical site infection prophylaxis, Del A Fuente catheter that was previously inserted it was draining clear yellow urine. She was prepped and draped in the usual sterile fashion including a vaginal preparation. Exam under anesthesia revealed a cervix that was persistently 6 cm dilated with a vertex high out of the pelvis and caput formation noted. At this point attention was turned to the abdomen where a Pfannenstiel skin incision was made and carried down to the underlying fascia. The fascia was incised in the midline and the fascial incision extended laterally. The rectus muscles were identified and in the midline. The peritoneum was identified tented up and entered sharply and the peritoneal incision extended superiorly. At this point the bladder blade was inserted and the vesicouterine peritoneum identified and elevated. A bladder flap was created. The bladder blade was reinserted and a low transverse uterine incision was made. There was evidence of persistently clear fluid. There was a large loop of cord which delivered through the incision. The vertex was elevated through the incision and shoulders followed without difficulty. Three-vessel cord was noted, clamped x 2, and cut and the baby was handed off to the waiting pediatric team after delayed cord clamping. At this point cord segment was obtained for cord blood gases and cord blood sample obtained. The placenta was expressed from the uterus and uterus exteriorized and cleared of all clots and debris. Placenta appeared to be intact. At this point the uterine incision was closed in a 2 layer closure of Monocryl suture with the first layer being running locked second layer being imbricating. The uterine incision was then inspected and noted to be hemostatic. Uterus was returned to the abdomen. The abdomen irrigated with copious amounts of normal saline and uterine incision also again noted to be hemostatic. The fascial incision was then closed using 0 Vicryl suture in a running fashion. Subcutaneous tissue irrigated with normal saline and reapproximated with 3-0 Vicryl suture. The skin edge was then reapproximated with 4-0 undyed Monocryl and Steri-Strips and sterile dressing placed. Uterus was noted to be firm and 2 cm below the umbilicus at the completion of the procedure. The patient was then transported back to the center with a De La Fuente catheter draining clear yellow urine. EBL: 800 mL Fluids: Crystalloid per anesthesia Findings: Delivery of viable male infant With Apgars 8 and 9. Normal-appearing tubes, ovaries, uterus. Prominent sacral promontory with inlet arrest. EBL: 800 mL Pathology: None sent [place] Infant Gender: Female
--- NOTE | 2024-11-03 10:29 | W.PM.OBPNV1 ---
Date of service: 11/03/24 Time of Service: 10:29 Exam Physical Exam Vital signs: Temp Pulse Resp BP Pulse Ox 97.7 F 60 18 132/72 100 11/03/24 01:45 11/03/24 08:00 11/03/24 00:25 11/03/24 08:00 11/03/24 07:59 Narrative: Called to see patient as her Mepilex dressing was soaked. Vital signs are stable. She has no pain. Mepilex was removed. Incision inspected. Small amount of dark old blood expressed from the incision at approximately 4 cm from the right apex. Area cleansed, new Mepilex placed. Will continue to monitor. If no improvement, pressure dressing. Results Hemoglobin/Hematocrit: Hgb 12.7 g/dL (11.2-15.7) 11/02/24 08:50 Hct 38.1 % (36.0-46.0) 11/02/24 08:50 Abnormal Lab Findings: Abnormal Labs 11/02/24 08:50 MPV 12.2 H
[2024-11-03] MEDS: Normal Saline Flush 10 ML SYR IVP ×2 (10:35→22:15)
[2024-11-03] MEDS: Ketorolac 30 MG/ML VIAL IVP ×3 (10:35→22:15)
[2024-11-04 01:00] VITALS: BP 142/91; PULSE 65; RESP 18; TEMP 36.7
[2024-11-04 06:15] VITALS: BP 144/82; PULSE 63; RESP 18
[2024-11-04 06:22] LABS: Abs Immature Grans 0.06 10^3/uL (0.0-0.06); HCT 30.6 % (36.0-46.0); HGB 10.3 g/dL (11.2-15.7); Immature Grans % 0.5 %; MCH 30.6 pg (27.0-33.0); MCHC 33.7 % (32.0-36.0); MCV 91 fL (80-95); MPV 11.8 fL (8.0-11.0); Platelet Count 212 10^3/uL (130-400); RBC 3.37 10^6/uL (3.93-5.22); RDW 13.5 % (11.7-14.6); RDW-SD 43.8 fL; WBC 13.19 10^3/uL (4.4-10.8)
[2024-11-04 08:00] VITALS: BP 107/87; PULSE 71; RESP 14; TEMP 36.3; O2SAT 100
--- NOTE | 2024-11-04 11:17 | OBPPV_ITS ---
Date of service: 11/04/24 Time of Service: 11:18 Assessment and Plan Assessment and plan (1) Status post primary low transverse section: Status: Acute Assessment and plan: Postop day #1 status post primary low-transverse . Did have some bloody drainage from incision yesterday. Pressure dressing placed for 12 hours. Replaced today with Mepilex. Appears stable. Will monitor closely. Increase activity. Patient may shower. Continue breast-feeding. Pain well-controlled. All questions answered. Subjective Subjective Interval history: Patient seen and examined this morning. Doing well. Hemoglobin is stable. Vital signs are stable. Her abdominal dressing also appears stable and her pressure dressing will be removed today and replaced with a Mepilex. She desires to shower. She is breast-feeding without difficulty. Patient's Mood: Appropriate [place] baby status: Doing well, Nursing well and Strong Bonding Observed [place] feeding status: Exclusively breast feeding Narrative: Desires circumcision Exam Physical Exam Vital signs: Temp Pulse Resp BP Pulse Ox 98.0 F 63 18 144/82 H 100 11/04/24 01:00 11/04/24 06:15 11/04/24 06:15 11/04/24 06:15 11/03/24 16:00 Vital Signs Reviewed: Yes Constitutional Constitutional: no acute distress HEENT Exam HEENT Exam: Normal Neck Exam Neck Exam: Normal Respiratory Exam Respiratory Exam: Normal Cardiovascular Exam Cardiovascular Exam: Normal Abdominal Exam Abdomen: Tender Comments: Pressure dressing removed. Mepilex placed. No surrounding erythema, ecchymosis, fluctuance, or active bleeding. Fundal Exam Fundus: Below Umbilicus and Firm Extremities Exam Extremity Exam: Normal; negative Calf Tenderness or Edema Results Hemoglobin/Hematocrit: Hgb 10.3 g/dL (11.2-15.7) L D 11/04/24 06:17 Hct 30.6 % (36.0-46.0) L 11/04/24 06:17 Abnormal Lab Findings: Abnormal Labs 11/02/24 11/04/24 08:50 06:17 WBC 13.19 H RBC 3.37 L Hgb 10.3 L D Hct 30.6 L MPV 12.2 H 11.8 H Absolute Neutrophils 10.31 H
[2024-11-04 13:30] VITALS: BP 124/84; PULSE 79; RESP 12; TEMP 36.8
[2024-11-04] MEDS: Ibuprofen 600 MG TAB PO ×2 (14:23→21:48)
[2024-11-04] MEDS: Varicella Virus Vaccine (Live) 0.5 ML SC (16:38)
[2024-11-04] MEDS: Measles, Mumps, & Rubella Vaccine 0.5 ML VIAL SC (16:40)
[2024-11-04] MEDS: Acetaminophen 500 MG TAB 1000 MG PO (17:03)
[2024-11-04 20:26] VITALS: BP 147/85; PULSE 76; RESP 18
[2024-11-05] MEDS: Acetaminophen 500 MG TAB 1000 MG PO ×2 (01:12→07:19)
[2024-11-05 05:28] VITALS: BP 141/87; PULSE 68; RESP 18; TEMP 35.7
[2024-11-05] MEDS: Ibuprofen 600 MG TAB PO (07:19)
[2024-11-05] MEDS: Docusate Sodium 100 MG CAP PO (07:19)
[2024-11-05 08:00] VITALS: BP 140/92; PULSE 63; RESP 18; TEMP 36.5; O2SAT 99
--- NOTE | 2024-11-05 09:48 | W.PM.OBPNV1 ---
Date of service: 11/05/24 Time of Service: 09:51 Assessment and Plan Assessment and plan (1) Status post primary low transverse section: Status: Acute Assessment and plan: Patient is postoperative day #2 status post primary low-transverse due to labor arrest. She had a labor induction due to suspicious testing, and decreased movement at 38 weeks and 5 days. Her labor arrest was an inlet obstruction. She does have a lumbosacral abnormality. These findings were discussed with the patient. In her state, she is doing well. day 0, she did have an increase in bleeding from her incision which was resolved after pressure dressing. No suspicion for hematoma today, however warnings and precautions were given. She will be discharged home today with close interval follow-up. Will monitor her blood pressure in light of the fact that she has had 2 elevated post delivery blood pressures, not warranting treatment at this point. (2) Group B streptococcal carriage complicating : Status: Acute (3) Arrested active phase of labor: Status: Acute Subjective Subjective Interval history: Patient seen and examined this morning. Overall doing well. Pain is reasonably well-controlled. She has been ambulatory. She is eating and tolerating a regular diet. She is voiding without difficulty. She does have a slightly elevated blood pressure on 2 separate occasions it will be rechecked this morning. They do not meet criteria for treatment with medication, though close interval follow-up would be warranted. Patient desires discharge home today. baby status: Doing well and Other ([place] circumcision performed at parents request) Exam Physical Exam Vital signs: Temp Pulse Resp BP Pulse Ox 97.7 F 63 18 140/92 H 99 11/05/24 08:00 11/05/24 08:00 11/05/24 08:00 11/05/24 08:00 11/05/24 08:00 Vital Signs Reviewed: Yes Notable Details: Mild elevation of blood pressure, nonsevere range. Will recheck, and close Constitutional Constitutional: no acute distress HEENT Exam HEENT Exam: Normal Neck Exam Neck Exam: Normal Respiratory Exam Respiratory Exam: Normal Cardiovascular Exam Cardiovascular Exam: Normal Abdominal Exam Abdomen: Tender Comments: Mepilex in place. No shadowing Fundal Exam Fundus: Below Umbilicus and Firm Extremities Exam Extremity Exam: Normal and Edema (1+ bilateral); negative Calf Tenderness Skin Exam Skin Exam: Normal Neurological Exam Neurological Exam: Normal Psychiatric Exam Psychiatric Exam: Normal Results Hemoglobin/Hematocrit: Hgb 10.3 g/dL (11.2-15.7) L D 11/04/24 06:17 Hct 30.6 % (36.0-46.0) L 11/04/24 06:17 Abnormal Lab Findings: Abnormal Labs 11/02/24 11/04/24 08:50 06:17 WBC 13.19 H RBC 3.37 L Hgb 10.3 L D Hct 30.6 L MPV 12.2 H 11.8 H Absolute Neutrophils 10.31 H
--- NOTE | 2024-11-05 09:54 | DSE_ITS ---
Date of service: 11/05/24 Time of Service: 09:54 DS: Diagnosis Discharge Diagnosis (1) Status post primary low transverse section: Status: Acute Asessment and Plan: Postop day 2 status post primary low-transverse due to labor arrest, in light obstruction. Discharge home. Short interval follow-up. Slightly elevated blood pressures, will follow-up in 24 to 48 hours, 1 week, 2 weeks, 6 weeks. Patient will monitor for the possibility of incisional hematoma. All questions were answered. Precautions were given. Prescription sent to the pharmacy. (2) Group B streptococcal carriage complicating : Status: Acute (3) Arrested active phase of labor: Status: Acute Discharge Plan Disposition Patient Disposition: Home Condition: Good Discharge Details Reason For Visit: Category II Surveillance, 38 wks Gestation Admit Date/Time: 11/02/24 08:25 Admit Provider: Piper Rivera Attending Provider: Piper Rivera Primary Care Provider: Fili Pereira [facility] Course Hospital Course: Patient was initially admitted to the hospital with decreased movement and suspicious testing at 38 weeks and 5 days. In light of these factors, labor induction was undertaken. She had a Pitocin induction with artificial rupture of membranes for clear fluid. She received an epidural for pain control. She progressed to the point that she was 6 cm dilated, and arrested her labor after 4 hours with no descent of the vertex, or further dilation. She underwent a primary low-transverse for delivery of viable male infant named Nick. Her course was relatively uncomplicated. She did have some increase of incisional bleeding on postop day 0 for which pressure dressing was placed which and then had resolution of her bleeding. She did have mildly elevated blood pressures day #2, which will be followed with close interval follow-up. She will be discharged to home ambulating, tolerating regular diet and oral pain medication with stable vital signs. Prescription will include ibuprofen, Tylenol, Colace, Percocet. Home Meds and New Rx's Prescriptions: New ibuprofen 600 mg tablet 600 mg PO Q6H PRNQty: 60 1RF docusate sodium [Colace] 100 mg capsule 100 mg PO BID Qty: 30 1RF oxycodone-acetaminophen [Percocet] 5-325 mg tablet 1 tab PO Q6H PRNQty: 10 0RF No Action PNV [id number] 30 mg iron-10 mg iron-1 mg capsule 1 cap PO DAILY ascorbate calcium (vitamin C) 500 mg tablet 500 mg PO DAILY calcium glucarate 500 mg capsule 1 tab-cap PO DAILY melatonin 3 mg capsule 3 mg PO HS PRN biotin 1 tab PO DAILY Patient Comments: dose unknown 07/25/22 CT pantoprazole [Protonix] 40 mg tablet,delayed release (DR/EC) 40 mg PO DAILY Qty: 30 8RF docusate sodium [Colace] 100 mg capsule 100 mg PO BID PRN ondansetron HCl 4 mg tablet 4 mg PO Q6H PRN (Reason: nausea and vomiting) Qty: 14 1RF Discharge Instructions Additional Instructions: Follow-up for blood pressure check in 24 to 48 hours. Follow-up for examination in 1, 2, and [address] Zavaleta. Activity:: Pelic Rest Equipment/Supplies:: No Equipment Needed Diet:: As Tolerated OB:DS Summary Summary Delivery Method: Primary Contraception Discussed Contraception Discussed: Yes, Infant Gender-Baby A: Male weight: 7 lb 12.693 oz Status at Discharge Functional status at discharge: independent ambulation Overall status at discharge: patient is progressing back to baseline Mental Status: mental status grossly normal Speech and Movement: speech and movement normal Mood: congruent mood Affect: normal affect Exam Physical Exam Vital signs: Temp Pulse Resp BP Pulse Ox 97.7 F 63 18 140/92 H 99 11/05/24 08:00 11/05/24 08:00 11/05/24 08:00 11/05/24 08:00 11/05/24 08:00 Narrative: See physical examination from progress note dated 11/05/2024. PFSH All Active Problems (Updated 11/03/24 @ 01:34 by Radha Zavaleta DO) Status post primary low transverse section (Acute) 11/03/2024. Labor progressed. Prominent sacral promontory. Male infant, Apgars 8 and 9. Nick Arrested active phase of labor (Acute) Encounter for induction of labor (Acute) Decreased movement (Acute) 38 weeks gestation of (Acute) Suspected problem with amnion not found (Acute) Category II heart rate tracing during maternal care in third trimester (Acute) Group B streptococcal carriage complicating (Acute) Size of fetus inconsistent with dates in third trimester (Acute) Susceptible to varicella (non-immune), currently (Acute) Rubella non-immune status, antepartum (Acute) (Acute) Anxiety (Chronic) Hydroxyzine 75 mg QHS; Zoloft 150 mg; referred to counseling services Stopped Medications 2022 Medical History Rheumatoid arthritis Polyarthritis (03/22/17) Most recent visit in Apr 2021; no biologics or immunosuppressant medication; just Motrin 600 mg twice daily; Will get US of hands/feet joints- scheduled for Oct 18 2021 Missed menses Vision problems Followed by [facility] Hydradenitis (05/21/17) Multiple recurrent groin/axillary abscesses Surgical History History of axillary surgery Family History Grandfather Heart disease Mental disorder alcoholism Sister Mental disorder depression/anxiety Grandmother Mental disorder depression,anxiety Other Mental disorder pat uncle-alcoholism Seizure mat aunt and 3 cousins Father Mental disorder drinker-has [id number]- 1 year sober Grandfather Mental disorder alcoholism Social History Smoking/Tobacco Use Status: Former Tobacco Use Quit Date: 03/16/24 Tobacco: How many years used: 7 Second Hand Exposure: No Smoking risk assessment performed?: Yes Alcohol Intake: former Counseling given: Yes Drug use: Never Substance use type: does not use and former substance user Date of last use: marijuana in past Adopted: No Caregiver/Support person: No Household members: significant other and other Details: Lives with dad and step-mom; bio mom not in life since age 7y Housing: apartment Number of Children: 0 number of grandchildren: 0 Communication Needs: None Education Level: high school Do you need help understanding health information?: Never 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 [employer] Pets and animals: Yes (3 cats; 4 dogs) Pets and animals: cat(s) and dog(s) Sexually active: Yes Do you think of yourself as: straight/heterosexual Current gender identity: female What is your relationship status?: living with partner How often do you talk on the phone with friends or family?: three or more times per week How often do you get together with friends or relatives?: once per week Do you belong to any clubs or organized social groups?: no Panel score (0-1 are the most socially isolated patients): 2 What type of physical activity do you participate in: other 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 Duration: 60-90 minutes/day Frequency: 5-6 times per week Special verónica needs: No Seatbelt use: always Drive intox or ride w/intox school bus driver/teacher assistant: No Do you feel safe at home: Yes Do you feel safe in your relationship?: Yes Female Reproductive History Menstrual control method: progestin IUCD (removed April 2023) and implanted History History 1 Para 0 Hx # Term Pregnancies 0 Multiple births 0 Hx # Pregnancies 0 Ectopic pregnancies 0 AB induced 0 Hx Number of Living Children 0 AB spontaneous 0 DS: Data Vitals/I&O Vitals and I&O: Vital Signs Temperature 97.7 F 11/05/24 08:00 Temperature 98.8 F 11/02/24 07:31 Temperature Source Tympanic 11/05/24 08:00 Pulse 63 11/05/24 08:00 Pulse 56 11/02/24 07:31 Pulse Rhythm Regular 11/05/24 08:00 Respiratory Rate 18 11/05/24 08:00 Blood Pressure 140/92 H 11/05/24 08:00 Blood Pressure 132/79 11/02/24 07:31 Blood Pressure Mean 108 11/05/24 08:00 Pulse Oximetry 99 11/05/24 08:00 Oxygen Delivery Method Room Air 11/02/24 15:35 Oxygen Flow Rate 0 11/02/24 15:35 Pain Level 6 11/04/24 14:23 Comment BP cuff on leg, moved to arm 11/03/24 04:32 Intake & Output 11/04/24 11/04/24 11/05/24 11:59 23:59 11:59 Other: Urine Color Pale Comment pt voiding independently with no issues
[2024-11-05 10:02] VITALS: BP 124/93
== END 2024-11-05 12:05 | disposition home or self-care (01) | DRG 788 ==
LOC: BCD 08:36 → OBS 08:36
PROVIDERS: Obstetrics & Gynecology; Admitting Provider Advanced Practice Midwife; PCP Family Medicine; Visit Provider Advanced Practice Midwife
PROC: 10D00Z1 Extraction of Products of Conception, Low, Open Approach (ICD-10-PCS; CPT 59514; principal; 2024-11-03 02:10)
DX: O36.8130 Decreased fetal movements, third trimester, not applicable or unspecified (principal); O36.8330 Maternal care for abnormalities of the fetal heart rate or rhythm, third trimester, not applicable or unspecified; Z37.0 Single live birth; Z3A.38 38 weeks gestation of pregnancy; O62.1 Secondary uterine inertia; O99.824 Streptococcus B carrier state complicating childbirth; O99.344 Other mental disorders complicating childbirth; O99.62 Diseases of the digestive system complicating childbirth; K59.00 Constipation, unspecified; G89.29 Other chronic pain; F41.9 Anxiety disorder, unspecified; Z28.39 Other underimmunization status
CPT/HCPCS: 59514; 36415; 85027; 86850; 86900; 86901; 90707; 90716; 59025; 82565; 84156; 85025; J0456; J0665; J0690; J1885; J2274; J2371; J2540; J3010

== ENCOUNTER 2024-11-06 07:26 | Outpatient (CLI) | payer MEDICAID, SELFPAY ==
[2024-11-06 12:55] VITALS: BP 123/77
[2024-11-06 13:10] VITALS: BP 122/81
== END 2024-11-06 07:27 | disposition home or self-care (01) ==
LOC: BCD 07:26
PROVIDERS: PCP Family Medicine; Visit Provider Obstetrics & Gynecology
DX: R03.0 Elevated blood-pressure reading, without diagnosis of hypertension (principal)
CPT/HCPCS: 99211

== ENCOUNTER 2024-12-19 10:10 | Outpatient (REF) | payer MEDICAID, SELFPAY ==
[2024-12-22 12:42] LABS: Chlamydia Result Negative (Negative); GC Result Negative (Negative)
== END 2024-12-19 10:11 | disposition home or self-care (01) ==
LOC: LBN 10:10
PROVIDERS: PCP Family Medicine; Visit Provider Obstetrics & Gynecology
DX: Z11.3 Encounter for screening for infections with a predominantly sexual mode of transmission (principal)
CPT/HCPCS: 87491; 87591

== ENCOUNTER 2025-01-16 17:50 | Outpatient (REF) | payer MEDICAID, SELFPAY | END 2025-01-16 17:51 | disposition home or self-care (01) | LOC: LBN 17:50 | PROVIDERS: PCP Family Medicine; Visit Provider Obstetrics & Gynecology | DX: Z12.4 Encounter for screening for malignant neoplasm of cervix (principal); R87.618 Other abnormal cytological findings on specimens from cervix uteri | CPT/HCPCS: 88142 ==

== ENCOUNTER 2025-01-29 14:42 | Emergency (ER) | payer MEDICAID, SELFPAY ==
[2025-01-29] VITALS (29 sets, daily range): BP systolic 97–145; BP diastolic 52–91; PULSE 53–76; RESP 11–23; TEMP 36.6; O2SAT 98–100
--- NOTE | 2025-01-29 14:30 | RT.EKG_ITS ---
APPROVED REPORT Exam: Resting ECG Reason for Exam: chest pain Patient Location: E HR:62 bpm ECG Measurements Heart Rate 62 AXIS OR 120 P 21 QRSd 97 QRS 9 QT 408 T 26 QTc 414 Conclusion Sinus rhythm, rate 62 No interval abnormalities No STEMI No significant changes from priors
--- NOTE | 2025-01-29 15:15 | DI.CT_ITS ---
Exam(s) CT ABDOMEN PELVIS W EXAM: CT ABDOMEN PELVIS W CLINICAL HISTORY: epigastrtic pain with nausea. TECHNIQUE: Imaging Protocol: Axial computed tomography images with coronal and sagittal reformatted images were created and reviewed CONTRAST MATERIAL: Intravenous: Omnipaque-350 75cc Oral: None COMPARISON: No exams were available for comparison FINDINGS: VISUALIZED LUNG BASES: No nodules nor pleural effusions evident. ABDOMEN: There is no ascites. LIVER: There are no focal hepatic lesions evident. No dilated intrahepatic ducts. GALLBLADDER/BILIARY: There are gallstones noted in the gallbladder lumen. The gallbladder appears contracted. No obvious edema nor pericholecystic fluid. The CBD is not dilated. PANCREAS: No evidence of pancreatic mass nor dilatation of the pancreatic duct. SPLEEN: Spleen is not enlarged. No obvious intrasplenic lesions. Splenic and portal veins are patent. ADRENALS: There are no significant adrenal masses. KIDNEYS:No cysts evident. No solid renal masses. No calculi nor hydronephrosis.. ABDOMINAL AORTA: Abdominal aorta is not enlarged. LYMPH NODES:There is no retroperitoneal nor paraaortic adenopathy. ABDOMINAL WALL: No evidence of significant anterior abdominal wall nor inguinal hernia. GI: There is no evidence of bowel obstruction, free air, nor abscess. PELVIS: GI: No evidence of appendicitis.No evidence of sigmoid diverticulitis. LYMPH NODES: There is no intrapelvic nor inguinal adenopathy. REPRODUCTIVE: None there is an IUD in the upper endometrial canal of the uterus.. No other uterine findings. Ovaries appear unremarkable. No extraovarian adnexal masses. There is a tiny amount of fluid in the lower left adnexal region. Probably female physiologic. URINARY BLADDER: No calculi nor obvious masses evident OSSEOUS: No fractures and no significant osseous lesions. Sacroiliac joints appear unremarkable. There is partial right side sacralization of the L5 vertebral body incidentally noted. IMPRESSION: 1. Cholelithiasis. There are gallstones. The gallbladder is contracted. There is no pericholecystic fluid. CBD is not dilated. If clinically indicated follow-up ultrasound can be performed. 2. There is an IUD in the upper uterine endometrial cavity. 3. There is a tiny amount of free fluid in the lower left adnexa region which is probably female physiologic. The ovaries appear unremarkable. 4. No evidence of appendicitis. Called by myself to ER physician 01/29/2025 at 4:58 p.m. RADIATION DOSE DELIVERED: 712.13mGy.cm Total DLP DATA REPOSITORY: All CT scans at this facility are submitted to the National Radiology Data Registry (NRDR) Dose Index Registry (DIR) with the [employer] (ACR). RADIATION OPTIMIZATION: All CT scans at this facility use at least one of these dose optimization techniques: automated exposure control; mA and/or kV adjustment per patient size (includes targeted exams where dose is matched to clinical indication); or iterative reconstruction.
--- NOTE | 2025-01-29 15:17 | W.ED.GENAD ---
Discharge Plan Disposition Patient Disposition: Home Condition: Stable Discharge Details Clinical Impression: Gallstones, Abdominal pain Primary Care Provider: Fili Pereira ED Provider: Bette Meadows Home Meds and New Rx's Prescriptions: No Action melatonin 3 mg capsule 3 mg PO HS PRN Mirena 21 mcg/24hr (up to 8 yrs) 52 mg intrauterine device 1 device intrauterine ONCE Rx Instructions: as a single dose ibuprofen 600 mg tablet 600 mg PO Q6H PRNQty: 60 1RF Discharge Instructions Instructions: Gallbladder Diet Additional Instructions: You were seen in the emergency department today for evaluation of abdominal pain with nausea and vomiting. In our department a full physical examination performed, received medications for management of your symptoms, and had a CT scan and an ultrasound that showed some gallstones in your gallbladder but no sign of gallbladder infection or blockage. As we discussed, gallstones can be the cause of the symptoms that you are experiencing today. I do recommend that you adhere to a gallbladder diet, in brief, please avoid fatty, spicy, and dairy based foods. If send you home with a short course of nausea medication to help you maintain your hydration. You can also use uguu-ufe-kgepqac medication such as Maalox or Mylanta. Please use therapeutic dosing of Tylenol (acetaminophen) & Advil (ibuprofen) in an alternating fashion as follows: Take 1000mg of Tylenol every 6 hours without missing doses- that is 4 times per day. [place] in between the Tylenol doses, take 600mg of Advil also on a 6 hour schedule, that is also 4 times per day. With this strategy, you will be taking something for fever/pain as often as every 3 hours. The daily maximum dosing of Tylenol is 4000mg, and the daily maximum dosing of Advil is 2400mg. Please note that some common cold medications & prescription pain medications may contain acetaminophen and you need to read OTC drug labels and factor that in to maximum daily doses. If you are experiencing pain and nausea that becomes more severe despite these medications, have nausea or vomiting that prevents you from eating and drinking, or develop a fever you need to be reevaluated in the emergency department. I have placed a referral for evaluation with the general surgery clinic to discuss elective gallbladder removal. Please follow-up with your primary care provider in the next few days to discuss this visit and any symptoms that change, worsen, or persist. Thank you for allowing us to be part of your care. Stand Alone Forms: Portal Information, Work Release Referrals: Araceli Padron MD [ [facility] STAFF PHYSICIAN, Surgery] [facility] General Mode of arrival: ambulatory. Date/Time Provider Initiated Documentation: 01/29/25 14:57. Limitations to Documentation: no limitations. Information obtained by: patient, family and old records reviewed. HPI Narrative: This is a 24-year-old female patient with a history of lupus, status post in late October of this year, presenting for evaluation of epigastric abdominal pain. The patient reports that she has had this pain every other day since her delivery, but it typically goes away without intervention. She has trialed Pepto-Bismol and Gas-X at home without improvement. This morning around 9 AM she started to have severe pain in that area, that has not subsided. It gradually worsened, pressing on the area makes it feel better and letting go makes it feel worse. She has eaten since this occurred without postprandial worsening of pain. She states that the pain makes it feel like it is hard for her to breathe or take a deep breath. She states that she has not had any associated vomiting but does feel nauseated, no diarrhea, dysuria, or constipation. She has had some vaginal spotting, this has been intermittent since her IUD was placed about a month ago. No heavy vaginal bleeding or new vaginal discharge. She is not currently breast-feeding Related Data Home Medications Medication Instructions Recorded Confirmed melatonin 3 mg capsule 3 mg PO HS PRN 07/28/24 01/29/25 ibuprofen 600 mg tablet 600 mg PO Q6H PRN #60 tabs 11/05/24 01/29/25 levonorgestrel (Mirena) 1 device intrauterine ONCE 01/16/25 01/29/25 Previous Rx's Medication Instructions Recorded ibuprofen 600 mg tablet 600 mg PO Q6H PRN #60 tabs 11/05/24 Allergies Allergy/AdvReac Type Severity Reaction Status Date / Time vancomycin Allergy Skin Rash Verified 01/29/25 14:45 meloxicam AdvReac mouth sores Verified 01/29/25 14:45 naproxen AdvReac mouth sores Verified 01/29/25 14:45 Seasonal Allergies Allergy Mild Nasal Uncoded 01/29/25 14:45 congestion General Stated Complaint: Abd Prob CORBY: 3 Exam Narrative Exam Narrative: Gen: Awake and alert, in no apparent distress HEENT: Non-icteric sclera Neck: Supple Lungs: No apparent respiratory distress, normal respiratory effort. Lung sounds clear and equal bilaterally, no wheezing, rhonchi, rales CV: Appears well perfused, heart with regular rate and rhythm, no murmurs auscultated Abdomen: Non-distended, soft, tender to palpation in the epigastric region without rigidity or guarding. The patient verbalizes rebound tenderness MSK: Moves 4 extremities without apparent limitation in ROM Skin: Visualized skin without rashes, cyanosis other than a malar rash consistent with her lupus Neuro: Normal Gait, no obvious focal deficits or facial asymmetry. Speaks in full, clear sentences. Psych: Appropriate for situation. Course Vital Signs Vital signs: Vital Signs Temperature 36.6 C 01/29/25 14:43 Pulse 65 01/29/25 14:43 Respiratory Rate 18 01/29/25 14:43 Blood Pressure 145/91 H 01/29/25 14:43 Pulse Oximetry 98 01/29/25 14:43 Temperature 36.6 C 01/29/25 14:46 Pulse 65 01/29/25 14:46 Respiratory Rate 18 01/29/25 14:46 Blood Pressure 145/91 H 01/29/25 14:46 Pulse Oximetry 98 01/29/25 14:46 Oxygen Delivery Method Room Air 01/29/25 14:46 Oxygen Flow Rate 0 01/29/25 14:46 Pain Level 7 01/29/25 14:46 Medical Decision Making This is a 24-year-old female patient presenting for evaluation of epigastric abdominal pain and nausea. My differential includes, but is not limited to, gastritis/PUD, gastroenteritis, pancreatitis, cholecystitis and gallbladder pathology, hepatitis, appendicitis, diverticulitis, small bowel obstruction. Considered urinary pathology including UTI, nephrolithiasis. Considered mesenteric ischemia, aortic pathology, though this is less concerning based on the patient's history and physical exam. Considered ectopic , PID/TOA, ovarian cyst, ovarian torsion though the patient is without pelvic symptoms at this time. I did consider ACS, arrhythmia, pericarditis and myocarditis, and pulmonary embolism given the proximity to her chest and her sensation of difficulty taking a deep breath with this pain, though at this time she does meet PERC criteria for PE rule out. An EKG was obtained which shows a normal sinus rhythm without evidence of ischemia, interval abnormality, or ectopy. We will obtain labs to include CBC, CMP, magnesium, troponin, lipase, urinalysis, [id number]-[id number] test. I will obtain a CT of her abdomen and pelvis, and provide her with Zofran, Tylenol, and Toradol for initial symptomatic management. - I independently interpreted the laboratory studies, which show no significant leukocytosis, anemia, or thrombocytopenia. The chemistry panel is without evidence of electrolyte abnormality, kidney dysfunction, or liver injury. Lipase is low, urinalysis is contaminated, with large blood consistent with her reported vaginal bleeding. In the absence of urinary symptoms I do not feel compelled to repeat this clean-catch. CT scan reveals gallstones and a very contracted gallbladder with no evidence of Pericholecystic fluid or other cholecystitis changes. Otherwise no significant abnormalities to explain the patient's symptoms. She did require a second dose of medication for management of her nausea and pain, and after this was able to successfully p.o. challenge. I performed a bedside ultrasound of her gallbladder which does show a very small and difficult to visualize gallbladder with a stone with shadowing, no Parveen cholecystic fluid or obvious gallbladder wall thickening within the limits of this scan. In a shared decision-making conversation with the patient, I recommended Tylenol and ibuprofen and a short course of Zofran for assistance in maintaining her hydration. I did treatment counselor her that if her pain was unresponsive to these interventions, she could not maintain her hydration or developed a fever she would need to return sooner for reevaluation. A general surgery referral was made so that she can be reevaluated within the next week to discuss elective cholecystectomy. At this time, the patient has had a full medical evaluation and is safe for discharge to home. They are hemodynamically stable, ambulatory, and tolerating PO. They are understanding of the follow-up plan and return precautions. They left our facility without incident. Bette Meadows MD [facility] All Active Problems (Updated 01/29/25 @ 18:30 by Bette Meadows MD) Abdominal pain (Acute) Gallstones (Acute) Encounter for IUD insertion (Acute) Mirena 12/19/2024 Anxiety (Chronic) Hydroxyzine 75 mg QHS; Zoloft 150 mg; referred to counseling services Stopped Medications 2022 Medical History Arrested active phase of labor Susceptible to varicella (non-immune), currently Rubella non-immune status, antepartum Group B streptococcal carriage complicating Rheumatoid arthritis Polyarthritis (03/22/17) Most recent visit in Apr 2021; no biologics or immunosuppressant medication; just Motrin 600 mg twice daily; Will get US of hands/feet joints- scheduled for Oct 18 2021 Missed menses Vision problems Followed by [facility] eye care Hydradenitis (05/21/17) Multiple recurrent groin/axillary abscesses Surgical History Status post primary low transverse section 11/03/2024. Labor progressed. Prominent sacral promontory. Male , Apgars 8 and 9. Nick History of axillary surgery Family History Grandfather Heart disease Mental disorder alcoholism Sister Mental disorder depression/anxiety Grandmother Mental disorder depression,anxiety Other Mental disorder pat uncle-alcoholism Seizure mat aunt and 3 cousins Father Mental disorder drinker-has [id number]- 1 year sober Grandfather Mental disorder alcoholism Social History Smoking/Tobacco Use Status: Former Tobacco Use Quit Date: 03/16/24 Tobacco: How many years used: 7 Second Hand Exposure: No Smoking risk assessment performed?: Yes Alcohol Intake: former Counseling given: Yes Drug use: Never Substance use type: does not use and former substance user Date of last use: marijuana in past Adopted: No Caregiver/Support person: No Household members: significant other and other Details: Lives with dad and step-mom; bio mom not in life since age 7y Housing: apartment Number of Children: 0 number of grandchildren: 0 Communication Needs: None Education Level: high school Do you need help understanding health information?: Never 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 [email or web address] Pets and animals: Yes (3 cats; 4 dogs) Pets and animals: cat(s) and dog(s) Sexually active: Yes Do you think of yourself as: straight/heterosexual Current gender identity: female What is your relationship status?: living with partner How often do you talk on the phone with friends or family?: three or more times per week How often do you get together with friends or relatives?: once per week Do you belong to any clubs or organized social groups?: no Panel score (0-1 are the most socially isolated patients): 2 What type of physical activity do you participate in: other 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 Duration: 60-90 minutes/day Frequency: 5-6 times per week Special verónica needs: No Seatbelt use: always Drive intox or ride w/intox six horse hitch driver: No Do you feel safe at home: Yes Do you feel safe in your relationship?: Yes Female Reproductive History Menstrual control method: progestin IUCD (removed April 2023) and implanted History History 1 Para 0 Hx # Term Pregnancies 0 Multiple births 0 Hx # Pregnancies 0 Ectopic pregnancies 0 AB induced 0 Hx Number of Living Children 0 AB spontaneous 0 Past Pregnancies Del. Date GA/Weeks # Preg Succ Route Wgt Sex Labor Lgth Anesthesia Location Prov [facility] 11/03/24 38 Yes 3535.186 g Male Mayra Zavaleta POCUS Exam (ED) Limited Gallbladder Exam DATE OF EXAM: 01/29/25 TIME OF EXAM: 17:11 PROVIDER THAT PERFORMED THE STUDY: Bette Meadows REASON FOR VISIT: Abdominal pain and Nausea/vomiting VISUALIZED STRUCTURES: Gallbladder, Gallbladder wall, Liver and Pericholecystic fluid PERTINENT FINDINGS/IMPRESSION: Gallstones; No Cholecystitis, No Pericholecystic fluid and No thickening of the gallbladder wall Exam complete
[2025-01-29] MEDS: Ondansetron O.D.T. 4 MG TABEF PO (15:50)
[2025-01-29] MEDS: ACETAMINOPHEN 1,000 MG/100 ML BAG 400 MG IVPB (15:50)
[2025-01-29] MEDS: Ketorolac 15 MG/ML VIAL IVP (15:50)
[2025-01-29 15:56] LABS: Abs Immature Grans 0.02 10^3/uL (0.0-0.06); HCT 34.2 % (36.0-46.0); HGB 11.5 g/dL (11.2-15.7); Immature Grans % 0.2 %; MCH 28.8 pg (27.0-33.0); MCHC 33.6 % (32.0-36.0); MCV 86 fL (80-95); MPV 10.0 fL (8.0-11.0); Platelet Count 406 10^3/uL (130-400); RBC 4.00 10^6/uL (3.93-5.22); RDW 13.0 % (11.7-14.6); RDW-SD 40.5 fL; WBC 9.25 10^3/uL (4.4-10.8)
[2025-01-29 16:06] LABS: Glucose Negative (Negative)
[2025-01-29 16:11] LABS: RBC >50 HPF (0-2); WBC 20-50 HPF (0-5)
[2025-01-29 16:13] LABS: Lipase 34 U/L (<53); Magnesium 2.0 mg/dL (1.6-2.6)
[2025-01-29 16:15] LABS: ALT 30 U/L (10-49); AST 24 U/L (<34); Albumin 4.5 g/dL (3.4-5.0); Alkaline Phosphatase 75 U/L (46-116); Anion Gap 3.8 mmol/L (3-11); BUN 15 mg/dL (9-23); Bilirubin, Total 0.30 mg/dL (0.2-1.2); CO2 32.2 mmol/L (20.0-31.0); Calcium 9.0 mg/dL (8.3-10.6); Chloride 106 mmol/L (98-107); Glucose 85 mg/dL (74-106); Potassium 3.7 mmol/L (3.5-5.1); Sodium 142 mmol/L (136-145); Total Protein 7.8 g/dL (5.7-8.2); Troponin I < 3 ng/L (<35)
[2025-01-29] MEDS: Omnipaque 350 MG/ML 100 ML BTL IJ (16:40)
[2025-01-29] MEDS: Normal Saline - Diluent 50 ML VIAL IJ (16:40)
[2025-01-29] MEDS: Normal Saline Flush 10 ML SYR IVP (16:42)
[2025-01-29] MEDS: HYDROmorphone 2 MG/ML SYR 0.5 MG IVP (17:35)
[2025-01-29] MEDS: Mylanta Suspension 30 ML CUP PO (17:35)
[2025-01-29] MEDS: Ondansetron 4 MG/2 ML VIAL IVP (17:35)
[2025-01-29] MEDS: Ondansetron O.D.T. 4 MG TABEF, 3 TABS/BTL PO (18:37)
== END 2025-01-29 18:42 | disposition home or self-care (01) ==
PROVIDERS: Emergency Provider Emergency Medicine; PCP Family Medicine
DX: K80.20 Calculus of gallbladder without cholecystitis without obstruction (principal); R10.10 Upper abdominal pain, unspecified; Z97.5 Presence of (intrauterine) contraceptive device
CPT/HCPCS: 36415; 76705; 80053; 81025; 83690; 93005; 96365; 96375; 99285; 74177; 81003; 81015; 83735; 84484; 85025; 93010; J0131; J1171; J1885; J2405; J3490

== ENCOUNTER 2025-02-10 06:58 | Day surgery (SDC) | payer MEDICAID, SELFPAY ==
--- NOTE | 2025-02-09 18:02 | W.PM.DSUDISC ---
Date of service: 02/10/25 Discharge Plan Disposition Patient Disposition: Home Condition: Good Discharge Details Reason For Visit: Cholecystectomy Attending Provider: Ollie Francisco Primary Care Provider: Fili Pereira Home Meds and New Rx's Prescriptions: Continued Mirena 21 mcg/24hr (up to 8 yrs) 52 mg intrauterine device 1 device intrauterine ONCE Patient Comments: Present in situ Rx Instructions: as a single dose ibuprofen 600 mg tablet 600 mg PO Q6H PRNQty: 60 1RF Discharge Instructions Instructions: Cholecystectomy, Laparoscopic Surgery Additional Instructions: Brennan, it was good seeing you today, and I hope you have a quick and uneventful recovery as you transition home. Things went very smoothly in the operating room. You did have quite a bit of inflammation around your gallbladder consistent with the pain that you have been experiencing. I think removal of the gallbladder was the correct decision, and hopefully this will help you feel better over the long run. Expect to get some more pain in the days to come, as some of the local anesthetic wears off. Using Tylenol and ibuprofen [id number] for the first few days will be helpful. I have also added a prescription for a medication called tramadol if you need that. I would encourage you to use ice packs over the incisions as well. Expect to get some bruising over the incisions. That is extremely common and nothing to worry about. If there is any bleeding, or the skin around the incisions turns bright red over the next few days, please let me know. I do not expect that we will happen, but you are certainly here if any issues arise. If you need anything at all, please do not hesitate to call. Otherwise I look forward to seeing you in the office at your follow-up visit. 1. Resume all of your regular medications. 2. Use ice packs over the incisions, or anywhere that you have pain. 3. Alternate vxbk-mhl-psevilu Tylenol and ibuprofen every 6 hours for the next 2 days, then use them as needed. You can use a prescription for tramadol if you need that for more severe pain.. 4. Leave bandages in place for 24 hours, then remove. 5. Shower with warm soapy water. Pat dry. Please feel free to replace Band-Aids if you find that most comfortable.. 6. No soaking or tub baths until I see you in the office. 7. No heavy lifting until I see you in the office. 8. Call the office (or go directly to the emergency room after hours) if you notice any of the following: Develop chills (warm to touch), or if you have a thermometer and your temperature is above 101 Difficulty breathing or difficultly swallowing Persistent vomiting Any bleeding ? exceeding one tablespoon 9. Call your physician if the site where your intravenous was started becomes red, swollen, painful, and warm to touch. Stand Alone Forms: Portal Information Referrals: Ollie Francisco MD [ [facility] STAFF PHYSICIAN, Surgery] - 02/26/25 10:00 am Activity:: No heavy lifting Remove Dressings/Wound Care:: 24 hours Shower/Bathe:: 24 hours Diet:: As Tolerated Discharge Orders Discharge Orders: Discharge Order (Routine); Ordered 02/10/25 Ordered By: Ollie Francisco DS: Diagnosis Discharge Diagnosis (1) Gallstones: Status: Acute Asessment and Plan: Routine postoperative follow-up
[2025-02-10] VITALS (28 sets, daily range): BP systolic 97–141; BP diastolic 56–86; PULSE 48–82; RESP 0–23; TEMP 36.1–37; O2SAT 96–100; BMI 38.0
[2025-02-10] MEDS: Lactated Ringers 1,000 ML 80 ML IV (07:50)
[2025-02-10] MEDS: Normal Saline Flush 10 ML SYR IV ×2 (08:00→12:08)
[2025-02-10] MEDS: Indocyanine green 25 MG VIAL 5 MG IVP (08:00)
[2025-02-10] MEDS: Acetaminophen 500 MG TAB 1000 MG PO (08:04)
[2025-02-10] MEDS: Gabapentin 300 MG CAP 600 MG PO (08:04)
[2025-02-10] MEDS: Celecoxib 200 MG CAP PO (08:04)
--- NOTE | 2025-02-10 08:13 | W.ANESPRE ---
General Info Date of Service Date Performed: 02/10/25 Height: 5 ft 4 in Weight: 100.4 kg Body Mass Index (BMI): 38.0 Surgical Procedure: Operation Date: 02/10/25 08:25 Proposed Procedure Side Surgeon p Cholecystectomy Laparoscopic Ollie Francisco MD Actual Procedure Side Surgeon p Cholecystectomy Laparoscopic Not Applicable Ollie Francisco MD Pre-Op Diagnosis Post-Op Diagnosis Gallstones Gallstones Meds Allergies and Home Medications Allergies Allergy/AdvReac Type Severity Reaction Status Date / Time vancomycin Allergy Skin Rash Verified 02/10/25 07:25 meloxicam AdvReac mouth sores Verified 02/10/25 07:25 naproxen AdvReac mouth sores Verified 02/10/25 07:25 Seasonal Allergies Allergy Mild Nasal Uncoded 02/10/25 07:25 congestion Home Medication ?Medication ?Instructions ?Recorded ibuprofen 600 mg tablet 600 mg PO Q6H PRN #60 tabs 11/05/24 levonorgestrel (Mirena) 1 device intrauterine ONCE 01/16/25 Current Visit Medications: Current Medications Generic Name Dose Route Start Last Admin Trade Name Ebonie PRN Reason Stop Dose Admin Acetaminophen 1,000 mg 02/10/25 06:00 02/10/25 08:04 Acetaminophen 500 Mg Tab PO 02/10/25 23:59 1,000 mg PREOP KRISTINA Administration Celecoxib 200 mg 02/10/25 06:00 02/10/25 08:04 Celecoxib 200 Mg Cap PO 02/10/25 23:59 200 mg PREOP KRISTINA Administration Gabapentin 600 mg 02/10/25 06:00 02/10/25 08:04 Gabapentin 300 Mg Cap PO 02/10/25 23:59 600 mg PREOP KRISTINA Administration Ringer's Solution 1,000 mls @ 80 mls/hr 02/10/25 06:00 02/10/25 07:50 IV 02/10/25 23:59 80 mls/hr INFUSION KRISTINA Administration Cefazolin Sodium/Dextrose 2 gm in 50 mls @ 100 mls/hr 02/10/25 06:00 Ancef Duplex IVPB 02/10/25 23:59 PREOP KRISTINA Indocyanine Green 5 mg 02/10/25 06:00 02/10/25 08:00 Indocyanine Green 25 Mg Vial IVP 02/10/25 23:59 5 mg DIRECTED KRISTINA Administration Sodium Chloride 0 ml 02/10/25 06:00 02/10/25 08:00 Normal Saline Flush 10 Ml Syr IV 02/10/25 23:59 10 ml PRN PRN Administration Sodium Chloride 0 ml 02/10/25 06:00 Normal Saline 10 Ml Vial IJ 02/10/25 23:59 DIRECTED PRN Sterile Water 0 ml 02/10/25 06:00 Water,Injection,Sterile 10 Ml Vial IJ 02/10/25 23:59 DIRECTED PRN PFSH Active Problems Active Problems: Problem Status Onset Code Abdominal pain Acute R10.9 Gallstones Acute K80.20 Encounter for IUD insertion Acute Z30.430 Anxiety Chronic F41.9 Medical History Medical History (Updated 02/10/25 @ 08:05 by Fabiola Gomez) Lupus (systemic lupus erythematosus) Arrested active phase of labor Susceptible to varicella (non-immune), currently Rubella non-immune status, antepartum Group B streptococcal carriage complicating Rheumatoid arthritis Polyarthritis (03/22/17) Most recent visit in Apr 2021; no biologics or immunosuppressant medication; just Motrin 600 mg twice daily; Will get US of hands/feet joints- scheduled for Oct 18 2021 Missed menses Vision problems Followed by [facility] Hydradenitis (05/21/17) Multiple recurrent groin/axillary abscesses Surgical History Surgical History Status post primary low transverse section 11/03/2024. Labor progressed. Prominent sacral promontory. Male , Apgars 8 and 9. [place] History of axillary surgery Tobacco Smoking/Tobacco Use Status: Former Tobacco Use Passive smoking exposure: Yes Second hand exposure: No Alcohol Alcohol Intake: former Substance Use Substance use: Never Substance use type: does not use and former substance user Date of last use: marijuana in past Prental History History 1 Para 0 Hx # Term Pregnancies 0 Multiple births 0 Hx # Pregnancies 0 Ectopic pregnancies 0 AB induced 0 Hx Number of Living Children 0 AB spontaneous 0 Past Pregnancies Del. Date GA/Weeks # Preg Succ Route Wgt Sex Labor Lgth Anesthesia Location [facility] 11/03/24 38 Yes 3535.186 g Male Mayra Zavaleta Vital Signs and Lab Results Vital Signs Most Recent Vital Signs in EMR: Most Recent Vital Signs Temp Pulse Resp BP Pulse Ox 36.1 C L 62 16 119/71 99 02/10/25 07:05 02/10/25 07:05 02/10/25 07:05 02/10/25 07:05 02/10/25 07:05 Point of Care Results Point of Care Results: POC- Test(urine) Negative 02/10/25 07:35 Lab Results Complete Blood Count: WBC, (4.4-10.8) 9.25 10^3/uL 01/29/25, 15:45 RBC, (3.93-5.22) 4.00 10^6/uL 01/29/25, 15:45 Hgb, (11.2-15.7) 11.5 g/dL 01/29/25, 15:45 Hct, (36.0-46.0) 34.2 % L 01/29/25, 15:45 Plt Count, (130-400) 406 10^3/uL H 01/29/25, 15:45 Complete Metabolic Panel: Sodium, (136-145) 142 mmol/L 01/29/25, 15:45 Potassium, (3.5-5.1) 3.7 mmol/L 01/29/25, 15:45 Chloride, (98-107) 106 mmol/L 01/29/25, 15:45 Carbon Dioxide, (20.0-31.0) 32.2 mmol/L H 01/29/25, 15:45 BUN, (9-23) 15 mg/dL 01/29/25, 15:45 Creatinine, (0.55-1.02) 0.7 mg/dL 01/29/25, 15:45 Est GFR (CKD-EPI 2020), (mL/min/1.73m2) 97.52 01/29/25, 15:45 Magnesium, (1.6-2.6) 2.0 mg/dL 01/29/25, 15:45 Calcium, (8.3-10.6) 9.0 mg/dL 01/29/25, 15:45 Albumin, (3.4-5.0) 4.5 g/dL 01/29/25, 15:45 Glucose, (74-106) 85 mg/dL 01/29/25, 15:45 Liver Function Panel: ALT, (10-49) 30 U/L 01/29/25, 15:45 AST, (<34) 24 U/L 01/29/25, 15:45 Cardiac Panel: Troponin I, (<35) < 3 ng/L 01/29/25 Pancreas Panel: Lipase, (<53) 34 U/L 01/29/25, 15:45 Imaging and Studies Imaging and Studies Study information below may be from another EMR and interpreted by another provider. Please see original notes in EMR for more complete details. EKG Summary: EKG PATIENT NAME: Brennan Frankel UNIT #: [id number] ORDERING PROVIDER: Miguel Obregon M.D. PRIMARY CARE PROVIDER: AMARILIS BROWNE DO DATE/TIME OF SERVICE: 01/29/25 1453 : 2000 PERFORMING LOCATION: ER APPROVED REPORT Exam: Resting ECG Reason for Exam: chest pain Patient Location: E HR:62 bpm ECG Measurements Heart Rate 62 AXIS RI 120 P 21 QRSd 97 QRS 9 QT 408 T26 QTc 414 Conclusion Sinus rhythm, rate 62 No interval abnormalities No STEMI No significant changes from priors <Electronically signed by Bette Meadows M.D. in OV> E-Sign Date: 01/29/25 E-Sign Time: 1534 ADDENDUM APPROVED REPORT Exam: Resting ECG Reason for Exam: chest pain Patient Location: E HR:62 bpm ECG Measurements Heart Rate 62 AXIS RI 120 P 21 QRSd 97 QRS 9 QT 408 T26 QTc 414 Conclusion Sinus rhythm, rate 62 No interval abnormalities No STEMI No significant changes from priors I have reviewed and I agree with the emergency room physician's ECG interpretation. Electronically signed by: <Electronically signed by Joselin Siddiqui M.D. in [place]> 01/30/25 0817 Cosigned by: Anesthesia Assessment and Plan Anesthesia History Personal History: No History of Anesthesia Complications Family History: No Family History of Anesthesia Complications Exercise Tolerance Exercise Tolerance: Metabolic Equivalents>4 Pertinent Negatives Pertinent Negatives: No Symptoms of GERD, No Major Cardiovascular Symptoms or Complaints, No Major Pulmonary Symptoms or Complaints and No History of CVA/TIA Cardiac & Pulmonary Exam Cardiac Exam: Normal S1/S2 Heart Sounds Pulmonary Exam: Clear Bilateral Breath Sounds Implantable Cardiac Device Does patient have a Pacemaker or an ICD?: No Airway Exam Known Difficult Airway: No Mallampati Class: 2 Mouth Opening: Normal (> 3cm) Thyromental Distance: Greater than 3 cm Neck Range of Motion: Full ROM Neck Circumference: Normal Teeth Condition: Normal Dentition ASA Classification ASA Score: ASA 2 Emergency Case?: No NPO Status NPO Status: NPO Small Non-Fatty Meal >6 hours Status Status: Negative HCG Anesthesia Plan Resuscitation Status: Full Code Anesthesia Technique: General Anesthesia Airway Planned: Endotracheal Tube Monitors Used: Standard Monitors Preoperative Comments:: From past Anesthetic: Pt. has a history of lower lumbar pain and neuropathy (see lumbar spine CT 08/01). Pt counseled on limitations of epidural placement and has elected to attempt placement at the beginning of labor process. Toña Pinto, RECRUITING TEAM LEAD
[2025-02-10] MEDS: ceFAZolin 2 GM/50 ML BAG IVPB (08:31)
[2025-02-10] MEDS: Bupivacaine 0.25% Pres-Free W/EPI 30 ML VIAL (08:57)
--- NOTE | 2025-02-10 09:55 | GB_PTH ---
PATIENT: Brennan Frankel LOC: [facility] U#:[id number] AGE/SX: 24/F ROOM: RE02/10/[address]: Ollie Francisco MD : [id number] BED: DIS: 02/10/2025 SPEC #: [id number] RECD: 02/10/25 12:59 STATUS: CARI RE #: [id number] CRISTINA: 02/10/25 09:[address]: Ollie Francisco DEPT: Surgical Specimen RECD BY: Nani Rivas ENTERED: 02/10/25 13:00 SP TYPE: GB OTHR DR: Fili Pereira DO Tissues: 1 - GALLBLADDER Procedures: GROSS AND MICRO LEVEL 3 Comments: [id number]
--- NOTE | 2025-02-10 10:10 | ROE_ITS ---
Operative Note Operative Note PRE-OP DIAGNOSIS: Biliary colic POST-OP DIAGNOSIS: other (Chronic cholecystitis) PROCEDURE: Laparoscopic cholecystectomy SURGEON: Ollie Francisco [employer] SPECIALIST: Mansi Bryant ANESTHESIA TYPE: Local By Surgeon and General LMA/ETT Refer to Anesthesia Record ESTIMATED BLOOD LOSS: 25 PATHOLOGY: other (Gallbladder) COMPLICATIONS: None Patient was transported to: PACU Patient's condition: stable Indications: Brennan is a 24-year-old woman with biliary colic associated with gallstones Findings: Adhesions of the omentum up onto the gallbladder body consistent with chronic cholecystitis Procedure Description: After satisfactory induction of general anesthesia, I prepped and draped the abdomen in usual fashion. Next, I began with a periumbilical incision. Using a 5 mm optical viewing port, establish pneumoperitoneum. Another 5 mm port was then placed in the right mid abdomen, and the camera was moved to this location for upsizing of the umbilical port to 12 mm. Camera was moved back to the umbilicus, and Brennan was placed in some Trendelenburg position with her left si de down. 2 more 5 mm ports were placed under the direct vision of the laparoscope. 1 was in the mid epigastrium, the other was in the right midclavicular abdominal line. I then grasped the gallbladder fundus and elevated cephalad. There were quite a bit of adhesions of the omentum to the gallbladder body. These were carefully dissected using combination of blunt dissection, as well as hook electrocautery in an effort to fully mobilize the gallbladder body. Once this was done, it was retracted cephalad. With the assistance of indocyanine green, I began by dissecting the gallbladder infundibulum. I worked in a lateral to medial fashion. Once I skeletonized the cystic duct and cystic artery, with a satisfactory critical view of safety, I doubly clipped and divided them. I then used electrocautery to dissect the gallbladder off the gallbladder fossa. I passed the gallbladder into an Endo Catch bag and removed it by way of the umbilical site. I examined the surgical field. I irrigated everything clean. It was hemostatic. I then removed the 5 mm ports under the vision of the laparoscope. Finally, I removed the umbilical port site and closed the fascia with Vicryl stitches. Sites were irrigated, and the skin was closed with subcuticular stitches. Bandages were applied, patient was awakened from anesthesia, and transferred to the recovery unit. Date of Procedure: 02/10/25
[2025-02-10] MEDS: fentaNYL 100 MCG/2 ML VIAL IVP ×2 (10:48→12:08)
[2025-02-10] MEDS: HYDROmorphone 2 MG/ML SYR IVP (11:28)
[2025-02-10] MEDS: traMADol 50 MG TAB PO (12:21)
--- NOTE | 2025-02-10 13:20 | W.ANESPOSTOP ---
Postoperative Evaluation Date, Time and Location Date Performed: 02/10/25 Time Performed: 13:20 Patient Location: Day Surgery Unit Vital Signs Most Recent Imported Vital Signs: Most Recent Vital Signs Temp Pulse Resp BP Pulse Ox 37 C 65 16 111/61 99 02/10/25 13:05 02/10/25 13:05 02/10/25 13:05 02/10/25 13:05 02/10/25 13:05 Pain Score Most Recent Pain Score: Most Recent Pain Score Pain Level 6 02/10/25 13:05 Assessment Mental Status: Awake (Alert & Oriented to Patient Baseline) Airway and Respiratory Function: Patent airway with normal (patient baseline) respiratory exam Cardiovascular Function: Hemodynamically Stable Hydration Status: Adequately Hydrated Nausea & Vomiting: No Nausea or Vomiting Pain: Pain is tolerable per patient (Mainly cramping to abdomen, some referred pain to shoulder.) Peripheral Nerve Block: Patient did not receive a nerve block
== END 2025-02-10 13:40 | disposition home or self-care (01) ==
LOC: SUR 06:58
PROVIDERS: PCP Family Medicine; Visit Provider Surgery
PROC: 0FT44ZZ Resection of Gallbladder, Percutaneous Endoscopic Approach (ICD-10-PCS; CPT 47562; principal; 2025-02-10 08:15)
DX: K80.10 Calculus of gallbladder with chronic cholecystitis without obstruction (principal); K82.8 Other specified diseases of gallbladder
CPT/HCPCS: 47562; 81025; 88304; J0690; J1100; J1171; J2003; J2250; J2405; J2704; J3010; J3475

== ENCOUNTER 2025-02-27 09:51 | Emergency (ER) | payer MEDICAID, SELFPAY ==
[2025-02-27 09:57] VITALS: BP 119/76; PULSE 89; RESP 18; TEMP 36.7; O2SAT 98
[2025-02-27 11:21] VITALS: BP 119/76; PULSE 89; RESP 18; TEMP 36.7; O2SAT 98
[2025-02-27] MEDS: Acetaminophen 325 MG TAB 650 MG PO (11:52)
[2025-02-27] MEDS: predniSONE 20 MG TAB 40 MG PO (11:53)
[2025-02-27 12:15] LABS: Mono Screening Negative (Negative)
--- NOTE | 2025-02-27 15:30 | ED.GENADUL_ITS ---
Discharge Plan Disposition Patient Disposition: Home Condition: Stable Discharge Details Clinical Impression: Acute tonsillitis Primary Care Provider: Fili Pereira ED Provider: Nani Doe Home Meds and New Rx's Prescriptions: New clindamycin HCl [Cleocin HCl] 150 mg capsule 450 mg PO TID 10 Days Qty: 90 0RF prednisone 20 mg tablet 40 mg PO ONCE Qty: 8 0RF Continued Mirena 21 mcg/24hr (up to 8 yrs) 52 mg intrauterine device 1 device intrauterine ONCE Patient Comments: Present in situ Rx Instructions: as a single dose ibuprofen 600 mg tablet 600 mg PO Q6H PRNQty: 60 1RF Discharge Instructions Instructions: Sore Throat, Adult ED Additional Instructions: Take Tylenol as needed for pain relief, take the prednisone daily starting tomorrow you received a dose today Start the antibiotics when you leave, you may gargle with salt water If you develop difficulty opening your jaw, change in your voice, worsening pain globus sensation, or should any new concerns arise please return for reasses sment Stand Alone Forms: Portal Information Referrals: Fili Pereira DO [Primary Care Provider, Medicine] [facility] General Date/Time Provider Initiated Documentation: 02/27/25 11:01 . HPI Narrative: This 24-year-old female presents with sore throat that has been worsening. Symptoms started with fever and chills and it progressed to a sore throat, right slightly worse than left. She was sent from [facility] out of concern for possible peritonsillar abscess. She has had negative strep test flu COVID and RSV. She denies any globus sensation, change in phonation, difficulty swallowing, or difficulty opening her jaw. She has not attempted [id number]-[id number] medications. She is approximately 4 months and she does have a history of lupus. She does not take medications for this Related Data Home Medications ?Medication ?Instructions ?Recorded ?Confirmed ibuprofen 600 mg tablet 600 mg PO Q6H PRN #60 tabs 0 11/05/24 02/27/25 levonorgestrel (Mirena) 1 device intrauterine ONCE 1 03/18/24 02/27/25 clindamycin HCl 150 mg capsule 450 mg (3 x 150 mg) PO TID 10 days 02/27/25 (Cleocin HCl) #90 caps prednisone 20 mg tablet 40 mg (2 x 20 mg) PO ONCE #8 tabs 02/27/25 Previous Rx's ?Medication ?Instructions ?Recorded ibuprofen 600 mg tablet 600 mg PO Q6H PRN #60 tabs 0 11/05/24 clindamycin HCl 150 mg capsule 450 mg (3 x 150 mg) PO TID 10 days 02/27/25 (Cleocin HCl) #90 caps prednisone 20 mg tablet 40 mg (2 x 20 mg) PO ONCE #8 tabs 02/27/25 Allergies Allergy/AdvReac Type Severity Reaction Status Date / Time vancomycin Allergy Skin Rash Verified 02/27/25 10:01 meloxicam AdvReac mouth sores Verified 02/27/25 10:01 naproxen AdvReac mouth sores Verified 02/27/25 10:01 Seasonal Allergies Allergy Mild Nasal Uncoded 02/27/25 10:01 congestion General Stated Complaint: Sorethroat CORBY: 3 Exam Narrative Exam Narrative: Alert and oriented 24-year-old female presenting with bilateral tonsillar swelling right worse than left, no obvious fluctuance or peritonsillar abscess, uvula midline, no trismus, normal phonation, maintaining secretions Course Vital Signs Vital signs: Vital Signs Temperature 36.7 C 02/27/25 09:57 Pulse 89 02/27/25 09:57 Respiratory Rate 18 02/27/25 09:57 Blood Pressure 119/76 02/27/25 09:57 Pulse Oximetry 98 02/27/25 09:57 Temperature 36.7 C 02/27/25 11:21 Temperature Source Oral 02/27/25 11:21 Pulse 89 02/27/25 11:21 Respiratory Rate 18 02/27/25 11:21 Blood Pressure 119/76 02/27/25 11:21 Pulse Oximetry 98 02/27/25 11:21 Pain Level 8 02/27/25 11:21 Lab/Test Results Lab/Test Results: Laboratory Tests Range/Units 02/27/25 12:00 Monoscreen (Negative) Negative Medical Decision Making Results: Strep test negative, negative mono assessment and plan: Patient with tonsillitis, right tonsil slightly larger than left, no obvious large peritonsillar abscess, patient placed on clindamycin, prednisone, she will need recheck in 48 to 72 hours unless her symptoms are to worsen. Did not order fluids as patient states she is been able to tolerate liquids well, pain noted with food. Return precautions reviewed and patient expressed understanding PFSH All Active Problems (Updated 12/19/25 @ 12:31 by UNRULY Macario) Acute tonsillitis (Acute) Abdominal pain (Acute) Gallstones (Acute) Encounter for IUD insertion (Acute) Mirena 12/19/2024 Anxiety (Chronic) Hydroxyzine 75 mg QHS; Zoloft 150 mg; referred to counseling services Stopped Medications 2022 Medical History (Updated 02/27/25 @ 12:31 by UNRULY Macario) Lupus (systemic lupus erythematosus) Arrested active phase of labor Susceptible to varicella (non-immune), currently Rubella non-immune status, antepartum Group B streptococcal carriage complicating Rheumatoid arthritis Polyarthritis (03/22/17) Most recent visit in Apr 2021; no biologics or immunosuppressant medication; just Motrin 600 mg twice daily; Will get US of hands/feet joints- scheduled for Oct 18 2021 Missed menses Vision problems Followed by [facility] Hydradenitis (05/21/17) Multiple recurrent groin/axillary abscesses Surgical History (Updated 02/10/25 @ 11:22 by Jennifer Tovar) Hx laparoscopic cholecystectomy (~02/10/25) Status post primary low transverse section 11/03/2024. Labor progressed. Prominent sacral promontory. Male infant, Apgars 8 and 9. Broussard History of axillary surgery Family History Grandfather Heart disease Mental disorder alcoholism Sister Mental disorder depression/anxiety Grandmother Mental disorder depression,anxiety Other Mental disorder pat uncle-alcoholism Seizure mat aunt and 3 cousins Father Mental disorder drinker-has [id number]- 1 year sober Grandfather Mental disorder alcoholism Social History Smoking/Tobacco Use Status: Former Tobacco Use Quit Date: 03/16/24 Tobacco: How many years used: 7 Second Hand Exposure: No Smoking risk assessment performed?: Yes Alcohol Intake: former Counseling given: Yes Drug use: Never Substance use type: does not use and former substance user Date of last use: marijuana in past Adopted: No Caregiver/Support person: No Household members: significant other and other Details: Lives with dad and step-mom; bio mom not in life since age 7y Housing: apartment Number of Children: 0 number of grandchildren: 0 Communication Needs: None Education Level: high school Do you need help understanding health information?: Never 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 [employer] Pets and animals: Yes (3 cats; 4 dogs) Pets and animals: cat(s) and dog(s) Sexually active: Yes Do you think of yourself as: straight/heterosexual Current gender identity: female What is your relationship status?: living with partner How often do you talk on the phone with friends or family?: three or more times per week How often do you get together with friends or relatives?: once per week Do you belong to any clubs or organized social groups?: no Panel score (0-1 are the most socially isolated patients): 2 What type of physical activity do you participate in: other 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 Duration: 60-90 minutes/day Frequency: 5-6 times per week Special verónica needs: No Seatbelt use: always Drive intox or ride w/intox lumber driver: No Do you feel safe at home: Yes Do you feel safe in your relationship?: Yes Female Reproductive History Menstrual control method: progestin IUCD (removed April 2023) and implanted History History 1 Para 0 Hx # Term Pregnancies 0 Multiple births 0 Hx # Pregnancies 0 Ectopic pregnancies 0 AB induced 0 Hx Number of Living Children 0 AB spontaneous 0 Past Pregnancies Del. Date GA/Weeks # Preg Succ Route Wgt Sex Labor Lgth Anesth esia Location [facility] 11/03/24 38 Yes 3535.186 g Male Mayra Zavaleta
== END 2025-02-27 12:40 | disposition home or self-care (01) ==
PROVIDERS: Emergency Provider Physician Assistant; PCP Family Medicine
DX: J03.90 Acute tonsillitis, unspecified (principal)
CPT/HCPCS: 99283; 86308; J7512